=== PATIENT | female | born 1945 | race Caucasian/White ===

== ENCOUNTER 2016-06-18 19:20 | Emergency (ER) | payer BC, OTHER ==
[2016-06-18] MEDS ORDERED: MORPHINE 4 MG/ML 1ML SYRINGE As Ordered ONE (19:30)
[2016-06-18] MEDS ORDERED: ONDANSETRON 4MG/2ML VIAL (J2405) As Ordered ONE (19:35)
[2016-06-18] MEDS ORDERED: PROPOFOL 1,000 MG/100 ML VIAL As Ordered ONE (19:53)
--- NOTE | 2016-06-18 20:39 | REP ---
Right shoulder three views: There is anterior inferior dislocation of the humeral head. There is possibly a Hill-Sachs lesion of the humeral head. Signed by Neftaly Tee MD 06/18/2016 08:31 P
[2016-06-18] MEDS ORDERED: NORCO 5/325MG TABLET (BULK) As Ordered ONE (20:51)
--- NOTE | 2016-06-18 21:17 | EDDOCDS ---
Nurse's Notes [facility] Name: Zee Dudley Age: 71 yrs Sex: Female : 1945 Arrival Date: 06/18/2016 Time: 19:20 Bed TR1 Private MD: Diagnosis: Anterior dislocation of right humerus Presentation: 06/18 19:23 Presenting complaint: Patient states: tripped injury to right shoulder. didn't hit head srm no LOC. Adult Sepsis Screening: The patient does not have new or worsening altered mentation. Patient's respiratory rate is less than 22. Systolic blood pressure is greater than 100. Patient has a qSOFA score of 0- Negative Sepsis Screen. Suicide/Homicide risk assessment- the patient denies having any suicidal and/or homicidal ideations and does not present with any other emotional, behavioral or mental health complaints. 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 Transition of care: patient was not received from another setting of care. Care prior to arrival: Medications administered prior to arrival: morphine 5 mg IV IV initiated. Saline lock initiated. 20 LAC. 19:23 Acuity: AL Level 4 srm 19:23 Method Of Arrival: Ambulance srm Triage Assessment: 19:31 General: Appears in no apparent distress, Behavior is appropriate for age, cooperative. srm Pain: Pain currently is 10 out of 10 on a pain scale. Musculoskeletal: Circulation, motion, and sensation intact Capillary refill < 3 seconds in right fingers. Historical: - Allergies: no known allergies; - Home Meds: 1. vitamins - PMHx: none; - PSHx: ; eye surgery; - Social history: Smoking status: Patient states was never smoker of tobacco. No barriers to communication noted, The patient speaks fluent Azerbaijani, Speaks appropriately for age. - Family history: Not pertinent. - : The pt / caregiver states he / she is not on anticoagulants. Home medication list is obtained from the patient. - Exposure Risk Screening:: None identified. Screenin:08 Screening information is obtained from the patient. Fall risk: No risks identified. kas2 Assistance ADL's: requires no assistance with activities of daily living. Abuse/DV Screen: The patient / caregiver reports he/she is: not in a situation that causes fear, pain or injury. Nutritional screening: No deficits noted. Advance Directives: Currently, there is no health care proxy. There is no active DNR order. There is no living will. There is an active Power of Ampoule Examiner. home support is adequate. Assessment: 20:06 General: Appears in no apparent distress, uncomfortable, well nourished, well groomed, kas2 Behavior is appropriate for age, cooperative. Pain: Location: right shoulder and right arm Pain currently is 10 out of 10 on a pain scale. Neurological: Level of Consciousness is awake, alert, Oriented to person, place, time. Cardiovascular: Capillary refill < 3 seconds Heart tones S1 S2 present Rhythm is sinus tachycardia No ectopy. Respiratory: Airway is patent Respiratory effort is even, unlabored, Respiratory pattern is regular, symmetrical, Breath sounds are clear bilaterally. Derm: Skin is intact, is healthy with good turgor, Skin is dry, Skin is pink, warm & dry. Skin temperature is warm. Musculoskeletal: Circulation, motion, and sensation intact Capillary refill < 3 seconds Range of motion limited in right shoulder. Injury Description: pt fell. 20:45 General: PACKAGE LINE RELIEF OPERATOR up walking with patient at this time. Patients gait is stable. A+OX3. No kas2 apparent distress. Patient states pain in shoulder is much better 2/10. Good CMS in R hand and arm. Sling applied. . Vital Signs: 19:33 BP 193 / 106; Pulse 115; Resp 18; Temp 99.3(O); Pulse Ox 93% on R/A; Weight 76.2 kg mdr (R); Height 5 ft. 0 in. (152.40 cm) (R); Pain 10/10; 19:50 BP 196 / 100; Pulse 109; Resp 22; Pulse Ox 95% on Venturi mask; kas2 19:50 BP 157 / 72; Pulse 110; Resp 20; Pulse Ox 95% on Venturi mask; kas2 20:01 BP 154 / 81; Pulse 111; Resp 19; Pulse Ox 92% on 4 lpm NC; kas2 20:05 BP 172 / 74; Pulse 107; Resp 20; Pulse Ox 95% on 2 lpm NC; Pain 2/10; kas2 20:12 BP 182 / 89; Pulse 108; Resp 20; Pulse Ox 95% on 2 lpm NC; Pain 2/10; kas2 20:21 BP 182 / 99; Pulse 118; Resp 18; Pulse Ox 95% 2 lpm ; Pain 2/10; kas2 20:39 Temp 98.9(O); mdr 20:47 BP 175 / 85; Pulse 99; Resp 18; Pulse Ox 99% on R/A; Pain 2/10; kas2 19:33 Body Mass Index 32.81 (76.20 kg, 152.40 cm) mdr Vitals: 21:12 Log In Time N/A - ambulance arrival. kas2 ED Course: 19:21 Patient visited by Jesus Flores PCA. kb5 19:21 Nelsy Alatorre,RN is Primary Nurse. kb5 19:21 Harmony Flores RN is Primary Nurse. kb5 19:21 Patient moved to Waiting kb5 19:21 Patient moved to 3 kb5 19:25 Triage Initiated srm 19:28 [facility] ke 19:28 Patient visited by Kirt Palomo FNP. ke 19:28 Patient visited by Kirt Palomo FNP. ke 19:31 Patient visited by Yvonne Cordoba RN. srm 19:34 Patient visited by Jl Rosario PCA. mdr 20:09 Patient visited by Kirt Palomo FNP. ke 20:09 Maintain field IV. Dressing intact. Site clean & dry. Gauge & site: 20G right AC. IV is kas2 patent, is intact. 20:10 Patient visited by Harmony Flores RN. kas2 20:16 [facility] Payment Agreement was scanned into boomtrain and attached to record. zo 20:24 Patient visited by Harmony Flores RN. kas2 20:34 [facility] is Referral Physician. ke 20:40 Patient visited by Jl Rosario PCA. mdr 20:42 Shoulder, Complete Returned. EDMS 20:47 Patient visited by Harmony Flores RN. kas2 21:08 [facility] Discontinued IV bleeding controlled, pressure dressing applied, No redness/swelling at kas2 site. No procedures done that require assistance. 21:11 The patient / caregiver is instructed regarding the plan of care and ED course. kas2 21:12 Patient visited by Harmony Flores RN. kas2 M. Sedation: 19:50 Pre-procedure: Name of procedure: Relocation of right shoulder The provider performing kas2 the procedure is Kirt GATICA Monitoring RN: Harmony Flores RN Other Staff: Yvonne Campoverde RN Reviewed instructions and expectations with Has had drug/anesthesia reactions to none Reviewed patient's current meds list. transportation aide on. Cardiac rhythm sinus tachycardia Pulse ox on. Oxygen via face mask \T\ 40% 19:50 Q 5 minute assessment 19:50 Q 5 minute assessment Level of Consciousness: Drowsy Color: Ramer Skin: Warm / Dry Pain: Unable to quantify pain 19:50 Intra-procedure: Procedure began at 19:56 Patient response: skin warm/dry, resps even/unlabored, IV patent, Propofol 60mg IV at 1956. 19:50 Post-procedure: Procedure ended at 19:58 the total procedure time was less than 30 minutes. 20:01 Q 5 minute assessment Level of Consciousness: Drowsy Color: Ramer Skin: Warm / Dry kas2 Pain: Unable to quantify pain 20:01 Q 5 minute assessment Level of Consciousness: Responds Color: Ramer Skin: Warm / Dry Pain: 0 / 10 20:05 Q 5 minute assessment Level of Consciousness: Alert / Oriented Color: Ramer Skin: kas2 Warm / Dry Pain: 0 / 10 20:12 Q 5 minute assessment Level of Consciousness: Responds Color: Ramer Skin: Warm / Dry kas2 Pain: 2 / 10 20:12 Q 5 minute assessment Level of Consciousness: Responds Color: Ramer Skin: Warm / Dry kas2 Pain: 2 / 10 Administered Medications: 19:34 Drug: morphine 4 mg [morphine 4 mg/mL intravenous cartridge (1 mL)] Route: IVP; Site: kas2 left antecubital; 19:37 Drug: Ondansetron 4 mg [ondansetron HCl 2 mg/mL intravenous solution (2 mL)] Route: kas2 IVP; Site: left antecubital; 21:05 Drug: HYDROcodone-acetaminophen 4 pack- 1 packets [hydrocodone 5 mg-acetaminophen 325 kas2 mg tablet (1 tabs)] {Co-Signature: nn1 (Estrellita Arzate RN).} Route: PO; RT: 19:50 Sedation Time: 1955Minutes. O2 via Venturi mask \T\ 15L/min - 50%. jh6 Order Results: Radiology Order: Shoulder, Complete Test: Shoulder, Complete REASON FOR EXAMINATION: Trauma; Right shoulder three views:; ; There is anterior inferior dislocation of the humeral head. There is possibly a; Hill-Sachs lesion of the humeral head.; ; ; Signed by; Neftaly Tee MD 06/18/2016 08:31 P; Outcome: 20:34 Discharge ordered by Provider. olu 21:08 Discharge Assessment: patient administered narcotics - yes. Pt provided with safe kas discharge. The following High Risk Discharge criteria are identified: None. Discharged to home ambulatory, with family. Condition: good Condition: stable Condition: improved. No special radiology studies were completed. Property :Personal belongings accompany Pt. 21:[address] [facility] Signatures: Dispatcher MedHost EDMS Yvonne Cordoba, RN RN [facility] Kirt Palomo, SCREENER AND BLENDER OPERATOR SCREENER AND BLENDER OPERATOR Tika Scott Kristopher, PACKAGE LINE RELIEF OPERATOR PACKAGE LINE RELIEF OPERATOR kb5 Leonid Patle 6 Stephanie Ross, RN RN sls1 Jl Rosario, PACKAGE LINE RELIEF OPERATOR PACKAGE LINE RELIEF OPERATOR Harmony Ruth,JOSELINE RN kas2 Estrellita Arzate RN nn1 MTDKeyshawn
--- NOTE | 2016-06-18 21:18 | EDDOCDS ---
Physician Documentation [facility] Name: Zee Dudley Age: 71 yrs Sex: Female : 1945 Arrival Date: 06/18/2016 Time: 19:20 Bed TR1 Private MD: Disposition: 06/18/16 20:34 Discharged to Home/Self Care. Impression: Anterior dislocation of right humerus. - Condition is Stable. - Discharge Instructions: Elastic Bandage and RICE, Shoulder Dislocation, Arm Sling Use, [id number]. - Prescriptions for Evans 5- 325 mg Oral Tablet - take 1 tablet by ORAL route every 6 hours As needed MDD: 4 tabs; 20 tablet. - Medication Reconciliation, Local Pharmacy Hours form. - Follow up: [facility]; When: Call to arrange an appointment; Reason: Further diagnostic work-up, Continuance of care. Follow up: Private Physician; When: 4 - 5 days; Reason: Recheck today's complaints, Continuance of care. - Problem is new. - Symptoms have improved. Historical: - Allergies: no known allergies; - Home Meds: 1. vitamins - PMHx: none; - PSHx: ; eye surgery; - Social history: Smoking status: Patient states was never smoker of tobacco. No barriers to communication noted, The patient speaks fluent Burkinan, Speaks appropriately for age. - Family history: Not pertinent. - : The pt / caregiver states he / she is not on anticoagulants. Home medication list is obtained from the patient. - Exposure Risk Screening:: None identified. Vital Signs: 06/18 19:33 BP 193 / 106; Pulse 115; Resp 18; Temp 99.3(O); Pulse Ox 93% on R/A; Weight 76.2 kg / mdr 167.99 lbs (R); Height 5 ft. 0 in. (152.40 cm) (R); Pain 10/10; 19:50 BP 196 / 100; Pulse 109; Resp 22; Pulse Ox 95% on Venturi mask; kas2 19:50 BP 157 / 72; Pulse 110; Resp 20; Pulse Ox 95% on Venturi mask; kas2 20:01 BP 154 / 81; Pulse 111; Resp 19; Pulse Ox 92% on 4 lpm NC; kas2 20:05 BP 172 / 74; Pulse 107; Resp 20; Pulse Ox 95% on 2 lpm NC; Pain 2/10; kas2 20:12 BP 182 / 89; Pulse 108; Resp 20; Pulse Ox 95% on 2 lpm NC; Pain 2/10; kas2 20:21 BP 182 / 99; Pulse 118; Resp 18; Pulse Ox 95% 2 lpm ; Pain 2/10; kas2 20:39 Temp 98.9(O); mdr 20:47 BP 175 / 85; Pulse 99; Resp 18; Pulse Ox 99% on R/A; Pain 2/10; kas2 19:33 Body Mass Index 32.81 (76.20 kg, 152.40 cm) mdr MDM: 19:28 morphine 4 mg IVP every 30 minutes; Document pain score/vitals after each dose (Hold if ke SBP < 90mmHg) x2 ordered. 19:29 Ondansetron 4 mg IVP once ordered. ke 19:29 Shoulder, Complete Ordered. EDMS 20:01 Shoulder (1 View) Ordered. EDMS 20:15 Financial registration complete. zo 20:16 [facility] Payment Agreement was scanned into Cartagenia and attached to record. zo 20:33 HYDROcodone-acetaminophen 4 pack- 5 mg-325 mg 1 packets PO Per package directions; ke Dispense with patient. 1 po q4h prn for pain ordered. Administered Medications: 19:34 Drug: morphine 4 mg [morphine 4 mg/mL intravenous cartridge (1 mL)] Route: IVP; Site: [facility] left antecubital; 19:37 Drug: Ondansetron 4 mg [ondansetron HCl 2 mg/mL intravenous solution (2 mL)] Route: kas2 IVP; Site: left antecubital; 21:05 Drug: HYDROcodone-acetaminophen 4 pack- 1 packets [hydrocodone 5 mg-acetaminophen 325 kas2 mg tablet (1 tabs)] {Co-Signature: nn1 (Estrellita Arzate RN).} Route: PO; Signatures: Dispatcher MedHost EDMS Yvonne Cordoba RN Kirt Capone, EXTERMINATOR TERMITE EXTERMINATOR TERMITE Tika Scott Shannon, RN RN sls1 Harmony Flores RN RN kas2 Estrellita Arzate RN nn1 The chart was reviewed and I authenticate all verbal orders and agree with the evaluation and treatment provided.Attachments: 20:16 [place] Payment Agreement zo MTDD
--- NOTE | 2016-06-19 01:36 | REP ---
Clinical: Post reduction. Technique: Portable neutral view of the right shoulder. Findings: Satisfactory reduction appreciated. Age-related degenerative changes noted. No acute fracture identified. Impression: Satisfactory reduction. No obvious acute fracture. Signed by Rory Nichols MD 06/19/2016 01:27 A
--- NOTE | 2016-06-20 22:17 | EDDOCDS ---
Physician Documentation [facility] Name: Zee Dudley Age: 71 yrs Sex: Female : 1945 Arrival Date: 06/18/2016 Time: 19:20 Bed TR1 Private MD: Disposition: 06/18/16 20:34 Discharged to Home/Self Care. Impression: Anterior dislocation of right humerus. - Condition is Stable. - Discharge Instructions: Elastic Bandage and RICE, Shoulder Dislocation, Arm Sling Use, [id number]. - Prescriptions for [place] 5- 325 mg Oral Tablet - take 1 tablet by ORAL route every 6 hours As needed MDD: 4 tabs; 20 tablet. - Medication Reconciliation, Local Pharmacy Hours form. - Follow up: [facility]; When: Call to arrange an appointment; Reason: Further diagnostic work-up, Continuance of care. Follow up: Private Physician; When: 4 - 5 days; Reason: Recheck today's complaints, Continuance of care. - Problem is new. - Symptoms have improved. Historical: - Allergies: no known allergies; - Home Meds: 1. vitamins - PMHx: none; - PSHx: ; eye surgery; - Social history: Smoking status: Patient states was never smoker of tobacco. No barriers to communication noted, The patient speaks fluent Qatari, Speaks appropriately for age. - Family history: Not pertinent. - : The pt / caregiver states he / she is not on anticoagulants. Home medication list is obtained from the patient. - Exposure Risk Screening:: None identified. Vital Signs: 06/18 19:33 BP 193 / 106; Pulse 115; Resp 18; Temp 99.3(O); Pulse Ox 93% on R/A; Weight 76.2 kg / mdr 167.99 lbs (R); Height 5 ft. 0 in. (152.40 cm) (R); Pain 10/10; 19:50 BP 196 / 100; Pulse 109; Resp 22; Pulse Ox 95% on Venturi mask; kas2 19:50 BP 157 / 72; Pulse 110; Resp 20; Pulse Ox 95% on Venturi mask; kas2 20:01 BP 154 / 81; Pulse 111; Resp 19; Pulse Ox 92% on 4 lpm NC; kas2 20:05 BP 172 / 74; Pulse 107; Resp 20; Pulse Ox 95% on 2 lpm NC; Pain 2/10; kas2 20:12 BP 182 / 89; Pulse 108; Resp 20; Pulse Ox 95% on 2 lpm NC; Pain 2/10; kas2 20:21 BP 182 / 99; Pulse 118; Resp 18; Pulse Ox 95% 2 lpm ; Pain 2/10; kas2 20:39 Temp 98.9(O); mdr 20:47 BP 175 / 85; Pulse 99; Resp 18; Pulse Ox 99% on R/A; Pain 2/10; kas2 19:33 Body Mass Index 32.81 (76.20 kg, 152.40 cm) mdr MDM: 19:28 morphine 4 mg IVP every 30 minutes; Document pain score/vitals after each dose (Hold if ke SBP < 90mmHg) x2 ordered. 19:29 Ondansetron 4 mg IVP once ordered. ke 19:29 Shoulder, Complete Ordered. EDMS 20:01 Shoulder (1 View) Ordered. EDMS 20:15 Financial registration complete. zo 20:16 [facility] Payment Agreement was scanned into [employer] and attached to record. zo 20:33 HYDROcodone-acetaminophen 4 pack- 5 mg-325 mg 1 packets PO Per package directions; ke Dispense with patient. 1 po q4h prn for pain ordered. 06/19 11:18 T-Sheet-- Draft Copy was scanned into [employer] and attached to record. gb 11:18 Trend VS was scanned into [employer] and attached to record. gb 11:19 [place] Protocol was scanned into [employer] and attached to record. gb 11:19 Consents was scanned into [employer] and attached to record. gb Administered Medications: 06/18 19:34 Drug: morphine 4 mg [morphine 4 mg/mL intravenous cartridge (1 mL)] Route: IVP; Site: kas2 left antecubital; 19:37 Drug: Ondansetron 4 mg [ondansetron HCl 2 mg/mL intravenous solution (2 mL)] Route: kas2 IVP; Site: left antecubital; 21:05 Drug: HYDROcodone-acetaminophen 4 pack- 1 packets [hydrocodone 5 mg-acetaminophen 325 kas2 mg tablet (1 tabs)] {Co-Signature: nn1 (Estrellita Arzate RN).} Route: PO; Signatures: Dispatcher MedHost EDMS Beryl, Yvonne, RN RN srm Celia Higgins, Reg Reg gb Kirt Palomo, BLOCK TRADER BLOCK TRADER Tika Scott Shannon, RN RN sls1 Harmony Flores RN RN kas2 Estrellita Arzate RN nn1 The chart was reviewed and I authenticate all verbal orders and agree with the evaluation and treatment provided.Attachments: 20:16 [facility] Payment Agreement zo 06/19 11:18 T-Sheet-- Draft Copy gb Chart Complete MTDD
--- NOTE | 2016-06-20 22:17 | EDDOCDS ---
Physician Documentation [facility] Name: Zee Dudley Age: 71 yrs Sex: Female : 1945 Arrival Date: 06/18/2016 Time: 19:20 Bed TR1 Private MD: Disposition: 06/18/16 20:34 Discharged to Home/Self Care. Impression: Anterior dislocation of right humerus. - Condition is Stable. - Discharge Instructions: Elastic Bandage and RICE, Shoulder Dislocation, Arm Sling Use, [id number]. - Prescriptions for [place] 5- 325 mg Oral Tablet - take 1 tablet by ORAL route every 6 hours As needed MDD: 4 tabs; 20 tablet. - Medication Reconciliation, Local Pharmacy Hours form. - Follow up: [facility]; When: Call to arrange an appointment; Reason: Further diagnostic work-up, Continuance of care. Follow up: Private Physician; When: 4 - 5 days; Reason: Recheck today's complaints, Continuance of care. - Problem is new. - Symptoms have improved. Historical: - Allergies: no known allergies; - Home Meds: 1. vitamins - PMHx: none; - PSHx: ; eye surgery; - Social history: Smoking status: Patient states was never smoker of tobacco. No barriers to communication noted, The patient speaks fluent Djiboutian, Speaks appropriately for age. - Family history: Not pertinent. - : The pt / caregiver states he / she is not on anticoagulants. Home medication list is obtained from the patient. - Exposure Risk Screening:: None identified. Vital Signs: 06/18 19:33 BP 193 / 106; Pulse 115; Resp 18; Temp 99.3(O); Pulse Ox 93% on R/A; Weight 76.2 kg / mdr 167.99 lbs (R); Height 5 ft. 0 in. (152.40 cm) (R); Pain 10/10; 19:50 BP 196 / 100; Pulse 109; Resp 22; Pulse Ox 95% on Venturi mask; kas2 19:50 BP 157 / 72; Pulse 110; Resp 20; Pulse Ox 95% on Venturi mask; kas2 20:01 BP 154 / 81; Pulse 111; Resp 19; Pulse Ox 92% on 4 lpm NC; kas2 20:05 BP 172 / 74; Pulse 107; Resp 20; Pulse Ox 95% on 2 lpm NC; Pain 2/10; kas2 20:12 BP 182 / 89; Pulse 108; Resp 20; Pulse Ox 95% on 2 lpm NC; Pain 2/10; kas2 20:21 BP 182 / 99; Pulse 118; Resp 18; Pulse Ox 95% 2 lpm ; Pain 2/10; kas2 20:39 Temp 98.9(O); mdr 20:47 BP 175 / 85; Pulse 99; Resp 18; Pulse Ox 99% on R/A; Pain 2/10; kas2 19:33 Body Mass Index 32.81 (76.20 kg, 152.40 cm) mdr MDM: 19:28 morphine 4 mg IVP every 30 minutes; Document pain score/vitals after each dose (Hold if ke SBP < 90mmHg) x2 ordered. 19:29 Ondansetron 4 mg IVP once ordered. ke 19:29 Shoulder, Complete Ordered. EDMS 20:01 Shoulder (1 View) Ordered. EDMS 20:15 Financial registration complete. zo 20:16 [place] Payment Agreement was scanned into Mobile[employer] and attached to record. zo 20:33 HYDROcodone-acetaminophen 4 pack- 5 mg-325 mg 1 packets PO Per package directions; ke Dispense with patient. 1 po q4h prn for pain ordered. 06/19 11:18 T-Sheet-- Draft Copy was scanned into MobileTag and attached to record. gb 11:18 Trend VS was scanned into Mobile[employer] and attached to record. gb 11:19 [place] Protocol was scanned into Mobile[employer] and attached to record. gb 11:19 Consents was scanned into MobileTag and attached to record. gb Administered Medications: 06/18 19:34 Drug: morphine 4 mg [morphine 4 mg/mL intravenous cartridge (1 mL)] Route: IVP; Site: kas2 left antecubital; 19:37 Drug: Ondansetron 4 mg [ondansetron HCl 2 mg/mL intravenous solution (2 mL)] Route: kas2 IVP; Site: left antecubital; 21:05 Drug: HYDROcodone-acetaminophen 4 pack- 1 packets [hydrocodone 5 mg-acetaminophen 325 kas2 mg tablet (1 tabs)] {Co-Signature: nn1 (Estrellita Arzate RN).} Route: PO; Signatures: Dispatcher MedHost EDMS Beryl, Yvonne, RN RN srm Celia Higgins, Reg Reg gb Kirt Palomo, HAIR BLENDER HAIR BLENDER Tika Scott Shannon, RN RN sls1 Harmony Flores RN RN kas2 Estrellita Arzate RN nn1 The chart was reviewed and I authenticate all verbal orders and agree with the evaluation and treatment provided.Attachments: 20:16 [place] Payment Agreement zo 06/19 11:18 T-Sheet-- Draft Copy gb Chart Complete MTDD
--- NOTE | 2016-06-20 22:18 | EDDOCDS ---
Nurse's Notes [facility] Name: Zee Dudley Age: 71 yrs Sex: Female : 1945 Arrival Date: 06/18/2016 Time: 19:20 Bed TR1 Private MD: Diagnosis: Anterior dislocation of right humerus Presentation: 06/18 19:23 Presenting complaint: Patient states: tripped injury to right shoulder. didn't hit head srm no LOC. Adult Sepsis Screening: The patient does not have new or worsening altered mentation. Patient's respiratory rate is less than 22. Systolic blood pressure is greater than 100. Patient has a qSOFA score of 0- Negative Sepsis Screen. Suicide/Homicide risk assessment- the patient denies having any suicidal and/or homicidal ideations and does not present with any other emotional, behavioral or mental health complaints. Status: Patient is not a manager administrative services or dependent. Transition of care: patient was not received from another setting of care. Care prior to arrival: Medications administered prior to arrival: morphine 5 mg IV IV initiated. Saline lock initiated. 20 LAC. 19:23 Acuity: AL Level 4 srm 19:23 Method Of Arrival: Ambulance srm Triage Assessment: 19:31 General: Appears in no apparent distress, Behavior is appropriate for age, cooperative. srm Pain: Pain currently is 10 out of 10 on a pain scale. Musculoskeletal: Circulation, motion, and sensation intact Capillary refill < 3 seconds in right fingers. Historical: - Allergies: no known allergies; - Home Meds: 1. vitamins - PMHx: none; - PSHx: ; eye surgery; - Social history: Smoking status: Patient states was never smoker of tobacco. No barriers to communication noted, The patient speaks fluent [place], Speaks appropriately for age. - Family history: Not pertinent. - : The pt / caregiver states he / she is not on anticoagulants. Home medication list is obtained from the patient. - Exposure Risk Screening:: None identified. Screenin:08 Screening information is obtained from the patient. Fall risk: No risks identified. kas2 Assistance ADL's: requires no assistance with activities of daily living. Abuse/DV Screen: The patient / caregiver reports he/she is: not in a situation that causes fear, pain or injury. Nutritional screening: No deficits noted. Advance Directives: Currently, there is no health care proxy. There is no active DNR order. There is no living will. There is an active Power of Check Out Cashier. home support is adequate. Assessment: 20:06 General: Appears in no apparent distress, uncomfortable, well nourished, well groomed, kas2 Behavior is appropriate for age, cooperative. Pain: Location: right shoulder and right arm Pain currently is 10 out of 10 on a pain scale. Neurological: Level of Consciousness is awake, alert, Oriented to person, place, time. Cardiovascular: Capillary refill < 3 seconds Heart tones S1 S2 present Rhythm is sinus tachycardia No ectopy. Respiratory: Airway is patent Respiratory effort is even, unlabored, Respiratory pattern is regular, symmetrical, Breath sounds are clear bilaterally. Derm: Skin is intact, is healthy with good turgor, Skin is dry, Skin is pink, warm & dry. Skin temperature is warm. Musculoskeletal: Circulation, motion, and sensation intact Capillary refill < 3 seconds Range of motion limited in right shoulder. Injury Description: pt fell. 20:45 General: PRINCIPAL SECURITY ARCHITECT up walking with patient at this time. Patients gait is stable. A+OX3. No kas2 apparent distress. Patient states pain in shoulder is much better 2/10. Good CMS in R hand and arm. Sling applied. . Vital Signs: 19:33 BP 193 / 106; Pulse 115; Resp 18; Temp 99.3(O); Pulse Ox 93% on R/A; Weight 76.2 kg mdr (R); Height 5 ft. 0 in. (152.40 cm) (R); Pain 10/10; 19:50 BP 196 / 100; Pulse 109; Resp 22; Pulse Ox 95% on Venturi mask; kas2 19:50 BP 157 / 72; Pulse 110; Resp 20; Pulse Ox 95% on Venturi mask; kas2 20:01 BP 154 / 81; Pulse 111; Resp 19; Pulse Ox 92% on 4 lpm NC; kas2 20:05 BP 172 / 74; Pulse 107; Resp 20; Pulse Ox 95% on 2 lpm NC; Pain 2/10; kas2 20:12 BP 182 / 89; Pulse 108; Resp 20; Pulse Ox 95% on 2 lpm NC; Pain 2/10; kas2 20:21 BP 182 / 99; Pulse 118; Resp 18; Pulse Ox 95% 2 lpm ; Pain 2/10; kas2 20:39 Temp 98.9(O); mdr 20:47 BP 175 / 85; Pulse 99; Resp 18; Pulse Ox 99% on R/A; Pain 2/10; kas2 19:33 Body Mass Index 32.81 (76.20 kg, 152.40 cm) mdr Vitals: 21:12 Log In Time N/A - ambulance arrival. [facility] ED Course: 19:21 Patient visited by Jesus Flores PCA. kb5 19:21 Nelsy Alatorre,RN is Primary Nurse. kb5 19:21 Harmony Flores,RN is Primary Nurse. kb5 19:21 Patient moved to Waiting kb5 19:21 Patient moved to 3 kb5 19:25 Triage Initiated srm 19:28 [facility] ke 19:28 Patient visited by Kirt Palomo FNP. ke 19:28 Patient visited by Kirt Palomo FNP. ke 19:31 Patient visited by Yvonne Cordoba RN. srm 19:34 Patient visited by Jl Rosario PCA. mdr 20:09 Patient visited by Kirt Palomo FNP. ke 20:09 Maintain field IV. Dressing intact. Site clean & dry. Gauge & site: 20G right AC. IV is kas patent, is intact. 20:10 Patient visited by Harmony Flores RN. kas2 20:16 [facility] Payment Agreement was scanned into [employer] and attached to record. zo 20:24 Patient visited by Harmony Flores RN. kas2 20:34 [facility] is Referral Physician. ke 20:40 Patient visited by Jl Rosario PCA. mdr 20:42 Shoulder, Complete Returned. EDMS 20:47 Patient visited by Harmony Flores RN. kas2 21:08 Patient moved to [place] [id number] 21:08 Discontinued IV bleeding controlled, pressure dressing applied, No redness/swelling at [facility] site. No procedures done that require assistance. 21:11 The patient / caregiver is instructed regarding the plan of care and ED course. kas2 21:12 Patient visited by Harmony Flores RN. kas2 06/19 01:45 Shoulder (1 View) Returned. EDMS 11:18 T-Sheet-- Draft Copy was scanned into [employer] and attached to record. gb 11:18 Trend VS was scanned into [employer] and attached to record. gb 11:19 [employer] Protocol was scanned into [employer] and attached to record. gb 11:19 Consents was scanned into [employer] and attached to record. uri Castillo. Sedation: 06/18 19:50 Pre-procedure: Name of procedure: Relocation of right shoulder The provider performing kas2 the procedure is Kirt Palomo PERIANESTHESIA MANAGER Monitoring RN: Harmony Flores RN Other Staff: Yvonne Campoverde RN Reviewed instructions and expectations with Has had drug/anesthesia reactions to none Reviewed patient's current meds list. pizza baker on. Cardiac rhythm sinus tachycardia Pulse ox on. Oxygen via face mask \T\ 40% Q 5 minute assessment Q 5 minute assessment Level of Consciousness: Drowsy Color: [place] Skin: Warm / Dry Pain: Unable to quantify pain Intra-procedure: Procedure began at 19:56 Patient response: skin warm/dry, resps even/unlabored, IV patent, Propofol 60mg IV at 1957. Post-procedure: Procedure ended at 19:58 the total procedure time was less than 30 minutes. 20:01 Q 5 minute assessment Level of Consciousness: Drowsy Color: [place] Skin: Warm / Dry kas2 Pain: Unable to quantify pain 20:01 Q 5 minute assessment Level of Consciousness: Responds Color: [place] Skin: Warm / Dry Pain: 0 / 10 20:05 Q 5 minute assessment Level of Consciousness: Alert / Oriented Color: [place] Skin: kas2 Warm / Dry Pain: 0 / 10 20:12 Q 5 minute assessment Level of Consciousness: Responds Color: [place] Skin: Warm / Dry kas2 Pain: 2 / 10 20:12 Q 5 minute assessment Level of Consciousness: Responds Color: [place] Skin: Warm / Dry kas2 Pain: 2 / 10 Administered Medications: 19:34 Drug: morphine 4 mg [morphine 4 mg/mL intravenous cartridge (1 mL)] Route: IVP; Site: kas2 left antecubital; 19:37 Drug: Ondansetron 4 mg [ondansetron HCl 2 mg/mL intravenous solution (2 mL)] Route: kas2 IVP; Site: left antecubital; 21:05 Drug: HYDROcodone-acetaminophen 4 pack- 1 packets [hydrocodone 5 mg-acetaminophen 325 kas2 mg tablet (1 tabs)] {Co-Signature: nn1 (Estrellita Arzate RN).} Route: PO; Attachments: 11:18 Trend VS 11:19 [employer] Protocol 11:19 Consents RT: 06/18 19:50 Sedation Time: 1956Minutes. O2 via Venturi mask \T\ 15L/min - 50%. [email or web address] Order Results: Radiology Order: Shoulder, Complete Test: Shoulder, Complete REASON FOR EXAMINATION: Trauma; Right shoulder three views:; ; There is anterior inferior dislocation of the humeral head. There is possibly a; Hill-Sachs lesion of the humeral head.; ; ; Signed by; Neftaly Tee MD 06/18/2016 08:31 P; Radiology Order: Shoulder (1 View) Test: Shoulder (1 View) REASON FOR EXAMINATION: post reduction; Clinical: Post reduction.; ; Technique: Portable neutral view of the right shoulder.; ; Findings:; Satisfactory reduction appreciated. Age-related degenerative changes noted. No; acute fracture identified.; ; Impression:; Satisfactory reduction. No obvious acute fracture.; ; ; Signed by; Rory Nichols MD 06/19/2016 01:27 A; Outcome: 20:34 Discharge ordered by Provider. 21:08 Discharge Assessment: patient administered narcotics - yes. Pt provided with safe [facility] discharge. The following High Risk Discharge criteria are identified: None. Discharged to home ambulatory, with family. Condition: good Condition: stable Condition: improved. No special radiology studies were completed. Property :Personal belongings accompany Pt. 21:16 Patient left the ED. sls1 Signatures: Dispatcher [employer] EDMS Yvonne Cordoba, RN RN [facility] Celia Higgins, Reg Reg Kirt Palomo, PERIANESTHESIA MANAGER PERIANESTHESIA MANAGER Tika Scott Kristopher, PRINCIPAL SECURITY ARCHITECT PRINCIPAL SECURITY ARCHITECT kb5 Leonid Patel 6 Stephanie Ross RN RN sls1 Jl Rosario, PRINCIPAL SECURITY ARCHITECT PRINCIPAL SECURITY ARCHITECT Harmony Ruth RN RN kas2 Estrellita Arzate RN nn1 Chart Complete MTDD
== END 2016-06-18 21:16 | disposition home or self-care (01) ==
LOC: M ED 19:20
DX: S43.014A Anterior dislocation of right humerus, initial encounter (principal); W01.0XXA Fall on same level from slipping, tripping and stumbling without subsequent striking against object, initial encounter; Y92.89 Other specified places as the place of occurrence of the external cause; Y93.89 Activity, other specified; Y99.0 Civilian activity done for income or pay
CPT/HCPCS: 23650; 73020; 73030; 93041; 96374; 96375; 99285; J2405

== ENCOUNTER 2016-10-18 08:05 | Inpatient (IN) | payer MEDICARE ==
[~2016-10-18] VITALS: Ht 154.9 cm; Wt 76.2 kg
[2016-10-18] MEDS ORDERED: PRIL20CA9 PO (08:44)
[2016-10-18] MEDS: SENOKOT S TAB PO SCH ×2 (09:00→20:38)
[2016-10-18] MEDS ORDERED: MORPHINE 4 MG/ML 1ML SYRINGE IV ONE (09:15)
[2016-10-18 09:43] LABS: BASO % 0.2 % (0.0-1.0); EOS # 0.2 K/mm3 (0.0-0.50); EOS % 0.9 % (0.0-3.0); LARGE UNSTAINED CELL # 0.1 K/mm3 (0.0-0.4); LARGE UNSTAINED CELL % 0.7 % (0.0-4.0); LYMPH # 1.1 K/mm3 (1.5-4.5); LYMPH % 5.7 % (24.0-44.0); MEAN CORPUSCULAR HGB CONC 32.6 g/dl (32.0-36.5); MONO # 0.8 K/mm3 (0.0-0.8); MONO % 4.3 % (0.0-5.0); NEUTROPHILS # 15.9 K/mm3 (1.8-7.7); NEUTROPHILS % 88.3 % (36.0-66.0); PLATELET COUNT, AUTOMATED 284 k/mm3 (150-450); WHITE BLOOD COUNT 18.1 K/mm3 (4.0-10.0)
[2016-10-18 09:48] LABS: INR 0.93
[2016-10-18 09:58] LABS: ALBUMIN 3.4 GM/DL (3.2-5.2); ALBUMIN/GLOBULIN RATIO 0.76 (1.00-1.93); ALKALINE PHOSPHATASE 274 U/L (45-117); ALT/SGPT 47 U/L (12-78); ANION GAP 16 MEQ/L (8-16); AST/SGOT 23 U/L (15-37); BILIRUBIN,DIRECT 0.1 MG/DL (0.0-0.2); BILIRUBIN,TOTAL 0.5 MG/DL (0.2-1.0); BLOOD UREA NITROGEN 19 MG/DL (7-18); CALCIUM LEVEL 9.6 MG/DL (8.8-10.2); CARBON DIOXIDE LEVEL 23 MEQ/L (21-32); CHLORIDE LEVEL 92 MEQ/L (98-107); CREATININE FOR GFR 0.72 MG/DL (0.55-1.02); GLOMERULAR FILTRATION RATE > 60.0 (>39); POTASSIUM SERUM 4.6 MEQ/L (3.5-5.1); SODIUM LEVEL 131 MEQ/L (136-145); TOTAL PROTEIN 7.9 GM/DL (6.4-8.2)
[2016-10-18 10:08] LABS: GLUCOSE, FASTING 520 MG/DL (83-110)
[2016-10-18] MEDS ORDERED: HYDROmorphone HCL 1 MG/ML SYRINGE (J1170) IV ONE (10:15)
--- NOTE | 2016-10-18 10:22 | REP ---
Clinical: Pain on inspiration. Technique: PA and lateral. Comparison: None available. Findings: Bibasilar atelectasis/infiltrates are appreciated along with suspected small pleural effusion. Mediastinum and cardiac silhouette are normal. No pneumothorax. Skeletal structures normal for age. Impression: Bibasilar infiltrate/atelectasis with suspected small pleural effusion. Signed by Rory Nichols MD 10/18/2016 10:13 A
[2016-10-18] MEDS ORDERED: HumuLIN R (REGULAR) INSULIN (NovoLIN R) **100U/ML** PER UNIT IV ONE (11:00)
[2016-10-18] MEDS ORDERED: ISOVUE-370 76% 100ML VIAL (Q9967) As Ordered ONE (11:13)
[2016-10-18 11:27] LABS: VENOUS BASE EXCESS -3.3 (-2.0-2.0); VENOUS O2 SATURATION 69.2 % (60.0-80.0); VENOUS PARTIAL PRESSURE CO2 38.2 mmHg (38.0-50.0); VENOUS PARTIAL PRESSURE O2 37.1 mmHg (30.0-50.0); VENOUS TOTAL CO2 22.7 MEQ/L (24.0-28.0)
[2016-10-18] MEDS ORDERED: LevoFLOXacin IV 750 MG in APPROPRIATE DILUENT 1 EA IV ONE (11:45)
[2016-10-18] MEDS ORDERED: NS 1,000 ML IV ONE (11:45)
--- NOTE | 2016-10-18 11:48 | REP ---
Clinical: Acute chest pain. Technique: Axial contrast enhanced images from the thoracic inlet to the upper abdomen using 100 ml Isovue 370 intravenous contrast material with coronal and sagittal re-formations. Findings: Partially occlusive filling defects are identified with in the right main pulmonary artery extending into the proximal right middle lobe pulmonary artery as well as into few proximal right lower lobe branch pulmonary arteries. Partially occlusive filling defects are also identified in the first order left lower lobe pulmonary artery extending into multiple lower lobe pulmonary arterial branches and findings suggest combination of both acute and chronic pulmonary emboli. Associated scattered bibasilar ground-glass opacities suggest elements of atelectasis. Diffuse chronic interstitial changes with elements of predominant lower lobe fibrosis noted as well. No pleural effusion or pneumothorax. The heart is upper limits of normal. The thoracic aorta is unremarkable and without aneurysm or dissection. There is no pericardial effusion. No obvious adenopathy. Tracheobronchial tree is relatively patent although mild chronic bronchiectasis is noted. Impression: 1. Findings described above suggest a moderate acute and chronic pulmonary emboli with associated basilar atelectasis. 2. Chronic changes include elements of bronchiectasis, interstitial changes and scattered lower lobe fibrosis. Signed by Rory Nichols MD 10/18/2016 11:40 A
[2016-10-18] MEDS ORDERED: ACET50TAOT PO (11:50)
[2016-10-18] MEDS ORDERED: MOVE1TAB PO (11:50)
[2016-10-18] MEDS ORDERED: VITMTA PO (11:50)
[2016-10-18] MEDS ORDERED: ALEV220T26 PO (11:50)
[2016-10-18] MEDS ORDERED: CRAN425C2 PO (11:50)
[2016-10-18] MEDS ORDERED: GLUCOSE 4 GM CHEW TABLET PO PRN (13:45)
[2016-10-18] MEDS ORDERED: DEXTROSE 50% 50 ML SYRINGE IV PRN (13:45)
[2016-10-18] MEDS ORDERED: BISACODYL 10 MG SUPP PR PRN (13:45)
[2016-10-18] MEDS ORDERED: ONDANSETRON 4MG/2ML VIAL (J2405) IV PRN (13:45)
[2016-10-18] MEDS ORDERED: GLUCAGON FOR INJ 1 MG VIAL (J1610) SC PRN (13:45)
[2016-10-18] MEDS ORDERED: LEVEMIR (INSULIN DETEMIR) 1 UNITS/0.01ML SC ONE (14:00)
[2016-10-18 15:00] VITALS: BP 124/77
[2016-10-18] MEDS: PERCOCET 5MG/325MG TAB PO PRN ×2 (15:25→20:39)
[2016-10-18] MEDS: ENOXAPARIN 80 MG/0.8 ML SYRINGE (J1650) SC SCH (15:25)
[2016-10-18] MEDS: NS 1,000 ML IV SCH (15:26)
[2016-10-18] MEDS: HumaLOG INSULIN (NovoLOG) PER UNIT SC SCH ×2 (17:30→20:48)
[2016-10-18 20:00] VITALS: BP 140/84
[2016-10-18] MEDS: LEVEMIR (INSULIN DETEMIR) 1 UNITS/0.01ML SC SCH (20:38)
[2016-10-18 23:59] VITALS: BP 143/75
[2016-10-19] MEDS: ENOXAPARIN 80 MG/0.8 ML SYRINGE (J1650) SC SCH ×2 (02:36→14:05)
[2016-10-19] MEDS: NS 1,000 ML IV SCH ×3 (02:36→22:48)
[2016-10-19] MEDS: PERCOCET 5MG/325MG TAB PO PRN ×5 (02:37→21:39)
[2016-10-19 04:00] VITALS: BP 145/90
[2016-10-19 05:12] LABS: BASO % 0.1 % (0.0-1.0); EOS % 0.1 % (0.0-3.0); LARGE UNSTAINED CELL # 0.2 K/mm3 (0.0-0.4); LARGE UNSTAINED CELL % 0.8 % (0.0-4.0); LYMPH # 0.8 K/mm3 (1.5-4.5); LYMPH % 3.4 % (24.0-44.0); MEAN CORPUSCULAR HEMOGLOBIN 30.3 pg (27.0-33.0); MEAN CORPUSCULAR HGB CONC 31.9 g/dl (32.0-36.5); MEAN CORPUSCULAR VOLUME 95.1 fl (80.0-96.0); MONO # 1.2 K/mm3 (0.0-0.8); NEUTROPHILS # 21.3 K/mm3 (1.8-7.7); NEUTROPHILS % 90.6 % (36.0-66.0); PLATELET COUNT, AUTOMATED 294 k/mm3 (150-450); RED CELL DISTRIBUTION WIDTH 13.9 % (11.5-14.5); WHITE BLOOD COUNT 23.5 K/mm3 (4.0-10.0)
[2016-10-19 05:23] LABS: ANION GAP 13 MEQ/L (8-16); BLOOD UREA NITROGEN 9 MG/DL (7-18); CALCIUM LEVEL 8.8 MG/DL (8.8-10.2); CARBON DIOXIDE LEVEL 22 MEQ/L (21-32); CHLORIDE LEVEL 100 MEQ/L (98-107); CREATININE FOR GFR 0.54 MG/DL (0.55-1.02); GLOMERULAR FILTRATION RATE > 60.0 (>39); GLUCOSE, FASTING 292 MG/DL (83-110); POTASSIUM SERUM 3.8 MEQ/L (3.5-5.1); SODIUM LEVEL 135 MEQ/L (136-145)
--- NOTE | 2016-10-19 07:41 | IPNPDOC ---
Subjective Date Seen The patient was seen on 10/19/16. Subjective Chief Complaint/HPI The patient is a 71-year-old female admitted with a reason for visit of Hyperglycemia,Pulmonary Embolism. General: Denies: ROS Unobtainable, Chills, Night Sweats, Fatigue, Malaise, Normal Appetite, Other Symptoms Constitutional: Denies: Chills, Fever, Malaise, Night Sweats, Weakness, Fatigue , Weight Loss, Lethargy, Other Eyes: Denies: Pain, Vision change, Conjunctivae inflammation, Eyelid inflammation, Redness, Other ENT: Denies: Head Aches, Ear Pain, Dysphagia, Sinus Congestion, Post Nasal Drip , Sore Throat, Epistaxis, Other Symptoms Skin: Denies: Rash, Lesions, Jaundice, Bruising, Itching, Dry, Breakdown, Nail Changes, Other Pulmonary: Reports: Dyspnea, Cough, Pleuritic Chest Pain, Denies: Other Symptoms Cardiovascular: Denies: Chest Pain, Palpitations, Orthopnea, Paroxysmal Noc. Dyspnea, Edema, Lt Headedness, Other Symptoms Gastrointestinal: Denies: Nausea, Vomiting, Abdominal Pain, Diarrhea, Constipation, Melena, Hematochezia, Other Symptoms Genitourinary: Denies: Dysuria, Frequency, Incontinence, Hematuria, Retention, Other Symptoms Hematologic: Denies: Bruising, Bleeding Excessively, Petecchia, Purpura, Enlarged Lymph Nodes, Other Hematologic Objective Physical Examination General Exam: Positive: Alert, Cooperative, Mild Distress Eye Exam: Positive: Conjunctiva & lids normal ENT Exam: Positive: Atraumatic Neck Exam: Positive: Supple Chest Exam: Positive: Clear to auscultation, Normal air movement Heart Exam: Positive: Rate Normal, Tachycardic Telemetry: Positive: No significant arrhythmia Abdomen Exam: Positive: Normal bowel sounds, Soft, Negative: Tenderness Extremity Exam: Negative: Edema Psych Exam: Positive: Oriented x 3 Assessment /Plan Problems (1) Diabetes type 2, uncontrolled Status: Acute Response to Treatment: Progressing Discussed With: Patient Problem Specific Plan: Repeat Labs, Repeat Tests (2) Pulmonary embolism Status: Acute Response to Treatment: Progressing Discussed With: Patient Problem Specific Plan: Monitor Clinically, Repeat Labs (3) Hyperglycemia Status: Acute Response to Treatment: Improving Discussed With: Patient Problem Specific Plan: Monitor Clinically Plan/VTE VTE Prophylaxis Ordered?: Yes Plan Diet: Continue Current Activity: Continue Current Therapy: PT Respiratory: Wean Oxygen Diagnostics: Repeat Labs in AM, TTE Anticipated Discharge: Home, Home With Services VS, I&O, 24H, [place] Vital Signs/I&O Vital Signs Date Time Temp Pulse Resp B/P (MAP) Pulse Ox O2 Delivery O2 Flow Rate FiO2 10/19/16 04:00 99.5 129 18 145/90 (108) 91 Nasal Cannula 2.0 I&O- Last 24 Hours up to 6 AM 10/19/16 06:00 Intake Total 2400 ml Output Total 2150 ml Balance 250 ml Laboratory Data 24H LABS Laboratory Tests 2 10/18/16 09:27: White Blood Count 18.1H, Red Blood Count 5.02, Hemoglobin 15.0, Hematocrit 46.2 , Mean Corpuscular Volume 92.0, Mean Corpuscular Hemoglobin 30.0, Mean Corpuscular Hemoglobin Concent 32.6, Red Cell Distribution Width 14.0, Platelet Count 284, Neutrophils (%) (Auto) 88.3H, Lymphocytes (%) (Auto) 5.7L, Monocytes (%) (Auto) 4.3, Eosinophils (%) (Auto) 0.9, Basophils (%) (Auto) 0.2, Neutrophils # (Auto) 15.9H, Lymphocytes # (Auto) 1.1L, Monocytes # (Auto) 0.8, Eosinophils # (Auto) 0.2, Basophils # (Auto) 0.0, Large Unclassified Cells % 0.7 , Large Unclassified Cells # 0.1, Erythrocyte Sedimentation Rate 8, Prothrombin Time 12.6, Prothromb Time International Ratio 0.93, Activated Partial Thromboplast Time 24.2L, Anion Gap 16, Glomerular Filtration Rate > 60.0, Calcium Level 9.6, Aspartate Amino Transf (AST/SGOT) 23, Alanine Aminotransferase (ALT/SGPT) 47, Alkaline Phosphatase 274H, Total Bilirubin 0.5, Direct Bilirubin 0.1, Total Creatine Kinase 43, Creatine Kinase MB 1.0, Creatine Kinase MB Relative Index 2.32, Troponin I < 0.02, C-Reactive Protein, Quantitative 17.50H, Total Protein 7.9, Albumin 3.4, Albumin/Globulin Ratio 0.76L, Lipase 125 10/18/16 11:14: Blood Gas Bicarbonate Standard 21.0, Venous Blood pH 7.368, Venous Blood Partial Pressure CO2 38.2, Venous Blood Partial Pressure O2 37.1, Venous Blood Total Carbon Dioxide 22.7L, Venous Blood HCO3 21.5L, Venous Blood Oxygen Saturation 69.2, Venous Blood Base Excess -3.3L, Estimated Mean Plasma Glucose 361H, Hemoglobin A1c 14.2H, Lactic Acid Level 1.5 10/18/16 11:39: Bedside Glucose (Misc Panel) 499H 10/18/16 12:36: Bedside Glucose (Misc Panel) 414H 10/18/16 13:44: Bedside Glucose (Misc Panel) 406H 10/18/16 16:28: Bedside Glucose (Misc Panel) 381H 10/18/16 16:55: Bedside Glucose (Misc Panel) 375H 10/18/16 20:35: Bedside Glucose (Misc Panel) 346H 10/19/16 04:50: White Blood Count 23.5H, Red Blood Count 4.24, Hemoglobin 12.9#, Hematocrit 40.4 , Mean Corpuscular Volume 95.1, Mean Corpuscular Hemoglobin 30.3, Mean Corpuscular Hemoglobin Concent 31.9L, Red Cell Distribution Width 13.9, Platelet Count 294, Neutrophils (%) (Auto) 90.6H, Lymphocytes (%) (Auto) 3.4L, Monocytes (%) (Auto) 5.0, Eosinophils (%) (Auto) 0.1, Basophils (%) (Auto) 0.1, Neutrophils # (Auto) 21.3H, Lymphocytes # (Auto) 0.8L, Monocytes # (Auto) 1.2H, Eosinophils # (Auto) 0.0, Basophils # (Auto) 0.0, Large Unclassified Cells % 0.8 , Large Unclassified Cells # 0.2, Anion Gap 13, Glomerular Filtration Rate > 60.0, Blood Urea Nitrogen 9#, Creatinine 0.54L, Sodium Level 135L, Potassium Level 3.8, Chloride Level 100, Carbon Dioxide Level 22, Calcium Level 8.8, C- Reactive Protein, Quantitative 34.00H 10/19/16 04:51: CBC/BMP Laboratory Tests 10/18/16 09:27 Red Blood Count 5.02, Mean Corpuscular Volume 92.0, Mean Corpuscular Hemoglobin 30.0, Mean Corpuscular Hemoglobin Concent 32.6, Red Cell Distribution Width 14.0 , Neutrophils (%) (Auto) 88.3 H, Lymphocytes (%) (Auto) 5.7 L, Monocytes (%) ( Auto) 4.3, Eosinophils (%) (Auto) 0.9, Basophils (%) (Auto) 0.2, Neutrophils # ( Auto) 15.9 H, Lymphocytes # (Auto) 1.1 L, Monocytes # (Auto) 0.8, Eosinophils # (Auto) 0.2, Basophils # (Auto) 0.0 10/19/16 04:50 Red Blood Count 4.24, Mean Corpuscular Volume 95.1, Mean Corpuscular Hemoglobin 30.3, Mean Corpuscular Hemoglobin Concent 31.9 L, Red Cell Distribution Width 13.9, Neutrophils (%) (Auto) 90.6 H, Lymphocytes (%) (Auto) 3.4 L, Monocytes (% ) (Auto) 5.0, Eosinophils (%) (Auto) 0.1, Basophils (%) (Auto) 0.1, Neutrophils # (Auto) 21.3 H, Lymphocytes # (Auto) 0.8 L, Monocytes # (Auto) 1.2 H, Eosinophils # (Auto) 0.0, Basophils # (Auto) 0.0, Calcium Level 8.8 ILDA GILBERT MD October 19, 2016 07:41
[2016-10-19 08:00] VITALS: BP 186/112
[2016-10-19] MEDS: LEVEMIR (INSULIN DETEMIR) 1 UNITS/0.01ML SC SCH ×2 (08:34→20:17)
[2016-10-19] MEDS: SENOKOT S TAB PO SCH ×2 (08:35→20:17)
[2016-10-19] MEDS: HumaLOG INSULIN (NovoLOG) PER UNIT SC SCH ×4 (08:35→20:17)
--- NOTE | 2016-10-19 09:56 | HPE ---
DATE OF ADMISSION: 10/18/2016 PRIMARY CARE PROVIDER: Does not have any. CHIEF COMPLAINT: Left lateral chest wall and left upper quadrant abdominal wall pain from last night which she noticed while she was vacuuming. Difficult with breathing due to the pain. PAST MEDICAL HISTORY: Denies. HISTORY OF PRESENT ILLNESS: This is a 71-year-old healthy female who has not followed with a doctor ever. The last time she was seen by a physician was in June 2016 when she fell and had a shoulder dislocation, however, no blood work was done. She came to the emergency department with complaints of left lateral chest wall and left abdominal upper quadrant pain going on for about 12 to 16 hours. Coughing and deep breaths make the pain worse. She has been unable to sleep all night because of the severe pain. She had a chest x-ray done which was suggestive of some infiltrate versus atelectasis. Following this, she had a CT angiogram of the chest as she was noted to be persistently tachycardic, pulse of around [address] angio of the chest showed multiple pulmonary emboli involving both the left and the right pulmonary, lower and smaller pulmonary arteries. There was also atelectasis but no pneumonia. The patient's lab work was significant for a blood sugar of 520, A1c of 14.2, so the patient was admitted to the hospitalist service for acute pulmonary embolism and hyperglycemia. PAST SURGICAL HISTORY: . Eye surgery Reduction of anterior dislocation of humerus. SOCIAL HISTORY: The patient does not smoke. Does not abuse alcohol or recreational drugs. ALLERGIES: No known drug allergies. HOME MEDICATIONS: None. Uses some [id number] Prilosec, multivitamin and Aleve. FAMILY HISTORY: Nothing pertinent. REVIEW OF SYSTEMS: The patient denies any fever or chills. Denies any abdominal pain, diarrhea or vomiting. Denies any palpitations. Does complain of the left chest pain, pleuritic kind and some difficulty breathing. PHYSICAL EXAMINATION: VITAL SIGNS: Temperature 98.4, pulse 122, respiratory rate 18, blood pressure 153/71, pulse oximetry 94% in 2 liters nasal cannula. GENERAL: The patient is awake, alert, oriented times three lying down in bed in no acute distress. HEENT: Normocephalic, atraumatic. Moist mucous membranes. Anicteric eyes. CHEST: There is some bibasilar crackles, otherwise, clear to auscultation. CARDIOVASCULAR: S1, S2 regular. Tachycardic. No rub. No murmur or gallop. ABDOMEN: Soft, nontender. Bowel sounds present. EXTREMITIES: No edema. LABORATORY DATA: WBC 18.1, hemoglobin 15, platelets 284. Sodium 131, potassium 4.6, chloride 92, bicarbonate 23, BUN 19, creatinine 0.7, glucose 520, A1c 14.2, lactate 1.5. Liver function tests are normal. CRP 17.5. Lipase 125. CT angio of the chest shows acute on chronic pulmonary emboli associated with basilar atelectasis, chronic changes with elements of bronchiectasis, interstitial changes and scattered lower lobe fibrosis. ASSESSMENT/PLAN: This is a 71-year-old female admitted for pulmonary embolism and hyperglycemia. PLAN: For pulmonary embolism, will place patient on Lovenox twice a day. Will also give pain control with morphine and oxycodone as required. Will monitor the patient in progressive care unit (PCU). Hyperglycemia: The patient never followed before with a doctor. The patient has some trending diabetes mellitus, never diagnoses. At present, will start the patient on insulin Levemir and Lispro. Will also give the patient IV fluids as the patient appears to be mildly dehydrated. The patient has a very high A1c so will need to go home with insulin. Sinus tachycardia: Possibly related to her pulmonary embolism pain and mild dehydration. Will give IV fluids and continue to monitor. Deep venous thrombosis (DVT) prophylaxis: The patient is on therapeutic Lovenox. Gastrointestinal (GI) prophylaxis: Is not required.
[2016-10-19] MEDS: MORPHINE 2 MG/ML 1ML SYRINGE IV PRN ×4 (11:26→23:41)
[2016-10-19 12:00] VITALS: BP 129/69
[2016-10-19 16:00] VITALS: BP 171/94
--- NOTE | 2016-10-19 16:43 | ECGEPIP ---
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
--- NOTE | 2016-10-19 19:49 | ECGEPIP ---
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
[2016-10-19 20:00] VITALS: BP 138/78
[2016-10-19 23:59] VITALS: BP 139/86
[2016-10-20] MEDS: PERCOCET 5MG/325MG TAB PO PRN ×4 (01:32→21:13)
[2016-10-20] MEDS: ENOXAPARIN 80 MG/0.8 ML SYRINGE (J1650) SC SCH ×2 (01:33→13:30)
[2016-10-20] MEDS: MORPHINE 2 MG/ML 1ML SYRINGE IV PRN (03:47)
[2016-10-20 04:45] VITALS: BP 162/82
[2016-10-20 05:11] LABS: BASO % 0.1 % (0.0-1.0); EOS # 0.1 K/mm3 (0.0-0.50); EOS % 0.3 % (0.0-3.0); LARGE UNSTAINED CELL # 0.2 K/mm3 (0.0-0.4); LARGE UNSTAINED CELL % 0.8 % (0.0-4.0); LYMPH # 1.1 K/mm3 (1.5-4.5); MEAN CORPUSCULAR HEMOGLOBIN 30.2 pg (27.0-33.0); MEAN CORPUSCULAR HGB CONC 32.3 g/dl (32.0-36.5); MEAN CORPUSCULAR VOLUME 93.4 fl (80.0-96.0); MONO # 1.5 K/mm3 (0.0-0.8); MONO % 6.3 % (0.0-5.0); NEUTROPHILS # 21.6 K/mm3 (1.8-7.7); NEUTROPHILS % 88.6 % (36.0-66.0); PLATELET COUNT, AUTOMATED 341 k/mm3 (150-450); RED CELL DISTRIBUTION WIDTH 13.9 % (11.5-14.5); WHITE BLOOD COUNT 24.4 K/mm3 (4.0-10.0)
[2016-10-20 05:32] LABS: ANION GAP 13 MEQ/L (8-16); BLOOD UREA NITROGEN 7 MG/DL (7-18); CALCIUM LEVEL 9.2 MG/DL (8.8-10.2); CARBON DIOXIDE LEVEL 24 MEQ/L (21-32); CHLORIDE LEVEL 101 MEQ/L (98-107); CHOLESTEROL LEVEL 182 MG/DL (<200); GLOMERULAR FILTRATION RATE > 60.0 (>39); GLUCOSE, FASTING 236 MG/DL (83-110); POTASSIUM SERUM 3.5 MEQ/L (3.5-5.1); SODIUM LEVEL 138 MEQ/L (136-145); TRIGLYCERIDES LEVEL 202 MG/DL (<150)
[2016-10-20 08:00] VITALS: BP 141/52
[2016-10-20] MEDS: HumaLOG INSULIN (NovoLOG) PER UNIT SC SCH ×4 (08:00→20:47)
[2016-10-20] MEDS: LEVEMIR (INSULIN DETEMIR) 1 UNITS/0.01ML SC SCH ×2 (08:00→20:49)
[2016-10-20] MEDS: SENOKOT S TAB PO SCH ×2 (08:01→20:43)
[2016-10-20 12:00] VITALS: BP 140/56
--- NOTE | 2016-10-20 12:05 | IPNPDOC ---
Subjective Date Seen The patient was seen on 10/20/16. Subjective Chief Complaint/HPI The patient is a 71-year-old female admitted with a reason for visit of Hyperglycemia,Pulmonary Embolism. General: Denies: ROS Unobtainable, Chills, Night Sweats, Fatigue, Malaise, Normal Appetite, Other Symptoms Constitutional: Denies: Chills, Fever, Malaise, Night Sweats, Weakness, Fatigue , Weight Loss, Lethargy, Other Eyes: Denies: Pain, Vision change, Conjunctivae inflammation, Eyelid inflammation, Redness, Other ENT: Denies: Head Aches, Ear Pain, Dysphagia, Sinus Congestion, Post Nasal Drip , Sore Throat, Epistaxis, Other Symptoms Skin: Denies: Rash, Lesions, Jaundice, Bruising, Itching, Dry, Breakdown, Nail Changes, Other Pulmonary: Reports: Dyspnea, Denies: Cough, Pleuritic Chest Pain, Other Symptoms Cardiovascular: Denies: Chest Pain, Palpitations, Orthopnea, Paroxysmal Noc. Dyspnea, Edema, Lt Headedness, Other Symptoms Gastrointestinal: Denies: Nausea, Vomiting, Abdominal Pain, Diarrhea, Constipation, Melena, Hematochezia, Other Symptoms Genitourinary: Reports: Dysuria, Frequency, Denies: Incontinence, Hematuria, Retention, Other Symptoms Objective Physical Examination General Exam: Positive: Alert, Cooperative, Mild Distress Eye Exam: Positive: Conjunctiva & lids normal ENT Exam: Positive: Atraumatic Neck Exam: Positive: Supple Chest Exam: Positive: Clear to auscultation, Normal air movement Heart Exam: Positive: Rate Normal, Tachycardic Telemetry: Positive: No significant arrhythmia, Sinus Abdomen Exam: Positive: Normal bowel sounds, Soft, Negative: Tenderness Extremity Exam: Negative: Edema Psych Exam: Positive: Oriented x 3 Assessment /Plan Problems (1) Pulmonary embolism Status: Acute Response to Treatment: Progressing Discussed With: Patient Problem Specific Plan: Monitor Clinically, Repeat Labs Problem Text: Currently receiving Lovenox SC. (2) Diabetes type 2, uncontrolled Status: Chronic Response to Treatment: Progressing Discussed With: Patient Problem Specific Plan: Repeat Labs, Repeat Tests Problem Text: Continue with insulin therapy. Proteinuria noted on UA. Starting ACEI. (3) Hyperglycemia Status: Resolved Response to Treatment: Improving Discussed With: Patient Problem Specific Plan: Monitor Clinically Problem Text: Uncontrolled diabetes. (4) Leukocytosis Status: Acute Discussed With: Patient Problem Specific Plan: Monitor Clinically, Repeat Labs, Repeat Tests Problem Text: Unclear etiology. Patient did report polyuria and dysuria prior to presentation to ER. Starting Levaquin for now. (5) Hyperlipemia Status: Chronic Discussed With: Patient Problem Text: Starting Lipitor. (6) HTN (hypertension) Status: Acute Discussed With: Patient Problem Specific Plan: Monitor Clinically Problem Text: Possibly chronic untreated complicated with PE. Starting ACEI today. Plan/VTE VTE Prophylaxis Ordered?: Yes Plan Diet: Continue Current Activity: Continue Current Therapy: PT Respiratory: Wean Oxygen Diagnostics: Repeat Labs in AM, TTE Anticipated Discharge: Home, Home With Services VS, [facility]&O, [facility] Vital Signs/I&O Vital Signs Date Time Temp Pulse Resp B/P (MAP) Pulse Ox O2 Delivery O2 Flow Rate FiO2 10/20/16 10:24 98.8 133 18 162/82 91 Nasal Cannula 2.0 I&O- Last 24 Hours up to 6 AM 10/20/16 05:59 Intake Total 3460 ml Output Total 1000 ml Balance 2460 ml Laboratory Data 24H LABS Laboratory Tests 2 10/19/16 12:53: Total Creatine Kinase 34, Creatine Kinase MB 1.0, Creatine Kinase MB Relative Index 2.94, Troponin I < 0.02 10/19/16 16:41: Bedside Glucose (Misc Panel) 207H 10/19/16 20:11: Bedside Glucose (Misc Panel) 317H 10/20/16 04:31: White Blood Count 24.4H, Red Blood Count 4.36, Hemoglobin 13.1, Hematocrit 40.7 , Mean Corpuscular Volume 93.4, Mean Corpuscular Hemoglobin 30.2, Mean Corpuscular Hemoglobin Concent 32.3, Red Cell Distribution Width 13.9, Platelet Count 341, Neutrophils (%) (Auto) 88.6H, Lymphocytes (%) (Auto) 4.0L, Monocytes (%) (Auto) 6.3H, Eosinophils (%) (Auto) 0.3, Basophils (%) (Auto) 0.1, Neutrophils # (Auto) 21.6H, Lymphocytes # (Auto) 1.1L, Monocytes # (Auto) 1.5H, Eosinophils # (Auto) 0.1, Basophils # (Auto) 0.0, Large Unclassified Cells % 0.8 , Large Unclassified Cells # 0.2, Anion Gap 13, Glomerular Filtration Rate > 60.0, Calcium Level 9.2, Triglycerides Level 202H, LDL Cholesterol 103.6H, Total Cholesterol 182, Non-HDL Cholesterol (LDL + VLDL) 144, Total HDL Cholesterol 38L, Cholesterol/HDL Ratio 4.789 10/20/16 07:45: Urine Appearance HAZY, Urine Color YELLOW, Urine pH 5.0, Urine Specific [place] 1.029, Urine Protein 1+H, Urine Glucose (UA) 3+H, Urine Ketones 2+H, Urine Urobilinogen 0.2, Urine Bilirubin NEGATIVE, Urine Leukocyte Esterase TRACEH, Urine Blood NEGATIVE, Urine Nitrite NEGATIVE, Urine WBC (Auto) 22H, Urine RBC ( Auto) 4H, Urine Hyaline Casts (Auto) 0, Urine Bacteria (Auto) 1+H, Urine Squamous Epithelial Cells 1, Urine Sperm (Auto) 10/20/16 11:28: Bedside Glucose (Misc Panel) 249H CBC/BMP Laboratory Tests 10/20/16 04:31 Red Blood Count 4.36, Mean Corpuscular Volume 93.4, Mean Corpuscular Hemoglobin 30.2, Mean Corpuscular Hemoglobin Concent 32.3, Red Cell Distribution Width 13.9 , Neutrophils (%) (Auto) 88.6 H, Lymphocytes (%) (Auto) 4.0 L, Monocytes (%) ( Auto) 6.3 H, Eosinophils (%) (Auto) 0.3, Basophils (%) (Auto) 0.1, Neutrophils # (Auto) 21.6 H, Lymphocytes # (Auto) 1.1 L, Monocytes # (Auto) 1.5 H, Eosinophils # (Auto) 0.1, Basophils # (Auto) 0.0 Microbiology Microbiology 10/19/16 Blood Culture, Received Pending 10/19/16 Blood Culture, Received Pending 10/20/16 Urine Culture, Received Pending ILDA GILBERT MD October 20, 2016 12:05
[2016-10-20] MEDS: LevoFLOXacin IV 500 MG in APPROPRIATE DILUENT 1 EA IV SCH (12:10)
[2016-10-20] MEDS: NS 1,000 ML IV SCH (12:11)
[2016-10-20] MEDS: OMEPRAZOLE 20 MG CAP PO SCH (13:30)
[2016-10-20] MEDS: LISINOPRIL 20 MG TAB PO SCH (13:31)
[2016-10-20 15:50] VITALS: BP 134/52
[2016-10-20] MEDS ORDERED: ONDANSETRON 4 MG TAB (S0181) PO PRN (18:15)
[2016-10-20 20:00] VITALS: BP 164/76
[2016-10-20] MEDS: ATORVASTATIN 20 MG TAB PO SCH (20:43)
[2016-10-20 23:59] VITALS: BP 129/70
[2016-10-21] MEDS: PERCOCET 5MG/325MG TAB PO PRN ×6 (01:05→21:47)
[2016-10-21] MEDS: ENOXAPARIN 80 MG/0.8 ML SYRINGE (J1650) SC SCH ×2 (01:06→12:58)
[2016-10-21 06:05] LABS: BASO % 0.1 % (0.0-1.0); EOS # 0.2 K/mm3 (0.0-0.50); EOS % 1.1 % (0.0-3.0); LARGE UNSTAINED CELL # 0.2 K/mm3 (0.0-0.4); LYMPH # 1.3 K/mm3 (1.5-4.5); LYMPH % 6.5 % (24.0-44.0); MEAN CORPUSCULAR HEMOGLOBIN 29.8 pg (27.0-33.0); MEAN CORPUSCULAR HGB CONC 32.1 g/dl (32.0-36.5); MEAN CORPUSCULAR VOLUME 92.8 fl (80.0-96.0); MONO # 1.2 K/mm3 (0.0-0.8); NEUTROPHILS # 14.8 K/mm3 (1.8-7.7); NEUTROPHILS % 84.3 % (36.0-66.0); PLATELET COUNT, AUTOMATED 380 k/mm3 (150-450); WHITE BLOOD COUNT 17.6 K/mm3 (4.0-10.0)
[2016-10-21 06:17] LABS: ANION GAP 9 MEQ/L (8-16); BLOOD UREA NITROGEN 6 MG/DL (7-18); CALCIUM LEVEL 8.6 MG/DL (8.8-10.2); CARBON DIOXIDE LEVEL 27 MEQ/L (21-32); CHLORIDE LEVEL 103 MEQ/L (98-107); CREATININE FOR GFR 0.42 MG/DL (0.55-1.02); GLOMERULAR FILTRATION RATE > 60.0 (>39); GLUCOSE, FASTING 159 MG/DL (83-110); POTASSIUM SERUM 3.1 MEQ/L (3.5-5.1); SODIUM LEVEL 139 MEQ/L (136-145)
[2016-10-21] MEDS: NS 1,000 ML IV SCH (07:02)
[2016-10-21] MEDS: OMEPRAZOLE 20 MG CAP PO SCH (07:04)
[2016-10-21] MEDS: HumaLOG INSULIN (NovoLOG) PER UNIT SC SCH ×4 (07:30→21:00)
[2016-10-21 08:00] VITALS: BP 139/70
[2016-10-21] MEDS ORDERED: POTASSIUM CHLORIDE 10 MEQ SR TABLET PO ONE (09:00)
[2016-10-21] MEDS: LISINOPRIL 20 MG TAB PO SCH (09:05)
[2016-10-21] MEDS: LEVEMIR (INSULIN DETEMIR) 1 UNITS/0.01ML SC SCH ×2 (09:05→21:00)
[2016-10-21] MEDS: SENOKOT S TAB PO SCH ×2 (09:05→20:02)
[2016-10-21 12:00] VITALS: BP 124/74
[2016-10-21] MEDS: LevoFLOXacin IV 500 MG in APPROPRIATE DILUENT 1 EA IV SCH (12:17)
[2016-10-21] MEDS ORDERED: ELIQ5TAB PO (13:25)
[2016-10-21 13:27] VITALS: BP 145/70
[2016-10-21 16:00] VITALS: BP 121/64
--- NOTE | 2016-10-21 17:39 | IPNPDOC ---
Subjective Date Seen The patient was seen on 10/21/16. Subjective Chief Complaint/HPI The patient is a 71-year-old female admitted with a reason for visit of Hyperglycemia,Pulmonary Embolism. Events since last encounter Feeling ok, has cough, with thick sputum production, breathing ok overall though , no chest pain, tolerates diet Constitutional: Denies: Chills, Fever Pulmonary: Reports: Cough, Denies: Dyspnea Cardiovascular: Denies: Chest Pain, Palpitations Gastrointestinal: Denies: Nausea, Vomiting, Abdominal Pain Objective Physical Examination General Exam: Positive: Mild Distress Eye Exam: Positive: Conjunctiva & lids normal ENT Exam: Positive: Atraumatic Neck Exam: Positive: Supple Chest Exam: Positive: Clear to auscultation, Normal air movement, Negative: Rhonchi, Wheezing Heart Exam: Positive: Rate Normal, Tachycardic Telemetry: Positive: No significant arrhythmia, Sinus Abdomen Exam: Positive: Normal bowel sounds, Soft, Negative: Tenderness Extremity Exam: Negative: Edema Psych Exam: Positive: Oriented x 3 Assessment /Plan Problems (1) Pulmonary embolism Status: Acute Response to Treatment: Progressing Discussed With: Patient Problem Specific Plan: Monitor Clinically, Repeat Labs Problem Text: Currently receiving Lovenox SC. Eliquis sent to pharmacy for prior auth (2) Diabetes type 2, uncontrolled Status: Chronic Response to Treatment: Progressing Discussed With: Patient Problem Specific Plan: Repeat Labs, Repeat Tests Problem Text: Continue with insulin therapy. Proteinuria noted on UA. Starting ACEI. (3) Hyperglycemia Status: Resolved Response to Treatment: Improving Discussed With: Patient Problem Specific Plan: Monitor Clinically, Repeat Labs Problem Text: Uncontrolled diabetes. (4) Leukocytosis Status: Acute Discussed With: Patient Problem Specific Plan: Monitor Clinically, Repeat Labs, Repeat Tests Problem Text: Unclear etiology. Patient did report polyuria and dysuria prior to presentation to ER. Starting Levaquin for now. Has tachycardia and cough with sputum production- check cxr (5) Hyperlipemia Status: Chronic Discussed With: Patient Problem Text: Starting Lipitor. (6) HTN (hypertension) Status: Acute Discussed With: Patient Problem Specific Plan: Monitor Clinically Problem Text: Possibly chronic untreated complicated with PE. Starting ACEI today. Plan/VTE VTE Prophylaxis Ordered?: Yes Plan Diet: Continue Current Activity: Continue Current Therapy: PT Respiratory: Wean Oxygen Diagnostics: Repeat Labs in AM, TTE Anticipated Discharge: Home, Home With Services VS, I&O, 24H, [place] Vital Signs/I&O Vital Signs Date Time Temp Pulse Resp B/P (MAP) Pulse Ox O2 Delivery O2 Flow Rate FiO2 10/21/16 17:28 97.9 118 18 121/64 95 Nasal Cannula 2.0 I&O- Last 24 Hours up to 6 AM 10/21/16 06:00 Intake Total 1960 ml Output Total 1000 ml Balance 960 ml Laboratory Data 24H LABS Laboratory Tests 2 10/20/16 20:45: Bedside Glucose (Misc Panel) 220H 10/21/16 05:41: White Blood Count 17.6H, Red Blood Count 4.17, Hemoglobin 12.4, Hematocrit 38.7 , Mean Corpuscular Volume 92.8, Mean Corpuscular Hemoglobin 29.8, Mean Corpuscular Hemoglobin Concent 32.1, Red Cell Distribution Width 14.0, Platelet Count 380, Neutrophils (%) (Auto) 84.3H, Lymphocytes (%) (Auto) 6.5L, Monocytes (%) (Auto) 7.0H, Eosinophils (%) (Auto) 1.1, Basophils (%) (Auto) 0.1, Neutrophils # (Auto) 14.8H, Lymphocytes # (Auto) 1.3L, Monocytes # (Auto) 1.2H, Eosinophils # (Auto) 0.2, Basophils # (Auto) 0.0, Large Unclassified Cells % 1.0 , Large Unclassified Cells # 0.2, Anion Gap 9, Glomerular Filtration Rate > 60.0 , Blood Urea Nitrogen 6L, Creatinine 0.42L, Sodium Level 139, Potassium Level 3.1L, Chloride Level 103, Carbon Dioxide Level 27, Calcium Level 8.6L CBC/BMP Laboratory Tests 10/21/16 05:41 Red Blood Count 4.17, Mean Corpuscular Volume 92.8, Mean Corpuscular Hemoglobin 29.8, Mean Corpuscular Hemoglobin Concent 32.1, Red Cell Distribution Width 14.0 , Neutrophils (%) (Auto) 84.3 H, Lymphocytes (%) (Auto) 6.5 L, Monocytes (%) ( Auto) 7.0 H, Eosinophils (%) (Auto) 1.1, Basophils (%) (Auto) 0.1, Neutrophils # (Auto) 14.8 H, Lymphocytes # (Auto) 1.3 L, Monocytes # (Auto) 1.2 H, Eosinophils # (Auto) 0.2, Basophils # (Auto) 0.0, Calcium Level 8.6 L Microbiology Microbiology 10/19/16 Blood Culture - Preliminary, Resulted No Growth after 48 hours. All Specime... 10/19/16 Blood Culture - Preliminary, Resulted No Growth after 48 hours. All Specime... 10/21/16 Gram Stain - Final, Resulted 10/21/16 Sputum Culture, Resulted Pending 10/20/16 Urine Culture, Received Pending SUNG MAGALLON MD October 21, 2016 17:39
[2016-10-21] MEDS ORDERED: LEVE1INJ5 SC (17:42)
[2016-10-21] MEDS ORDERED: HUMA100I5 SC (17:42)
--- NOTE | 2016-10-21 18:33 | REP ---
Clinical: Tachycardia. Comparison: 10/18/2016. Findings: New left lower lobe consolidation/atelectasis and moderate partially loculated left pleural effusion represents a change from recent prior examination. Trace right basilar atelectasis cannot be excluded as well. Mediastinum and cardiac silhouette stable. Underlying chronic interstitial changes noted. No obvious pneumothorax. Skeletal structures intact. Impression: Moderate left lower lobe consolidation/atelectasis with new moderate and partially loculated left pleural effusion. Trace right basilar atelectasis cannot be excluded Signed by Rory Nichols MD 10/21/2016 06:25 P
[2016-10-21 19:40] VITALS: BP 130/68
[2016-10-21] MEDS: ATORVASTATIN 20 MG TAB PO SCH (20:02)
[2016-10-22] VITALS (7 sets, daily range): BP systolic 122–151; BP diastolic 70–84
[2016-10-22] MEDS: ENOXAPARIN 80 MG/0.8 ML SYRINGE (J1650) SC SCH ×2 (02:51→16:37)
[2016-10-22] MEDS: PERCOCET 5MG/325MG TAB PO PRN ×6 (02:52→22:02)
[2016-10-22 05:41] LABS: BASO % 0.2 % (0.0-1.0); EOS # 0.4 K/mm3 (0.0-0.50); EOS % 2.2 % (0.0-3.0); LARGE UNSTAINED CELL # 0.2 K/mm3 (0.0-0.4); LARGE UNSTAINED CELL % 1.1 % (0.0-4.0); LYMPH # 1.2 K/mm3 (1.5-4.5); LYMPH % 7.4 % (24.0-44.0); MEAN CORPUSCULAR HEMOGLOBIN 30.1 pg (27.0-33.0); MEAN CORPUSCULAR HGB CONC 32.2 g/dl (32.0-36.5); MEAN CORPUSCULAR VOLUME 93.4 fl (80.0-96.0); MONO % 6.1 % (0.0-5.0); NEUTROPHILS # 13.1 K/mm3 (1.8-7.7); NEUTROPHILS % 82.9 % (36.0-66.0); PLATELET COUNT, AUTOMATED 412 k/mm3 (150-450); RED CELL DISTRIBUTION WIDTH 13.9 % (11.5-14.5); WHITE BLOOD COUNT 15.8 K/mm3 (4.0-10.0)
[2016-10-22 05:43] LABS: ANION GAP 8 MEQ/L (8-16); BLOOD UREA NITROGEN 8 MG/DL (7-18); CALCIUM LEVEL 9.2 MG/DL (8.8-10.2); CARBON DIOXIDE LEVEL 27 MEQ/L (21-32); CHLORIDE LEVEL 102 MEQ/L (98-107); CREATININE FOR GFR 0.47 MG/DL (0.55-1.02); GLOMERULAR FILTRATION RATE > 60.0 (>39); GLUCOSE, FASTING 238 MG/DL (83-110); POTASSIUM SERUM 3.4 MEQ/L (3.5-5.1); SODIUM LEVEL 137 MEQ/L (136-145)
[2016-10-22] MEDS: SENOKOT S TAB PO SCH ×2 (08:18→20:43)
[2016-10-22] MEDS: OMEPRAZOLE 20 MG CAP PO SCH (08:18)
[2016-10-22] MEDS: LISINOPRIL 20 MG TAB PO SCH (08:20)
[2016-10-22] MEDS: LEVEMIR (INSULIN DETEMIR) 1 UNITS/0.01ML SC SCH ×2 (08:22→21:00)
[2016-10-22] MEDS: HumaLOG INSULIN (NovoLOG) PER UNIT SC SCH ×4 (08:22→20:51)
[2016-10-22] MEDS ORDERED: XARE1TAB PO (09:27)
[2016-10-22] MEDS ORDERED: PRAD150C PO (09:27)
[2016-10-22] MEDS ORDERED: POTASSIUM CHLORIDE 10 MEQ SR TABLET PO ONE (09:45)
--- NOTE | 2016-10-22 12:20 | REP ---
Clinical: Cough. Comparison: 10/18/2016. Findings: Current examination now demonstrates a moderate to significant multiloculated left pleural effusion with increased areas of atelectasis and consolidation involving the left lower lobe, lingula, and to a lesser extent the right base. Underlying chronic interstitial changes are appreciated. No pneumothorax. Previous examination demonstrated acute pulmonary emboli which are not visualized on current noncontrast CT. Reactive mediastinal lymph nodes measure up to 11 mm short axis diameter. Heart and pericardium appear normal. Surrounding musculoskeletal structures demonstrate age-related degenerative changes. Impression: New moderate to significant multiloculated left pleural effusion with increased areas of consolidation and atelectasis involving the left lower lobe and lingula and minimal right basilar atelectasis. Signed by Rory Nichols MD 10/22/2016 12:11 P
[2016-10-22] MEDS: LevoFLOXacin IV 500 MG in APPROPRIATE DILUENT 1 EA IV SCH (12:21)
--- NOTE | 2016-10-22 16:30 | IPNPDOC ---
Subjective Date Seen The patient was seen on 10/22/16. Subjective Chief Complaint/HPI The patient is a 71-year-old female admitted with a reason for visit of Hyperglycemia,Pulmonary Embolism. Events since last encounter Still has cough- produced sputum which is pending, feels better than yesterday- wants to go home, son at bedside who encourages her to stay and be treated Understands that insurance coverage may guide our choice of outpatient medications Constitutional: Denies: Chills, Fever Pulmonary: Reports: Cough, Denies: Dyspnea Cardiovascular: Denies: Chest Pain, Palpitations Gastrointestinal: Denies: Nausea, Vomiting, Abdominal Pain Objective Physical Examination General Exam: Positive: Alert, Cooperative, No Acute Distress Eye Exam: Positive: Conjunctiva & lids normal ENT Exam: Positive: Atraumatic Neck Exam: Positive: Supple Chest Exam: Positive: Clear to auscultation, Normal air movement, Diminished, Negative: Rhonchi, Wheezing Heart Exam: Positive: Rate Normal, Tachycardic Telemetry: Positive: No significant arrhythmia, Tachycardia, SV Tach, PVCs Abdomen Exam: Positive: Normal bowel sounds, Soft, Negative: Tenderness Extremity Exam: Negative: Edema Psych Exam: Positive: Oriented x 3 Assessment /Plan Problems (1) Pulmonary embolism Status: Acute Response to Treatment: Progressing Discussed With: Patient Problem Specific Plan: Monitor Clinically, Repeat Labs Problem Text: Currently receiving Lovenox SC. Eliquis/xarelto/pradaxa sent to pharmacy for prior auth- all incredibly expensive will likely dc on Coumadin (2) Pleural effusion Status: Acute Problem Text: has left sided developing, loculated pleural effusion empyema seems less likely than hemorrhagic effusion from pulmonary embolism I discussed in general with covering case loader operator recommedned IR procedure- will attempt 10/23/16 will change antibiotic to ceftriaxone and azithromax- patient has no clear memory of her penicillin allergy (3) Diabetes type 2, uncontrolled Status: Chronic Response to Treatment: Progressing Discussed With: Patient Problem Specific Plan: Repeat Labs, Repeat Tests Problem Text: Continue with insulin therapy. Proteinuria noted on UA. Starting ACEI. diabetic teaching (4) Hyperglycemia Status: Resolved Response to Treatment: Improving Discussed With: Patient Problem Specific Plan: Monitor Clinically, Repeat Labs Problem Text: Uncontrolled diabetes. (5) Leukocytosis Status: Acute Discussed With: Patient Problem Specific Plan: Monitor Clinically, Repeat Labs, Repeat Tests Problem Text: Unclear etiology- improving UTI vs. reactive vs pneumonia Patient did report polyuria and dysuria prior to presentation to ER. (6) Hyperlipemia Status: Chronic Discussed With: Patient Problem Text: Starting Lipitor. (7) HTN (hypertension) Status: Acute Discussed With: Patient Problem Specific Plan: Monitor Clinically Problem Text: Possibly chronic untreated complicated with PE. ACEI. Plan/VTE VTE Prophylaxis Ordered?: Yes Plan Diet: Continue Current Activity: Continue Current Therapy: PT Respiratory: Wean Oxygen Diagnostics: Repeat Labs in AM, TTE Anticipated Discharge: Home, Home With Services VS, I&O, 24H, [facility] Vital Signs/I&O Vital Signs Date Time Temp Pulse Resp B/P (MAP) Pulse Ox O2 Delivery O2 Flow Rate FiO2 10/22/16 12:28 20 Nasal Cannula 2.0 10/22/16 12:00 98.4 120 122/84 (97) 92 I&O- Last 24 Hours up to 6 AM 10/22/16 06:00 Intake Total 1526 ml Output Total 1725 ml Balance -199 ml Laboratory Data 24H LABS Laboratory Tests 2 10/21/16 16:50: Bedside Glucose (Misc Panel) 211H 10/21/16 21:48: Bedside Glucose (Misc Panel) 249H 10/22/16 05:19: White Blood Count 15.8H, Red Blood Count 3.96L, Hemoglobin 11.9L, Hematocrit 37.0, Mean Corpuscular Volume 93.4, Mean Corpuscular Hemoglobin 30.1, Mean Corpuscular Hemoglobin Concent 32.2, Red Cell Distribution Width 13.9, Platelet Count 412, Neutrophils (%) (Auto) 82.9H, Lymphocytes (%) (Auto) 7.4L, Monocytes (%) (Auto) 6.1H, Eosinophils (%) (Auto) 2.2, Basophils (%) (Auto) 0.2, Neutrophils # (Auto) 13.1H, Lymphocytes # (Auto) 1.2L, Monocytes # (Auto) 1.0H, Eosinophils # (Auto) 0.4, Basophils # (Auto) 0.0, Large Unclassified Cells % 1.1 , Large Unclassified Cells # 0.2, Anion Gap 8, Glomerular Filtration Rate > 60.0 , Blood Urea Nitrogen 8, Creatinine 0.47L, Sodium Level 137, Potassium Level 3.4L, Chloride Level 102, Carbon Dioxide Level 27, Calcium Level 9.2 10/22/16 11:32: Bedside Glucose (Misc Panel) 313H CBC/BMP Laboratory Tests 10/22/16 05:19 Red Blood Count 3.96 L, Mean Corpuscular Volume 93.4, Mean Corpuscular Hemoglobin 30.1, Mean Corpuscular Hemoglobin Concent 32.2, Red Cell Distribution Width 13.9, Neutrophils (%) (Auto) 82.9 H, Lymphocytes (%) (Auto) 7.4 L, Monocytes (%) (Auto) 6.1 H, Eosinophils (%) (Auto) 2.2, Basophils (%) ( Auto) 0.2, Neutrophils # (Auto) 13.1 H, Lymphocytes # (Auto) 1.2 L, Monocytes # (Auto) 1.0 H, Eosinophils # (Auto) 0.4, Basophils # (Auto) 0.0, Calcium Level 9.2 Microbiology Microbiology 10/19/16 Blood Culture - Preliminary, Resulted No Growth after 72 hours. All specime... 10/19/16 Blood Culture - Preliminary, Resulted No Growth after 72 hours. All specime... 10/21/16 Gram Stain - Final, Resulted 10/21/16 Sputum Culture, Resulted Pending 10/20/16 Urine Culture - Final, Complete Corynebacterium Species SUNG MAGALLON MD October 22, 2016 16:30
[2016-10-22] MEDS: cefTRIAXone SOD 2 GM in D5W MINI-BAG PLUS 50 ML IV SCH (16:37)
[2016-10-22] MEDS: AZITHROMYCIN 250 MG TAB PO SCH (16:37)
[2016-10-22] MEDS: ATORVASTATIN 20 MG TAB PO SCH (20:43)
[2016-10-23] VITALS (7 sets, daily range): BP systolic 98–174; BP diastolic 58–97
[2016-10-23] MEDS: PERCOCET 5MG/325MG TAB PO PRN ×5 (01:55→22:53)
[2016-10-23] MEDS: ENOXAPARIN 80 MG/0.8 ML SYRINGE (J1650) SC SCH ×2 (01:57→22:49)
[2016-10-23] MEDS ORDERED: METOPROLOL 5 MG/5 ML VIAL As Ordered ONE (04:46)
[2016-10-23] MEDS: METOPROLOL 5 MG/5 ML VIAL IV SCH ×7 (05:00→13:30)
[2016-10-23] MEDS ORDERED: DIGOXIN INJ 0.5 MG/2 ML AMP (J1160) IV STA (05:17)
[2016-10-23 05:29] LABS: ADD MANUAL DIFFER YES; MEAN CORPUSCULAR HEMOGLOBIN 29.4 pg (27.0-33.0); MEAN CORPUSCULAR HGB CONC 31.7 g/dl (32.0-36.5); MEAN CORPUSCULAR VOLUME 92.7 fl (80.0-96.0); PLATELET COUNT, AUTOMATED 475 k/mm3 (150-450); WHITE BLOOD COUNT 18.2 K/mm3 (4.0-10.0)
[2016-10-23 05:39] LABS: ANION GAP 10 MEQ/L (8-16); BLOOD UREA NITROGEN 6 MG/DL (7-18); CARBON DIOXIDE LEVEL 30 MEQ/L (21-32); CHLORIDE LEVEL 101 MEQ/L (98-107); CREATININE FOR GFR 0.49 MG/DL (0.55-1.02); GLOMERULAR FILTRATION RATE > 60.0 (>39); GLUCOSE, FASTING 189 MG/DL (83-110); POTASSIUM SERUM 3.6 MEQ/L (3.5-5.1); SODIUM LEVEL 141 MEQ/L (136-145)
--- NOTE | 2016-10-23 05:50 | REPUSA ---
COMMENTS: The cardiac silhouette is enlarged. There is evidence for pulmonary venous congestion compatible with CHF. Small left pleural effusion. Passive atelectatic airspace disease of the left lower lobe. Elevation of the left hemidiaphragm secondary to gaseous dilation of the splenic flexure of the colon . Bony structures appear normal. IMPRESSION: 1. Enlarged cardiac silhouette. 2. Pulmonary venous congestion compatible with CHF. 3. Elevation of the left hemidiaphragm with associated atelectatic airspace disease of the left lower lobe. Small left pleural effusion. Gaseous dilation of the splenic flexure of the colon. Thank you for your kind referral of this patient.
[2016-10-23 05:52] LABS: BANDS 1 % (< 11)
[2016-10-23] MEDS ORDERED: SODIUM CHLORIDE 0.9% 1000 ML IV ONE ×2 (06:00→07:15)
[2016-10-23] MEDS ORDERED: AMIODARONE HCL 150 MG in APPROPRIATE DILUENT 1 EA IV STA ×2 (06:06→17:36)
[2016-10-23] MEDS: HumaLOG INSULIN (NovoLOG) PER UNIT SC SCH ×4 (07:56→21:00)
[2016-10-23] MEDS: AZITHROMYCIN 250 MG TAB PO SCH (09:17)
[2016-10-23] MEDS: LISINOPRIL 20 MG TAB PO SCH (09:18)
[2016-10-23] MEDS: SENOKOT S TAB PO SCH ×2 (09:18→22:46)
[2016-10-23] MEDS: OMEPRAZOLE 20 MG CAP PO SCH (09:18)
[2016-10-23] MEDS: DIGOXIN INJ 0.5 MG/2 ML AMP (J1160) IV SCH ×3 (09:21→22:50)
[2016-10-23] MEDS: LEVEMIR (INSULIN DETEMIR) 1 UNITS/0.01ML SC SCH ×2 (09:21→22:48)
[2016-10-23] MEDS: METOPROLOL TART 25 MG TABLET PO SCH ×3 (09:30→17:23)
--- NOTE | 2016-10-23 11:55 | IPNPDOC ---
Subjective Date Seen The patient was seen on 10/23/16. Subjective Chief Complaint/HPI The patient is a 71-year-old female admitted with a reason for visit of Hyperglycemia,Pulmonary Embolism. Events since last encounter Was unaware of tachycardia as it developed over night, feels unchanged this morning (even when heart rate is 160 on monitor) cough is quite bothersome, not producing sputum tolerating diet Constitutional: Denies: Chills, Fever Pulmonary: Reports: Dyspnea, Cough Cardiovascular: Denies: Chest Pain, Palpitations, Orthopnea Gastrointestinal: Denies: Nausea, Vomiting, Abdominal Pain Genitourinary: Denies: Dysuria, Frequency Objective Physical Examination General Exam: Positive: Alert, Cooperative, Mild Distress (making jokes, though ) Eye Exam: Positive: Conjunctiva & lids normal ENT Exam: Positive: Atraumatic Neck Exam: Positive: Supple Chest Exam: Positive: Normal air movement, Diminished, Negative: Rales, Rhonchi, Wheezing Heart Exam: Positive: Rate Normal, Tachycardic Telemetry: Positive: No significant arrhythmia, Tachycardia, SV Tach Abdomen Exam: Positive: Normal bowel sounds, Soft, Negative: Tenderness Extremity Exam: Negative: Edema Psych Exam: Positive: Oriented x 3 Assessment /Plan Problems (1) Pulmonary embolism Status: Acute Response to Treatment: Progressing Discussed With: Patient Problem Specific Plan: Monitor Clinically, Repeat Labs Problem Text: Currently receiving Lovenox SC last dose at 0200- on hold until after IR procedure Eliquis/xarelto/pradaxa sent to pharmacy for prior auth- all incredibly expensive will likely dc on Coumadin (2) Pleural effusion Status: Acute Problem Text: has left sided developing, loculated pleural effusion empyema seems less likely than hemorrhagic effusion from pulmonary embolism- I discussed with daughter and son at bedside 10/23/16 Sputum culture did grow STREP AGALACTIAE GROUP B I discussed in general with covering supervisor steel division 10/22/16 recommedned IR procedure- will attempt 10/23/16- discussed with interventionalist 10/23/16 will change antibiotic to ceftriaxone and azithromax- patient has no clear memory of her penicillin allergy (3) Tachycardia Status: Acute Problem Text: Became tachycardic last night- possibly related to PE, possible pneumonia, possible developing sepsis with or without empyema I discussed with consulting green plumber in person- pursuing beta blockade, digoxin, amiodarone given once Gave IVF (4) Diabetes type 2, uncontrolled Status: Chronic Response to Treatment: Progressing Discussed With: Patient Problem Specific Plan: Repeat Labs, Repeat Tests Problem Text: Continue with insulin therapy. Proteinuria noted on UA. Started ACEI- d/c 10/23/16 due to tachycardia diabetic teaching (5) Hyperglycemia Status: Resolved Response to Treatment: Improving Discussed With: Patient Problem Specific Plan: Monitor Clinically, Repeat Labs Problem Text: Uncontrolled diabetes. (6) Leukocytosis Status: Acute Discussed With: Patient Problem Specific Plan: Monitor Clinically, Repeat Labs, Repeat Tests Problem Text: Unclear etiology- UTI vs. reactive vs pneumonia +/- empyema Patient did report polyuria and dysuria prior to presentation to ER (7) Hyperlipemia Status: Chronic Discussed With: Patient Problem Text: Starting Lipitor. (8) HTN (hypertension) Status: Acute Discussed With: Patient Problem Specific Plan: Monitor Clinically Problem Text: Possibly chronic untreated complicated with PE. ACEI held, B-vivien started Plan/VTE VTE Prophylaxis Ordered?: Yes Plan Diet: Continue Current Activity: Continue Current Therapy: PT Respiratory: Wean Oxygen Diagnostics: Repeat Labs in AM, TTE Anticipated Discharge: Home, Home With Services VS, I&O, 24H, [facility] Vital Signs/I&O Vital Signs Date Time Temp Pulse Resp B/P (MAP) Pulse Ox O2 Delivery O2 Flow Rate FiO2 10/23/16 10:07 17 Room Air 10/23/16 09:30 192 174/85 10/23/16 08:00 97.5 92 2.0 I&O- Last 24 Hours up to 6 AM 10/23/16 06:00 Intake Total 2060 ml Output Total 1550 ml Balance 510 ml Laboratory Data 24H LABS Laboratory Tests 2 10/22/16 16:24: Bedside Glucose (Misc Panel) 212H 10/22/16 20:50: Bedside Glucose (Misc Panel) 184H 10/23/16 05:05: Neutrophils 83H, Band Neutrophils 1, Lymphocytes (Manual) 9L, Monocytes (Manual ) 7, Platelet Estimate INCREASED, Red Blood Cell Morphology NORMAL, Anion Gap 10 , Glomerular Filtration Rate > 60.0, Blood Urea Nitrogen 6L, Creatinine 0.49L, Sodium Level 141, Potassium Level 3.6, Chloride Level 101, Carbon Dioxide Level 30, Calcium Level 9.0, Magnesium Level 2.0, Total Creatine Kinase 40, Creatine Kinase MB 1.0, Creatine Kinase MB Relative Index 2.50, Troponin I < 0.02, B- Type Natriuretic Peptide 138H, Thyroid Stimulating Hormone (TSH) 1.600 CBC/BMP Laboratory Tests 10/23/16 05:05 Red Blood Count 4.35, Mean Corpuscular Volume 92.7, Mean Corpuscular Hemoglobin 29.4, Mean Corpuscular Hemoglobin Concent 31.7 L, Red Cell Distribution Width 14.0, Calcium Level 9.0 Microbiology Microbiology 10/19/16 Blood Culture - Preliminary, Resulted No Growth after 72 hours. All specime... 10/19/16 Blood Culture - Preliminary, Resulted No Growth after 72 hours. All specime... 10/21/16 Gram Stain - Final, Resulted 10/21/16 Sputum Culture - Preliminary, Resulted Strep Agalactiae Group B 10/20/16 Urine Culture - Final, Complete Corynebacterium Species SUNG MAGALLON MD October 23, 2016 11:55
--- NOTE | 2016-10-23 14:35 | ECGEPIP ---
Stationary ECG Study 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
[2016-10-23] MEDS ORDERED: LIDOCAINE 1% MDV 20ML VIAL As Ordered ONE (15:11)
--- NOTE | 2016-10-23 16:16 | REP ---
Chest x-ray: Two views. History: Status post pigtail catheter placement left pleural space. Comparison chest x-ray is from 10/23/2016 at 05:06 a.m. chest x-ray is also reviewed along with recent chest CT. Findings: A pigtail catheter is place in the left posterior and inferior pleural space in good position. There is no evidence of pneumothorax. There is loculated pleural fluid or pleural thickening along the left lateral and left superior chest wall essentially unchanged. There is mild plate-like atelectasis at the right base. The left pleural effusion does not appear significantly different. Heart is not enlarged. Impression: No evidence of pneumothorax. Left pleural drainage pigtail catheter in good position. Signed by Max Aiken MD 10/23/2016 04:46 P
[2016-10-23 16:22] LABS: RBC PLEURAL FLUID < 10 (<10mm3 cells/uL); TNC PLEURAL FLUID 310 cells/uL (0-20)
[2016-10-23] MEDS: BENZONATATE 100 MG CAP PO PRN (16:22)
[2016-10-23] MEDS: cefTRIAXone SOD 2 GM in D5W MINI-BAG PLUS 50 ML IV SCH (16:22)
[2016-10-23 16:41] LABS: BF DIFF IF INDICATED? YES (NO)
[2016-10-23 16:42] LABS: LDH, BODY FLUID 2082 U/L (NOT ESTABLISHED); TOTAL PROTEIN, BODY FLUID 4.1 G/DL (NOT ESTABLISHED)
[2016-10-23 17:03] LABS: CC BF DIFF EXAM CYTOCENTRIFUGE
--- NOTE | 2016-10-23 19:20 | ECHO ---
DATE OF PROCEDURE: 10/23/2016 REFERRING PHYSICIAN: Dr. Tolbert and Dr. Radha Angel INDICATION: New onset atrial fibrillation. HEIGHT: 155 cm WEIGHT: 78 kg DIMENSIONS: IVS: 1.2 LV: 2.7 LVPW: 1.2 LA: 3.5 Aorta: 2.7 FINDINGS: The study is of difficult technical quality with limited visualization. Of note, the patient was in atrial fibrillation with rapid ventricular response during the study. Left ventricle is normal size and likely normal systolic function. I estimate ejection fraction (EF) around 60%. Mild left ventricular hypertrophy (LVH) is noted. Right ventricle was poorly seen but does not appear grossly enlarged. Both atria are at least mildly enlarged. Aortic valve is mildly sclerotic but has normal mobility. Mitral and tricuspid valves appear normal. Pulmonic valve was not well seen. Small pericardial effusion is noted. Inferior vena cava is dilated and there is no appreciable collapse with respiration indicative of high central venous pressure. Aortic root is normal. Aortic arch was not seen. Abdominal aorta appears normal. Doppler interrogation reveals no significant aortic stenosis or insufficiency. There is trace mitral insufficiency and mild tricuspid insufficiency. Calculated pulmonary artery pressure is at least in high 40s corresponding to moderate pulmonary hypertension. Evaluation of diastolic function is inconclusive due to underlying atrial fibrillation with rapid ventricular rate (RVR). CONCLUSIONS: 1. Study is of limited technical quality. 2. Normal left ventricle (LV) size with normal LV systolic function. Mild LVH. 3. No significant valvular disease. 4. High central venous pressure and at least moderate pulmonary hypertension. 5. Small pericardial effusion. COMMENT: Subacute bacterial endocarditis (SBE) prophylaxis is not recommended.
--- NOTE | 2016-10-23 19:32 | CR ---
DATE OF CONSULTATION: 10/23/2016 REFERRING PHYSICIAN: Dr. Segundo INDICATION: Atrial fibrillation pulmonary embolism. HISTORY OF PRESENT ILLNESS: Mrs. Dudley is previously unknown to me. She is a pleasant 69-year-old female who presented to [facility] ([facility] on 10/18/2016 with complaint of left posterior chest discomfort and shortness of breath. On evaluation she was tachycardiac and mildly hypoxic and consequently CT angiography of the chest was performed that revealed presence of left pleural effusion and multiple pulmonary emboli involving both left and right lungs. She was treated with anticoagulation and was slowly improving but then this morning she suddenly went into atrial fibrillation and rapid ventricular response with heart rate being as high as 190 beats per minute. So far she has received 150 mg of intravenous (IV) amiodarone, 0.125 mg of IV digoxin and 5 mg of IV metoprolol. At the time of my evaluation her heart rate is still between 160 and 170 beats per minute. She tells me that she feels fairly comfortable but does admit that the mild shortness of breath has been present. She denies any chest discomfort and she has no clear-cut awareness of palpitations. She was actually woken up by the nursing staff. PAST MEDICAL HISTORY: The patient has not had any consistent medical care for many years. She was diagnosed during this admission with type 2 diabetes. SURGICAL HISTORY: Positive for section, reduction of left shoulder dislocation and eye surgery. SOCIAL HISTORY: The patient lives alone. She does not smoke. She does not drink alcohol. ALLERGIES: No allergies. MEDICATIONS: Occasional [id number] use of Prilosec and Aleve. No prescription medications. FAMILY HISTORY: Denies first-degree relatives with pulmonary emboli but she is not a good historian and consequently I am not convinced that this is reliable. REVIEW OF SYSTEMS: She tells me that until she came to our hospital she was doing quite well and that the onset of symptoms was fairly rapid she goes as far as that she felt well the day before presentation. Denies any fever, chills, nausea, vomiting, diarrhea. Denies any bleeding problems. Denies any syncope, near syncope or palpitations. The rest of review of system is negative. PHYSICAL EXAMINATION: Mrs. Dudley is an elderly female who appears older than her calendar age. When I saw her in the morning she had a blood pressure of 174/85, heart rate was in 170s. She was afebrile and saturation was 92% on 2 liters of oxygen by nasal cannula. Her weight was documented 78.4 kg. Jugular venous pressure (JVP) was at least 506 cm elevated. LUNGS: Reveal clear lungs on the right side. On the left side there were diminished breath sounds at least one-third to one-half of left lung field. There was resonance to percussion. HEART: Exam reveals irregular tachycardia. I did not appreciate any gallop, rub or murmur but it would have been difficult due to her fast heart rate. ABDOMEN: Obese but soft and nontender. No organomegaly. Bowel sounds are present. EXTREMITIES: There is no peripheral edema and peripheral pulses are present and on fair quality. NEUROLOGICALLY: She is alert and oriented and I do not appreciate any focal deficits. No skin lesions. LABORATORY: Her CBC reveals hemoglobin 12.8, hematocrit 40.3, platelet count 475,000 and WBC count is 18.2 with differential 83% neutrophils, 9% lymphocytes and 1% bands. Basic metabolic panel potassium 3.6, BUN 6, creatinine 0.5, GFR more than 16, glucose 189. Troponin I and CK, CK-MB negative and BNP 138, TSH 1.6. Chest x-ray and CT of the chest were reviewed both revealing evidence for left pleural effusion and CTA is positive for bilateral pulmonary emboli. Echocardiogram is pending. ECG reveals presence of atrial fibrillation with rapid ventricular response at 176 beats per minute. No significant ST-T abnormalities compared to baseline. Compared to prior ECG that was performed on 10/19, the atrial fibrillation is new but the QRS morphology is unchanged. ASSESSMENT/PLAN: Mrs. Dudley an 71-year-old female who presents with chest pain and was found to have bilateral pulmonary emboli, left pleural effusion and newly diagnosed diabetes. At this point, she had developed new onset atrial fibrillation with rapid ventricular response that so far has been relatively well tolerated in spite of fast heart rate. I believe that it is appropriate to accomplish rate control with combination of beta-vivien and potentially digoxin. If this should not be successful, then we can introduce amiodarone. I wrote for 0.25 mg of digoxin to be given every 6 hours times three doses. I also wrote for 25 mg of metoprolol to be given every 6 hours with holding parameters for heart rate and blood pressure. If this is not sufficient the intermittent intravenous metoprolol can be given. She has been anticoagulated with Lovenox. There is a tentative plan to perform left sided thoracentesis by interventional radiology and Dr. Antunez. I am hoping that it can be done without discontinuation of Lovenox. It is somewhat unusual that the patient should have two separate diagnoses and consequently I want to believe that this could be potentially infected pleural infarct, but it is certainly conceivable that she has pulmonary emboli and either empyema or other cause of pleural effusion. It would be somewhat unusual though in absence of fever, but her WBC count is elevated. Finally, an echocardiogram should provide additional insight in her cardiac condition. Her ECG at baseline is relatively unremarkable and consequently I expect that she will have preserved left ventricular systolic function. It is further supported by a relatively normal BNP. I will continue following the patient with you. Thank you very much. The patient's condition and plan were discussed with Dr. Segundo.
[2016-10-23] MEDS: ATORVASTATIN 20 MG TAB PO SCH (21:00)
[2016-10-23] MEDS ORDERED: METOPROLOL 5 MG/5 ML VIAL IV STA (21:01)
[2016-10-23] MEDS: guaiFENesin ER 600 MG TAB PO SCH (22:46)
[2016-10-24] VITALS (9 sets, daily range): BP systolic 90–136; BP diastolic 50–72
[2016-10-24] MEDS: PERCOCET 5MG/325MG TAB PO PRN ×3 (00:41→18:06)
[2016-10-24] MEDS ORDERED: NS 250 ML IV ONE (00:45)
[2016-10-24] MEDS: BENZONATATE 100 MG CAP PO PRN ×2 (00:49→20:32)
[2016-10-24] MEDS ORDERED: ACETAMINOPHEN TAB 650MG DOSE (2X325MG) PO PRN (04:15)
[2016-10-24 05:51] LABS: ANION GAP 8 MEQ/L (8-16); BLOOD UREA NITROGEN 12 MG/DL (7-18); CALCIUM LEVEL 8.5 MG/DL (8.8-10.2); CARBON DIOXIDE LEVEL 29 MEQ/L (21-32); CHLORIDE LEVEL 102 MEQ/L (98-107); CREATININE FOR GFR 0.43 MG/DL (0.55-1.02); GLOMERULAR FILTRATION RATE > 60.0 (>39); GLUCOSE, FASTING 176 MG/DL (83-110); POTASSIUM SERUM 3.6 MEQ/L (3.5-5.1); SODIUM LEVEL 139 MEQ/L (136-145)
[2016-10-24 05:55] LABS: ADD MANUAL DIFFER YES; MEAN CORPUSCULAR HEMOGLOBIN 29.5 pg (27.0-33.0); MEAN CORPUSCULAR HGB CONC 31.6 g/dl (32.0-36.5); MEAN CORPUSCULAR VOLUME 93.4 fl (80.0-96.0); PLATELET COUNT, AUTOMATED 483 k/mm3 (150-450); RED CELL DISTRIBUTION WIDTH 14.1 % (11.5-14.5); WHITE BLOOD COUNT 17.8 K/mm3 (4.0-10.0)
[2016-10-24] MEDS: METOPROLOL TART 25 MG TABLET PO SCH ×5 (06:00→23:16)
[2016-10-24 06:25] LABS: BANDS 1 % (< 11)
[2016-10-24] MEDS ORDERED: DIGOXIN INJ 0.5 MG/2 ML AMP (J1160) IV ONE (08:00)
[2016-10-24] MEDS: HumaLOG INSULIN (NovoLOG) PER UNIT SC SCH ×4 (08:00→23:03)
[2016-10-24] MEDS: AZITHROMYCIN 250 MG TAB PO SCH (08:02)
[2016-10-24] MEDS: SENOKOT S TAB PO SCH ×2 (08:03→22:49)
[2016-10-24] MEDS: LEVEMIR (INSULIN DETEMIR) 1 UNITS/0.01ML SC SCH ×2 (08:03→22:49)
[2016-10-24] MEDS: ENOXAPARIN 80 MG/0.8 ML SYRINGE (J1650) SC SCH ×2 (08:03→22:50)
[2016-10-24] MEDS: OMEPRAZOLE 20 MG CAP PO SCH (08:03)
[2016-10-24] MEDS: guaiFENesin ER 600 MG TAB PO SCH ×2 (08:03→22:48)
[2016-10-24] MEDS ORDERED: METOPROLOL TART 25 MG TABLET PO ONE ×2 (08:30→13:30)
--- NOTE | 2016-10-24 08:43 | IPN ---
DATE: 10/24/2016 Mrs. Dudley continues to struggle. Yesterday, she had her thoracentesis and she has a drain in place. She complains bitterly about pain and feels that her breathing is not too bad. She appears very comfortable lying in bed, but sitting up she really starts getting visibly dyspneic. Her heart rate unfortunately is not well controlled. During the day, her heart rate was typically in 130s and 140s, but then at night two of the doses of metoprolol were held because of low blood pressure and she is very tachycardiac this morning. Vital signs: Blood pressure this morning was 132/68 at 0814 hours. Heart rate 180s. Afebrile. Saturation 94% on 2 liters. Her fluid balance yesterday was positive. Weight is documented 80 kg. She is alert and oriented and appropriate, appears to be in mild distress with minimal activity. Jugular venous pulse (JVP) is high. Lungs reveal fairly normal air movement on the right without any crackles or rhonchi or wheezing, but on the left there are still diminished sounds. There is an extensive dressing over the left side of her posterior chest. Heart exam reveals irregular tachycardia. Abdomen soft, nontender. There is no peripheral edema. Neurologically, she is intact. Laboratory ochoa, basic metabolic panel is normal. The CBC, hemoglobin is 12.7, hematocrit 40, platelet count 482,000, WBC count is 7.8. The analysis of the fluid is consistent with exudate. ASSESSMENT AND PLAN: Mrs. Dudley is a 71-year-old female who presented with pulmonary embolism and left-sided loculated pleural effusion that appears to be exudative. I still think it is probably loculated after pulmonary infarct, but there is certainly ID differential. She has been anticoagulated with Lovenox but unfortunately, yesterday went into atrial fibrillation with rapid ventricular response. She still is very difficult to slow down. Blood pressure is now better, so she will get her morning beta-vivien. I gave her another 0.25 mg of digoxin, which should complete her loading dose. She should not get any additional digoxin today, but if her heart rate does not improve, then it is going to be a difficult choice as to how to proceed from here provided blood pressure does not get better. She had preserved left ventricular systolic function on echocardiogram. So I am hoping that should not be an issue, especially because she will not get her morning dose of angiotensin-converting enzyme (CIARRA) inhibitor today. In the long run, I am hoping that there will be full recovery. She likely will require a prolonged hospital stay though. Dr. Newman covers this weekend. DAQUAN
--- NOTE | 2016-10-24 09:18 | REP ---
Clinical: Chest tube. Comparison: 10/23/2016. Findings: Examination is limited by portable technique along with poor inspiratory effort. Perihilar and left lower lobe infiltrates along with moderate and partially loculated left pleural effusion are again identified. Two right-sided chest tubes are suggested on current examination. No obvious pneumothorax. Skeletal structures are intact. Impression: Two left-sided chest tubes are suggested. Right perihilar as well as diffuse left lung infiltrate/atelectasis are suggested along with continued evidence for moderate partially loculated left pleural effusion. Signed by Rory Nichols MD 10/24/2016 09:09 A
[2016-10-24] MEDS: KETOROLAC 30 MG/ML VIAL (J1885) IV SCH ×3 (10:22→22:51)
--- NOTE | 2016-10-24 14:53 | IPNPDOC ---
Subjective Date Seen The patient was seen on 10/24/16. Subjective Chief Complaint/HPI The patient is a 71-year-old female admitted with a reason for visit of Hyperglycemia,Pulmonary Embolism. Events since last encounter No sensation of rapid heart beat, no presyncopal symptoms, tolerating diet, pain at chest tube major complaint, cough improved with tessalon Constitutional: Denies: Chills, Fever Pulmonary: Reports: Dyspnea, Cough Cardiovascular: Reports: Chest Pain, Denies: Palpitations Gastrointestinal: Denies: Nausea, Vomiting, Abdominal Pain Objective Physical Examination General Exam: Positive: Alert, Cooperative, Mild Distress Eye Exam: Positive: Conjunctiva & lids normal ENT Exam: Positive: Atraumatic Neck Exam: Positive: Supple Chest Exam: Positive: Diminished, Negative: Rales, Rhonchi, Wheezing Heart Exam: Positive: Rate Normal, Tachycardic Telemetry: Positive: No significant arrhythmia, Tachycardia, SV Tach Abdomen Exam: Positive: Normal bowel sounds, Soft, Negative: Tenderness Extremity Exam: Negative: Edema Psych Exam: Positive: Oriented x 3 Assessment /Plan Problems (1) Pulmonary embolism Status: Acute Response to Treatment: Progressing Discussed With: Patient Problem Specific Plan: Monitor Clinically, Repeat Labs Problem Text: Currently receiving Lovenox SC full dose Eliquis/xarelto/pradaxa sent to pharmacy for prior auth- all incredibly expensive will likely dc on Coumadin (2) Pleural effusion Status: Acute Problem Text: has left sided developing, loculated pleural effusion empyema seems less likely than hemorrhagic effusion from pulmonary embolism- I discussed with son at bedside 10/24/16 Sputum culture did grow STREP AGALACTIAE GROUP B I discussed in general with covering wire fence builder 10/24/16 Has chest tube with insignificant drainage- will re-evaluate tomorrow for possible tpa Await thoracentesis culture results (3) Tachycardia Status: Acute Problem Text: still tachycardic last night- possibly related to PE, possible pneumonia, possible developing sepsis with or without empyema- complicated with pain I discussed with consulting maintenance mechanic technician in person 10/24/16- pursuing beta blockade, digoxin, amiodarone Has evidence of increased right sided pressures on ECHO (4) Diabetes type 2, uncontrolled Status: Chronic Response to Treatment: Progressing Discussed With: Patient Problem Specific Plan: Repeat Labs, Repeat Tests Problem Text: Continue with insulin therapy- reasonably well controlled for current setting. Proteinuria noted on UA. Started ACEI- d/c 10/23/16 due to tachycardia diabetic teaching (5) Hyperglycemia Status: Resolved Response to Treatment: Improving Discussed With: Patient Problem Specific Plan: Monitor Clinically, Repeat Labs Problem Text: Uncontrolled diabetes. (6) Leukocytosis Status: Acute Discussed With: Patient Problem Specific Plan: Monitor Clinically, Repeat Labs, Repeat Tests Problem Text: Unclear etiology- UTI vs. reactive vs pneumonia +/- empyema Patient did report polyuria and dysuria prior to presentation to ER (7) Hyperlipemia Status: Chronic Discussed With: Patient Problem Text: Starting Lipitor. (8) HTN (hypertension) Status: Acute Discussed With: Patient Problem Specific Plan: Monitor Clinically Problem Text: Possibly chronic untreated complicated with PE. ACEI held, B-vivien started Plan/VTE VTE Prophylaxis Ordered?: Yes Plan Diet: Continue Current Activity: Continue Current Therapy: PT Respiratory: Wean Oxygen Diagnostics: Repeat Labs in AM, TTE Anticipated Discharge: Home, Home With Services VS, I&O, 24H, [facility] Vital Signs/I&O Vital Signs Date Time Temp Pulse Resp B/P (MAP) Pulse Ox O2 Delivery O2 Flow Rate FiO2 10/24/16 13:14 140 106/56 10/24/16 12:00 96.0 20 96 Nasal Cannula 2.0 I&O- Last 24 Hours up to 6 AM 10/24/16 06:00 Intake Total 730 ml Output Total 20 ml Balance 710 ml Laboratory Data 24H LABS Laboratory Tests 2 10/23/16 15:30: Body Fluid Source 2 PLEURAL, Body Fluid pH 7.741, Body Fluid Neutrophils 71, Body Fluid Lymphocytes 14, Body Fluid Monocytes/Macrophages 15, Body Fluid Glucose Source PLEURAL, Body Fluid Glucose 105, Body Fluid Protein Source PLEURAL, Body Fluid Total Protein 4.1, Body Fluid Albumin Source PLEURAL, Body Fluid Albumin 1.3, Body Fluid LDH Source PLEURAL, Body Fluid Lactate Dehydrogenase 2082, Body Fluid Amylase Source PLEURAL, Body Fluid Amylase 17, Body Fluid Cholesterol 90, Pleural Fluid Source PLEURAL, Pleural Fluid Color PALE YELLOW, Pleural Fluid Appearance HAZY, Pleural Fluid RBC (Auto) < 10, Pleural Fluid Total Nucleated Cells 310H, Body Source PLEURAL 10/23/16 16:30: Bedside Glucose (Misc Panel) 117H 10/23/16 20:24: Bedside Glucose (Misc Panel) 144H 10/24/16 05:16: Neutrophils 80H, Band Neutrophils 1, Lymphocytes (Manual) 11L, Monocytes (Manual ) 5, Metamyelocytes 2H, Atypical Lymphocytes 1, Platelet Estimate INCREASED, Red Blood Cell Morphology NORMAL, Anion Gap 8, Glomerular Filtration Rate > 60.0 , Blood Urea Nitrogen 12#, Creatinine 0.43L, Sodium Level 139, Potassium Level 3.6, Chloride Level 102, Carbon Dioxide Level 29, Calcium Level 8.5L 10/24/16 12:27: Bedside Glucose (Misc Panel) 161H CBC/BMP Laboratory Tests 10/24/16 05:16 Red Blood Count 4.30, Mean Corpuscular Volume 93.4, Mean Corpuscular Hemoglobin 29.5, Mean Corpuscular Hemoglobin Concent 31.6 L, Red Cell Distribution Width 14.1, Calcium Level 8.5 L Microbiology Microbiology 10/23/16 Blood Culture - Preliminary, Resulted No growth after 24 hours . All specim... 10/23/16 Blood Culture - Preliminary, Resulted No growth after 24 hours . All specim... 10/19/16 Blood Culture - Final, Complete NO GROWTH AFTER 5 DAYS 10/19/16 Blood Culture - Final, Complete NO GROWTH AFTER 5 DAYS 10/23/16 Acid Fast Stain, Received Pending 10/23/16 Mycobacterial Culture, Received Pending 10/23/16 Gram Stain - Final, Complete 10/23/16 Body Fluid Culture, Received Pending 10/21/16 Gram Stain - Final, Complete 10/21/16 Sputum Culture - Final, Complete Strep Agalactiae Group B 10/20/16 Urine Culture - Final, Complete Corynebacterium Species SUNG MAGALLON MD October 24, 2016 14:53
[2016-10-24] MEDS: cefTRIAXone SOD 2 GM in D5W MINI-BAG PLUS 50 ML IV SCH (15:28)
--- NOTE | 2016-10-24 15:58 | REP ---
ULTRASOUND GUIDED LEFT THORACENTESIS WITH CATHETER PLACEMENT: The procedure was performed under the direct supervision of Dr. Aiken. The risks and benefits of the procedure were explained to the patient and informed consent was obtained. The right pleural effusion was localized using ultrasound guidance. The skin was prepped and draped in a sterile fashion. 1% lidocaine was used as a local anesthetic. Using ultrasound guidance, an #10-[place] skater APDL catheter was inserted using trocar technique. 20 mL of pink colored fluid was withdrawn and sent to the lab. The catheter was affixed to the skin and a sterile dressing was applied. The catheter was connected to a Pleur-evac. The patient tolerated the procedure well and there were no immediate complications. Reviewed by HAKAN Watkins 10/24/2016 04:07 PEdited and Signed by Max Aiken MD 10/24/2016 04:41 P
--- NOTE | 2016-10-24 19:49 | ECGEPIP ---
Stationary ECG Study [facility] Test Date: 2016-10-24 Pat Name: DERREK OLIVO Department: Room: [place] [address] Gender: F Client Experience Consultant: SUMANTH : 1945 Requested By: Mandeep Pollock Order Number: [id number] Reading MD: Brain Hilario Measurements Intervals [place] Rate: 150 P: SD: 0 QRS: 20 QRSD: 83 T: 0 QT: 277 QTc: 437 Interpretive Statements ATRIAL FIBRILLATION WITH RAPID VENTRICULAR RESPONSE NONSPECIFIC T-WAVE ABNORMALITY ABNORMAL RHYTHM ECG Electronically Signed On 10-24-2016 19:49:25 EDT by Brain Hilario
[2016-10-24] MEDS: ATORVASTATIN 20 MG TAB PO SCH (22:48)
[2016-10-25] MEDS: BENZONATATE 100 MG CAP PO PRN ×2 (02:49→21:25)
[2016-10-25] MEDS: KETOROLAC 30 MG/ML VIAL (J1885) IV SCH ×4 (02:51→21:00)
[2016-10-25] MEDS: MORPHINE 2 MG/ML 1ML SYRINGE IV PRN ×2 (03:08→13:00)
[2016-10-25 03:38] VITALS: BP 106/57
[2016-10-25 05:24] LABS: ADD MANUAL DIFFER YES; MEAN CORPUSCULAR HEMOGLOBIN 29.4 pg (27.0-33.0); MEAN CORPUSCULAR HGB CONC 31.5 g/dl (32.0-36.5); MEAN CORPUSCULAR VOLUME 93.3 fl (80.0-96.0); PLATELET COUNT, AUTOMATED 540 k/mm3 (150-450); RED CELL DISTRIBUTION WIDTH 13.9 % (11.5-14.5); WHITE BLOOD COUNT 15.2 K/mm3 (4.0-10.0)
[2016-10-25] MEDS: METOPROLOL TART 25 MG TABLET PO SCH (05:26)
[2016-10-25 05:49] LABS: ANION GAP 6 MEQ/L (8-16); BLOOD UREA NITROGEN 12 MG/DL (7-18); CALCIUM LEVEL 8.4 MG/DL (8.8-10.2); CARBON DIOXIDE LEVEL 33 MEQ/L (21-32); CHLORIDE LEVEL 103 MEQ/L (98-107); CREATININE FOR GFR 0.44 MG/DL (0.55-1.02); DIGOXIN LEVEL 0.8 NG/ML (0.5-2.0); GLOMERULAR FILTRATION RATE > 60.0 (>39); GLUCOSE, FASTING 115 MG/DL (83-110); POTASSIUM SERUM 3.5 MEQ/L (3.5-5.1); SODIUM LEVEL 142 MEQ/L (136-145)
[2016-10-25 06:25] LABS: EOSINOPHILS 2 % (0-5)
[2016-10-25 06:26] LABS: ANISOCYTOSIS 1+
[2016-10-25 08:00] VITALS: BP 125/76
[2016-10-25] MEDS ORDERED: KETOROLAC 30 MG/ML VIAL (J1885) IV STA (08:01)
[2016-10-25] MEDS: LEVEMIR (INSULIN DETEMIR) 1 UNITS/0.01ML SC SCH ×2 (08:08→21:27)
[2016-10-25] MEDS: HumaLOG INSULIN (NovoLOG) PER UNIT SC SCH ×4 (08:08→21:27)
[2016-10-25] MEDS: guaiFENesin ER 600 MG TAB PO SCH ×2 (08:09→21:25)
[2016-10-25] MEDS: SENOKOT S TAB PO SCH ×2 (08:09→21:25)
[2016-10-25] MEDS: OMEPRAZOLE 20 MG CAP PO SCH (08:09)
[2016-10-25] MEDS: AZITHROMYCIN 250 MG TAB PO SCH (08:09)
[2016-10-25] MEDS: ENOXAPARIN 80 MG/0.8 ML SYRINGE (J1650) SC SCH ×2 (08:11→21:26)
--- NOTE | 2016-10-25 09:11 | REP ---
Clinical: Status post chest tube. Follow up pleural effusion. Comparison: 10/22/2016. Findings: A pigtail catheter is identified in the left lung base and while the pleural effusion may be slightly decreased, there still remains a moderate and partially loculated pleural fluid along the posterolateral left hemithorax extending to the apex including insinuating into the major fissure. Underlying areas of consolidation primarily involving the lingula and left lower lobe remain relatively stable. Right hemithorax demonstrates chronic stable changes without effusion or significant consolidation/atelectasis. Mediastinum suggests scattered reactive lymph nodes and demonstrates relatively normal / stable thoracic aorta and heart/pericardium. No pericardial effusion is identified. Musculoskeletal structures are intact. Upper abdomen suggests cholelithiasis, 1.5 cm right adrenal adenoma, and the possibility for left renal hydronephrosis. Impression: 1. Minimally decreased left pleural fluid at the lung base in the region of the pigtail catheter. Continued evidence for moderate likely partially loculated pleural fluid with stable areas of consolidation and atelectasis involving the left lower lobe and lingula. 2. Findings within the upper abdomen as described above including right adrenal adenoma, cholelithiasis, and possible left renal hydronephrosis. Signed by Rory Nichols MD 10/25/2016 09:03 A
[2016-10-25] MEDS ORDERED: ALTEPLASE 2 MG/2 ML VIAL (J2997 PER 1MG) XX ONE (10:00)
--- NOTE | 2016-10-25 11:20 | IPNPDOC ---
Subjective Date Seen The patient was seen on 10/25/16. Subjective Chief Complaint/HPI The patient is a 71-year-old female admitted with a reason for visit of Hyperglycemia,Pulmonary Embolism. Events since last encounter Has left sided chest pain, especially with movement, toradol somewhat helpful, cough improved from two days ago, tolerating diet Constitutional: Denies: Chills, Fever Pulmonary: Denies: Dyspnea, Cough Cardiovascular: Denies: Chest Pain, Palpitations Gastrointestinal: Denies: Nausea, Vomiting Objective Physical Examination General Exam: Positive: Alert, Cooperative, Mild Distress Eye Exam: Negative: Sclera icteric ENT Exam: Positive: Mucous membr. moist/pink Neck Exam: Positive: Supple Chest Exam: Positive: Diminished, Negative: Rales, Rhonchi, Wheezing Heart Exam: Positive: Rate Normal, Tachycardic Telemetry: Positive: Tachycardia, SV Tach Abdomen Exam: Positive: Normal bowel sounds, Soft, Negative: Tenderness Extremity Exam: Negative: Edema Psych Exam: Positive: Oriented x 3 Assessment /Plan Problems (1) Pulmonary embolism Status: Acute Response to Treatment: Progressing Discussed With: Patient Problem Specific Plan: Monitor Clinically, Repeat Labs Problem Text: Currently receiving Lovenox SC full dose Eliquis/xarelto/pradaxa sent to pharmacy for prior auth- all incredibly expensive will likely dc on Coumadin- will start after complicated effusion managed (2) Pleural effusion Status: Acute Problem Text: has left sided developing, loculated pleural effusion empyema seems less likely than hemorrhagic effusion from pulmonary embolism- I discussed with son at bedside 10/24/16 Sputum culture did grow STREP AGALACTIAE [employer] B I discussed in general with covering telegraph service rater 10/24/16 Has chest tube with insignificant drainage- I consulted Dr. Bueno- who ordered repeat CT scan and TPA via chest tube thoracentesis culture results show no grow aerobically (3) Tachycardia Status: Acute Problem Text: still tachycardic last night- possibly related to PE, possible pneumonia, complicated with pain Increased beta blockade Has evidence of increased right sided pressures on ECHO (4) Diabetes type 2, uncontrolled Status: Chronic Response to Treatment: Progressing Discussed With: Patient Problem Specific Plan: Repeat Labs, Repeat Tests Problem Text: Continue with insulin therapy- reasonably well controlled for current setting. Proteinuria noted on UA. Started ACEI- d/c 10/23/16 due to tachycardia diabetic teaching (5) Hyperglycemia Status: Resolved Response to Treatment: Improving Discussed With: Patient Problem Specific Plan: Monitor Clinically, Repeat Labs Problem Text: Uncontrolled diabetes. (6) Leukocytosis Status: Acute Discussed With: Patient Problem Specific Plan: Monitor Clinically, Repeat Labs, Repeat Tests Problem Text: Unclear etiology- UTI vs. reactive vs pneumonia Patient did report polyuria and dysuria prior to presentation to ER (7) Hyperlipemia Status: Chronic Discussed With: Patient Problem Text: Starting Lipitor. (8) HTN (hypertension) Status: Acute Discussed With: Patient Problem Specific Plan: Monitor Clinically Problem Text: Possibly chronic untreated complicated with PE. ACEI held, B-vivien started Plan/VTE VTE Prophylaxis Ordered?: Yes Plan Diet: Continue Current Activity: Continue Current Therapy: PT Respiratory: Wean Oxygen Diagnostics: Repeat Labs in AM, TTE Anticipated Discharge: Home, Home With Services VS, I&O, 24H, [facility] Vital Signs/I&O Vital Signs Date Time Temp Pulse Resp B/P (MAP) Pulse Ox O2 Delivery O2 Flow Rate FiO2 10/25/16 08:00 97.4 127 20 125/76 (92) 96 Nasal Cannula 2.0 I&O- Last 24 Hours up to 6 AM 10/25/16 06:00 Intake Total 1730 ml Output Total 935 ml Balance 795 ml Laboratory Data 24H LABS Laboratory Tests 2 10/24/16 12:27: Bedside Glucose (Misc Panel) 161H 10/24/16 16:45: Bedside Glucose (Misc Panel) 204H 10/24/16 23:00: Bedside Glucose (Misc Panel) 214H 10/25/16 04:34: Neutrophils 76H, Lymphocytes (Manual) 9L, Monocytes (Manual) 13H, Eosinophils ( Manual) 2, Platelet Estimate INCREASED, Anisocytosis 1+, Anion Gap 6L, Glomerular Filtration Rate > 60.0, Blood Urea Nitrogen 12, Creatinine 0.44L, Sodium Level 142, Potassium Level 3.5, Chloride Level 103, Carbon Dioxide Level 33H, Calcium Level 8.4L, Digoxin Level 0.8 CBC/BMP Laboratory Tests 10/25/16 04:34 Red Blood Count 4.15, Mean Corpuscular Volume 93.3, Mean Corpuscular Hemoglobin 29.4, Mean Corpuscular Hemoglobin Concent 31.5 L, Red Cell Distribution Width 13.9, Calcium Level 8.4 L Microbiology Microbiology 10/23/16 Blood Culture - Preliminary, Resulted No growth after 24 hours . All specim... 10/23/16 Blood Culture - Preliminary, Resulted No growth after 24 hours . All specim... 10/19/16 Blood Culture - Final, Complete NO GROWTH AFTER 5 DAYS 10/19/16 Blood Culture - Final, Complete NO GROWTH AFTER 5 DAYS 10/23/16 Acid Fast Stain, Received Pending 10/23/16 Mycobacterial Culture, Received Pending 10/23/16 Gram Stain - Final, Complete 10/23/16 Body Fluid Culture - Final, Complete 10/21/16 Gram Stain - Final, Complete 10/21/16 Sputum Culture - Final, Complete Strep Agalactiae Group B 10/20/16 Urine Culture - Final, Complete Corynebacterium Species SUNG MAGALLON MD October 25, 2016 11:20
[2016-10-25] MEDS: METOPROLOL TART 50 MG TAB PO SCH ×3 (11:42→22:11)
[2016-10-25 12:00] VITALS: BP 146/79
--- NOTE | 2016-10-25 12:18 | CR ---
DATE OF CONSULTATION: 10/25/2016 Patient is seen at the request of Dr. Segundo for a loculated pleural effusion. HISTORY OF PRESENT ILLNESS: Patient is a 71-year-old white female who on 10/19/2016 was in her bathtub and could not get out of the bathtub secondary to extreme weakness. In fact she states that she was so weak that took her an hour to get out of the bathtub. At that time she also became very short of breath. She then sought medical treatment at the emergency room. Antecedent to this episode she had fallen at [employer] injuring her right shoulder. [place]. She then came back from [place] on a train. She has not noted swelling of her legs. Before the episode of shortness of breath she had no difficulty. Furthermore, she states that she did not have a cough or sputum production or fever, chills, or sweats. She has had a 30 pound weight loss since her injury in June. She states she has no dysphagia and is eating well. While she tells me she did not have cough or sputum production Dr. Segundo informs me that his history within the hospital showed that she did have a sputum production which was brown with increasing coughing. She does not complain of chest discomfort or chest pain. When she was admitted to the emergency room a CT angiogram showed her to have multiple pulmonary emboli. To my reading of the chest CT she had pulmonary emboli on both the right and left sides. She did develop a pleural effusion which was drained with a pigtail catheter of only 10-20 mL. The CAT scan looks as though there is a least 200-300 in there. PAST MEDICAL ILLNESSES: The patient has never seen a physician. She has been diagnosed while in the hospital with diabetes. She also complains of heartburn for which she takes [id number]-glm-[id number] Prilosec. PAST SURGERIES: She has had two sections. ALLERGIES: None known. MEDICATIONS AT HOME: Other than the Prilosec, none. TRAVEL HISTORY: To the [facility], but not to the [facility] and no foreign travel. EXPOSURES: Has two cats. There has been no tuberculosis exposure. OCCUPATIONAL HISTORY: She works at [employer] for the last 15 years, but has also worked at various other jobs, but no asbestos exposure. HABITS: Does not smoke. Does not drink. No illicit drugs. FAMILY HISTORY: To be obtained at a later day, not relevant to the present problem at hand. REVIEW OF SYSTEMS: CONSTITUTIONAL: See HPI. A 30 pound weight loss over the past 4 months, unintended. She states she used to weight 200 pounds, but now weighs 170. Eyes without diplopia. Does wear glasses. Without amaurosis fugax or prior jaundice. Nose without epistaxis. Mouth, has her own teeth. RESPIRATORY: See HPI. CARDIAC: See HPI. No prior history of myocardial infarctions. Has not noted any peripheral edema or intermittent claudication. Has developed atrial fibrillation with tachycardia. GI: Without nausea or vomiting, diarrhea, or constipation. No hematochezia. Without abdominal pain. : Without dysuria, hematuria, or prior renal stones. ENDOCRINE: With thyroid disease and without priorly known diabetes, but diagnosed on this admission. NEUROLOGIC: Without paralysis, paraesthesias, or seizures. PSYCHIATRIC: Without pathological anxieties, depressions, or psychoses. PHYSICAL EXAMINATION: A well developed, well nourished, white female in no acute distress. VITAL SIGNS: Temperature 97.4, heart rate is 127 in atrial fibrillation, respiratory rate is 20 without use of accessory muscles. She is 96% saturated on 2 liters nasal cannula. Blood pressure is 125/76. EYES: Pupils equal, round and reactive to light. Extraocular muscles intact. Sclera nonicteric. NOSE: Without deformity. MOUTH: Shows mucous membranes to be pink and moist. Lips and commissures without lesions. Her teeth are in need of repair. There is no thrush. HEAD: Normocephalic. NECK: Supple. There is no jugular venous distention. No subcutaneous emphysema. Trachea is midline. There are no carotid bruits. She has 2+ carotid upstrokes. No thyromegaly. No lymphadenopathy. PULMONARY: Show decreased breath sounds in the left hemithorax. Percussion was dull in the left base. Expiratory wheezing and inspiratory rales and rhonchi on the left side. CARDIAC: Is without murmurs, clicks, gallops or rubs. I cannot feel her point of maximal impulse (PMI). S1, S2 are normal. ABDOMEN: Soft, nontender. Bowel sounds are positive. There is no hepatomegaly. No costovertebral angle (CVA) tenderness. EXTREMITIES: Show 1-2+ pretibial edema on the left side. None of the right side. There is no calf tenderness. Pulses - she has 2+ dorsal pedis and posterior tibial pulses. SKIN: Skin is warm, dry, and perfuse without cyanosis or mottling including that of all nail beds and knees. NEUROLOGICAL: Shows II through XIII intact and gross motor and sensation intact. Gait is not tested. PSYCHIATRIC: Shows her to be awake and alert. Oriented times three with appropriate mood and affect. LYMPHATICS: Show no axillary or cervical lymphadenopathy. INVESTIGATIONS: She is presently on Lovenox at an anticoagulant level. Her white count is 15.2 with hemoglobin and hematocrit of 12.2 and 38.7 with a platelet count of 540. Differential shows 76% neutrophils, 9% lymphocysts, 13% monocytes. There is no immature forms and no toxic granulations. Blood gas on admission showed her venous pH to be 7.3 with a venous PO2 of 38 and CO2 of 37 and a base excess of -3.3. Her electrolytes today are essentially normal with a marginally high total CO2 of 33. BUN and creatinine are 12 and 0.44 with a glucose of 115 and a calcium of 8.5. On 10/23/2016 her brain natriuretic peptide is 138. Her digoxin level is 0.8. Her CT of her chest today shows a loculated pleural effusion with pigtail catheter in its inferior portion. There is a lung that either looks infiltrated or infarcted in the probable left lower lobe. It is a reticular segmental pattern with compression around it. There is some paratracheal lymphadenopathy. I do not see a lung mass per se. The chest CT is markedly changed from the CT angio done on 10/18/2016. While the pulmonary emboli can be seen in both peripheral lung araujo there is no pleural effusion. Furthermore, there is no infiltrative process although there looks to be some scarring and atelectasis in the left base. There is no mass seen on the CT angio. Left adrenal looks intact and I do not see the right adrenal. EKG shows atrial fibrillation with rapid ventricular response with the rate of about 150. I do not see any acute changes. IMPRESSION: 1. Bilateral pleural emboli. 2. Possible lung infarction. 3. Possible lower lobe pneumonia on the left. 4. Atrial fibrillation. 5. Diabetes. 6. Loculated pleural effusion. 7. Atrial fibrillation with rapid ventricular response. 8. Hypertension. PLAN AND DISCUSSION: I am going to conjecture that the pleural effusion is really a hemothorax secondary to a probable lung infarction. She does not have much pain and I would be surprised if its an empyema. This could be an infective pneumonic process, but I suspect it is going to be a lung infarction. We need to evacuate the chest and I will therefore do a tPA pyrolysis through the already placed pigtail catheter. We do need to get her atrial fibrillation under control. I suspect the atrial fibrillation is probably secondary to increased pulmonary artery pressures from her pulmonary embolisms (PEs). I will also ask for an echocardiogram.
--- NOTE | 2016-10-25 13:35 | IPN ---
DATE OF SERVICE: 10/25/2016 Mrs. Zee Dudley was seen earlier today. She was in supine in bed, in no acute distress. She denies any chest pain, shortness of breath, palpitations. There was no orthopnea. She did not have any pedal edema. There is no report of bleeding. Her only concern is discomfort at the site of the chest tube drainage , and she would like it to be removed. She has no focal manifestation. She initially came on 10/18/2016 with chest pain, abdominal pain, shortness of breath, and she was diagnosed with pulmonary embolism bilateral, diabetes mellitus, and pleural effusion. While in the hospital, she developed atrial fibrillation with a rapid ventricular rate, and cardiology consult was called. She was seen by Dr. Pollock a couple days ago. She had an ultrasound-guided left thoracentesis with catheter placement on 10/23/2016 for loculated left pleural effusion. She has been on AV blocking agents and also had received intravenous (IV) amiodarone, and her atrial fibrillation continued to be uncontrolled. On physical examination, the patient is alert and oriented, in no acute distress at rest, and very pleasant. Her vital signs when I saw her earlier today revealed a blood pressure of 146/79 with a pulse of 156, respiration 18-20, and her temperature was 97. Her maximum temperature for today is 98.3 degrees Fahrenheit with an oxygen saturation of 96 % on 2 liter nasal cannula. EXAMINATION OF THE HEAD, EARS, EYES, NOSE, AND THROAT: Atraumatic. NECK: Is supple. No jugular venous distention (JVD). The lungs did not reveal any wheezing. Upper respiratory rhonchi heard. The heart examination revealed irregularly irregular heart sounds without gallops, tachycardic. The point of maximal impulse (PMI) is not displaced. There is no rub. ABDOMEN: Is unremarkable. EXTREMITIES: With no pedal edema. NEUROLOGIC EXAMINATION: Is negative for focal deficit. LABORATORIES: BMP done today reveal a sodium of 142, potassium 3.5, chloride 103, CO2 33, BUN 12, creatinine 0.44, GFR more than 60, fasting glucose 115, calcium 8.4. CBC revealed a WBC of 15.2, hemoglobin 12.2, hematocrit 38.7, and platelets 540,000. Serum digoxin is 0.8. IMPRESSION: 1. Atrial fibrillation with uncontrolled ventricular rate. Recently diagnosed while in the hospital. 2. Left-sided loculated pleural effusion, being drained. 3. Diabetes mellitus, newly diagnosed this hospitalization. 4. History of hypertension. 5. History of hyperlipidemia. 6. Bilateral pleural effusion by CT angiogram of the chest on 10/18/2016. Mrs. Zee Dudley seems to be stable, and she denies any cardiac complaints, but her atrial fibrillation is still not under control. I will continue with the beta vivien/metoprolol tartrate, and I will initiate a small dose of Cardizem. She will need to be monitored for underlying sick sinus syndrome because it seems that, according to the telemetry and the nursing staff , her pulse/ventricular rate can bounce from low 100s up to 160-150 beats per minute, but no significant pulse has been noted yet since on telemetry. She is on anticoagulation therapy for her pulmonary embolism (PE), Lovenox. We will see how she responds to the dual AV-blocking agents. 7. Pulmonary embolism (PE), bilateral, probably was initially severe. Currently, on Lovenox. 8. Left-sided loculated pleural effusion, being addressed. 9. Diabetes mellitus, also being addressed. 10. Hypertension, on treatment, and we will see how she responds after being on the calcium-channel vivien. Her angiotensin-converting enzyme (CIARRA) inhibitor was discontinued. This can wait and be addressed as outpatient once her ventricular rate is under control. 11. History of hyperlipidemia. It was a pleasure to assist in the care of Mrs. Zee Dudley for her underlying cardiac condition. I will monitor along with you while in the hospital. The case was discussed earlier today with her hospitalist. DAQUAN
[2016-10-25] MEDS: PERCOCET 5MG/325MG TAB PO PRN ×3 (13:48→21:40)
[2016-10-25] MEDS: cefTRIAXone SOD 2 GM in D5W MINI-BAG PLUS 50 ML IV SCH (15:09)
[2016-10-25 16:00] VITALS: BP 113/69
[2016-10-25 20:07] VITALS: BP 92/60
[2016-10-25] MEDS: ATORVASTATIN 20 MG TAB PO SCH (21:25)
[2016-10-25 23:43] VITALS: BP 108/62
[2016-10-26] VITALS (14 sets, daily range): BP systolic 78–127; BP diastolic 46–84
[2016-10-26] MEDS ORDERED: NS 500 ML IV ONE
[2016-10-26] MEDS ORDERED: SODIUM CHLORIDE 0.9% 1000 ML IV ONE ×3 (00:15→04:30)
[2016-10-26] MEDS: KETOROLAC 30 MG/ML VIAL (J1885) IV SCH ×2 (02:38→08:34)
[2016-10-26] MEDS: METOPROLOL TART 50 MG TAB PO SCH ×3 (05:15→23:42)
[2016-10-26 05:16] LABS: ANION GAP 6 MEQ/L (8-16); BLOOD UREA NITROGEN 14 MG/DL (7-18); CALCIUM LEVEL 7.8 MG/DL (8.8-10.2); CARBON DIOXIDE LEVEL 29 MEQ/L (21-32); CHLORIDE LEVEL 104 MEQ/L (98-107); CREATININE FOR GFR 0.48 MG/DL (0.55-1.02); GLOMERULAR FILTRATION RATE > 60.0 (>39); GLUCOSE, FASTING 149 MG/DL (83-110); POTASSIUM SERUM 3.5 MEQ/L (3.5-5.1); SODIUM LEVEL 139 MEQ/L (136-145)
[2016-10-26 05:44] LABS: ADD MANUAL DIFFER YES; DIFF SLIDE NUMBER 75; MEAN CORPUSCULAR HEMOGLOBIN 27.8 pg (27.0-33.0); MEAN CORPUSCULAR HGB CONC 29.9 g/dl (32.0-36.5); MEAN CORPUSCULAR VOLUME 93.1 fl (80.0-96.0); PLATELET COUNT, AUTOMATED 571 k/mm3 (150-450)
[2016-10-26 06:17] LABS: BANDS 4 % (< 11)
[2016-10-26 06:19] LABS: ANISOCYTOSIS 1+
[2016-10-26] MEDS: HumaLOG INSULIN (NovoLOG) PER UNIT SC SCH ×4 (08:32→21:00)
[2016-10-26] MEDS: SENOKOT S TAB PO SCH ×2 (08:33→21:00)
[2016-10-26] MEDS: guaiFENesin ER 600 MG TAB PO SCH ×2 (08:33→21:00)
[2016-10-26] MEDS: LEVEMIR (INSULIN DETEMIR) 1 UNITS/0.01ML SC SCH ×2 (08:33→21:01)
[2016-10-26] MEDS: PERCOCET 5MG/325MG TAB PO PRN ×2 (08:34→14:05)
[2016-10-26] MEDS: AZITHROMYCIN 250 MG TAB PO SCH (08:34)
[2016-10-26] MEDS: ENOXAPARIN 80 MG/0.8 ML SYRINGE (J1650) SC SCH ×2 (08:34→21:01)
[2016-10-26] MEDS: OMEPRAZOLE 20 MG CAP PO SCH (08:43)
--- NOTE | 2016-10-26 09:45 | REP ---
Clinical: Status post TPA therapy. Follow up pleural effusion. Comparison: 10/25/2016. Findings: A pigtail catheter is again identified in the left lung base and there still remains a moderate and partially loculated pleural fluid along the posterolateral left hemithorax extending to the apex including insinuating into the major fissure. Underlying areas of consolidation primarily involving the lingula and left lower lobe remain relatively stable. Right hemithorax demonstrates minimal basilar atelectasis similar to prior examination. Mediastinum suggests scattered reactive lymph nodes and demonstrates relatively normal / stable thoracic aorta and heart/pericardium. No pericardial effusion is identified. Musculoskeletal structures are intact. Upper abdomen demonstrates cholelithiasis, 1.5 cm right adrenal adenoma, and the possibility for left renal hydronephrosis. Impression: 1. Continued evidence for moderate likely partially loculated pleural fluid as described above and essentially unchanged. Associated stable areas of consolidation and atelectasis involving the left lower lobe and lingula. Signed by Rory Nichols MD 10/26/2016 09:36 A
--- NOTE | 2016-10-26 09:46 | IPNPDOC ---
Subjective Date Seen The patient was seen on 10/26/16. Subjective Chief Complaint/HPI The patient is a 71-year-old female admitted with a reason for visit of Hyperglycemia,Pulmonary Embolism. Events since last encounter Feeling ok- chest pain controlled with medications, worse with cough, not producing sputum, tolerating a diet Constitutional: Denies: Chills, Fever Pulmonary: Reports: Cough, Denies: Dyspnea Cardiovascular: Reports: Chest Pain, Denies: Palpitations Gastrointestinal: Denies: Nausea, Vomiting, Abdominal Pain Objective Physical Examination General Exam: Positive: Alert, Cooperative, No Acute Distress Eye Exam: Negative: Sclera icteric ENT Exam: Positive: Mucous membr. moist/pink Neck Exam: Positive: Supple Chest Exam: Positive: Diminished, Negative: Rales, Rhonchi, Wheezing Heart Exam: Positive: Rate Normal, Normal S1, Normal S2 Telemetry: Positive: Tachycardia, SV Tach Abdomen Exam: Positive: Normal bowel sounds, Soft, Negative: Tenderness Extremity Exam: Negative: Edema Psych Exam: Positive: Oriented x 3 Assessment /Plan Problems (1) Pulmonary embolism Status: Acute Response to Treatment: Progressing Discussed With: Patient Problem Specific Plan: Monitor Clinically, Repeat Labs Problem Text: Currently receiving Lovenox SC full dose Eliquis/xarelto/pradaxa sent to pharmacy for prior auth- all incredibly expensive will likely dc on Coumadin- will start after complicated effusion managed (2) Pleural effusion Status: Acute Problem Text: has left sided developing, loculated pleural effusion empyema seems less likely than hemorrhagic effusion from pulmonary embolism- I discussed with son at bedside 10/24/16 Sputum culture did grow STREP [employer]AL[employer] B I discussed in general with covering network solutions architect 10/24/16 Has chest tube with insignificant drainage- I consulted Dr. Bueno- who ordered repeat CT scan and TPA via chest tube thoracentesis culture results show no grow aerobically Now have sanginous drainage from chest tube and developing anemia with hypotension- will benefit from transfusion (3) Tachycardia Status: Acute Problem Text: still tachycardic last night- possibly related to PE, possible pneumonia, complicated with pain Increased beta blockade Has evidence of increased right sided pressures on ECHO Converted to sinus over the course of the night of 10/25/16 (4) Diabetes type 2, uncontrolled Status: Chronic Response to Treatment: Progressing Discussed With: Patient Problem Specific Plan: Repeat Labs, Repeat Tests Problem Text: Continue with insulin therapy- reasonably well controlled for current setting. Proteinuria noted on UA. Started ACEI- d/c 10/23/16 due to tachycardia and need for other meds diabetic teaching (5) Hyperglycemia Status: Resolved Response to Treatment: Improving Discussed With: Patient Problem Specific Plan: Monitor Clinically, Repeat Labs Problem Text: Uncontrolled diabetes. (6) Leukocytosis Status: Acute Discussed With: Patient Problem Specific Plan: Monitor Clinically, Repeat Labs, Repeat Tests Problem Text: Unclear etiology- UTI vs. reactive vs pneumonia Patient did report polyuria and dysuria prior to presentation to ER (7) Hyperlipemia Status: Chronic Discussed With: Patient Problem Text: Starting Lipitor. (8) HTN (hypertension) Status: Acute Discussed With: Patient Problem Specific Plan: Monitor Clinically Problem Text: Possibly chronic untreated complicated with PE. ACEI held, B-vivien started (9) Acute blood loss anemia Status: Acute Problem Text: s/p TPA in chest tube, now with blood loss on lovenox full dose for pulm embolism, toradol for pain Will need to obtain informed consent Plan/VTE VTE Prophylaxis Ordered?: Yes Plan Diet: Continue Current Activity: Continue Current Therapy: PT Respiratory: Wean Oxygen Diagnostics: Repeat Labs in AM, TTE Anticipated Discharge: Home, Home With Services VS, I&O, 24H, [facility] Vital Signs/I&O Vital Signs Date Time Temp Pulse Resp B/P (MAP) Pulse Ox O2 Delivery O2 Flow Rate FiO2 10/26/16 08:34 18 10/26/16 08:00 97.8 116 100/53 (69) 94 Nasal Cannula 2.0 I&O- Last 24 Hours up to 6 AM 10/26/16 05:59 Intake Total 1610 ml Output Total 2163 ml Balance -553 ml Laboratory Data 24H LABS Laboratory Tests 2 10/25/16 11:30: Bedside Glucose (Misc Panel) 217H 10/25/16 16:45: Bedside Glucose (Misc Panel) 179H 10/25/16 21:06: Bedside Glucose (Misc Panel) 182H 10/26/16 00:25: Lactic Acid Level 3.3*H 10/26/16 04:43: Neutrophils 74, Band Neutrophils 4, Lymphocytes (Manual) 12L, Monocytes (Manual ) 7, Metamyelocytes 2H, Myelocytes 1H, Platelet Estimate INCREASED, Anisocytosis 1+, Anion Gap 6L, Glomerular Filtration Rate > 60.0, Lactic Acid Followup at 4 Hours 1.4, Blood Urea Nitrogen 14, Creatinine 0.48L, Sodium Level 139, Potassium Level 3.5, Chloride Level 104, Carbon Dioxide Level 29, Calcium Level 7.8L CBC/BMP Laboratory Tests 10/26/16 04:43 Red Blood Count 3.00 L, Mean Corpuscular Volume 93.1, Mean Corpuscular Hemoglobin 27.8, Mean Corpuscular Hemoglobin Concent 29.9 L, Red Cell Distribution Width 14.0, Calcium Level 7.8 L Microbiology Microbiology 10/23/16 Blood Culture - Preliminary, Resulted No Growth after 48 hours. All Specime... 10/23/16 Blood Culture - Preliminary, Resulted No Growth after 48 hours. All Specime... 10/19/16 Blood Culture - Final, Complete NO GROWTH AFTER 5 DAYS 10/19/16 Blood Culture - Final, Complete NO GROWTH AFTER 5 DAYS 10/23/16 Acid Fast Stain, Received Pending 10/23/16 Mycobacterial Culture, Received Pending 10/23/16 Gram Stain - Final, Complete 10/23/16 Body Fluid Culture - Final, Complete 10/21/16 Gram Stain - Final, Complete 10/21/16 Sputum Culture - Final, Complete Strep Agalactiae Group B 10/20/16 Urine Culture - Final, Complete Corynebacterium Species SUNG MAGALLON MD October 26, 2016 09:46
--- NOTE | 2016-10-26 09:50 | REP ---
Clinical: Effusion followup. Comparison: 10/24/2016. Findings: Partially loculated pleural effusion along the apical and lateral left hemithorax remains essentially unchanged. Underlying areas of infiltrate and atelectasis noted. Right hemithorax is relatively clear although trace right basilar atelectasis cannot be excluded. Mediastinum and cardiac silhouette stable. Skeletal structures intact. Impression: No change in the loculated pleural fluid and associated infiltrates. Signed by Rory Nichols MD 10/26/2016 09:42 A
--- NOTE | 2016-10-26 10:28 | IPN ---
DATE: 10/26/2016 Ms. Dudley underwent a tPA pleurolysis yesterday. She has had a total of 1600 mL out since the pleurolysis. Nonetheless, she still has a considerable volume left in the upper extents of the chest with a continued loculation. I am therefore going to undertake another CT today to evaluate the distribution of the effusion. She is feeling well today and she says she can breath better today. Her vital signs show a T-max of 97.8 with a heart rate that is still in atrial fibrillation ranging now between 170 and 116. Respiratory rate is constant at 18 and she is 93-94% saturated on 2 liters nasal cannula. Her blood pressure is ranging between 102/68 to 78/46. Her intake and output the past 24 hours has been recorded as 1730 in and 1813 out for a negativity of 83 mL. She put out 1313 mL from the chest tube yesterday, had 500 in the last 9 hours, for a total of 1800 mL. On physical examination, her lungs still show decreased breath sounds in the left upper hemithorax. I don't hear wheezes, rhonchi or rales, but her breath sounds are very distant. Right side shows normal vesicular sounds without wheezes, rhonchi or rales. Percussion note is full to the diaphragm on the right and along the entire extent of the hemithorax on the left. Cardiac exam shows an irregular rate and rhythm without murmurs, clicks, gallops or rubs. I cannot feel her PMI. S1 and S2 are normal. Abdomen is soft, nontender. Bowel sounds are positive. There is no hepatomegaly. No CVA tenderness. Extremities still show 2-3+ pretibial edema on the left extremity and none on the right extremity. There is no calf tenderness. Skin is warm, dry and perfused without cyanosis or mottling, including that of the nail beds and the knees. Neck is supple. There is no jugular venous distention (JVD). No subcutaneous emphysema. Trachea is midline. Mouth shows her mucous membranes to be pink and moist. Lips and commissures without lesions. There is no thrush. Eyes show her pupils to be equal and reactive. Extraocular motions intact. Sclera nonicteric. Neuro shows II through XII intact along with gross motor and gross sensation intact. Gait is not tested. Psychiatric shows her awake and alert, oriented times three with appropriate mood and affect and conversational. White count today is up to 21,000 from 15,000 yesterday. Hemoglobin and hematocrit are 8.3 and 27.9. Platelet count is 571. I certainly cannot assign the drop in hemoglobin and hematocrit to hemodilution. Her differential shows 74% neutrophils, 4% bands, 12% lymphocytes, 7% monocytes. She has 2 metamyelocytes, 1 myelocyte. There are no toxic granulations reports. Her electrolytes are essentially normal with a marginally low potassium of 3.5. BUN and creatinine are 14 and 0.48 respectively with a glucose of 149 and a calcium of 7.8. As noted in the introduction, her chest x-ray still shows the continued loculations in the upper extents of the hemithorax. The CAT scan is pending. The loculation can also be seen on the lateral film. The lower extent of the hemithorax looks to be much clearer. She has what is probably atelectasis on the left lower lobe obscuring the diaphragm. It could be a pneumonic process or the infarct process. IMPRESSION: 1. Loculated pleural effusion. 2. Possible lung infarction. 3. Possible lower lobe pneumonia on the left. 4. Atrial fibrillation. Rate better controlled. 5. Diabetes. 6. Loculated pleural effusion. 7. Hypertension. PLAN AND DISCUSSION: As noted above, I am going to obtain another CT of her chest to look for the distribution of the pleural effusion. I suspect she has bled some more from what I think is an infarct. I am going to assign the white count to demargination at this point in time, although she does have a considerable left shift, which may point in he direction of a pneumonia. She is continuing on ceftriaxone and azithromycin. Sputum has grown strep agalactiae sensitive to the ceftriaxone. It is a heavy growth. I will allow her to drain over the next 24 hours and if the loculation avelar snot improve, will have to place another pigtail catheter.
[2016-10-26] MEDS ORDERED: FUROSEMIDE 20 MG/2 ML VIAL (J1940) IV ONE (14:00)
--- NOTE | 2016-10-26 14:08 | IPN ---
DATE: 10/26/2016 Mrs. Zee Dudley was seen earlier today, she was sitting in a chair in her room in no acute distress at rest. She says that she feels better. Yesterday, she was started on a small dose of short acting calcium channel with Cardizem and she spontaneously cardioverted to a normal sinus rhythm. However, both AV blocking agents have been on hold because of low blood pressure. She denies any chest pain, palpitations. There is no report of nausea or vomiting. It seems that she had a drop in her hemoglobin and hematocrit and the plan today is to transfuse her 2 units of packed red blood cells. On physical examination, patient is alert and oriented, in no acute distress at rest. Last vital signs revealed a blood pressure of 93/47 with a pulse of 104, respiration 20-22, and her maximum temperature is 97.8 degrees Fahrenheit with an oxygen saturation of 92-94% on 2 liters nasal cannula. The lowest blood pressure recorded earlier in the morning was 78/46 at about 4:00 o'clock in the morning. Her fluid balance for 10/25/2016 is much. Examination of the head, ears, eyes, nose, and throat: Atraumatic. Neck is supple, no jugular venous distention (JVD). The lungs reveal minimal crackles heard, but no wheezing. The heart examination revealed normal S1 and S2 without gallops. The PMI is not displaced. There is no rub. Abdomen is soft and nontender. The extremities reveal trace bilateral lower leg edema. Neurologic examination grossly is negative for focal deficit. LABORATORIES: CBC done earlier today revealed a WBC of 21,000, hemoglobin 8.3, hematocrit 27.9 and platelets 571,000. BMP revealed a sodium of 139, potassium 3.5, chloride 104, CO2 29, BUN 14, creatinine 0.4, GFR more than 60, and fasting glucose 149 with a calcium of 7.8. Telemetry this morning revealed normal sinus rhythm with mild sinus tachycardia. IMPRESSION: 1. Atrial fibrillation. Now in normal sinus rhythm, spontaneously cardioverted after adding the Cardizem to the beta-vivien. She is currently in mild sinus tachycardia. Both AV blocking agents were held this morning because of hypotension. Her blood pressure seems to have improved slightly and I will restart the calcium channel/Cardizem at a lower dose with holding parameters and she will be monitoring. Will continue with telemetry. She is on anticoagulation therapy with Lovenox. 2. Pulmonary embolism, bilateral. On Lovenox. 3. Loculated left pleural effusion with chest tube drainage. The patient had tPA pleurolysis yesterday and bled and dropped her hemoglobin and hematocrit. The immediate plan is to proceed with transfusion of 2 units of packed red blood cells. 4. Diabetes mellitus, newly diagnosed and this is being addressed. 5. History of hypertension. 6. History of hyperlipidemia. MTDD
[2016-10-26] MEDS: cefTRIAXone SOD 2 GM in D5W MINI-BAG PLUS 50 ML IV SCH (17:24)
[2016-10-26] MEDS: ATORVASTATIN 20 MG TAB PO SCH (20:59)
[2016-10-27] MEDS: BENZONATATE 100 MG CAP PO PRN ×2 (03:40→16:14)
[2016-10-27 03:46] VITALS: BP 106/59
[2016-10-27 05:22] LABS: ADD MANUAL DIFFER YES; MEAN CORPUSCULAR HEMOGLOBIN 29.8 pg (27.0-33.0); MEAN CORPUSCULAR HGB CONC 32.4 g/dl (32.0-36.5); MEAN CORPUSCULAR VOLUME 91.9 fl (80.0-96.0); PLATELET COUNT, AUTOMATED 571 k/mm3 (150-450); RED CELL DISTRIBUTION WIDTH 14.1 % (11.5-14.5); WHITE BLOOD COUNT 20.4 K/mm3 (4.0-10.0)
[2016-10-27 05:27] LABS: ANION GAP 5 MEQ/L (8-16); BLOOD UREA NITROGEN 16 MG/DL (7-18); CALCIUM LEVEL 7.6 MG/DL (8.8-10.2); CARBON DIOXIDE LEVEL 31 MEQ/L (21-32); CHLORIDE LEVEL 102 MEQ/L (98-107); CREATININE FOR GFR 0.53 MG/DL (0.55-1.02); GLOMERULAR FILTRATION RATE > 60.0 (>39); GLUCOSE, FASTING 144 MG/DL (83-110); POTASSIUM SERUM 3.4 MEQ/L (3.5-5.1); SODIUM LEVEL 138 MEQ/L (136-145)
[2016-10-27] MEDS: METOPROLOL TART 50 MG TAB PO SCH ×3 (06:09→21:30)
[2016-10-27] MEDS ORDERED: POTASSIUM CHLORIDE 10 MEQ SR TABLET PO ONE (06:45)
[2016-10-27] MEDS: HumaLOG INSULIN (NovoLOG) PER UNIT SC SCH ×4 (07:36→21:00)
[2016-10-27] MEDS: PERCOCET 5MG/325MG TAB PO PRN ×2 (07:37→11:56)
[2016-10-27 08:00] VITALS: BP 120/60
[2016-10-27] MEDS: LEVEMIR (INSULIN DETEMIR) 1 UNITS/0.01ML SC SCH ×2 (08:31→21:30)
[2016-10-27] MEDS: SENOKOT S TAB PO SCH ×2 (08:31→21:30)
[2016-10-27] MEDS: AZITHROMYCIN 250 MG TAB PO SCH (08:31)
[2016-10-27] MEDS: OMEPRAZOLE 20 MG CAP PO SCH (08:31)
[2016-10-27] MEDS: guaiFENesin ER 600 MG TAB PO SCH ×2 (08:31→21:30)
[2016-10-27] MEDS: CARBAMIDE PEROXIDE 6.5% OTIC SOLN 15ML AU SCH ×2 (08:32→21:30)
[2016-10-27] MEDS: ENOXAPARIN 80 MG/0.8 ML SYRINGE (J1650) SC SCH ×2 (08:32→21:30)
[2016-10-27] MEDS ORDERED: FUROSEMIDE 20 MG TAB PO SCH (09:00)
[2016-10-27] MEDS ORDERED: ALTEPLASE 2 MG/2 ML VIAL (J2997 PER 1MG) XX ONE (09:30)
[2016-10-27] MEDS ORDERED: SLF 3 ML SYR IV PRN (09:30)
--- NOTE | 2016-10-27 10:13 | REP ---
Clinical: Follow up pleural effusion. Technique: PA and lateral. Comparison: 10/26/2016. Findings: Large partially loculated left pleural effusion is unchanged along with mid to lower lobe consolidations. Right hemithorax is stable and normal. No new acute process. Impression: No change from prior exam. Signed by Rory Nichols MD 10/27/2016 10:04 A
--- NOTE | 2016-10-27 10:30 | RO ---
DATE OF PROCEDURE: 10/25/2016 PREPROCEDURE DIAGNOSIS: Loculated pleural effusion, probably hemothorax. POSTPROCEDURE DIAGNOSIS: Loculated pleural effusion, probably hemothorax. PROCEDURE: tPA pleurolysis through the already placed pigtail catheter. SURGEON: Dr. Naseem Bueno MACHINE EDGE BANDER: ANESTHESIA: 6 mg of tPA and 50 mL of normal saline was infused. The patient was turned from side to side and the chest tube was clamped. It will remain clamped for 4 hours, at which time, we will reopen it. The patient tolerated the procedure well.
--- NOTE | 2016-10-27 10:35 | IPN ---
DATE: 10/27/2016 Ms. Dudley's anemia has been partially corrected. She still has a lot of blood in the tube but it is slowing down. I do suspect her anemia was secondary to hemorrhage both from the pulmonary embolism therapeutic Lovenox and the TPA. She is not complaining of any pain and she is able to take deep breaths. Her chest x-ray today, however, still shows a loculated pleural effusion which was also demonstrated yesterday on the CT scan. It is superiorly located on the left side. Her vital signs show a T-max of 99.4 with a heart rate that ranges between 91 and 100 in sinus rhythm, respiratory rate 18 to 20 without the use of accessory muscles who is 97% to 94% saturated on 2 liters nasal cannula. Blood pressure is ranging between 106/59 to 120/60. Her intake and output over the past 24 hours has been recorded as 1620 in and 935 out for a positivity of 685 mL. She put out 635 mL out of the chest tube yesterday and only 20 mL in the last 10 hours. On physical examination, her lungs still show decreased breath sounds on the left side. Her right shows inspiratory rales. Most of these clear with coughing. Percussion notes are full to the diaphragm on the right. I really cannot tell much from the left as it is considerably taped around the chest tube catheter. Cardiac exam is without murmurs, clicks, gallops or rubs. I cannot feel her PMI. S1 and S2 are normal. Abdomen is soft, nontender, bowel sounds are positive. There is no hepatomegaly. No CVA tenderness. Extremities show 3+ pretibial edema on the left and maybe trace on the right. There is no calf tenderness. No differential swelling of the upper extremities. Skin is warm, dry and perfused without cyanosis or mottling including that of the nail beds and knees. Neck is supple. There is no jugular venous distention. No subcutaneous emphysema. Trachea is midline. Mouth shows her mucous membranes to be pink and moist. Lips and commissures are without lesions. No thrush. Eyes show her pupils to be equal and reactive. Extraocular motor intact. Sclera anicteric. Neuro shows II through XII intact with gross motor and gross sensation intact. Gait is not intact. Psychiatric shows her to be awake and alert, oriented times three with appropriate mood and affect and conversational. Her white count today is 20.4 with hemoglobin and hematocrit of 9.5 and 29.3 improved from 8.3 and 27.9. Yesterday's hemoglobin and hematocrit after 2 units transfusion was 10.0 and has only dropped to 9.5 today which can be explained by hemodilution. Platelet count is 571 and differential shows 83% neutrophils, 18% lymphocytes, 6% monocytes. She has 3 myocytes. There are no toxic granulations. Her electrolytes are essentially normal today except for a marginally low potassium 3.4. BUN and creatinine are 16 and 0.53 with a glucose of 144 and a calcium of 7.6. Her chest x-ray today shows loculated pleural effusion and atelectasis and/or consolidation in the left lower hemithorax obscuring the diaphragm. There is no midline shift. IMPRESSION: 1. Loculated pleural effusion, blood. 2. Possible lung infarction. 3. Possible lower lobe pneumonia on the left. 4. Atrial fibrillation now controlled. 5. Diabetes. 6. Loculated pleural effusion. 7. Hypertension. 8. Anemia secondary to hemorrhage. PLAN AND DISCUSSION: In order to avoid putting another chest catheter in her superiorly, I am going to try another round of TPA. This time, we will place her in deep Trendelenburg for 15-20 minutes to distribute the TPA superiorly. This certainly risks more hemorrhage and the patient understands that but would like to avoid another catheter placement which is not at all unreasonable. Ultrasound of her legs.
--- NOTE | 2016-10-27 11:54 | REP ---
Clinical: Left lower extremity pain and swelling. Technique: Real time swift scale and color Doppler evaluation using linear high frequency transducer. Findings: Moderate amount of nonocclusive acute thrombus is identified in the common femoral vein extending into the mid superficial femoral vein along with complete occlusive thrombus in the profunda femoris vein and popliteal vein. Impression: Acute occlusive and nonocclusive thrombus as described above. Signed by Rory Nichols MD 10/27/2016 11:47 A
[2016-10-27 12:00] VITALS: BP 127/66
[2016-10-27] MEDS: MORPHINE 2 MG/ML 1ML SYRINGE IV PRN (13:05)
[2016-10-27] MEDS: SLF 3 ML SYR IV SCH ×2 (13:06→21:30)
--- NOTE | 2016-10-27 13:50 | IPN ---
DATE: 10/27/2016 Mrs. Zee Dudley was seen early today. She was lying supine in bed in no acute distress at rest. She denies any palpitations. She has no dizziness. She only has chest pain when she coughs. There is no report of nausea or vomiting. After her first pleurolysis with TPA a couple of days ago she developed bleeding and she became anemic. She was transfused 2 units of packed red blood cells yesterday. Her hemoglobin and hematocrit have improved. Today, she has another treatment of TPA pleurolysis. PHYSICAL EXAMINATION: The patient is alert and awake and in no acute distress at distress. Her vital signs this morning reveal a blood pressure of 120/60 with a pulse of 100, respirations 18 to 20 and her temperature is 98.8 degrees Fahrenheit with an oxygen saturation of 97% on 2 liters nasal cannula. She had a positive fluid balance of 685 mL on 10/26/2016. HEENT: Examination of the head is normocephalic, atraumatic. NECK: Supple. No carotid bruits. I could not appreciate any jugular venous distention (JVD). LUNGS: Do not reveal any wheezing. HEART: Examination reveals normal S1, S2, without gallops. Point of maximum impulse (PMI) is not displaced. There is no rub. EXTREMITIES: Revealed trace to +1 bilateral lower leg edema. NEUROLOGIC: Examination grossly is negative for focal deficits. LABORATORY DATA. CBC done today revealed a WBC of 20.4, hemoglobin 9.5, hematocrit 29.3, platelet count 71,000. BMP revealed a sodium of 138, potassium 3.4, chloride 102, CO2 31, BUN 16, creatinine 0.53, GFR 160, fasting glucose 144, calcium 7.6. Doppler of the left lower extremity done on 10/27/2016 was positive for deep vein thrombosis (DVT) involving the common femoral vein, as well as the mid superficial femoral vein in the profunda femoris and the popliteal vein. Chest x-ray was done today and was reviewed and revealed no cardiomegaly and a loculated left pleural effusion. IMPRESSION: 1. Atrial fibrillation, paroxysmal in nature and spontaneously cardioverted with a combination of the beta vivien and the calcium channel vivien. Now on calcium channel vivien with Cardizem and I will continue the same. She is on anticoagulation therapy with Lovenox. She does have underlying deep vein thrombosis (DVT) and pulmonary embolism. 2. Bilateral pulmonary embolism and left lower leg deep vein thrombosis (DVT). On Lovenox. 3. Left loculated pleural effusion. This is being addressed. 4. History of diabetes mellitus, hypertension and hyperlipidemia. Also being addressed. 5. Anemia secondary to acute blood loss while on Lovenox and receiving TPA and pleurolysis. She is being monitored. 6. Electrolyte abnormalities with mild hypokalemia. On supplement. It was a pleasure to participate in the care of Mrs. Zee Dudley for her underlying cardiac condition. She appears to be stable and she continues to be in normal sinus rhythm. Contrary to what is mentioned above that she was not on a beta vivien, she has been back on it, but it would be reduced. I will continue to monitor along with you while in the hospital. We will continue with a small dose of the diuretics. MTDD
[2016-10-27] MEDS: cefTRIAXone SOD 2 GM in D5W MINI-BAG PLUS 50 ML IV SCH (14:25)
[2016-10-27] MEDS: KETOROLAC 30 MG/ML VIAL (J1885) IV SCH ×2 (14:25→19:44)
[2016-10-27 15:05] LABS: MEAN CORPUSCULAR HEMOGLOBIN 30.4 pg (27.0-33.0); MEAN CORPUSCULAR HGB CONC 33.2 g/dl (32.0-36.5); MEAN CORPUSCULAR VOLUME 91.5 fl (80.0-96.0); RED CELL DISTRIBUTION WIDTH 14.3 % (11.5-14.5); WHITE BLOOD COUNT 24.3 K/mm3 (4.0-10.0)
--- NOTE | 2016-10-27 15:06 | IPNPDOC ---
Subjective Date Seen The patient was seen on 10/27/16. Subjective Chief Complaint/HPI The patient is a 71-year-old female admitted with a reason for visit of Hyperglycemia,Pulmonary Embolism. Events since last encounter Frustrated at hospital stay, not cough up sputum, has chest pain with cough, wants chest tube out, tolerating diet, did not sleep well last night Constitutional: Denies: Chills, Fever Pulmonary: Reports: Cough, Denies: Dyspnea Cardiovascular: Reports: Chest Pain, Denies: Palpitations Gastrointestinal: Denies: Nausea, Vomiting, Abdominal Pain Genitourinary: Denies: Dysuria, Frequency Objective Physical Examination General Exam: Positive: Alert, Cooperative, No Acute Distress Eye Exam: Negative: Sclera icteric ENT Exam: Positive: Mucous membr. moist/pink Neck Exam: Positive: Supple Chest Exam: Positive: Diminished, Negative: Rales, Rhonchi, Wheezing Heart Exam: Positive: Rate Normal, Normal S1, Normal S2 Telemetry: Positive: Sinus Abdomen Exam: Positive: Normal bowel sounds, Soft, Negative: Tenderness Extremity Exam: Negative: Edema Psych Exam: Positive: Oriented x 3 Assessment /Plan Problems (1) Pulmonary embolism Status: Acute Response to Treatment: Progressing Discussed With: Patient Problem Specific Plan: Monitor Clinically, Repeat Labs Problem Text: Currently receiving Lovenox SC full dose Eliquis/xarelto/pradaxa sent to pharmacy for prior auth- all incredibly expensive will likely dc on Coumadin- will start after complicated effusion managed Thought to be realted to long car trip, possibly confounded by dehydration related to untreated diabetes Needs mammogram, probably ct abd and pelvis while in hospital- have been delaying due to condition and pain- possibility of underlying malignancy needs to be considered (2) Pleural effusion Status: Acute Problem Text: has left sided developing, loculated pleural effusion empyema seems less likely than hemorrhagic effusion from pulmonary embolism- I discussed with son at bedside 10/24/16 Sputum culture did grow STREP AGALACTIAE [employer] B I discussed in general with covering tile decorator 10/24/16 Has chest tube with insignificant drainage- I consulted Dr. Bueno- who ordered repeat CT scan and TPA via chest tube thoracentesis culture results show no grow aerobically Now have sanginous drainage from chest tube and developing anemia with hypotension- benefited from transfusion Dr. Bueno is pursuing more tpa 10/27/16- will follow h&h as last tpa resulted in acute blood loss anemia (3) Tachycardia Status: Acute Problem Text: possibly related to PE, possible pneumonia, complicated with pain has evidence of increased right sided pressures on ECHO Converted to sinus over the course of the night of 10/25/16 Had afib with rvr, Dr. Newman following- very appreciative of his attention and management (4) Diabetes type 2, uncontrolled Status: Chronic Response to Treatment: Progressing Discussed With: Patient Problem Specific Plan: Repeat Labs, Repeat Tests Problem Text: Continue with insulin therapy- reasonably well controlled for current setting. Proteinuria noted on UA. Started ACEI- d/c 10/23/16 due to tachycardia and need for other meds diabetic teaching HgbA1c 14.2 (5) Hyperglycemia Status: Resolved Response to Treatment: Improving Discussed With: Patient Problem Specific Plan: Monitor Clinically, Repeat Labs Problem Text: Uncontrolled diabetes. (6) Leukocytosis Status: Acute Discussed With: Patient Problem Specific Plan: Monitor Clinically, Repeat Labs, Repeat Tests Problem Text: Unclear etiology- UTI vs. reactive vs pneumonia Patient did report polyuria and dysuria prior to presentation to ER (7) Hyperlipemia Status: Chronic Discussed With: Patient Problem Text: Starting Lipitor. (8) HTN (hypertension) Status: Acute Discussed With: Patient Problem Specific Plan: Monitor Clinically Problem Text: Possibly chronic untreated complicated with PE. ACEI held, B-vivien started (9) Acute blood loss anemia Status: Acute Problem Text: s/p TPA in chest tube, now with blood loss on lovenox full dose for pulm embolism, toradol for pain s/p transfusion 2 units prbc Plan/VTE VTE Prophylaxis Ordered?: Yes Plan Diet: Continue Current Activity: Continue Current Therapy: PT Respiratory: Wean Oxygen Diagnostics: Repeat Labs in AM, TTE Anticipated Discharge: Home, Home With Services VS, I&O, 24H, [facility] Vital Signs/I&O Vital Signs Date Time Temp Pulse Resp B/P (MAP) Pulse Ox O2 Delivery O2 Flow Rate FiO2 10/27/16 13:15 20 10/27/16 13:05 81 127/66 10/27/16 12:00 97.0 98 Nasal Cannula 2.0 I&O- Last 24 Hours up to 6 AM 10/27/16 06:00 Intake Total 2180 ml Output Total 805 ml Balance 1375 ml Laboratory Data 24H LABS Laboratory Tests 2 10/26/16 16:49: Bedside Glucose (Misc Panel) 234H 10/26/16 20:56: Bedside Glucose (Misc Panel) 246H 10/27/16 04:40: Neutrophils 73, Lymphocytes (Manual) 18, Monocytes (Manual) 6, Myelocytes 3H, Platelet Estimate INCREASED, Anion Gap 5L, Glomerular Filtration Rate > 60.0, Blood Urea Nitrogen 16, Creatinine 0.53L, Sodium Level 138, Potassium Level 3.4L , Chloride Level 102, Carbon Dioxide Level 31, Calcium Level 7.6L 10/27/16 12:11: Bedside Glucose (Misc Panel) 137H CBC/BMP Laboratory Tests 10/26/16 17:55 10/27/16 04:40 Red Blood Count 3.18 L, Mean Corpuscular Volume 91.9, Mean Corpuscular Hemoglobin 29.8, Mean Corpuscular Hemoglobin Concent 32.4, Red Cell Distribution Width 14.1, Calcium Level 7.6 L Microbiology Microbiology 10/23/16 Blood Culture - Preliminary, Resulted No Growth after 72 hours. All specime... 10/23/16 Blood Culture - Preliminary, Resulted No Growth after 72 hours. All specime... 10/19/16 Blood Culture - Final, Complete NO GROWTH AFTER 5 DAYS 10/19/16 Blood Culture - Final, Complete NO GROWTH AFTER 5 DAYS 10/23/16 Acid Fast Stain, Received Pending 10/23/16 Mycobacterial Culture, Received Pending 10/23/16 Gram Stain - Final, Complete 10/23/16 Body Fluid Culture - Final, Complete 10/21/16 Gram Stain - Final, Complete 10/21/16 Sputum Culture - Final, Complete Strep Agalactiae Group B 10/20/16 Urine Culture - Final, Complete Corynebacterium Species SUNG MAGALLON MD October 27, 2016 15:06
[2016-10-27 16:00] VITALS: BP 140/62
[2016-10-27] MEDS: NORCO, ANEXSIA 5/325MG TABLET (HYDROcodone/ACETAMINOPHEN) PO PRN ×2 (16:13→19:44)
[2016-10-27 20:00] VITALS: BP 100/58
[2016-10-27 21:02] LABS: MEAN CORPUSCULAR HEMOGLOBIN 29.7 pg (27.0-33.0); MEAN CORPUSCULAR HGB CONC 32.2 g/dl (32.0-36.5); MEAN CORPUSCULAR VOLUME 92.3 fl (80.0-96.0); RED CELL DISTRIBUTION WIDTH 14.3 % (11.5-14.5); WHITE BLOOD COUNT 26.1 K/mm3 (4.0-10.0)
[2016-10-27] MEDS: ATORVASTATIN 20 MG TAB PO SCH (21:30)
[2016-10-27 22:30] VITALS: BP 93/58
[2016-10-28] VITALS (9 sets, daily range): BP systolic 106–119; BP diastolic 52–70
--- NOTE | 2016-10-28 01:13 | REP ---
Clinical: Hemothorax. Follow-up. Comparison: 10/27/2016 at 09:39 a.m. Findings: Left sided pigtail catheter in stable position. Moderate to large partially loculated left pleural effusion and associated areas of consolidation and atelectasis are essentially unchanged. The right hemithorax appears relatively well aerated. Underlying chronic changes are appreciated. Visualized portions of the mediastinum and cardiac silhouette are stable. Impression: No significant change from prior examination. Continued evidence for moderate to large partially loculated left pleural effusion and diffuse left-sided opacities. Signed by Rory Nichols MD 10/28/2016 01:04 A
[2016-10-28] MEDS ORDERED: LIDOCAINE 1% MDV 20ML VIAL As Ordered ONE (02:07)
[2016-10-28] MEDS ORDERED: LIDOCAINE 1% MDV 20ML VIAL SC ONE (03:00)
[2016-10-28 03:11] LABS: HCT SOURCE PLEURAL
[2016-10-28] MEDS: SLF 3 ML SYR IV SCH ×3 (05:21→21:18)
[2016-10-28] MEDS ORDERED: SODIUM CHLORIDE 0.9% INJ 10 ML SYR IV PRN (05:45)
[2016-10-28] MEDS: METOPROLOL TART 50 MG TAB PO SCH ×3 (06:00→21:17)
[2016-10-28] MEDS: SODIUM CHLORIDE 0.9% INJ 10 ML SYR IV SCH ×3 (06:57→21:19)
--- NOTE | 2016-10-28 07:19 | REP ---
Clinical: Pleural effusion/hemothorax. Comparison: 10/27/2016. Findings: [id number] partially loculated left pleural collections along with left sided opacities are essentially unchanged. Pigtail catheter in the left lower lung zone stable position. Right subclavian catheter with tip in the right atrium. Right perihilar and upper lobe atelectasis cannot be excluded. No pneumothorax. Skeletal structures stable. Impression: Right subclavian catheter with tip in the right atrium. No pneumothorax. No significant change in left sided pleuroparenchymal findings. Subtle increased right perihilar and upper lobe atelectasis cannot be excluded. Signed by Rory Nichols MD 10/28/2016 07:11 A
[2016-10-28 07:23] LABS: ADD MANUAL DIFFER YES; MEAN CORPUSCULAR HEMOGLOBIN 29.3 pg (27.0-33.0); MEAN CORPUSCULAR HGB CONC 32.5 g/dl (32.0-36.5); MEAN CORPUSCULAR VOLUME 90.1 fl (80.0-96.0); PLATELET COUNT, AUTOMATED 541 k/mm3 (150-450); WHITE BLOOD COUNT 27.4 K/mm3 (4.0-10.0)
--- NOTE | 2016-10-28 07:27 | IPN ---
DATE: 10/28/2016 Mrs Dudley looks much better today than she did on Thursday. She appears to be much less short of breath and she tells me she feels better as well. Last night she lost IV access and Dr. Bueno came to the hospital in the middle of the night to put a central line. It should reduce the number of the blood draws through the IV, which I think will bring a better comfort to the patient. The patient, herself denies any sensation of palpitations or chest pain, at least at rest. Review of telemetry monitoring reveals that she continues to have bouts of atrial fibrillation alternating with sinus rhythm. She had a fairly long run on nonsustained ventricular tachycardia last night. It was around the time when the central line was put in and consequently could have been irritation through the guiding wire. Vital signs: Blood pressure 119/61, heart rate has been from the 70s and 80s up to 150. She is afebrile. Saturation 91% in room air. Her fluid balance yesterday was about 1716 negative as documented. There is no weight documented this morning. She is certainly alert and oriented and appropriate. Jugular venous pulse is not up. There is a catheter in her left posterior thorax that is draining bloody fluid. There is a new right subclavian line. Heart exam, though is revealing a regular rhythm without gallop, rub, or murmur. Abdomen is obese but soft and nontender. There is slight peripheral edema. Neurologically, she seems intact. No basic metabolic panel or CBC available today as yet. Chest x-ray does reveal no pneumothorax on the right. There is still some fluid on the left compared to yesterday. I do not appreciated any significant difference other than the presence of the central line. ASSESSMENT/PLAN: Mrs. Dudley is a 71-year-old, rather complicated patient. She presented with bilateral pulmonary emboli, left-sided loculated pleural effusions. At this point, the working diagnosis is that of likely pulmonary infarct that got secondarily complicated by hemorrhagic effusion and so far we do not have any concrete evidence to suggest the effusion is malignant and there is not much to support infectious diagnosis other than elevated WBC count. My role has been in the management of atrial fibrillation. She has been anticoagulated with Lovenox principally for pulmonary emboli. The rate control has been a struggle. She initially was on a combination of beta blockers and digoxin, which were not overly successful, but then her condition improved and she is currently on metoprolol and Cardizem. Unfortunately, the medications are frequently being held because of low blood pressure. Consequently, I am going to discontinue Cardizem and start giving her amiodarone. She has been in and out of atrial fibrillation and I think that it would be beneficial if we use some medicine to stabilize her rhythm. Her condition remains serious but I do appreciate some improvement and hopefully we will see improving trend from now on.
[2016-10-28 07:32] LABS: ANION GAP 7 MEQ/L (8-16); BLOOD UREA NITROGEN 14 MG/DL (7-18); CALCIUM LEVEL 7.3 MG/DL (8.8-10.2); CARBON DIOXIDE LEVEL 28 MEQ/L (21-32); CHLORIDE LEVEL 103 MEQ/L (98-107); CREATININE FOR GFR 0.41 MG/DL (0.55-1.02); GLOMERULAR FILTRATION RATE > 60.0 (>39); GLUCOSE, FASTING 185 MG/DL (83-110); POTASSIUM SERUM 4.3 MEQ/L (3.5-5.1); SODIUM LEVEL 138 MEQ/L (136-145)
[2016-10-28 07:33] LABS: ANISOCYTOSIS 1+; BANDS 1 % (< 11); EOSINOPHILS 1 % (0-5)
[2016-10-28] MEDS ORDERED: HEPARIN DRIP 25,000 UNITS in APPROPRIATE DILUENT 1 EA IV SCH (08:09)
[2016-10-28] MEDS ORDERED: HEPARIN SOD (PORCINE) 5000 UNITS/ML VIAL IV PRN (08:15)
[2016-10-28] MEDS: LEVEMIR (INSULIN DETEMIR) 1 UNITS/0.01ML SC SCH ×2 (08:34→20:36)
[2016-10-28] MEDS: guaiFENesin ER 600 MG TAB PO SCH ×2 (08:35→20:36)
[2016-10-28] MEDS: SENOKOT S TAB PO SCH ×2 (08:35→20:36)
[2016-10-28] MEDS: AZITHROMYCIN 250 MG TAB PO SCH (08:35)
[2016-10-28] MEDS: AMIODARONE 200 MG TAB (PACERONE) PO SCH ×2 (08:35→20:36)
[2016-10-28] MEDS: HumaLOG INSULIN (NovoLOG) PER UNIT SC SCH ×4 (08:35→20:37)
[2016-10-28] MEDS: CARBAMIDE PEROXIDE 6.5% OTIC SOLN 15ML AU SCH ×2 (08:36→20:37)
[2016-10-28] MEDS: OMEPRAZOLE 20 MG CAP PO SCH (08:36)
--- NOTE | 2016-10-28 08:47 | RO ---
DATE OF PROCEDURE: 10/28/2016 PREPROCEDURE DIAGNOSES: Need for vascular access, continued hemorrhage, need for transfusion. POSTPROCEDURE DIAGNOSES: Need for vascular access, continued hemorrhage, need for transfusion. PROCEDURE: Insertion of a right subclavian central line. SURGEON: Naseem Bueno MD [employer] TECHNICIAN: ANESTHESIA: INDICATIONS: The patient has continued to bleed from the chest catheter. She is fully anticoagulated. IV access was lost early this morning and could not be restarted. Attempt was made to do a left subclavian central line along with internal jugular central line but none were successful. She is hemorrhaging and is intravascularly very dry. A right subclavian line was finally placed. DESCRIPTION OF PROCEDURE: The patient was prepped and draped in usual sterile fashion in the left infraclavicular fossa. The vein was found; however, the patient moved and coughed and the access was lost. Multiple attempts could not refind the vein. Attention was then turned to the left internal jugular location, between the sternocleidomastoid. This vein here could be found but I could not find it with a large needle as it was collapsing. Finally, the right infraclavicular fossa was prepped and draped in the usual fashion and the vein was found on the first pass. This threaded well with production of PVCs and ventricular tachycardia. Tract was dilated and a triple lumen catheter was placed by Seldinger technique. The ports were aspirated and flushed and the catheter was secured to the chest wall with two #3-0 silk sutures. The patient tolerated the procedure well. Chest x-ray is pending.
--- NOTE | 2016-10-28 10:03 | IPNPDOC ---
Subjective Date Seen The patient was seen on 10/28/16. Subjective Chief Complaint/HPI The patient is a 71-year-old female admitted with a reason for visit of Hyperglycemia,Pulmonary Embolism. Events since last encounter Patient reports that chest pain is being properly manage with pain medication. Was not able to get a good night's sleep last night. Is tolerating her diet and ate most of breakfast this morning. Tolerated the central line placement. Tired and fatigued on exam this morning. Constitutional: Reports: Weakness, Fatigue Pulmonary: Reports: Cough (nonproductive), Pleuritic Chest Pain Cardiovascular: Denies: Chest Pain, Palpitations Gastrointestinal: Denies: Nausea, Vomiting, Abdominal Pain Genitourinary: Denies: Dysuria Objective Physical Examination General Exam: Positive: Alert, Cooperative, No Acute Distress Eye Exam: Negative: Sclera icteric ENT Exam: Positive: Mucous membr. moist/pink Neck Exam: Positive: Supple Chest Exam: Positive: Diminished, Negative: Rales, Rhonchi, Wheezing Heart Exam: Positive: Irregular Rhythm, Normal S1, Normal S2, Negative: Gallops, Murmurs, Rubs Telemetry: Positive: Sinus Abdomen Exam: Positive: Normal bowel sounds, Soft, Negative: Tenderness Extremity Exam: Negative: Edema Skin Exam: Positive: Other skin issue (bruising bilateral upper extremities.) Psych Exam: Positive: Oriented x 3 Assessment /Plan Problems (1) Pulmonary embolism Status: Acute Response to Treatment: Progressing Discussed With: Patient Problem Specific Plan: Monitor Clinically, Repeat Labs Problem Text: CTA Chest notable for acute and chronic pulmonary embolic with partially occlusive filling defects in the right main pulmonary artery extending into the proximal right middle lobe pulmonary artery Duplex ultrasound revealed clots in left lower leg on 10/27/2016. The patient has had a IVC filter placed today 2/2 bloody output from Chest Tube equaling close to 4L of bloody drainage from underlying possible pulmonary infarctions with hemorrhagic conversion s/p 6 Units of PRBC transfusion over the last 48 hrs Anticoagulation has been held--risks and benefits discussed with the patient, son Rory Dealing at the bedside We will continue to monitor the patient's H&H (2) Pleural effusion Status: Acute Problem Text: Possible complication of Pulmonary Infarct with Hemorrhagic conversion/effusion s/p Chest Catheter placement on 10/24 by IR s/p tPA pleurolysis through pigtail catheter on 10/25 and 10/[address] Bueno of Thoracic Surgery Patient has put out about 4L of bloody drainage since placement of catheter, and has required 6 Units of PRBC transfusion over the last 48 hrs Her blood pressure is stable at this time, and we have placed an IVC Filter with the help of IR today--Anticoagulation for underlying PE, A-Fib has been discontinued at this time given the aforementioned active bleeding Appreciate Dr. Bueno's continued assistance in managing of this patient. (3) Tachycardia Status: Acute Problem Text: Patient continuing to have bouts of atrial fibrillation. Per Dr. Lowe changed medication. Holding Cardizem and metoprolol and starting amiodarone 400 mg to stabilize her rhythm. Continue patient on telemetry. Appreciate Dr. Lowe assistance in management of this patient. (4) Diabetes type 2, uncontrolled Status: Chronic Response to Treatment: Progressing Discussed With: Patient Problem Specific Plan: Repeat Labs, Repeat Tests Problem Text: Continue with insulin therapy- reasonably well controlled for current setting. AEC inhibitor was discontinued due to tachycardia and need for other meds Ordered teaching for insulin therapy due to new onset diabetes. HgbA1c 14.2 (5) Hyperglycemia Status: Resolved Response to Treatment: Improving Discussed With: Patient Problem Specific Plan: Monitor Clinically, Repeat Labs Problem Text: Uncontrolled diabetes. (6) Leukocytosis Status: Acute Discussed With: Patient Problem Specific Plan: Monitor Clinically, Repeat Labs, Repeat Tests Problem Text: Unclear etiology- UTI vs. reactive vs pneumonia Patient did report polyuria and dysuria prior to presentation to ER White Blood cell count is up to 27.4 on 10/28/2016. Peripheral Smear ordered Continue IV Antibiotic therapy Will consider broadening coverage if the WBC remains elevated, or becomes febrile (7) Hyperlipemia Status: Chronic Discussed With: Patient Problem Text: Starting Lipitor. (8) HTN (hypertension) Status: Acute Discussed With: Patient Problem Specific Plan: Monitor Clinically Problem Text: Possibly chronic untreated complicated with PE. Beta vivien and CIARRA inhibitor held at this time. (9) Acute blood loss anemia Status: Acute Problem Text: s/p TPA in chest tube, now with blood loss s/p IVC Filter, Lovenox and Heparin dc'd Patient has received transfusion of 6 units of packed red blood cells over the last 48 hrs. Blood pressure has remained stable Continue to monitor H&H and transfuse as needed Plan/VTE VTE Prophylaxis Ordered?: Yes Disposition PROGNOSIS: Dr. Walker did discuss the patient's extremely guarded prognosis at this time given her presentation of Extensive PE, LLE DVT complicated by a Loculated pleural effusion, Hemothorax from possible underlying lung infarction with the patient and her son Rory Prieto who was at the bedside. At this time the patient continues to have active bleeding from the Chest Tube site, requiring 6L of PRBC transfusion over the last 48 hrs. An IVC Filter was placed today and the anticoagulation has been held 2/2 bleeding. The risks associated with stopping AC were discussed with the family (Stroke from underlying A-Fib, from underlying PE). However, the patient and family agree and verbalized understanding at this time that the risks outweigh the benefits here as we try to achieve hemodynamic stability. The patient and the family have not decided on Code Status at this time yet, and would like to remain Full Code until they further discuss the matter in the AM. VS, I&O, 24H, Fishbone Vital Signs/I&O Vital Signs Date Time Temp Pulse Resp B/P (MAP) Pulse Ox O2 Delivery O2 Flow Rate FiO2 10/28/16 08:30 Room Air 10/28/16 08:00 99.1 119 18 106/52 (70) 92 10/27/16 12:00 2.0 I&O- Last 24 Hours up to 6 AM 10/28/16 06:00 Intake Total 370 ml Output Total 2620 ml Balance -2250 ml Laboratory Data 24H LABS Laboratory Tests 2 10/27/16 12:11: Bedside Glucose (Misc Panel) 137H 10/27/16 17:01: Bedside Glucose (Misc Panel) 186H 10/27/16 21:06: Bedside Glucose (Misc Panel) 209H 10/28/16 01:55: Body Fluid Source PLEURAL, Body Fluid Hematocrit 9.3 10/28/16 06:58: Neutrophils 81H, Band Neutrophils 1, Lymphocytes (Manual) 9L, Monocytes (Manual ) 5, Eosinophils (Manual) 1, Metamyelocytes 1H, Myelocytes 2H, Platelet Estimate INCREASED, Anisocytosis 1+, Anion Gap 7L, Glomerular Filtration Rate > 60.0, Blood Urea Nitrogen 14, Creatinine 0.41L, Sodium Level 138, Potassium Level 4.3#, Chloride Level 103, Carbon Dioxide Level 28, Calcium Level 7.3L 10/28/16 09:06: CBC/BMP Laboratory Tests 10/27/16 14:57 Red Blood Count 3.10 L, Mean Corpuscular Volume 91.5, Mean Corpuscular Hemoglobin 30.4, Mean Corpuscular Hemoglobin Concent 33.2, Red Cell Distribution Width 14.3 10/27/16 20:52 Red Blood Count 2.84 L, Mean Corpuscular Volume 92.3, Mean Corpuscular Hemoglobin 29.7, Mean Corpuscular Hemoglobin Concent 32.2, Red Cell Distribution Width 14.3 10/28/16 06:58 Red Blood Count 2.75 L, Mean Corpuscular Volume 90.1, Mean Corpuscular Hemoglobin 29.3, Mean Corpuscular Hemoglobin Concent 32.5, Red Cell Distribution Width 15.0 H, Calcium Level 7.3 L Microbiology Microbiology 10/23/16 Blood Culture - Preliminary, Resulted No Growth after 72 hours. All specime... 10/23/16 Blood Culture - Preliminary, Resulted No Growth after 72 hours. All specime... 10/19/16 Blood Culture - Final, Complete NO GROWTH AFTER 5 DAYS 10/19/16 Blood Culture - Final, Complete NO GROWTH AFTER 5 DAYS 10/23/16 Acid Fast Stain, Received Pending 10/23/16 Mycobacterial Culture, Received Pending 10/23/16 Gram Stain - Final, Complete 10/23/16 Body Fluid Culture - Final, Complete 10/21/16 Gram Stain - Final, Complete 10/21/16 Sputum Culture - Final, Complete Strep Agalactiae Group B 10/20/16 Urine Culture - Final, Complete Corynebacterium Species GME ATTESTATION GME ATTESTATION My preceptor for this patient encounter was Dr. Walker and he was physically present in the building during the encounter and was fully available. As needed , all aspects of the patient interview, examination, medical decision making process, and medical care plan development were reviewed and approved by the preceptor. Preceptor is aware and concurs with the plan as stated in the body of this note and will attest to such by his/her cosignature. ILDA ANDREW DO October 28, 2016 09:51 ALBERTO WALKER MD October 28, 2016 17:05
[2016-10-28] MEDS ORDERED: SODIUM BICARBONATE 4 % INJ 2.4MEQ 5 ML VIAL (THIS HAS A PRESERVATIVE) As Ordered ONE (11:09)
[2016-10-28] MEDS ORDERED: ISOVUE-300 61% 50ML VIAL (Q9967) As Ordered ONE (11:09)
[2016-10-28] MEDS ORDERED: NORCO, ANEXSIA 5/325MG TABLET (HYDROcodone/ACETAMINOPHEN) As Ordered ONE (11:21)
[2016-10-28] MEDS ORDERED: NORCO, ANEXSIA 5/325MG TABLET (HYDROcodone/ACETAMINOPHEN) PO ONE (12:45)
[2016-10-28 14:13] LABS: PROTEIN C ANTIGEN 100 % (60-150); PROTEIN S ANTIGEN FREE 189 % (57-157); PROTEIN S ANTIGEN TOTAL > 229 % (60-150)
[2016-10-28] MEDS: NORCO, ANEXSIA 5/325MG TABLET (HYDROcodone/ACETAMINOPHEN) PO PRN ×2 (14:39→19:44)
[2016-10-28] MEDS: cefTRIAXone SOD 2 GM in D5W MINI-BAG PLUS 50 ML IV SCH (16:33)
[2016-10-28 16:51] LABS: MEAN CORPUSCULAR HEMOGLOBIN 29.7 pg (27.0-33.0); MEAN CORPUSCULAR HGB CONC 33.2 g/dl (32.0-36.5); MEAN CORPUSCULAR VOLUME 89.7 fl (80.0-96.0); WHITE BLOOD COUNT 23.6 K/mm3 (4.0-10.0)
--- NOTE | 2016-10-28 17:11 | REP ---
PA and lateral chest, 01/1951, 06:00 a.m., 10/28/2016: Comparison studies are the portable chest from an 02:30 a.m. earlier today and chest CT of 10/26/2016. There are lobulated pleural-based densities superolaterally in the left hemithorax compatible with loculated pleural effusions. Pigtail drainage catheter is seen posteriorly inferiorly in the left hemithorax as previously. No pleural effusion is identified adjacent to the pigtail catheter on the lateral view. There is a left lower lobe infiltrate within the lung parenchyma anterior to the pigtail catheter. There is a left subclavian central venous catheter with tip in right atrium in satisfactory location, unchanged. Right lung is clear. Cardiac size appears normal. Sign taking Signed by Neftaly Tee MD 10/28/2016 05:03 P
--- NOTE | 2016-10-28 17:11 | REPKIM ---
PROCEDURE: Inferior venacavagram and placement of an IVC filter MEDICAL DIAGNOSIS/CLINICAL HISTORY: Pulmonary embolism, left lower extremity DVT and bleeding. Patient is at high risk for subsequent pulmonary embolism and cannot be reliably anticoagulated at this time. INTERVENTIONALIST: Joe Antunez MD MEDICATIONS: Local Lidocaine 2% CONTRAST: 14 mL, Isovue 300 EBL: less than 5 mL FLUORO TIME: 2.1 minutes DEVICE USED: Cook Celect IVC filter Lot# [id number] Procedure: The risks, benefits, and alternatives of the use of a vena cava filter were discussed with the patient and her family and informed written consent was obtained from the patients son. The patient was brought to the interventional radiology suite where a timeout procedure was performed. The right neck was prepped and draped in a sterile fashion. After local anesthetic was established, the right internal jugular vein was punctured using a micropuncture needle under ultrasound guidance. A 7-Maltese catheter was inserted into the lower IVC vein. Dilute contrast was injected, serial DSA images of the abdomen were obtained and the transverse diameter of the IVC was calculated. The distance from the lowest renal vein to the common iliac vein confluence was ascertained. The filter introducer system was then positioned in the infrarenal IVC over the guidewire. Under fluoroscopic guidance, the filter was inserted into the introducer, carefully positioned and successfully deployed. The introducer was removed and complete hemostasis was achieved with manual pressure. The patient tolerated the procedure well without immediate complication. This procedure was performed using ultrasound and fluoroscopy. FINDINGS: 1) The right IJ vein is patent and compressible. 2) The IVC is normal in course and caliber. 3) Successful placement of IVC filter in a satisfactory position. IMPRESSION: Successful IVC filter placement as discussed above. The Celect IVC filter can stay permanently or can be retrievable. Once the need for caval filter ration has passed, please contact interventional radiology, for filter retrieval if clinically desired. Dr. Antunez was present for this procedure as documented in the progress notes. cc: MD Grabiel Richards MD [facility]AM HOSPITALKeyshawn
[2016-10-28 18:59] LABS: REASON FOR REVIEW COMPREHENSIVE REVIEW
[2016-10-28] MEDS: ATORVASTATIN 20 MG TAB PO SCH (20:36)
[2016-10-28] MEDS: HEPARIN SOD (PORCINE) 5000 UNITS/ML VIAL SQ SCH (21:17)
[2016-10-29] MEDS: NORCO, ANEXSIA 5/325MG TABLET (HYDROcodone/ACETAMINOPHEN) PO PRN ×4 (03:04→17:09)
[2016-10-29 04:00] VITALS: BP 125/59
[2016-10-29] MEDS: SODIUM CHLORIDE 0.9% INJ 10 ML SYR IV SCH ×2 (05:35→11:25)
[2016-10-29] MEDS: HEPARIN SOD (PORCINE) 5000 UNITS/ML VIAL SQ SCH ×3 (05:35→21:40)
[2016-10-29] MEDS: SLF 3 ML SYR IV SCH ×2 (05:35→13:58)
[2016-10-29] MEDS: METOPROLOL TART 50 MG TAB PO SCH ×3 (05:36→21:41)
[2016-10-29 06:04] LABS: BASO # 0.1 K/mm3 (0.0-0.2); BASO % 0.6 % (0.0-1.0); EOS # 0.4 K/mm3 (0.0-0.50); EOS % 1.8 % (0.0-3.0); LARGE UNSTAINED CELL # 0.2 K/mm3 (0.0-0.4); LARGE UNSTAINED CELL % 0.9 % (0.0-4.0); LYMPH # 1.7 K/mm3 (1.5-4.5); LYMPH % 7.1 % (24.0-44.0); MEAN CORPUSCULAR HEMOGLOBIN 29.6 pg (27.0-33.0); MEAN CORPUSCULAR HGB CONC 33.2 g/dl (32.0-36.5); MEAN CORPUSCULAR VOLUME 89.1 fl (80.0-96.0); MONO # 0.9 K/mm3 (0.0-0.8); NEUTROPHILS # 18.1 K/mm3 (1.8-7.7); NEUTROPHILS % 85.6 % (36.0-66.0); PLATELET COUNT, AUTOMATED 510 k/mm3 (150-450); RED CELL DISTRIBUTION WIDTH 15.2 % (11.5-14.5); WHITE BLOOD COUNT 21.1 K/mm3 (4.0-10.0)
[2016-10-29 06:15] LABS: ANION GAP 7 MEQ/L (8-16); BLOOD UREA NITROGEN 11 MG/DL (7-18); CALCIUM LEVEL 7.2 MG/DL (8.8-10.2); CARBON DIOXIDE LEVEL 29 MEQ/L (21-32); CHLORIDE LEVEL 103 MEQ/L (98-107); CREATININE FOR GFR 0.39 MG/DL (0.55-1.02); GLOMERULAR FILTRATION RATE > 60.0 (>39); GLUCOSE, FASTING 99 MG/DL (83-110); POTASSIUM SERUM 3.9 MEQ/L (3.5-5.1); SODIUM LEVEL 139 MEQ/L (136-145)
[2016-10-29] MEDS: HumaLOG INSULIN (NovoLOG) PER UNIT SC SCH ×4 (07:25→20:23)
[2016-10-29] MEDS ORDERED: CALCIUM GLUCONATE 1,000 MG in D5W MINI-BAG PLUS 100 ML IV ONE (07:45)
[2016-10-29 08:00] VITALS: BP 125/63
[2016-10-29 08:06] LABS: MAGNESIUM LEVEL 1.7 MG/DL (1.8-2.4)
--- NOTE | 2016-10-29 08:24 | IPN ---
DATE OF SERVICE: 10/29/2016 Mrs. Dudley again reports improvement since yesterday. She has much less shortness of breath, and the chest pain is present only when she is coughing. She had an inferior vena cava (IVC) filter placed yesterday without issues. She has no specific complaints today. Vital signs: Blood pressure 125/59, heart rate is mostly 90s sinus rhythm with occasional runs of atrial fibrillation (AFib). Afebrile. Saturation 93% on room air. Fluid balance yesterday was approximately equal. She put out about 740 mL out of her chest tube, which is less than half what she did yesterday. Documented weight is 79.8 kg. She is alert and oriented and appropriate. Her jugular venous pressure (JVP) is not up. Lungs are essentially clear to auscultation. Heart examination: Regular rhythm without gallop or rub. Abdomen: Soft, nontender. Trace peripheral edema. Neurologically, she is intact. LABORATORY-[facility]: Hemoglobin 8.7, hematocrit 26, platelet count 510,000. Basic metabolic panel is normal. PTT yesterday was 74. The chest x-ray performed yesterday did not show significant changes. There is appropriate position of subclavian venous catheter, and there is a catheter in the left hemithorax. Right lung is clear. The left lung still indicates some effusion. ASSESSMENT AND PLAN: Mrs. Dudley is a 71-year-old female who came in with shortness of breath and chest pain and was found to have bilateral pulmonary emboli and left-sided pleural effusion that eventually we agreed is probably hemorrhagic as a consequence of injury combined with pulmonary infarct possibly. She had a chest tube placed by Dr. Bueno and eventually had an IVC filter placed yesterday because she also has ongoing bilateral deep venous thrombosis (DVT) in spite of use of anticoagulation. Her respiratory status continues to improve. She also had episodes of atrial fibrillation, which seems to be abating. I started her on amiodarone yesterday because she was going in and out of AFib constantly. She was anticoagulated with Lovenox, but yesterday was given only intravenous (IV) heparin. My recommendation would be to restart anticoagulation as soon as possible. It was a concern because she had a lot of hemorrhagic output from her chest; but once the bleeding ceases, she should be fully anticoagulated. Otherwise, I will continue amiodarone. I hope that the Zithromax will be discontinued as soon as possible. She already completed more than 5 days, and it should not be necessary, especially because we do not have any obvious pathogen. I will continue following the patient with you.
[2016-10-29] MEDS: AMIODARONE 200 MG TAB (PACERONE) PO SCH ×2 (09:04→20:25)
[2016-10-29] MEDS: SENOKOT S TAB PO SCH ×2 (09:04→20:25)
[2016-10-29] MEDS: OMEPRAZOLE 20 MG CAP PO SCH (09:04)
[2016-10-29] MEDS: AZITHROMYCIN 250 MG TAB PO SCH (09:04)
[2016-10-29] MEDS: guaiFENesin ER 600 MG TAB PO SCH ×2 (09:04→20:25)
[2016-10-29] MEDS: LEVEMIR (INSULIN DETEMIR) 1 UNITS/0.01ML SC SCH ×2 (09:05→20:22)
[2016-10-29] MEDS: CARBAMIDE PEROXIDE 6.5% OTIC SOLN 15ML AU SCH ×2 (09:05→20:25)
[2016-10-29] MEDS: BENZONATATE 100 MG CAP PO PRN (10:21)
--- NOTE | 2016-10-29 11:56 | IPNPDOC ---
Subjective Date Seen The patient was seen on 10/29/16. Subjective Chief Complaint/HPI The patient is a 71-year-old female admitted with a reason for visit of Hyperglycemia,Pulmonary Embolism. Events since last encounter Patient reports chest pain only occurs with coughing. Patient is still coughing continually and is nonproductive. Admits to being able to sleep better last night and got some sleep. Is feeling better today. Some mild swelling and lower extremities. Was able to eat breakfast with no nausea or vomiting. General: Denies: Chills, Night Sweats Constitutional: Denies: Chills, Fever Eyes: Denies: Vision change ENT: Denies: Head Aches Pulmonary: Reports: Cough Cardiovascular: Reports: Chest Pain (with coughing), Denies: Palpitations Gastrointestinal: Reports: Constipation (no BM for the past 3 days.), Denies: Nausea, Vomiting Genitourinary: Denies: Dysuria, Frequency, Incontinence Hematologic: Denies: Bruising, Purpura Psych: Reports: Mood Normal Objective Physical Examination General Exam: Positive: Alert, Cooperative, No Acute Distress Eye Exam: Negative: Sclera icteric ENT Exam: Positive: Mucous membr. moist/pink Neck Exam: Positive: Supple Chest Exam: Positive: Diminished, Negative: Rales, Rhonchi, Wheezing Heart Exam: Positive: Rate Normal, Normal S1, Normal S2, Negative: Gallops, Murmurs, Rubs Telemetry: Positive: Sinus Abdomen Exam: Positive: Normal bowel sounds, Soft, Negative: Tenderness Extremity Exam: Negative: Edema Skin Exam: Positive: Other skin issue (bruising bilateral upper extremities.) Psych Exam: Positive: Oriented x 3 Assessment /Plan Problems (1) Pulmonary embolism Status: Acute Response to Treatment: Progressing Discussed With: Patient Problem Specific Plan: Monitor Clinically, Repeat Labs Problem Text: CTA Chest notable for acute and chronic pulmonary embolic with partially occlusive filling defects in the right main pulmonary artery extending into the proximal right middle lobe pulmonary artery Duplex ultrasound revealed clots in left lower leg on 10/27/2016. The patient has had a IVC filter placed on 10/28/2016 2/2 bloody output from Chest Tube equaling close to 4L of bloody drainage from underlying possible pulmonary infarctions with hemorrhagic conversion s/p 6 Units of PRBC transfusion over the previous 48 hrs. no transfusions today. Anticoagulation has been held--risks and benefits were discussed with the patient, son Rory Dealing at the bedside Discuss MOLST form with patient and family at bedside. Patient agreed to sign for DNR and DNI. We will continue to monitor the patient's H&H Heparin drip was discontinued yesterday. (2) Pleural effusion Status: Acute Problem Text: Possible complication of Pulmonary Infarct with Hemorrhagic conversion/effusion s/p Chest Catheter placement on 10/24 by IR s/p tPA pleurolysis through pigtail catheter on 10/25 and 10/[address] Bueno of Thoracic Surgery Patient has put out about 4L of bloody drainage since placement of catheter, and has required 6 Units of PRBC transfusion over the last 48 hrs Her blood pressure is stable at this time, and we have placed an IVC Filter with the help of IR today--Anticoagulation for underlying PE, A-Fib has been discontinued at this time given the aforementioned active bleeding Appreciate Dr. Bueno's continued assistance in managing of this patient. (3) Tachycardia Status: Acute Problem Text: Patient continuing to have bouts of atrial fibrillation. Per Dr. Lowe changed medication. Holding Cardizem and metoprolol and starting amiodarone 400 mg to stabilize her rhythm. Continue patient on telemetry. Appreciate Dr. Lowe assistance in management of this patient. (4) Diabetes type 2, uncontrolled Status: Chronic Response to Treatment: Progressing Discussed With: Patient Problem Specific Plan: Repeat Labs, Repeat Tests Problem Text: Continue with insulin therapy- reasonably well controlled for current setting. AEC inhibitor was discontinued due to tachycardia and need for other meds Ordered teaching for insulin therapy due to new onset diabetes. HgbA1c 14.2 (5) Hyperglycemia Status: Resolved Response to Treatment: Improving Discussed With: Patient Problem Specific Plan: Monitor Clinically, Repeat Labs Problem Text: Uncontrolled diabetes. (6) Leukocytosis Status: Acute Discussed With: Patient Problem Specific Plan: Monitor Clinically, Repeat Labs, Repeat Tests Problem Text: Unclear etiology- UTI vs. reactive vs pneumonia Patient did report polyuria and dysuria prior to presentation to ER White Blood cell count is up to 27.4 on 10/28/2016. Peripheral Smear ordered Continue IV Antibiotic therapy Will consider broadening coverage if the WBC remains elevated, or becomes febrile (7) Hyperlipemia Status: Chronic Discussed With: Patient Problem Text: Starting Lipitor. (8) HTN (hypertension) Status: Acute Discussed With: Patient Problem Specific Plan: Monitor Clinically Problem Text: Possibly chronic untreated complicated with PE. Beta vivien and CIARRA inhibitor held at this time. (9) Acute blood loss anemia Status: Acute Problem Text: s/p TPA in chest tube, now with blood loss s/p IVC Filter, Lovenox and Heparin dc'd Patient has received transfusion of 6 units of packed red blood cells over the last 48 hrs. Blood pressure has remained stable Continue to monitor H&H and transfuse as needed Plan/VTE VTE Prophylaxis Ordered?: Yes VS, I&O, 24H, Fishbone Vital Signs/I&O Vital Signs Date Time Temp Pulse Resp B/P (MAP) Pulse Ox O2 Delivery O2 Flow Rate FiO2 10/29/16 10:21 97.4 84 18 125/63 96 Room Air 2.0 I&O- Last 24 Hours up to 6 AM 10/29/16 05:59 Intake Total 1323 ml Output Total 1240 ml Balance 83 ml Laboratory Data 24H LABS Laboratory Tests 2 10/28/16 12:53: Bedside Glucose (Misc Panel) 160H 10/28/16 16:40: Differential Slide Review Report, Differential Pathologist's Review COMPREHENSIVE REVIEW, Peripheral Blood Smear Path Consult PERIPHERAL SMEAR, Activated Partial Thromboplast Time 74.4H 10/28/16 17:08: Bedside Glucose (Misc Panel) 186H 10/29/16 05:38: White Blood Count 21.1H, Red Blood Count 2.93L, Hemoglobin 8.7L, Hematocrit 26.1L, Mean Corpuscular Volume 89.1, Mean Corpuscular Hemoglobin 29.6, Mean Corpuscular Hemoglobin Concent 33.2, Red Cell Distribution Width 15.2H, Platelet Count 510H, Neutrophils (%) (Auto) 85.6H, Lymphocytes (%) (Auto) 7.1L, Monocytes (%) (Auto) 4.0, Eosinophils (%) (Auto) 1.8, Basophils (%) (Auto) 0.6, Neutrophils # (Auto) 18.1H, Lymphocytes # (Auto) 1.7, Monocytes # (Auto) 0.9H, Eosinophils # (Auto) 0.4, Basophils # (Auto) 0.1, Large Unclassified Cells % 0.9 , Large Unclassified Cells # 0.2, Anion Gap 7L, Glomerular Filtration Rate > 60.0, Blood Urea Nitrogen 11, Creatinine 0.39L, Sodium Level 139, Potassium Level 3.9, Chloride Level 103, Carbon Dioxide Level 29, Calcium Level 7.2L, Magnesium Level 1.7L CBC/BMP Laboratory Tests 10/28/16 16:40 Red Blood Count 2.99 L, Mean Corpuscular Volume 89.7, Mean Corpuscular Hemoglobin 29.7, Mean Corpuscular Hemoglobin Concent 33.2, Red Cell Distribution Width 15.0 H 10/28/16 23:28 10/29/16 05:38 Red Blood Count 2.93 L, Mean Corpuscular Volume 89.1, Mean Corpuscular Hemoglobin 29.6, Mean Corpuscular Hemoglobin Concent 33.2, Red Cell Distribution Width 15.2 H, Neutrophils (%) (Auto) 85.6 H, Lymphocytes (%) (Auto ) 7.1 L, Monocytes (%) (Auto) 4.0, Eosinophils (%) (Auto) 1.8, Basophils (%) ( Auto) 0.6, Neutrophils # (Auto) 18.1 H, Lymphocytes # (Auto) 1.7, Monocytes # ( Auto) 0.9 H, Eosinophils # (Auto) 0.4, Basophils # (Auto) 0.1, Calcium Level 7.2 L Microbiology Microbiology 10/23/16 Blood Culture - Final, Complete NO GROWTH AFTER 5 DAYS 10/23/16 Blood Culture - Final, Complete NO GROWTH AFTER 5 DAYS 10/19/16 Blood Culture - Final, Complete NO GROWTH AFTER 5 DAYS 10/19/16 Blood Culture - Final, Complete NO GROWTH AFTER 5 DAYS 10/23/16 Acid Fast Stain, Received Pending 10/23/16 Mycobacterial Culture, Received Pending 10/23/16 Gram Stain - Final, Complete 10/23/16 Body Fluid Culture - Final, Complete 10/21/16 Gram Stain - Final, Complete 10/21/16 Sputum Culture - Final, Complete Strep Agalactiae Group B 10/20/16 Urine Culture - Final, Complete Corynebacterium Species GME ATTESTATION GME ATTESTATION My preceptor for this patient encounter was Dr. Perez and he was physically present in the building during the encounter and was fully available. As needed , all aspects of the patient interview, examination, medical decision making process, and medical care plan development were reviewed and approved by the preceptor. Preceptor is aware and concurs with the plan as stated in the body of this note and will attest to such by his/her cosignature. ILDA ANDREW DO October 29, 2016 11:29
[2016-10-29 12:00] VITALS: BP 125/75
--- NOTE | 2016-10-29 15:00 | IPN ---
DATE: 10/28/2016 Ms. Dudley had a difficult night last night. She lost her IV access and she continued to bleed from the chest tube and therefore I had to come in the interior design teacher hours and place a central line. Today she still is putting out considerable from the chest tube. She is not yet hypotensive and not all that bradycardic, most likely secondary to her medical therapy for her underlying atrial fibrillation. Her vital signs show a maximum temperature (t-max) of 99.6 with a heart rate that ranges between 85 and 119 in a sinus rhythm, respiratory rate of 16 to 20 without the use of accessory muscles, who is 91 to 95% saturated on 2 liters nasal cannula, and whose blood pressure is ranging between 106/52 to 119/61. Her intake and output over the past 24 hours has been recorded as 930 in and 2690 out for a negativity of 1760 mL. Most of the output has been from the chest tube of 1640 mL, which is very bloody. Hematocrit of the chest tube output that I sampled earlier this morning was 9, however. I did note that the tube had a clot in it and that the hematocrit may be artifactually low. PHYSICAL EXAMINATION: LUNGS: Her lungs show decreased breath sounds on the left side with a percussion note that it is dull on the left side in the upper extensive hemithorax. Left lung shows inspiratory rales and rhonchi, most which clear with coughing. Percussion note is full to the diaphragm on the right. CARDIAC EXAM: Without murmurs, clicks, gallops or rubs. I cannot feel her point of maximum impulse (PMI). S1, S2 are normal. ABDOMEN: Soft, nontender. Bowel sounds positive. There is no hepatomegaly. No costovertebral angle tenderness. EXTREMITIES: Show 2 to 3+ pretibial edema on the left and trace on the right. SKIN: Warm, dry and perfused without cyanosis or mottling, including that of the nail beds and knees. NECK: Supple. There is no jugular venous distention. No subcutaneous emphysema. Trachea is midline. MOUTH: Shows her mucous membranes to be pink and moist. Lips and commissures without lesions. There is no thrush. EYES: Show her pupils to be equal and reactive. Extraocular motion intact. Sclerae anicteric. NEUROLOGIC: Shows II through XII intact with gross motor and gross sensation intact. Gait is not tested. PSYCHIATRIC: Shows her to be awake and alert, oriented times three with appropriate mood and affect and conversational. Her hemoglobin and hematocrit this morning are 8.0 and 24.8. White count is 27.4 with a platelet count of 541. Differential shows 81% neutrophils, 1% bands, 9% lymphocytes, 5% monocytes with 3 myelocytes and 1 metamyelocyte. Her chemistries today show normal electrolytes with a BUN and creatinine of 14 and 0.51 and a glucose of 185 and a calcium of 7.3. Her chest x-ray today is unchanged with the same loculation in the upper left hemithorax. The left lower hemithorax is somewhat opacified and I cannot make out the diaphragm clearly; however, that does not look to be a pleural effusion. It looks more like consolidation and/or atelectasis or compression. IMPRESSION: 1. Loculated hemothorax. 2. Continue pulmonary hemorrhage from probably lung infarction. 3. Atrial fibrillation now controlled and in sinus. 4. Diabetes. 5. Hypertension. 6. Anemia secondary to hemorrhage. 7. Pulmonary embolism giving rise to the pulmonary infarction. PLAN AND DISCUSSION: Mrs. Dudley is continuing to bleed. It is no doubt secondary to the anticoagulation. I am going to stop the Lovenox and put her on heparin drip at 1000 units an hour until we can get a [place] filter in her. I have already talked to the hospitalist service and they are going to contact interventional radiology and arrange for that to happen today. Mrs. Dudley is rather reluctant and reticent to undergo the procedure, but I told her that her only other viable choice would be to remove the portion of the lung, which would require a thoracotomy. She understands that we will indeed undertake a [place] filter. Hopefully once the anticoagulation stops she will stop bleeding. The anticoagulation should be restarted when the contraindication to anticoagulation, i.e. the lung infarction and hemorrhage ceases. That will probably be in about 6 weeks. In the meantime, the [place] filter should fairly well adequately protect her from throwing more clots. It should be noted that the Doppler venous study showed clots throughout the entire deep venous system on the left. Once the anticoagulation is stopped, I would also suggest a hypercoagulability workup, including the more common causes of factor V Leiden and [id number] protein, along with AT3, protein C, protein S, and homocysteine. Those latter are more rare causes.
[2016-10-29] MEDS ORDERED: LIDOCAINE 1% MDV 20ML VIAL As Ordered ONE (15:36)
[2016-10-29 17:04] VITALS: BP 128/65
--- NOTE | 2016-10-29 17:23 | REP ---
ULTRASOUND GUIDED LEFT THORACENTESIS WITH CATHETER PLACEMENT: The procedure was performed under the direct supervision of Dr. Cantu. The risks and benefits of the procedure were explained to the patient and informed consent was obtained. The left pleural effusion was localized using ultrasound guidance. The skin was prepped and draped in a sterile fashion. 1% Xylocaine was used as a local anesthetic. Using ultrasound guidance a 10-Faro[place] Skater APDL catheter was inserted using trocar technique. 5 mL of reddish colored fluid was withdrawn. The catheter was affixed to the skin and a sterile dressing was applied. The catheter was connected to a Pleur-evac. The patient tolerated the procedure well and there were no immediate complications. Reviewed by HAKAN Watkins 10/30/2016 08:21 AEdited and Signed by Neftaly Cantu MD 10/30/2016 07:20 P
--- NOTE | 2016-10-29 17:26 | REP ---
TWO VIEW CHEST: Two views of the chest are performed following placement of a pigtail drainage catheter into the left hemithorax, superior to the previously placed pigtail drainage catheter. Pigtail drainage catheter is seen posteriorly and superiorly about the level of the hilum. Lobulated pleural densities are again seen in the left hemithorax. Right subclavian catheter is seen with the tip in the right atrium. I do not see a pneumothorax. IMPRESSION: Placement of left posterior mid thorax pigtail drainage catheter posteriorly. No pneumothorax. Pleural and parenchymal opacities on the left have not significantly changed. Signed by Neftaly Cantu MD 10/30/2016 07:08 P
[2016-10-29 19:57] VITALS: BP 141/66
--- NOTE | 2016-10-29 19:57 | IPN ---
DATE: 10/29/2016 Mrs. Brooks feels better today. She is now approximately 18 hours status post her Sheyla filter placement. She has been off anticoagulation and her chest tube has put out minimally over the last 9 hours. Her vital signs show a T-max of 98.4 with a heart rate that ranges between 98 and 80 in a sinus rhythm, respiratory rate of 18 to 20, without the use of accessory muscles and she is 95 to 96% saturated on room air. Blood pressure is ranging between 128/65 to 125/35. Her intake and output over the past 24 hours has been recorded as 1323 and in and 1240 out for near equality. She put out 740 mL yesterday from the chest tube and none today. On physical examination her lungs still show decreased breath sounds on the left side. Percussion note is full inferiorly. I perceive that it is dull in the upper hemithorax. The breath sounds show occasional rales and rhonchi on the right side which clear with coughing. Percussion note is full to the diaphragm on the right. Cardiac exam is without murmurs, clicks, gallops or rubs. I cannot feel her point of maximal impulse (PMI). S1 and S2 are normal. Abdomen is soft and nontender. Bowel sounds are positive. There is no hepatomegaly. No costovertebral angle (CVA) tenderness. Extremities today show only 2+ pretibial edema on the left and trace on the right. There is no calf tenderness. No differential swelling of the upper extremities. Skin is warm, dry and perfused without cyanosis or mottling including that of the nail beds and the knees. Neck is supple. There is no jugular venous distention. No subcutaneous emphysema. Trachea is midline. Mouth shows her mucous membranes to be pink and moist. Lips and commissures without lesions. No thrush. Eyes show her pupils to be equal, reactive. Extraocular muscles intact. Sclera anicteric. Neuro shows II through XII intact. Gross motor and gross sensation intact. Gait is not tested. Psychiatric shows her to be awake, alert and oriented times three with appropriate mood, affect and conversational. Her white count today is 21.1 with a hemoglobin and hematocrit of 8.7 and 26.1. At 2:00 the hemoglobin and hematocrit was 9.1 and 28.0. She has received 6 units of blood over her hospital course with the last one having been given at 3:30 yesterday afternoon. Her electrolytes are normal with a BUN and creatinine of 11 and 0.39, a glucose of 99 and a calcium of 7.2 with a magnesium of 1.7. Her chest x-ray today still shows the loculated superior effusion. The diaphragm is still obscured but I do not perceive a pleural effusion inferiorly. IMPRESSION: 1. Loculated hemothorax. 2. Continued pulmonary hemorrhage from probable lung infarction. Hopefully resolved. 3. Atrial fibrillation. Now controlled in a sinus rhythm. 4. Pulmonary embolism giving rise to the above infarction. 5. Diabetes. 6. Hypertension. 7. Anemia secondary to hemorrhage, stable. PLAN AND DISCUSSION: She still has a loculation superiorly. If we do not get rid of that she will no doubt entrap her lung. It looks to be a loculated hemothorax no doubt. I therefore, asked x-ray to place another pigtail catheter. The patient is reluctant but will consent to it. As noted, yesterday when the contraindication to anticoagulation is gone, i.e. the lung infarction continued bleeding, then anticoagulation should be restarted regardless of her having a [place] filter. I suspect that will be a time period of about 6 weeks. Yesterday I suggested that an anticoagulation workup be taken. I was unaware, but it was undertaken on 10/19/2016, and she is factor V Leiden positive with a heterozygous state. This certainly increases her risk of developing deep venous thrombosis (DVT) and therefore, as noted above, she should be anticoagulated when the contraindications of anticoagulation is gone.
[2016-10-29] MEDS: ATORVASTATIN 20 MG TAB PO SCH (20:24)
[2016-10-29] MEDS: PERCOCET 5MG/325MG TAB PO PRN (20:24)
--- NOTE | 2016-10-29 22:51 | REP ---
Clinical: Pleural effusion. Follow-up. Technique: PA and lateral. Comparison: 10/28/2016. Findings: Left sided pleuroparenchymal changes including partially loculated effusion remains essentially unchanged. Pigtail catheter overlying the left lower lung zone stable. Right hemithorax is relatively clear. Impression: No significant change from prior examination. Signed by Rory Nichols MD 10/29/2016 10:43 P
[2016-10-30] VITALS (8 sets, daily range): BP systolic 126–144; BP diastolic 60–70
[2016-10-30] MEDS: SODIUM CHLORIDE 0.9% INJ 10 ML SYR IV SCH ×4 (00:13→21:19)
[2016-10-30] MEDS: BENZONATATE 100 MG CAP PO PRN ×3 (00:42→21:02)
[2016-10-30] MEDS: PERCOCET 5MG/325MG TAB PO PRN ×4 (00:42→14:57)
[2016-10-30] MEDS: METOPROLOL TART 50 MG TAB PO SCH ×3 (05:02→21:04)
[2016-10-30] MEDS: HEPARIN SOD (PORCINE) 5000 UNITS/ML VIAL SQ SCH ×3 (05:04→21:02)
[2016-10-30 05:38] LABS: ANION GAP 7 MEQ/L (8-16); BLOOD UREA NITROGEN 5 MG/DL (7-18); CALCIUM LEVEL 7.9 MG/DL (8.8-10.2); CARBON DIOXIDE LEVEL 31 MEQ/L (21-32); CHLORIDE LEVEL 103 MEQ/L (98-107); CREATININE FOR GFR 0.34 MG/DL (0.55-1.02); GLOMERULAR FILTRATION RATE > 60.0 (>39); GLUCOSE, FASTING 75 MG/DL (83-110); POTASSIUM SERUM 3.4 MEQ/L (3.5-5.1); SODIUM LEVEL 141 MEQ/L (136-145)
[2016-10-30 05:40] LABS: BASO # 0.2 K/mm3 (0.0-0.2); BASO % 0.8 % (0.0-1.0); EOS # 0.2 K/mm3 (0.0-0.50); EOS % 0.8 % (0.0-3.0); LARGE UNSTAINED CELL # 0.3 K/mm3 (0.0-0.4); LARGE UNSTAINED CELL % 1.2 % (0.0-4.0); LYMPH # 1.9 K/mm3 (1.5-4.5); LYMPH % 8.7 % (24.0-44.0); MEAN CORPUSCULAR HEMOGLOBIN 29.8 pg (27.0-33.0); MEAN CORPUSCULAR VOLUME 90.2 fl (80.0-96.0); MONO # 1.3 K/mm3 (0.0-0.8); MONO % 5.7 % (0.0-5.0); NEUTROPHILS # 18.2 K/mm3 (1.8-7.7); NEUTROPHILS % 82.8 % (36.0-66.0); RED CELL DISTRIBUTION WIDTH 15.2 % (11.5-14.5)
[2016-10-30 05:41] LABS: PLATELET COUNT, AUTOMATED 623 k/mm3 (150-450)
[2016-10-30] MEDS: HumaLOG INSULIN (NovoLOG) PER UNIT SC SCH ×4 (07:30→21:00)
--- NOTE | 2016-10-30 08:26 | RO ---
DATE OF PROCEDURE: 10/28/2016 PREPROCEDURE DIAGNOSIS: Loculated superior pleural effusion and hemothorax left side. POSTPROCEDURE DIAGNOSIS: Loculated superior pleural effusion and hemothorax left side. PROCEDURE: tPA pleurolysis. SURGEON: Dr. Naseem Bueno MEDICAL ASSEMBLER: ANESTHESIA: The patient's chest pigtail catheter was prepped and draped in the usual sterile fashion and 6 mg of tPA in 100 mL of normal saline was infused into the chest. The catheter was clamped and the patient was then turned from side to side and then placed in Trendelenburg position for 20 minutes. The rationale for Trendelenburg was that the catheter has been placed inferiorly and she has a superior loculation with hopefully the tPA diffusing by gravity to the superior aspect of her hemithorax. The patient tolerated the procedure well and the chest tube will be unclamped in 4 hours.
[2016-10-30] MEDS ORDERED: POTASSIUM CHLORIDE 10 MEQ SR TABLET PO ONE (09:00)
--- NOTE | 2016-10-30 09:20 | REP ---
Chest PA and lateral views: Comparison 10/29/2016. There are two pigtail drainage catheters posteriorly in the left hemithorax, one above the other. Loculated pleural effusions present as large lobulated pleural-based densities superolaterally in the left hemithorax, unchanged. I suspect there is a left lower lobe infiltrate, unchanged. Right lung is clear. Right subclavian central venous catheter remains in satisfactory position with the tip in the right atrium, unchanged. Cardiac size is unchanged. Signed by Neftaly Tee MD 10/30/2016 09:12 A
[2016-10-30] MEDS: LEVEMIR (INSULIN DETEMIR) 1 UNITS/0.01ML SC SCH ×2 (09:46→21:14)
[2016-10-30] MEDS: SENOKOT S TAB PO SCH ×2 (09:50→21:03)
[2016-10-30] MEDS: guaiFENesin ER 600 MG TAB PO SCH ×2 (09:50→21:02)
[2016-10-30] MEDS: OMEPRAZOLE 20 MG CAP PO SCH (09:50)
[2016-10-30] MEDS: AMIODARONE 200 MG TAB (PACERONE) PO SCH ×2 (09:50→21:02)
[2016-10-30] MEDS: CARBAMIDE PEROXIDE 6.5% OTIC SOLN 15ML AU SCH ×2 (09:51→21:18)
--- NOTE | 2016-10-30 14:17 | IPNPDOC ---
Subjective Date Seen The patient was seen on 10/30/16. Subjective Chief Complaint/HPI The patient is a 71-year-old female admitted with a reason for visit of Hyperglycemia,Pulmonary Embolism. Events since last encounter Patient reports having increased chest pain since second chest tube placement last night. Patient again had a difficult time sleeping. Was able to tolerate breakfast this morning. Is having some more increased chest pain due to the second chest tube. Is having pain with coughing and coughing is continuing. Continue to be nonproductive cough. Does have some swelling in her legs but this is unchanged from before. No pain anywhere else. States that she feels about the same as yesterday. Constitutional: Denies: Chills, Fever Eyes: Denies: Vision change ENT: Denies: Head Aches Skin: Reports: Bruising (upper shoulders bilaterally.) Pulmonary: Reports: Cough, Pleuritic Chest Pain (chest pain with breathing and coughing.) Cardiovascular: Reports: Chest Pain (left chest pain since new chest tube was placed.) Gastrointestinal: Denies: Nausea, Vomiting Genitourinary: Denies: Dysuria, Frequency Neurological: Denies: Numbness, Change in speech Psych: Reports: Mood Normal Objective Physical Examination General Exam: Positive: Alert, Cooperative, No Acute Distress Eye Exam: Negative: Sclera icteric ENT Exam: Positive: Mucous membr. moist/pink Neck Exam: Positive: Supple Chest Exam: Positive: Diminished, Negative: Rales, Rhonchi, Wheezing Heart Exam: Positive: Rate Normal, Normal S1, Normal S2, Negative: Gallops, Murmurs, Rubs Telemetry: Positive: Sinus Abdomen Exam: Positive: Normal bowel sounds, Soft, Negative: Tenderness Extremity Exam: Positive: Edema (some mild +1 pitting edema lower extremities bilaterally. Patient is wearing compression stockings.), Normal pulses, Negative: Tenderness Skin Exam: Positive: Other skin issue (bruising bilateral upper extremities.) Neuro Exam: Positive: Normal Speech Psych Exam: Positive: Mental status NL, Oriented x 3 Assessment /Plan Problems (1) Pulmonary embolism Status: Acute Response to Treatment: Progressing Discussed With: Patient Problem Specific Plan: Monitor Clinically, Repeat Labs Problem Text: CTA Chest notable for acute and chronic pulmonary embolic with partially occlusive filling defects in the right main pulmonary artery extending into the proximal right middle lobe pulmonary artery Duplex ultrasound revealed clots in left lower leg on 10/27/2016. The patient has had a IVC filter placed on 10/28/2016 2/2 bloody output from Chest Tube equaling close to 4L of bloody drainage from underlying possible pulmonary infarctions with hemorrhagic conversion s/p 6 Units of PRBC transfusion over a 48 hrs. time period. No transfusions in last 24 hours. Anticoagulation has been held--risks and benefits were discussed with the patient, carola Prieto at the bedside Discuss MOLST form with patient and family at bedside. Patient agreed to sign for DNR and DNI. We will continue to monitor the patient's H&H. Patient's hemoglobin this morning was 9.1. Heparin drip was discontinued yesterday. Patient had second chest tube placed yesterday 10/29/2016. Overnight patient has had a milliliters from chest tube 1 and 16 mL from chest tube 2. Discussed with Dr. Pollock today regarding restarting patient's anticoagulation. Dr. Pollock recommend starting it prior to leaving. We'll discuss with thoracic surgeon, Dr. Bueno as well. Chest CT was ordered to be performed today and is currently pending. (2) Pleural effusion Status: Acute Problem Text: Possible complication of Pulmonary Infarct with Hemorrhagic conversion/effusion. Hemothorax. s/p Chest Catheter placement on 10/24 by IR s/p tPA pleurolysis through pigtail catheter on 10/25 and 10/[address] Bueno of Thoracic Surgery Patient has put out about 4L of bloody drainage since placement of catheter, and has required 6 Units of PRBC transfusion over the last 48 hrs Her blood pressure is stable at this time, and we have placed an IVC Filter with the help of IR today--Anticoagulation for underlying PE, A-Fib has been discontinued at this time given the aforementioned active bleeding A second chest tube was placed yesterday 10/29/[address] Bueno of thoracic surgery. Appreciate Dr. Bueno's continued assistance in managing of this patient. (3) DVT (deep venous thrombosis) Problem Text: Patient had DVTs on duplex ultrasound of left lower extremity on 10/27/16. Patient's anticoagulation was stopped due to bloody output from Chest Tube equaling close to 4L of bloody drainage from underlying possible pulmonary infarctions with hemorrhagic conversion. IVC filter was placed. May start patient's anticoagulation prior to discharge. Will need further discussion with Dr. Pollock and Dr. Bueno prior to this. (4) Tachycardia Status: Acute Problem Text: Patient continuing to have bouts of atrial fibrillation. Per Dr. Lowe changed medication. Holding Cardizem and metoprolol and starting amiodarone 400 mg to stabilize her rhythm. Continue patient on telemetry. Appreciate Dr. Lowe assistance in management of this patient. (5) Diabetes type 2, uncontrolled Status: Chronic Response to Treatment: Progressing Discussed With: Patient Problem Specific Plan: Repeat Labs, Repeat Tests Problem Text: Continue with insulin therapy- reasonably well controlled for current setting. AEC inhibitor was discontinued due to tachycardia and need for other meds Ordered teaching for insulin therapy due to new onset diabetes. HgbA1c 14.2 (6) Hyperglycemia Status: Resolved Response to Treatment: Improving Discussed With: Patient Problem Specific Plan: Monitor Clinically, Repeat Labs Problem Text: Uncontrolled diabetes. (7) Leukocytosis Status: Acute Discussed With: Patient Problem Specific Plan: Monitor Clinically, Repeat Labs, Repeat Tests Problem Text: Unclear etiology- UTI vs. reactive vs pneumonia Patient did report polyuria and dysuria prior to presentation to ER White Blood cell count was up to 27.4 on 10/28/2016. The WBC is down to 22 today. Peripheral Smear pending. Continue to monitor patient's temperature and monitor clinically. (8) Hyperlipemia Status: Chronic Discussed With: Patient Problem Text: Continue Lipitor. (9) HTN (hypertension) Status: Acute Discussed With: Patient Problem Specific Plan: Monitor Clinically Problem Text: Possibly chronic untreated complicated with PE. Continue to hold Beta vivien and CIARRA inhibitor. (10) Acute blood loss anemia Status: Acute Problem Text: s/p TPA in chest tube, now with blood loss s/p IVC Filter, Lovenox and Heparin dc'd Patient had received transfusion of 6 units of packed red blood cells over a 48 hrs time period. Blood pressure has remained stable Continue to monitor H&H and transfuse as needed Patient did have some clots in her urine this morning. Renal ultrasound and a bladder ultrasound of both ordered. This is to rule out any bladder mass there may be. Plan/VTE VTE Prophylaxis Ordered?: Yes (heparin subcutaneous, compression stockings. ) VS, I&O, 24H, Fishbone Vital Signs/I&O Vital Signs Date Time Temp Pulse Resp B/P (MAP) Pulse Ox O2 Delivery O2 Flow Rate FiO2 10/30/16 12:05 98.3 98 18 126/63 (84) 96 Room Air 10/29/16 17:40 2.0 I&O- Last 24 Hours up to 6 AM 10/30/16 05:59 Intake Total 1800 ml Output Total 1588 ml Balance 212 ml Laboratory Data 24H LABS Laboratory Tests 2 10/29/16 17:11: Bedside Glucose (Misc Panel) 122H 10/29/16 20:14: Bedside Glucose (Misc Panel) 178H 10/30/16 05:02: White Blood Count 22.0H, Red Blood Count 3.06L, Hemoglobin 9.1L, Hematocrit 27.6L, Mean Corpuscular Volume 90.2, Mean Corpuscular Hemoglobin 29.8, Mean Corpuscular Hemoglobin Concent 33.0, Red Cell Distribution Width 15.2H, Platelet Count 623#H, Neutrophils (%) (Auto) 82.8H, Lymphocytes (%) (Auto) 8.7L , Monocytes (%) (Auto) 5.7H, Eosinophils (%) (Auto) 0.8, Basophils (%) (Auto) 0.8, Neutrophils # (Auto) 18.2H, Lymphocytes # (Auto) 1.9, Monocytes # (Auto) 1.3H, Eosinophils # (Auto) 0.2, Basophils # (Auto) 0.2, Large Unclassified Cells % 1.2, Large Unclassified Cells # 0.3, Anion Gap 7L, Glomerular Filtration Rate > 60.0, Blood Urea Nitrogen 5#L, Creatinine 0.34L, Sodium Level 141, Potassium Level 3.4L, Chloride Level 103, Carbon Dioxide Level 31, Calcium Level 7.9L CBC/BMP Laboratory Tests 10/29/16 14:09 10/29/16 17:53 10/30/16 00:22 10/30/16 05:02 Red Blood Count 3.06 L, Mean Corpuscular Volume 90.2, Mean Corpuscular Hemoglobin 29.8, Mean Corpuscular Hemoglobin Concent 33.0, Red Cell Distribution Width 15.2 H, Neutrophils (%) (Auto) 82.8 H, Lymphocytes (%) (Auto ) 8.7 L, Monocytes (%) (Auto) 5.7 H, Eosinophils (%) (Auto) 0.8, Basophils (%) ( Auto) 0.8, Neutrophils # (Auto) 18.2 H, Lymphocytes # (Auto) 1.9, Monocytes # ( Auto) 1.3 H, Eosinophils # (Auto) 0.2, Basophils # (Auto) 0.2, Calcium Level 7.9 L 10/30/16 12:52 Microbiology Microbiology 10/23/16 Blood Culture - Final, Complete NO GROWTH AFTER 5 DAYS 10/23/16 Blood Culture - Final, Complete NO GROWTH AFTER 5 DAYS 10/23/16 Acid Fast Stain, Received Pending 10/23/16 Mycobacterial Culture, Received Pending 10/23/16 Gram Stain - Final, Complete 10/23/16 Body Fluid Culture - Final, Complete 10/21/16 Gram Stain - Final, Complete 10/21/16 Sputum Culture - Final, Complete Strep Agalactiae Group B 10/20/16 Urine Culture - Final, Complete Corynebacterium Species GME ATTESTATION GME ATTESTATION My preceptor for this patient encounter was Dr. Perez and he was physically present in the building during the encounter and was fully available. As needed , all aspects of the patient interview, examination, medical decision making process, and medical care plan development were reviewed and approved by the preceptor. Preceptor is aware and concurs with the plan as stated in the body of this note and will attest to such by his/her cosignature. ILDA ANDREW DO Oct 30, 2016 14:15
[2016-10-30] MEDS ORDERED: ALTEPLASE 2 MG/2 ML VIAL (J2997 PER 1MG) XX ONE (14:30)
--- NOTE | 2016-10-30 15:41 | IPN ---
DATE: 10/30/2016 Mrs. Dudley is feeling fairly good today. She is not complaining of shortness of breath. The pain is being fairly well controlled with chest catheter insertion sites. She went to x-ray yesterday where another pigtail catheter was placed. With 5 mL of fluid withdrawn. She has had a total of 26 mL since she returned from x-ray yesterday. Her vital signs show a T-max of 98.3 with a heart rate that ranges between 79and 107 in a sinus rhythm. Respiratory rate of 18 to 16 without the use of accessory muscles who is 96% saturated on room air and whose blood pressure is ranging between 127/67 and 140/66. Her intake and output over the past 24 hours has been recorded as 1550 in and 1325 out for a positivity of 225 mL. She has put out 80 mL from the chest tubes. Her weight today is 80.8 kg compared to 79.8 kg yesterday. There is no air leak. On physical examination her lungs still show decreased breath sounds on the left side. It is hard to percuss her left side secondary to the large amount of tape covering the pigtail catheters. Her right side shows nearly normal vesicular sounds with occasional rhonchi and rales which clear with coughing. Percussion note is full to the diaphragm on the left. Cardiac exam is without murmurs, clicks, gallops or rubs. I cannot feel her point of maximal impulse (PMI). S1 and S2 are normal. Abdomen is soft and nontender. Bowel sounds are positive. There is no hepatomegaly. No costovertebral angle (CVA) tenderness. Extremities show much less pretibial edema. Maybe trace today on the left side and none on the right side. There is no calf tenderness. No differential swelling of the upper extremities. Skin is warm, dry and perfused without cyanosis or mottling including that of the nail beds and the knees. Neck is supple. There is no jugular venous distention. No subcutaneous emphysema. Trachea is midline. Mouth shows her mucous membranes to be pink and moist. Lips and commissures without lesions. No thrush. Eyes show her pupils to be equal, reactive. Extraocular muscles intact. Sclera anicteric. Neuro shows II through XII intact. Gross motor and gross sensation intact. Gait is not tested. Psychiatric shows her to be awake, alert and oriented times three with appropriate mood, affect and conversational. Her CBC today still shows continued leukocytosis of 22.0. Hemoglobin and hematocrit are 9.1 and 27.6, unchanged from yesterday with platelet count of 623. Differential shows 82% neutrophils, 8% lymphocytes, 5% monocytes. There are no immature forms. No toxic granulations today. Her chemistry show marginally low potassium 3.4 with a BUN and creatinine of 5 and 0.34. Calcium is 7.9. Her chest x-ray today still shows the loculated pleural effusion. I therefore repeated the chest CT and they are still present and the pigtail catheter is within the lower extent of the loculation. It is in a much more superior position than the lower catheter. IMPRESSION: 1. Pulmonary embolism, bilateral. 2. Pulmonary infarction. 3. Loculated hemothorax. 4. Pulmonary hemorrhage, resolved. 5. Atrial fibrillation, now in sinus rhythm. 6. Diabetes. 7. Hypertension. 8. Anemia secondary to hemorrhage, stable. 9. Hypercoagulable state, Factor V Leiden positive for heterogeneity. PLAN AND DISCUSSION: I will do a tissue plasminogen activator (tPA) pleurolysis via the more superior pigtail. I will again place her in Trendelenburg position in order to distribute the tPA superiorly. It would still be in her best interest to get rid of this loculation.
--- NOTE | 2016-10-30 17:44 | REP ---
RENAL AND BLADDER ULTRASOUND: Real-time sonographic evaluation of kidneys performed. Kidneys are normal in size and echotexture. Right kidney measuring 11.9 x 6.4 x 7.3 cm and left kidney 4.4 x 7.5 x 6.2 cm. There is mild bilateral hydronephrosis. We can not exclude small peripelvic cysts in the left kidney. Duplex Doppler evaluation of the intrarenal vasculature demonstrates a resistive index right kidney 0.78 and left kidney 0.79. Hyperechoic nodular area along the medial left kidney may represent a small angiomyolipoma measuring 1 cm in diameter. Urinary bladder demonstrates no gross mass or calculus. Ureteral jets are seen with Doppler color evaluation bilaterally. IMPRESSION: Mild hydronephrosis, bilaterally. Signed by Neftaly Cantu MD 10/30/2016 07:16 P
[2016-10-30] MEDS: MORPHINE 2 MG/ML 1ML SYRINGE IV PRN ×3 (18:05→23:33)
--- NOTE | 2016-10-30 19:34 | RO ---
DATE OF PROCEDURE: 10/30/2016 PREPROCEDURE DIAGNOSIS: Loculated hemothorax. POSTPROCEDURE DIAGNOSIS: Loculated hemothorax. OPERATIVE PROCEDURE: Tissue plasminogen activator (tPA) pleurolysis. SURGEON: Naseem Bueno MD GAS TESTER: ANESTHESIA: DESCRIPTION OF PROCEDURE: The patient's catheter was prepped and draped in the usual sterile fashion and 50 mL containing 6 mg of tPA were infused into the chest. The patient was rolled from side to side and then placed in Trendelenburg for 15 minutes. The patient tolerated the procedure well and the chest tubes will be unclamped in 4 hours and placed back to suction.
[2016-10-30] MEDS: ATORVASTATIN 20 MG TAB PO SCH (21:02)
--- NOTE | 2016-10-31 01:20 | REP ---
Clinical: Chest pain. Comparison: 10/30/2016. Findings: Two left-sided chest tubes are stable in position. Right subclavian catheter with tip in the right atrium. Cardiac silhouette is incompletely evaluated due to positioning and overlying opacities. Multiloculated left pleural effusion and left-sided opacities are relatively similar to prior examination. Trace right basilar atelectasis cannot be excluded. No pneumothorax. Impression: No significant change from prior examination. Signed by Rory Nichols MD 10/31/2016 01:11 A
[2016-10-31] MEDS: MORPHINE 2 MG/ML 1ML SYRINGE IV PRN (05:26)
[2016-10-31] MEDS: HEPARIN SOD (PORCINE) 5000 UNITS/ML VIAL SQ SCH ×3 (05:26→21:17)
[2016-10-31] MEDS: METOPROLOL TART 50 MG TAB PO SCH ×3 (05:31→21:17)
[2016-10-31 05:40] VITALS: BP 143/75
[2016-10-31] MEDS: SODIUM CHLORIDE 0.9% INJ 10 ML SYR IV SCH ×3 (05:47→21:18)
[2016-10-31 05:56] LABS: ANION GAP 7 MEQ/L (8-16); BLOOD UREA NITROGEN 5 MG/DL (7-18); CARBON DIOXIDE LEVEL 32 MEQ/L (21-32); CHLORIDE LEVEL 102 MEQ/L (98-107); CREATININE FOR GFR 0.25 MG/DL (0.55-1.02); GLOMERULAR FILTRATION RATE > 60.0 (>39); GLUCOSE, FASTING 56 MG/DL (83-110); POTASSIUM SERUM 3.1 MEQ/L (3.5-5.1); SODIUM LEVEL 141 MEQ/L (136-145)
[2016-10-31 05:57] LABS: ADD MANUAL DIFFER YES; MEAN CORPUSCULAR HEMOGLOBIN 29.5 pg (27.0-33.0); MEAN CORPUSCULAR HGB CONC 32.3 g/dl (32.0-36.5); MEAN CORPUSCULAR VOLUME 91.3 fl (80.0-96.0); PLATELET COUNT, AUTOMATED 538 k/mm3 (150-450); RED CELL DISTRIBUTION WIDTH 15.3 % (11.5-14.5); WHITE BLOOD COUNT 22.8 K/mm3 (4.0-10.0)
[2016-10-31 06:28] LABS: BANDS 2 % (< 11)
[2016-10-31 06:29] LABS: ANISOCYTOSIS 1+; HYPOCHROMASIA 1+; POLYCHROMASIA 1+
--- NOTE | 2016-10-31 07:21 | IPN ---
DATE: 10/30/2016 Mrs. Dudley feels much better. Dyspnea is essentially gone and she denies any chest discomfort unless she coughs. Also she has been maintaining sinus rhythm for several days now. Blood pressure 144/67, heart rate in the 90s. She is afebrile. Saturation is 92% on room air. Fluid balance yesterday approximately equal. Weight was documented at 81 kg. She drained approximately 1800 mL from both chest tubes. JVP is not up. Lungs are clear to auscultation on the right. There are occasional crackles of left. Heart exam regular rhythm. No gallop or rub. Abdomen soft, nontender. No peripheral edema. Neurologically she is intact. LABORATORY: Basic metabolic panel is normal but for a slow potassium at 3.4. CBC reveals stable hemoglobin 9.1 and then hematocrit 27.6. ASSESSMENT/PLAN: Mrs. Dudley is a 71-year-old female who did not have medical care for many years and presented with chest pain and dyspnea. She was found to have bilateral pulmonary emboli with infarcts and pleural effusion on the left side, it is probably loculated hemorrhagic effusion, possibly related to trauma and superimposed pulmonary infarcts. She underwent drainage of both loculated areas and still drains fair amount but I am hoping that within a day or two the drains will be removed. She was anticoagulated for with Lovenox but because the output from chest tubes was resembling sharri bleeding the anticoagulation was discontinued and she got IVC filter I would advocate that the anticoagulation is restarted as soon as possible, I am hoping that today or tomorrow, I will leave the decision to thoracic surgery at which point they feel safe to do so. As far as the atrial fibrillation is concerned, she has been maintaining sinus rhythm on amiodarone and metoprolol and I am hoping that this is only a temporary arrangement and as she recovers from her pulmonary emboli the risk of recurrent atrial fibrillation will be very low at which point the amiodarone can be discontinued. I foresee only brief use probably around one month.
[2016-10-31] MEDS: HumaLOG INSULIN (NovoLOG) PER UNIT SC SCH ×4 (07:30→21:30)
[2016-10-31 08:00] VITALS: BP 109/74
[2016-10-31] MEDS ORDERED: POTASSIUM CHLORIDE 10 MEQ SR TABLET PO ONE (08:00)
[2016-10-31 08:34] LABS: MAGNESIUM LEVEL 1.8 MG/DL (1.8-2.4)
--- NOTE | 2016-10-31 08:56 | REP ---
Clinical: Follow up pleural effusion. Comparison: 10/26/2016. Findings: Multiloculated pleural fluid collections surrounding the left hemithorax are similar to prior examination. The pigtail catheter in the right base is now predominately surrounded by irregular areas of atelectasis and a small irregular pleural collection. The more recently placed pigtail catheter in the posterior mid pleural space appears to reside within a moderate collection along the posterolateral hemithorax. Underlying areas of ill-defined consolidation and atelectasis are similar to prior examination. Right hemithorax demonstrates basilar atelectasis and small right pleural effusion minimally increased from prior examination. The tracheobronchial tree is patent. The mediastinum and cardiac silhouette are stable. Surrounding musculoskeletal structures demonstrate stable degenerative changes.. Impression: Continued evidence for multiloculated pleural collections surrounding the left hemithorax. The more recently placed pigtail catheter in the mid pleural space is within a moderate collection while the more inferior pigtail catheter is now only surrounded by irregular fluid collection and atelectasis. New small right pleural effusion and right basilar atelectasis. Signed by Rory Nichols MD 10/31/2016 08:49 A
--- NOTE | 2016-10-31 09:42 | REP ---
REASON: Followup pleural effusion. COMPARISON: Multiple, latest yesterday at 8:00 pm. Cardiomediastinal silhouette is unchanged. The lung araujo are unchanged. Right-sided central venous catheter tip remains in the superior vena cava. Large left thoracic opacities along the chest wall laterally noted status quo. Cardiomegaly status quo. No new abnormalities have developed. Two drainage catheters seen on the left posteriorly unchanged. IMPRESSION: No change. Signed by Moises Dudley DO 10/31/2016 11:55 A
[2016-10-31] MEDS: AMIODARONE 200 MG TAB (PACERONE) PO SCH ×2 (09:46→21:15)
[2016-10-31] MEDS: LEVEMIR (INSULIN DETEMIR) 1 UNITS/0.01ML SC SCH ×2 (09:46→21:18)
[2016-10-31] MEDS: SENOKOT S TAB PO SCH ×2 (09:46→21:17)
[2016-10-31] MEDS: guaiFENesin ER 600 MG TAB PO SCH ×2 (09:46→21:17)
[2016-10-31] MEDS: OMEPRAZOLE 20 MG CAP PO SCH (09:47)
[2016-10-31] MEDS: PERCOCET 5MG/325MG TAB PO PRN ×2 (11:56→21:16)
[2016-10-31 12:00] VITALS: BP 135/66
[2016-10-31] MEDS: BENZONATATE 100 MG CAP PO PRN ×2 (13:11→21:15)
--- NOTE | 2016-10-31 13:37 | IPNPDOC ---
Subjective Date Seen The patient was seen on 10/31/16. Subjective Chief Complaint/HPI The patient is a 71-year-old female admitted with a reason for visit of Hyperglycemia,Pulmonary Embolism. Events since last encounter Patient reports having chest pain only with cough. Denies chest pain at rest. She feels similar to the day before. Was able to get some sleep. Was sitting up in her chair today. Denies any leg swelling. Denies abdominal pain, calf pain. General: Denies: Chills Constitutional: Denies: Chills, Fever Eyes: Denies: Vision change ENT: Denies: Head Aches Pulmonary: Reports: Cough (nonproductive), Denies: Dyspnea Cardiovascular: Reports: Chest Pain (with cough), Denies: Palpitations Gastrointestinal: Denies: Nausea, Vomiting, Abdominal Pain Genitourinary: Denies: Dysuria, Frequency Neurological: Denies: Weakness, Change in speech, Confusion Psych: Reports: Mood Normal Objective Physical Examination General Exam: Positive: Alert, Cooperative, No Acute Distress Eye Exam: Negative: Sclera icteric ENT Exam: Positive: Mucous membr. moist/pink Neck Exam: Positive: Supple Chest Exam: Positive: Diminished, Negative: Rales, Rhonchi, Wheezing Heart Exam: Positive: Rate Normal, Normal S1, Normal S2, Negative: Gallops, Murmurs, Rubs Telemetry: Positive: Sinus Abdomen Exam: Positive: Normal bowel sounds, Soft, Negative: Tenderness Extremity Exam: Positive: Normal pulses, Negative: Edema, Tenderness Neuro Exam: Positive: Normal Speech Psych Exam: Positive: Mental status NL, Oriented x 3 Assessment /Plan Plan/VTE VTE Prophylaxis Ordered?: Yes (heparin subcutaneous, compression stockings. ) Plan (1) Pulmonary embolism Status: Acute Response to Treatment: Progressing Discussed With: Patient Problem Specific Plan: Monitor Clinically, Repeat Labs Problem Text: CTA Chest notable for acute and chronic pulmonary embolic with partially occlusive filling defects in the right main pulmonary artery extending into the proximal right middle lobe pulmonary artery Duplex ultrasound revealed clots in left lower leg on 10/27/2016. The patient has had a IVC filter placed on 10/28/2016 2/2 bloody output from Chest Tube equaling close to 4L of bloody drainage from underlying possible pulmonary infarctions with hemorrhagic conversion s/p 6 Units of PRBC transfusion over a 48 hrs. time period. No transfusions in last 48 hours. Anticoagulation has been held--risks and benefits were discussed with the patient, carola Prieto at the bedside Discuss MOLST form with patient and family at bedside. Patient agreed to sign for DNR and DNI. We will continue to monitor the patient's H&H. Patient's hemoglobin this morning was 9.1. Heparin drip was discontinued yesterday. Patient had second chest tube placed yesterday 10/29/2016. Overnight patient has had a milliliters from chest tube 1 and 16 mL from chest tube 2. Discussed with Dr. Pollock today regarding restarting patient's anticoagulation. Dr. Pollock recommend starting it prior to leaving. We'll discuss with thoracic surgeon, Dr. Bueno as well. Chest radiograph 10/31/16 shows no change from 10/30/16. (2) Pleural effusion Status: Acute Problem Text: Possible complication of Pulmonary Infarct with Hemorrhagic conversion/effusion. Hemothorax. s/p Chest Catheter placement on 10/24 by IR s/p tPA pleurolysis through pigtail catheter on 10/25 and 10/[address] Bueno of Thoracic Surgery Patient had put out bloody drainage since placement of catheter, and has required 6 Units of PRBC transfusion over the last 48 hrs In last 24 hours, the left posterior tube put out 46 mL and the left upper posterior tube put out 12 mL. Will continue to monitor drainage. Her blood pressure is stable at this time, an IVC Filter was placed with the help of IR om 10/29/16 --Anticoagulation for underlying PE, A-Fib has been discontinued at this time given the aforementioned active bleeding. A second chest tube was placed 10/29/[address] Bueno of thoracic surgery. Patient received further tPA treatment yesterday. Patient tolerated treatment and hemoglobin has been between 8.6 and 9.2 over the last [address] chest 10/30/16 showed Continued evidence for multiloculated pleural collections surrounding the left hemithorax. The more recently placed pigtail catheter in the mid pleural space is within a moderate collection while the more inferior pigtail catheter is now only surrounded by irregular fluid collection and atelectasis. New small right pleural effusion and right basilar atelectasis. Appreciate Dr. Bueno's continued assistance in managing of this patient. (3) DVT (deep venous thrombosis) Problem Text: Patient had DVTs on duplex ultrasound of left lower extremity on 10/27/16. Patient's anticoagulation was stopped due to bloody output from Chest Tube equaling close to 4L of bloody drainage from underlying possible pulmonary infarctions with hemorrhagic conversion. IVC filter was placed. May start patient's anticoagulation prior to discharge. Will need further discussion with Dr. Pollock and Dr. Bueno prior to this. (4) Tachycardia Status: Resolved Problem Text: Patient continuing to have bouts of atrial fibrillation. Per Dr. Lowe changed medication. Holding Cardizem and starting amiodarone 400 mg to stabilize her rhythm. Patient was restarted on metorpolol. Patient has been normal sinus for a couple days. Continue patient on telemetry. Appreciate Dr. Lowe assistance in management of this patient. (5) Diabetes type 2, uncontrolled Status: Chronic Response to Treatment: Progressing Discussed With: Patient Problem Specific Plan: Repeat Labs, Repeat Tests Problem Text: Continue with insulin therapy- reasonably well controlled for current setting. AEC inhibitor was discontinued due to tachycardia and need for other meds Ordered teaching for insulin therapy due to new onset diabetes. Decreased insulin 10/31/16 due to patient having low glucose for second morning in a row. Patient may not be eating as well as she had perviously. Decreased from 15 units BID to 5 units BID. Continue to monitor as needed. HgbA1c 14.2 (6) Hyperglycemia Status: Resolved Response to Treatment: Improving Discussed With: Patient Problem Specific Plan: Monitor Clinically, Repeat Labs Problem Text: Uncontrolled diabetes. (7) Leukocytosis Status: Acute Discussed With: Patient Problem Specific Plan: Monitor Clinically, Repeat Labs, Repeat Tests Problem Text: Unclear etiology- UTI vs. reactive vs pneumonia Patient did report polyuria and dysuria prior to presentation to ER White Blood cell count was up to 27.4 on 10/28/2016. The WBC is down to 22 today. Peripheral smear showed Leukocytosis, anemia and thrombocytosis. A few immature myeloid cells/myelocytes are noted. No previous studies at [facility] before this admission. Continue to monitor patient's temperature and monitor clinically. (8) Hyperlipemia Status: Chronic Discussed With: Patient Problem Text: Continue Lipitor. (9) HTN (hypertension) Status: Acute Discussed With: Patient Problem Specific Plan: Monitor Clinically Problem Text: Possibly chronic untreated complicated with PE. Continue to hold CIARRA inhibitor. Beta vivien was restarted. (10) Acute blood loss anemia Status: Acute Problem Text: s/p TPA in chest tube, now with blood loss s/p IVC Filter, Lovenox and Heparin dc'd Patient had received transfusion of 6 units of packed red blood cells over a 48 hrs time period. Blood pressure has remained stable Continue to monitor H&H and transfuse as needed Patient did have some clots in her urine on morning of 10/30/16. None since that time. No blood in urine today. Bladder and renal US both showed Urinary bladder demonstrates no gross mass or calculus. Ureteral jets are seen with Doppler color evaluation bilaterally. Mild hydronephrosis, bilaterally. VS, I&O, 24H, [facility] Vital Signs/I&O Vital Signs Date Time Temp Pulse Resp B/P (MAP) Pulse Ox O2 Delivery O2 Flow Rate FiO2 10/31/16 13:11 79 135/66 10/31/16 12:26 20 Room Air 10/31/16 12:00 98.3 95 10/29/16 17:40 2.0 I&O- Last 24 Hours up to 6 AM 10/31/16 06:00 Intake Total 1600 ml Output Total 1731 ml Balance -131 ml Laboratory Data 24H LABS Laboratory Tests 2 10/30/16 13:38: Bedside Glucose (Misc Panel) 85 10/30/16 16:26: Bedside Glucose (Misc Panel) 65L 10/30/16 16:50: Bedside Glucose (Misc Panel) 92 10/30/16 21:12: Bedside Glucose (Misc Panel) 123H 10/30/16 21:30: Activated Partial Thromboplast Time 40.0H 10/31/16 05:18: Neutrophils 86H, Band Neutrophils 2, Lymphocytes (Manual) 5L, Monocytes (Manual ) 3, Metamyelocytes 3H, Myelocytes 1H, Platelet Estimate INCREASED, Polychromasia 1+, Hypochromasia 1+, Anisocytosis 1+, Anion Gap 7L, Glomerular Filtration Rate > 60.0, Blood Urea Nitrogen 5L, Creatinine 0.25L, Sodium Level 141, Potassium Level 3.1L, Chloride Level 102, Carbon Dioxide Level 32, Calcium Level 8.0L, Magnesium Level 1.8 10/31/16 05:28: Bedside Glucose (Misc Panel) 58L 10/31/16 06:21: Bedside Glucose (Misc Panel) 75L 10/31/16 08:45: Activated Partial Thromboplast Time 30.9 10/31/16 09:51: Bedside Glucose (Misc Panel) 244H 10/31/16 11:44: Bedside Glucose (Misc Panel) 226H CBC/BMP Laboratory Tests 10/30/16 17:32 10/31/16 01:00 10/31/16 05:18 Red Blood Count 3.11 L, Mean Corpuscular Volume 91.3, Mean Corpuscular Hemoglobin 29.5, Mean Corpuscular Hemoglobin Concent 32.3, Red Cell Distribution Width 15.3 H, Calcium Level 8.0 L Microbiology Microbiology 10/31/16 Blood Culture, Received Pending 10/23/16 Blood Culture - Final, Complete NO GROWTH AFTER 5 DAYS 10/23/16 Blood Culture - Final, Complete NO GROWTH AFTER 5 DAYS 10/23/16 Acid Fast Stain - Final, Resulted 10/23/16 Mycobacterial Culture, Resulted Pending 10/23/16 Gram Stain - Final, Complete 10/23/16 Body Fluid Culture - Final, Complete 10/21/16 Gram Stain - Final, Complete 10/21/16 Sputum Culture - Final, Complete Strep Agalactiae Group B GME ATTESTATION GME ATTESTATION My preceptor for this patient encounter was Dr. Perez and he was physically present in the building during the encounter and was fully available. As needed , all aspects of the patient interview, examination, medical decision making process, and medical care plan development were reviewed and approved by the preceptor. Preceptor is aware and concurs with the plan as stated in the body of this note and will attest to such by his/her cosignature. ILDA ANDREW DO Oct 31, 2016 13:36
[2016-10-31 16:00] VITALS: BP 138/76
--- NOTE | 2016-10-31 17:21 | IPN ---
DATE: 10/31/2016 Ms. Dudley underwent a TPA pleurolysis yesterday. Last night, I was called with increased pain at the chest catheter insertion site, and she was noted to have an air leak and was tidaling from the superior chest catheter. Today, there is no longer an air leak, and there is no longer any tidaling. Her pain is being fairly well controlled with oral analgesia, but she still is in some amount of pain. Her vital signs show a maximum temperature (T max) of 100.5. This is the first time she has gone above 99. It should be noted that she does feel chilled today. Her heart rate ranges between 58 and 67 and is sinus rhythm with a respiratory rate that is constant at 18, and she is 91% saturated on room air and her blood pressure is ranging between 143/75 to 109/74. Her intake and output for the past 24 hours has been recorded as 1730 in and 1833 out for a negativity of 100 mL. She has put out 5 mL from the inferior chest tube and 160 mL from the superior chest catheter. On physical examination, she has scattered rhonchi and rales which clear with coughing on the right side. Her left side shows decreased breath sounds. It is difficult to auscultate her because of all the tape holding the two catheters in. Percussion note is full to the diaphragm on the right. I cannot tell on the left. Cardiac exam is without murmurs, clicks, gallops or rubs. I cannot feel her point of maximum impulse (PMI). S1, S2 are normal. Abdomen is soft and nontender. Bowel sounds are positive. There is no hepatomegaly. No costovertebral angle tenderness. Extremities show now 3+ again pretibial edema on the left side and 1+ on the right side. This is a marked change from yesterday when she was vastly improving. There is no calf tenderness. No differential swelling of the upper extremities. Her skin is warm, dry and perfused without cyanosis or mottling, including that of the nail beds and the knees. Neck is supple. There is no jugular venous distention, no subcutaneous emphysema. Trachea is midline. Mouth shows her mucous membranes to be pink and moist. Lips and commissures without lesions. There is no thrush. Eyes show her pupils to be equal and reactive. Extraocular motions intact. Sclerae anicteric. Neurologic shows II-XII intact along with gross motor and gross sensation intact. Gait is not tested. Psychiatric shows her to be awake and alert, oriented times three with appropriate mood and affect and conversational. Her white count today is still 22.8 with a hemoglobin and hematocrit of 9.2 and 28.4, which is unchanged. Platelet count is 538. Differential shows 86% neutrophils, 2% bands, 5% lymphocytes, 3% monocytes. She has 3 metamyelocytes, 1 myelocyte. There are no toxic granulations reported. Her chemistries today show a potassium of 3.1 with a BUN and creatinine of 5 and 0.25 respectively. Calcium is 8.0 and magnesium is 1.8. Her PTT is 30.9 seconds. She is not on any systemic anticoagulation. Her chest x-ray still shows the superior pleural effusion, but it does look a bit better today than it did yesterday. I do not see it well demonstrated on the lateral film. She still has atelectasis and/or consolidation in the lower hemithorax, obscuring the diaphragm. IMPRESSION: 1. Pulmonary embolism, bilateral. 2. Pulmonary infarction left side. 3. Loculated hemothorax, continuing. 4. Pulmonary hemorrhage, resolved. 5. Atrial fibrillation, now in sinus rhythm. 6. Diabetes. 7. Hypertension. 8. Anemia secondary to hemorrhage, stable. 9. Hypercoagulable state, factor V Leiden positive for heterogeneity. 10. Hypokalemia. PLAN AND DISCUSSION: I am going to stop chasing the chest x-rays. It is a bit better today. I will discontinue her inferior catheter today. She did drain a fair amount overnight, and I will keep the superior catheter in. The superior catheter is draining serous fluid rather than bloody fluid. I am bit concerned about her leg edema gain. I do not see where she is being diuresed. She will need potassium replacement. I see that she was given one 40 mg dose of potassium today, which has now since been discontinued. I am also a bit worried that she is chilled and now she has a fever of 100.5. Her white count still remains elevated. She is not on any antibiotics at this point in time. If blood cultures are not ordered, I will order them. There is always the specter of endocarditis. The white count, however, can still be explained by her pulmonary infarction, which could, indeed, become super infected. MTDD
[2016-10-31 19:59] VITALS: BP 116/56
[2016-10-31] MEDS: ATORVASTATIN 20 MG TAB PO SCH (21:17)
[2016-10-31 23:37] VITALS: BP 117/57
[2016-11-01 03:28] VITALS: BP 138/74
[2016-11-01] MEDS: PERCOCET 5MG/325MG TAB PO PRN ×3 (03:51→17:49)
[2016-11-01] MEDS: METOPROLOL TART 50 MG TAB PO SCH ×2 (05:41→21:36)
[2016-11-01] MEDS: HEPARIN SOD (PORCINE) 5000 UNITS/ML VIAL SQ SCH ×3 (05:41→21:37)
[2016-11-01] MEDS: SODIUM CHLORIDE 0.9% INJ 10 ML SYR IV SCH ×3 (05:41→21:37)
[2016-11-01] MEDS: BENZONATATE 100 MG CAP PO PRN ×3 (05:41→21:35)
[2016-11-01 06:09] LABS: ADD MANUAL DIFFER YES; MEAN CORPUSCULAR HEMOGLOBIN 29.8 pg (27.0-33.0); MEAN CORPUSCULAR HGB CONC 31.6 g/dl (32.0-36.5); MEAN CORPUSCULAR VOLUME 94.1 fl (80.0-96.0); PLATELET COUNT, AUTOMATED 500 k/mm3 (150-450); RED CELL DISTRIBUTION WIDTH 15.5 % (11.5-14.5); WHITE BLOOD COUNT 19.4 K/mm3 (4.0-10.0)
[2016-11-01 06:41] LABS: ANION GAP 7 MEQ/L (8-16); BLOOD UREA NITROGEN 9 MG/DL (7-18); CALCIUM LEVEL 7.7 MG/DL (8.8-10.2); CARBON DIOXIDE LEVEL 30 MEQ/L (21-32); CHLORIDE LEVEL 104 MEQ/L (98-107); CREATININE FOR GFR 0.46 MG/DL (0.55-1.02); GLUCOSE, FASTING 194 MG/DL (83-110); POTASSIUM SERUM 4.5 MEQ/L (3.5-5.1); SODIUM LEVEL 141 MEQ/L (136-145)
[2016-11-01 06:45] LABS: GLOMERULAR FILTRATION RATE > 60.0 (>39)
[2016-11-01 07:00] VITALS: BP 121/73
[2016-11-01 07:20] LABS: BANDS 2 % (< 11)
[2016-11-01 07:21] LABS: ANISOCYTOSIS 2+; HYPOCHROMASIA 1+; MICROCYTOSIS 1+; POLYCHROMASIA 1+
[2016-11-01] MEDS: HumaLOG INSULIN (NovoLOG) PER UNIT SC SCH ×4 (07:29→21:00)
[2016-11-01 08:00] VITALS: BP 121/76
[2016-11-01] MEDS: SENOKOT S TAB PO SCH ×2 (08:15→21:35)
[2016-11-01] MEDS: AMIODARONE 200 MG TAB (PACERONE) PO SCH ×2 (08:15→21:36)
[2016-11-01] MEDS: guaiFENesin ER 600 MG TAB PO SCH ×2 (08:15→21:36)
[2016-11-01] MEDS: OMEPRAZOLE 20 MG CAP PO SCH (08:15)
[2016-11-01] MEDS: LEVEMIR (INSULIN DETEMIR) 1 UNITS/0.01ML SC SCH ×2 (08:16→21:37)
--- NOTE | 2016-11-01 09:39 | REP ---
CHEST, TWO VIEWS: HISTORY: Pleural effusion. COMPARISON: 10/31/2016 Increased density is present in the left lower lobe consistent with atelectasis or infiltrate, unchanged compared to the previous study. A loculated left pleural effusion is present. A catheter is present in the left hemithorax. A small right pleural effusion is present. The heart is normal in size. The pulmonary vasculature is normal in appearance. A catheter is present in the superior vena cava. IMPRESSION: 1. Left lower lobe atelectasis or infiltrate, unchanged compared to the previous study. 2. Loculated left pleural effusion, unchanged compared to the previous study. 3. New small right pleural effusion. Signed by Grabiel Nichols MD 11/01/2016 09:46 A
--- NOTE | 2016-11-01 11:21 | IPN ---
DATE: 11/01/2016 Dr. Bueno has removed chest tubes earlier today. Patient immediately feels better. She does complain about some cough but dyspnea is minimal. Also denies chest pain. Has no specific complaints today and would like to go home. Vital signs: Blood pressure 121/76, heart rate from 60s to 80s. She is afebrile. Saturation 94% on room air. She maintained sinus rhythm and there were no significant arrhythmias on telemetry. Weight is 79.5 kg. Jugular venous pulse (JVP) is not up. Lungs are clear on the right, on the left side though, there are rather diminished breath sounds especially over lower third. I do not appreciate any wheezing. Heart exam reveals regular rhythm without gallop. Abdomen is soft, nontender. There is no peripheral edema. Laboratory ochoa: Her CBC reveals hemoglobin 8.4, hematocrit 26, platelet count 500,000, WBC count 19.4. Differential there is 79% neutrophils and 2 bands and 13 lymphocyte. Basic metabolic panel is normal but for glucose 194, calcium is 7.7 and the immunology profile negative for MICHEL , negative for ANCA, negative for cardiolipin antibody. ASSESSMENT AND PLAN: Mrs. Dudley is a 71-year-old female who had no consistent medical care for decades. She presented with worsening dyspnea and was found to have bilateral pulmonary emboli together with probably hemorrhagic effusion that was loculated on the left side most likely related to pulmonary infarcts with possible component of trauma. Fluid was drained. She was initially on anticoagulation but then it was temporarily stopped because of need to perform the procedures and she also was receiving tPA in pleural space and was bleeding considerably. So inferior vena cava (IVC) filter was placed. At this point, she is not anticoagulated other than deep venous thrombosis (DVT) prophylactic dose of heparin. She is clinically much better. I still am concerned about the lack of anticoagulation and my recommendation would be not to wait more than a few days before we restart full anticoagulation. As far as atrial fibrillation is concerned, which was the reason I was initially involved, eventually we decided to start on amiodarone because she had frequent relapses. She is currently using 400 mg twice a day and has been in sinus rhythm for over a week. I would finish the course of amiodarone for approximately 1 month, then I believe that the risk of relapse would be very low because it was almost certainly precipitated by the embolic events. I intend to see patient on outpatient basis. From my perspective, she can move to a nonmonitored bed. I am going to sign off her care but if my assistance is desired, please do not hesitate to contact me.
--- NOTE | 2016-11-01 12:54 | IPN ---
DATE: 11/01/2016 Ms. Dudley is feeling much better today. Yesterday, she was cold and chilly, today that has resolved. Yesterday, I saw her walking around the halls even with her remaining chest catheter. She has drained very little. She is still having some amount of pain at the chest tube insertion site, which is being handled with oral analgesics. Her vital signs today show a maximum temperature (Tmax) of 99.4 with a heart rate that ranges between 70 and 89 and is sinus rhythm, respiratory rate that is constant at 18, who is 91% saturated on room air and her blood pressure is ranging between 138/74 to 121/73. Her intake and output for the past 24 hours is recorded as 1320 in and 1306 out for near equality. She has put out 5 mL from the chest tube. Her weight today is 79.5 kg compared to 78.3 kg. On physical examination, she has equal breath sounds on either side. I hear some scattered rhonchi most of which clear with coughing. Percussion note is full to the diaphragm. Cardiac exam is without murmurs, clicks, gallops or rubs. I cannot feel her point of maximum impulse (PMI). S1, S2 are normal. Abdomen is soft and nontender. Bowel sounds are positive. There is no hepatomegaly. No costovertebral angle tenderness. Extremities show 2+ pretibial edema on the left, which has decreased from yesterday, and trace to 1+ on the right. There is no calf tenderness. No differential swelling of the upper extremities. Her skin is warm, dry and perfused without cyanosis or mottling, including that of the nail beds and the knees. Neck is supple. There is no jugular venous distention, no subcutaneous emphysema. Trachea is midline. Mouth shows her mucous membranes to be pink and moist. Lips and commissures without lesions. There is no thrush. Eyes show her pupils to be equal and reactive. Extraocular motions intact. Sclerae anicteric. Neuro shows II-XII intact along with gross motor and gross sensation intact. Gait is not tested. Psychiatric shows her to be awake and alert, oriented times three with appropriate mood and affect and conversational. Her white count today is down to 19.4 from 22.8 yesterday. Hemoglobin and hematocrit are stable at 8.4 and 26.5. Differential shows 79% neutrophils, 2% bands, 13% lymphocytes and 2% monocytes. She still has 2 metamyelocytes and 2 myelocytes. There is no toxic granulations reported. Platelet count is 500. Her electrolytes are normal with a potassium now of 4.5. BUN and creatinine are 9 and 0.46. Glucose is 194 and calcium is 7.7. IMPRESSION: 1. Pulmonary embolism, bilateral. 2. Pulmonary infarction left side. 3. Loculated hemothorax, continuing but improving. 4. Pulmonary hemorrhage, resolved. 5. Atrial fibrillation, now in sinus rhythm. 6. Diabetes. 7. Hypertension. 8. Anemia secondary to hemorrhage, stable. 9. Hypercoagulable state, factor V Leiden positive for heterogeneity. 10. Hypokalemia, resolved. PLAN AND DISCUSSION: I will discontinue her chest catheter today. I am going to accept that she still has a loculation, although I do not see it on lateral and it vastly improved. In order to drain this particular loculation, we put yet another chest catheter in her. I think it is not unreasonable to see if she will reabsorb this herself. The superior catheter is just putting out serous fluid rather than blood. Apropos to the above, from my perspective, I have no objection to her being discharged tomorrow. I will leave that up to the medical service. I will of course follow her as an outpatient after discharge.
[2016-11-01 14:50] VITALS: BP_SYST 130; BP_SYST 138; BP_DIAS 107; BP_DIAS 70
--- NOTE | 2016-11-01 20:30 | IPNPDOC ---
Subjective Date Seen The patient was seen on 11/01/16. Subjective Chief Complaint/HPI The patient is a 71-year-old female admitted with a reason for visit of Hyperglycemia,Pulmonary Embolism. Events since last encounter Patient reports feeling even better today. Patient had one chest tube removed. Patient reports only having chest pain with occasional cough. Coughing less than before. Cough is nonproductive. Patient was sitting in her chair. Constitutional: Denies: Chills, Fever Eyes: Denies: Vision change ENT: Denies: Head Aches Pulmonary: Reports: Dyspnea, Cough, Pleuritic Chest Pain Cardiovascular: Denies: Chest Pain, Palpitations Gastrointestinal: Denies: Nausea, Vomiting Genitourinary: Denies: Dysuria, Frequency Neurological: Denies: Weakness, Numbness Psych: Reports: Mood Normal Objective Physical Examination General Exam: Positive: Alert, Cooperative, No Acute Distress ENT Exam: Positive: Mucous membr. moist/pink Neck Exam: Positive: Supple Chest Exam: Positive: Clear to auscultation, Negative: Rales, Rhonchi, Wheezing Heart Exam: Positive: Rate Normal, Normal S1, Normal S2, Negative: Gallops, Murmurs, Rubs Telemetry: Positive: Sinus Abdomen Exam: Positive: Normal bowel sounds, Soft, Negative: Tenderness Extremity Exam: Positive: Normal pulses, Negative: Edema, Tenderness Neuro Exam: Positive: Normal Speech Psych Exam: Positive: Mental status NL, Oriented x 3 Assessment /Plan Plan/VTE VTE Prophylaxis Ordered?: Yes (heparin subcutaneous, compression stockings. ) Plan (1) Pulmonary embolism Status: Acute Response to Treatment: Progressing Discussed With: Patient Problem Specific Plan: Monitor Clinically, Repeat Labs Problem Text: CTA Chest notable for acute and chronic pulmonary embolic with partially occlusive filling defects in the right main pulmonary artery extending into the proximal right middle lobe pulmonary artery Duplex ultrasound revealed clots in left lower leg on 10/27/2016. The patient has had a IVC filter placed on 10/28/2016 2/2 bloody output from Chest Tube equaling close to 4L of bloody drainage from underlying possible pulmonary infarctions with hemorrhagic conversion s/p 6 Units of PRBC transfusion over a 48 hrs. time period. No transfusions in last 48 hours. Anticoagulation has been held--risks and benefits were discussed with the patient, son Rory Conner at the bedside Discuss MOLST form with patient and family at bedside. Patient agreed to sign for DNR and DNI. We will continue to monitor the patient's H&H. Patient's hemoglobin this morning was 9.1. Heparin drip was discontinued. Patient had second chest tube placed on 10/29/2016. Patient had one chest tube removed today. Discuss anticoagulation with Dr. Bueno. He recommends restarting patient's anticoagulation after approximately 6 weeks. We will need to discuss also with Dr. Pollock and Dr. Bueno prior to discharge. Discussed with Dr. Bueno on discharging the patient. From his standpoint patient is cleared for discharge tomorrow. Also discussed moving patient to non- telemetry floor. She agreed. Also discussed wound patient to non-telemetry floor with Dr. Pollock. Dr. Pollock fill those appropriate at this time. Putting in transfer order for patient to move to [facility]. Chest radiograph 11/01/16 shows a Left lower lobe atelectasis or infiltrate, unchanged compared to the previous study and Loculated left pleural effusion, unchanged compared to the previous study. It also showed a new small right pleural effusion. (2) Pleural effusion Status: Acute Problem Text: Possible complication of Pulmonary Infarct with Hemorrhagic conversion/effusion. Hemothorax. s/p Chest Catheter placement on 10/24 by IR s/p tPA pleurolysis through pigtail catheter on 10/25 and 10/[address] Bueno of Thoracic Surgery Patient had put out bloody drainage since placement of catheter, and has required 6 Units of PRBC transfusion over the last 48 hrs In last 24 hours, the left posterior tube put out 46 mL and the left upper posterior tube put out 12 mL. Will continue to monitor drainage. Her blood pressure is stable at this time, an IVC Filter was placed with the help of IR om 10/29/16 --Anticoagulation for underlying PE, A-Fib has been discontinued at this time given the aforementioned active bleeding. A second chest tube was placed 10/29/[address] Bueno of thoracic surgery. One chest tube was removed today. Patient received further tPA treatment 10/30/2016. Patient tolerated hemoglobin today was 8.4. CT chest 10/30/16 showed Continued evidence for multiloculated pleural collections surrounding the left hemithorax. The more recently placed pigtail catheter in the mid pleural space is within a moderate collection while the more inferior pigtail catheter is now only surrounded by irregular fluid collection and atelectasis. New small right pleural effusion and right basilar atelectasis. Appreciate Dr. Bueno's continued assistance in managing of this patient. (3) DVT (deep venous thrombosis) Problem Text: Patient had DVTs on duplex ultrasound of left lower extremity on 10/27/16. Patient's anticoagulation was stopped due to bloody output from Chest Tube equaling close to 4L of bloody drainage from underlying possible pulmonary infarctions with hemorrhagic conversion. IVC filter was placed. May start patient's anticoagulation prior to discharge. Will need further discussion with Dr. Pollock and Dr. Beuno prior to this. (4) Tachycardia Status: Resolved Problem Text: Patient continuing to have bouts of atrial fibrillation. Per Dr. Lowe changed medication. Holding Cardizem and starting amiodarone 400 mg to stabilize her rhythm. Patient was restarted on metorpolol. Patient has been normal sinus for a couple days. Discussed with Dr. Daniels of the potential of moving patient to a non- telemetry floor. He was okay with this plan at that time. Per Dr. Pollock's patient will follow-up with him in the outpatient setting. Plan continue amiodarone for roughly a month. Appreciate Dr. Lowe assistance in management of this patient. (5) Diabetes type 2, uncontrolled Status: Chronic Response to Treatment: Progressing Discussed With: Patient Problem Specific Plan: Repeat Labs, Repeat Tests Problem Text: Continue with insulin therapy- reasonably well controlled for current setting. AEC inhibitor was discontinued due to tachycardia and need for other meds Ordered teaching for insulin therapy due to new onset diabetes. Decreased insulin 10/31/16 due to patient having low glucose for second morning in a row. Patient may not be eating as well as she had perviously. Patient on 5 units twice a day. Continue to monitor as needed. HgbA1c 14.2 (6) Hyperglycemia Status: Resolved Response to Treatment: Improving Discussed With: Patient Problem Specific Plan: Monitor Clinically, Repeat Labs Problem Text: Uncontrolled diabetes. (7) Leukocytosis Status: Acute Discussed With: Patient Problem Specific Plan: Monitor Clinically, Repeat Labs, Repeat Tests Problem Text: Unclear etiology- UTI vs. reactive vs pneumonia Patient did report polyuria and dysuria prior to presentation to ER White Blood cell count was up to 27.4 on 10/28/2016. The WBC is down to 19 today. Peripheral smear showed Leukocytosis, anemia and thrombocytosis. A few immature myeloid cells/myelocytes are noted. No previous studies at [facility] before this admission. Continue to monitor patient's temperature and monitor clinically. Repeat blood culture was repeated today. Results pending. (8) Hyperlipemia Status: Chronic Discussed With: Patient Problem Text: Continue Lipitor. (9) HTN (hypertension) Status: Acute Discussed With: Patient Problem Specific Plan: Monitor Clinically Problem Text: Possibly chronic untreated complicated with PE. Continue to hold CIARRA inhibitor. Beta vivien was restarted. (10) Acute blood loss anemia Status: Acute Problem Text: s/p TPA in chest tube, now with blood loss s/p IVC Filter, Lovenox and Heparin dc'd Patient had received transfusion of 6 units of packed red blood cells over a 48 hrs time period. Blood pressure has remained stable Continue to monitor H&H and transfuse as needed Patient did have some clots in her urine on morning of 10/30/16. None since that time. No blood in urine today. Bladder and renal US both showed Urinary bladder demonstrates no gross mass or calculus. Ureteral jets are seen with Doppler color evaluation bilaterally. Mild hydronephrosis, bilaterally. No more drainage from chest tubes, as chest tube 1 was removed today. Will repeat patient's hemoglobin and hematocrit later today. VS, I&O, 24H, Fishbone Vital Signs/I&O Vital Signs Date Time Temp Pulse Resp B/P (MAP) Pulse Ox O2 Delivery O2 Flow Rate FiO2 11/01/16 12:00 Room Air 11/01/16 11:49 18 11/01/16 08:00 97.8 74 121/76 (91) 94 10/29/16 17:40 2.0 I&O- Last 24 Hours up to 6 AM 11/01/16 06:00 Intake Total 1500 ml Output Total 1517 ml Balance -17 ml Laboratory Data 24H LABS Laboratory Tests 2 10/31/16 17:19: Bedside Glucose (Misc Panel) 72L 10/31/16 21:13: Bedside Glucose (Misc Panel) 264H 11/01/16 05:35: Neutrophils 79H, Band Neutrophils 2, Lymphocytes (Manual) 13L, Monocytes (Manual ) 2, Metamyelocytes 2H, Myelocytes 2H, Platelet Estimate INCREASED, Polychromasia 1+, Hypochromasia 1+, Anisocytosis 2+, Microcytosis 1+, Anion Gap 7L, Glomerular Filtration Rate > 60.0, Blood Urea Nitrogen 9#, Creatinine 0.46#L , Sodium Level 141, Potassium Level 4.5#, Chloride Level 104, Carbon Dioxide Level 30, Calcium Level 7.7L CBC/BMP Laboratory Tests 11/01/16 05:35 Red Blood Count 2.82 L, Mean Corpuscular Volume 94.1, Mean Corpuscular Hemoglobin 29.8, Mean Corpuscular Hemoglobin Concent 31.6 L, Red Cell Distribution Width 15.5 H, Calcium Level 7.7 L Microbiology Microbiology 10/31/16 Blood Culture - Preliminary, Resulted No growth after 24 hours . All specim... 10/23/16 Blood Culture - Final, Complete NO GROWTH AFTER 5 DAYS 10/23/16 Blood Culture - Final, Complete NO GROWTH AFTER 5 DAYS 10/23/16 Acid Fast Stain - Final, Resulted 10/23/16 Mycobacterial Culture, Resulted Pending 10/23/16 Gram Stain - Final, Complete 10/23/16 Body Fluid Culture - Final, Complete GME ATTESTATION GME ATTESTATION My preceptor for this patient encounter was Dr. Perez and he was physically present in the building during the encounter and was fully available. As needed , all aspects of the patient interview, examination, medical decision making process, and medical care plan development were reviewed and approved by the preceptor. Preceptor is aware and concurs with the plan as stated in the body of this note and will attest to such by his/her cosignature. ILDA ANDREW DO Nov 01, 2016 13:28
[2016-11-01] MEDS: ATORVASTATIN 20 MG TAB PO SCH (21:35)
[2016-11-01 22:00] VITALS: BP 138/63
[2016-11-02] MEDS: HEPARIN SOD (PORCINE) 5000 UNITS/ML VIAL SQ SCH ×3 (05:43→21:28)
[2016-11-02] MEDS: BENZONATATE 100 MG CAP PO PRN (05:43)
[2016-11-02] MEDS: SODIUM CHLORIDE 0.9% INJ 10 ML SYR IV SCH ×3 (05:43→21:29)
[2016-11-02] MEDS: PERCOCET 5MG/325MG TAB PO PRN ×2 (05:44→11:30)
[2016-11-02 06:00] VITALS: BP 165/75
[2016-11-02] MEDS: HumaLOG INSULIN (NovoLOG) PER UNIT SC SCH ×4 (07:30→21:00)
[2016-11-02] MEDS: OMEPRAZOLE 20 MG CAP PO SCH (08:30)
[2016-11-02] MEDS: AMIODARONE 200 MG TAB (PACERONE) PO SCH ×2 (08:30→21:29)
[2016-11-02] MEDS: SENOKOT S TAB PO SCH ×2 (08:30→21:29)
[2016-11-02] MEDS: guaiFENesin ER 600 MG TAB PO SCH ×2 (08:31→21:29)
[2016-11-02] MEDS: METOPROLOL TART 50 MG TAB PO SCH ×2 (08:31→21:30)
[2016-11-02] MEDS: LEVEMIR (INSULIN DETEMIR) 1 UNITS/0.01ML SC SCH ×2 (08:32→21:28)
[2016-11-02 08:50] LABS: MEAN CORPUSCULAR HEMOGLOBIN 29.5 pg (27.0-33.0); MEAN CORPUSCULAR HGB CONC 31.7 g/dl (32.0-36.5); MEAN CORPUSCULAR VOLUME 93.1 fl (80.0-96.0); RED CELL DISTRIBUTION WIDTH 15.3 % (11.5-14.5); WHITE BLOOD COUNT 17.7 K/mm3 (4.0-10.0)
[2016-11-02 09:11] LABS: ANION GAP 5 MEQ/L (8-16); BLOOD UREA NITROGEN 7 MG/DL (7-18); CARBON DIOXIDE LEVEL 33 MEQ/L (21-32); CHLORIDE LEVEL 102 MEQ/L (98-107); CREATININE FOR GFR 0.41 MG/DL (0.55-1.02); GLOMERULAR FILTRATION RATE > 60.0 (>39); GLUCOSE, FASTING 94 MG/DL (83-110); POTASSIUM SERUM 3.6 MEQ/L (3.5-5.1); SODIUM LEVEL 140 MEQ/L (136-145)
--- NOTE | 2016-11-02 10:40 | REP ---
CHEST, TWO VIEWS: HISTORY: Pleural effusion. COMPARISON: 11/01/2016 Increased density is present in the left lower lobe, consistent with atelectasis or infiltrate, unchanged compared to the previous study. A loculated left pleural effusion is present. The patient is status post left lung catheter removal. There is no pneumothorax. A small right pleural effusion is present, decreased compared to the previous study. The heart is normal in size. The pulmonary vasculature is normal in appearance. A catheter is present in the superior vena cava. IMPRESSION: 1. Left lower lobe atelectasis or infiltrate, unchanged compared to the previous study. The patient is status post left lung catheter removal. 2. Loculated left pleural effusion, unchanged compared to the previous study. 3. Small right pleural effusion, decreased compared to the previous study. Signed by Grabiel Nichols MD 11/02/2016 10:42 A
--- NOTE | 2016-11-02 11:28 | IPNPDOC ---
Subjective Date Seen The patient was seen on 11/02/16. Subjective Chief Complaint/HPI The patient is a 71-year-old female admitted with a reason for visit of Hyperglycemia,Pulmonary Embolism. General: Denies: Chills, Night Sweats Constitutional: Denies: Chills, Fever Eyes: Denies: Pain, Vision change ENT: Denies: Head Aches, Ear Pain Skin: Denies: Rash, Lesions Pulmonary: Reports: Cough, Denies: Dyspnea Cardiovascular: Denies: Chest Pain, Palpitations Gastrointestinal: Denies: Nausea, Vomiting Genitourinary: Denies: Dysuria, Frequency, Incontinence Hematologic: Denies: Bruising, Bleeding Excessively Objective Physical Examination General Exam: Positive: Alert, Cooperative, No Acute Distress ENT Exam: Positive: Mucous membr. moist/pink Chest Exam: Positive: Clear to auscultation, Diminished (Left side), Negative: Rales, Rhonchi, Wheezing Heart Exam: Positive: Rate Normal, Normal S1, Normal S2, Negative: Gallops, Murmurs, Rubs Abdomen Exam: Positive: Normal bowel sounds, Soft, Negative: Tenderness Extremity Exam: Positive: Normal pulses, Negative: Edema, Tenderness Neuro Exam: Positive: Normal Speech Psych Exam: Positive: Mental status NL, Oriented x 3 Assessment /Plan Plan/VTE VTE Prophylaxis Ordered?: Yes (heparin subcutaneous, compression stockings. ) Plan Pulmonary embolism, DVT (deep venous thrombosis) Hypercoagulable workup positive for Factor V Leiden specific mutation ([id number]) in the factor V gene that is associated with an increased risk of venous thrombosis CTA Chest notable for acute and chronic pulmonary embolic with partially occlusive filling defects in the right main pulmonary artery extending into the proximal right middle lobe pulmonary artery Duplex ultrasound revealed clots in left lower leg on 10/27/2016. The patient has had a IVC filter placed on 10/28/2016 2/2 bloody output from Chest Tube equaling close to 4L of bloody drainage from underlying possible pulmonary infarctions with hemorrhagic conversion s/p 6 Units of PRBC transfusion over a 48 hr time period during 10/26-10/28 At this time the patient's hemodynamic status has improved since then and her hgb has remained stable --I did discuss the option of starting anticoagulation prior to discharge vs in 6 weeks with the patient and her son who is at the bedside. Unfortunately, this is a tough decision to make given the patient's history of hemorrhagic left- sided pleural effusion presumably from pulmonary infarcts and the patient's need to be anticoagulated given her hypercoagulable susceptibility. At this time , after discussing the risks (including ) and benefits associated with anticoagulation extensively with the patient and her son Rory Prieto at the bedside, they have decided to withhold starting anticoagulation until 6 weeks later when the patient is sufficiently healed from her underlying pulmonary infarcts. I have advised patient to follow-up with her primary care physician for further implementation of the aforementioned anticoagulation therapy, which she will need to be on for the rest of her life. --I also discussed the issue of Anticoagulation with thoracic surgeon, Dr. Bueno, and Nurse Reviewer, Dr. Pollock--at this time we have agreed that the patient would be best off anticoagulation for the time being given the aforementioned circumstances. Dr. Bueno will closely follow up with the patient in 1 week for further evaluation and management. Pleural effusion Likely a complication of Pulmonary Infarct with Hemorrhagic conversion/ effusion. Hemothorax. s/p Chest Catheter placement on 10/24 by IR, and placement of 2nd chest tube on by Thoracic Sx s/p tPA pleurolysis through pigtail catheter on 10/25, 10/27, 10/[address] Bueno of Thoracic Surgery At this time the patient's chest tubes have been removed and the pleural effusions have improved and she has remained stable from a respiratory standpoint Thoracic Surgery assistance has been appreciated Patient to follow up with Dr. Bueno as an outpatient Leukocytosis likely 2/2 Above (Pulmonary Infarcts, physical Stress/inflammation reaction from placement of Chest Tubes) WBC trending downward 27K-->17K Blood Cultures have been negative here The patient has remained largely afebrile (except for 2 readings on the event of 10/30--T. Max 100.5) She has completed 7 day Abx course of Rocephin and Azithromycin for possible CAP Peripheral smear showed Leukocytosis, anemia and thrombocytosis, and a few immature myeloid cells/myelocytes are noted. We will continue monitor her WBC Episode of Atrial Fibrillation, Now in NSR Likely 2/2 underlying PE We will continue amiodarone for 1 month Cont Metoprolol Appreciate Dr. Lowe assistance in management of this patient--We will advise her to follow up with him as an outpatient Diabetes type 2, Newly Diagnosed HgbA1c noted to be 14.2% Patient comfortable with administering Insulin Continue Insulin therapy and ISS for coverage Hyperlipemia Continue Lipitor. HTN (hypertension), stable Cont Beta vivien Acute blood loss anemia, stable Patient had received transfusion of 6 units of packed red blood cells over a 48 hrs time period (10/26-10/28) Blood pressure has remained stable Continue to monitor H&H and transfuse as needed DVT Prophylaxis Heparin SC Dispo-Anticipate D/C in 24 hrs VS, I&O, 24H, Fishbone Vital Signs/I&O Vital Signs Date Time Temp Pulse Resp B/P (MAP) Pulse Ox O2 Delivery O2 Flow Rate FiO2 11/02/16 08:31 84 130/68 11/02/16 06:14 20 Room Air 11/02/16 06:00 97.5 91 10/29/16 17:40 2.0 I&O- Last 24 Hours up to 6 AM 11/02/16 06:00 Intake Total 440 ml Output Total 350 ml Balance 90 ml Laboratory Data 24H LABS Laboratory Tests 2 11/01/16 11:42: Bedside Glucose (Misc Panel) 147H 11/01/16 16:43: Bedside Glucose (Misc Panel) 170H 11/01/16 20:33: Bedside Glucose (Misc Panel) 207H 11/02/16 05:42: Bedside Glucose (Misc Panel) 100 11/02/16 08:21: Anion Gap 5L, Glomerular Filtration Rate > 60.0, Blood Urea Nitrogen 7, Creatinine 0.41L, Sodium Level 140, Potassium Level 3.6, Chloride Level 102, Carbon Dioxide Level 33H, Calcium Level 8.0L CBC/BMP Laboratory Tests 11/01/16 13:31 11/02/16 08:21 Red Blood Count 3.17 L, Mean Corpuscular Volume 93.1, Mean Corpuscular Hemoglobin 29.5, Mean Corpuscular Hemoglobin Concent 31.7 L, Red Cell Distribution Width 15.3 H, Calcium Level 8.0 L Microbiology Microbiology 10/31/16 Blood Culture - Preliminary, Resulted No growth after 24 hours . All specim... 10/23/16 Blood Culture - Final, Complete NO GROWTH AFTER 5 DAYS 10/23/16 Blood Culture - Final, Complete NO GROWTH AFTER 5 DAYS 10/23/16 Acid Fast Stain - Final, Resulted 5/25/17 Mycobacterial Culture, Resulted Pending 10/23/16 Gram Stain - Final, Complete 10/23/16 Body Fluid Culture - Final, Complete ALBERTO WALKER MD Nov 02, 2016 11:28
--- NOTE | 2016-11-02 13:32 | IPN ---
DATE: 11/02/2016 Ms. Dudley is now up on the 4th floor pavilion. She is walking around and doing well. She is not complaining of shortness of breath. She is also not complaining of any pain. Her vital signs today show a maximum temperature (Tmax) of 98.9 with a respiratory rate that ranges between 22-17 without the use of accessory muscles. Heart rate ranges between 84-104 with a regular rate and rhythm. She is 91-96% saturated on room air and her blood pressure is 130/68 to 165/75. Her intake and output for the past 24 hours is recorded as 540 in and 725 out for negative of 185 mL. I have my doubts that, that is accurate as she has been taking in a lot more than that over the past few days, between 2401-8991 mL. There is no weight on her today. On physical examination, her lungs show equal breath sounds on either side. There is some decreased breath sounds anteriorly and superiorly. Percussion note however is full to the diaphragm. I hear no wheezes, rhonchi or rales. Cardiac exam is without murmurs, clicks, gallops or rubs. I cannot feel her point of maximum impulse (PMI). S1, S2 are normal. Abdomen is soft and nontender. Bowel sounds are positive. There is no hepatomegaly, no costovertebral angle tenderness. Extremities show much less pretibial edema, approximately 2+ on the left and trace on the right. There is no calf tenderness, no differential swelling of the upper extremities. Her skin is warm, dry and perfused without cyanosis or mottling, including that of the nail beds and the knees. Neck is supple. There is no jugular venous distention, no subcutaneous emphysema. Trachea is midline. Mouth shows her mucous membranes to be pink and moist. Lips and commissures without lesions. There is no thrush. Eyes show her pupils to be equal and reactive. Extraocular motions intact. Sclerae anicteric. Neuro shows II-XII intact, along with gross motor and gross sensation intact. Gait is not tested. Psychiatric shows her to be awake and alert, oriented times three with appropriate mood and affect and conversational. Her white count today is 17.7, which continues to now decrease. Hemoglobin and hematocrit are 9.3 and 29.5, which are improving. Platelet count is 663. As the intake and output are not accurate and the weight is not recorded, I have no idea whether I can assign this to hemoconcentration. Her electrolytes are normal with a BUN and creatinine of 7 and 0.41, a glucose of 94 and a calcium of 8.0. IMPRESSION: 1. Pulmonary embolism, bilateral. 2. Pulmonary infarction left side. 3. Loculated hemothorax, improved but with still one loculation. 4. Pulmonary hemorrhage, resolved. 5. Atrial fibrillation, now with an irregular rate and rhythm. 6. Diabetes. 7. Hypertension. 8. Anemia secondary to hemorrhage, improving. 9. Hypercoagulable state, factor V Leiden positive for heterogeneity. 10. Hypokalemia, resolved. PLAN AND DISCUSSION: I have had an extensive discussion with Dr. Pollock and Dr. Perez regarding her anticoagulation status. She has a pulmonary infarction and with the result in hemothorax, and that is not going to heal for at least 4-6 weeks. While they are very concerned and rightfully so about subsequent pulmonary emboli, she does have a [place] filter, which will by and large protect her, although not 100% so. The balancing contraindication of pulmonary hemorrhage is still present. I therefore have no problems with her going home today or tomorrow. I will see her in the office in 1 week. We will continue to monitor her status throughout the period of non-anticoagulation.
[2016-11-02 14:00] VITALS: BP 144/76
[2016-11-02] MEDS: NORCO, ANEXSIA 5/325MG TABLET (HYDROcodone/ACETAMINOPHEN) PO PRN (21:28)
[2016-11-02] MEDS: ATORVASTATIN 20 MG TAB PO SCH (21:29)
[2016-11-02 21:30] VITALS: BP 146/73
[2016-11-02 22:00] VITALS: BP 146/73
[2016-11-03] MEDS: BENZONATATE 100 MG CAP PO PRN ×2 (00:22→08:30)
[2016-11-03] MEDS: PERCOCET 5MG/325MG TAB PO PRN (05:11)
[2016-11-03] MEDS: SODIUM CHLORIDE 0.9% INJ 10 ML SYR IV SCH ×2 (05:11→14:00)
[2016-11-03] MEDS: HEPARIN SOD (PORCINE) 5000 UNITS/ML VIAL SQ SCH ×2 (05:11→14:00)
[2016-11-03 05:25] LABS: MEAN CORPUSCULAR HEMOGLOBIN 29.3 pg (27.0-33.0); MEAN CORPUSCULAR HGB CONC 31.8 g/dl (32.0-36.5); MEAN CORPUSCULAR VOLUME 92.2 fl (80.0-96.0); RED CELL DISTRIBUTION WIDTH 15.4 % (11.5-14.5); WHITE BLOOD COUNT 13.7 K/mm3 (4.0-10.0)
[2016-11-03 05:41] LABS: ANION GAP 8 MEQ/L (8-16); BLOOD UREA NITROGEN 5 MG/DL (7-18); CALCIUM LEVEL 7.9 MG/DL (8.8-10.2); CARBON DIOXIDE LEVEL 32 MEQ/L (21-32); CHLORIDE LEVEL 104 MEQ/L (98-107); CREATININE FOR GFR 0.38 MG/DL (0.55-1.02); GLOMERULAR FILTRATION RATE > 60.0 (>39); GLUCOSE, FASTING 112 MG/DL (83-110); POTASSIUM SERUM 3.3 MEQ/L (3.5-5.1); SODIUM LEVEL 144 MEQ/L (136-145)
[2016-11-03 06:00] VITALS: BP 148/77
[2016-11-03] MEDS ORDERED: POTASSIUM CHLORIDE 10 MEQ SR TABLET PO ONE (07:30)
[2016-11-03] MEDS: guaiFENesin ER 600 MG TAB PO SCH (08:30)
[2016-11-03] MEDS: SENOKOT S TAB PO SCH (08:30)
[2016-11-03] MEDS: AMIODARONE 200 MG TAB (PACERONE) PO SCH (08:30)
[2016-11-03] MEDS: METOPROLOL TART 50 MG TAB PO SCH (08:30)
[2016-11-03] MEDS: OMEPRAZOLE 20 MG CAP PO SCH (08:30)
[2016-11-03] MEDS: HumaLOG INSULIN (NovoLOG) PER UNIT SC SCH ×2 (08:32→12:31)
[2016-11-03] MEDS: LEVEMIR (INSULIN DETEMIR) 1 UNITS/0.01ML SC SCH (08:32)
[2016-11-03] MEDS ORDERED: AMIO200T PO (10:09)
[2016-11-03] MEDS ORDERED: BENZ100C5 PO (10:09)
[2016-11-03] MEDS ORDERED: SENN1TAB2 PO (10:09)
[2016-11-03] MEDS ORDERED: ATOR1TAB21 PO (10:09)
[2016-11-03] MEDS ORDERED: LEVE1INJ5 SC (10:09)
[2016-11-03] MEDS ORDERED: MUCI600T31 PO (10:09)
[2016-11-03] MEDS ORDERED: PERCOCET PO (10:09)
[2016-11-03] MEDS ORDERED: LOPR1TAB6 PO (10:09)
--- NOTE | 2016-11-03 11:01 | REP ---
CHEST, TWO VIEWS: HISTORY: Pleural effusion. COMPARISON: 11/02/2016. Increased density is present in the left lower lobe consistent with atelectasis or infiltrate unchanged compared to the previous study. A loculated left pleural effusion is present. A small right pleural effusion is present. The heart is normal in size. The pulmonary vasculature is normal in appearance. A catheter is present in the superior vena cava. IMPRESSION: 1. Left lower lobe atelectasis or infiltrate unchanged compared to the previous study. 2. Bilateral pleural effusions unchanged compared to the previous study. Signed by Grabiel Nichols MD 11/03/2016 11:03 A
[2016-11-03] MEDS ORDERED: ADVOMIS XX (11:13)
[2016-11-03] MEDS ORDERED: [UNRECOGNIZED DRUG - CODE] XX (11:13)
[2016-11-03] MEDS ORDERED: [UNRECOGNIZED DRUG - CODE] XX (11:13)
[2016-11-03] MEDS ORDERED: TOUJ1.2I SC (12:00)
[2016-11-03 14:00] VITALS: BP 147/79
--- NOTE | 2016-11-03 18:27 | DS.PDOC ---
Discharge Summary General Date of Admission October 18, 2016 at 13:39 Date of Discharge 11/03/16 Attending Physician: ALBERTO WALKER MD Specialist/Consultants Involve: RODOLFO HANKS MD Specialist/Consultants Involve Dr. Pollock Discharge Summary PROCEDURES PERFORMED DURING STAY: [None]. ADMITTING DIAGNOSES: 1. Pulmonary embolism. 2. Hyperglycemia. 3. Sinus tachycardia. DISCHARGE DIAGNOSES: 1. Pulmonary embolism. 2. Hemmorhagic Pleural Effusion 2/2 Underlying Pulmonary Infarct 3. Factor V Leiden Mutation 2. Diabetes. 3. Atrial fibrillation. 4. Deep vein thrombosis. COMPLICATIONS/CHIEF COMPLAINT: Hyperglycemia,Pulmonary Embolism. HISTORY OF PRESENT ILLNESS: Patient is a 71-year-old female who presented to the ER with complaints of left lateral chest wall and abdominal pain. This had been going on for 12-16 hours. Patient complained of pleuritic pain, it hurt worse with coughing and deep breaths. The pain had prevented her from sleeping. Of note, the patient states that she had not seen a physician in decades. She reports that her symptoms of SOB, Chest pain, weakness, and malaise had been ongoing for a few months prior to her presentation. While in the ER chest x-ray showed infiltrate versus atelectasis. In the ER, the patient persisted to have tachycardia with a pulse around 120. Patient was mildly hypoxic. CTA of the chest was shown to have multiple pulmonary emboli involving left and right pulmonary lower and smaller pulmonary arteries. Patient 's lab work in the ER showed a blood sugar 520 and an A1c of 14.2. She was then admitted to hospital service. HOSPITAL COURSE: For pulmonary embolism, the patient initially received Lovenox. This was then switched over to a heparin drip after she had a drop in her hgb levels. A CT of the chest was performed on 10/22 and revealed a pleural effusion. This was deemed likely a hemorrhagic effusion from possible underlying pulmonary infarcts. On 10/23 Interventional Radiology placed a pigtail catheter. This started draining the pleural effusion, and the effusion was noted to be bloody. Dr. Bueno thoracic surgery was consulted. TPA was given. Hemoglobin and hematocrit was monitored. During this time the patient did put out a total of almost 4L of total bloody fluid from the chest tube. She required 6 Units of PRBC's for transfusion during 10/26-10/28. The patient had an IVC [place] filter placed, and anticoagulation was held to achieve hemodynamic stability. Repeat CTs of the Chest revealed further loculated pleural effusions. Another pigtail catheter was placed by Dr. Bueno on 2016. The patient was monitored and the chest tubes were removed once they stopped during fluid. In addition to the aforementioned PE, a duplex ultrasound of the left lower extremity did reveal presence of deep vein thrombosis. A hypercoagulable work up, which was pursued on admission revealed the patient to be positive for a Factor V Leiden Mutation. Conversation was had about restarting anticoagulation given the patient's extensive B/L PE, LLE DVT, and hypercoagulability susceptibility after genetic testing was done. However, given the increased risk of bleeding from the pulmonary infarct, and after extensive discussion with Dr. Bueno of Thoracic Surgery and Dr. Pollock of Cardiology, it was decided that we would hold off on AC for 4-6 weeks in an effort to achieve stabilization of the lung tissues where the patient had hemorrhagic effusion from underlying pulmonary infarcts. I did extensively discuss the risk associated with stopping AC (Stroke, Further Emboli, and possible ), and the patient and her son (Rory Prieto) verbalized understanding of this and agreed to withholding AC for now. The patient was advised to follow up closely with Dr. Bueno of Thoracic Surgery within 1 week for delineation of when to resume AC therapy. Patient was diagnosed with diabetes upon admission. Patient was started on insulin with sliding scale. Patient was on a consistent carbohydrate diet while in the hospital. Patient received diabetic education while in the hospital and will be sent home on insulin. Patient was also followed by Dr. Pollock for her tachycardia that was diagnosed as new-onset atrial fibrillation. Patient was started on a beta vivien and digoxin initially. An echocardiogram showed that she had preserved ejection function. Patient was later changed to amiodarone. Patient converted to sinus rhythm. Patient continued on the beta vivien. Anticoagulation was stopped due to patient's hemorrhagic pleural effusion. The patient's A-Fib was likely 2/2 underlying PE. The plan is to continue the patient on Amiodarone for a total of 1 month. The patient is to follow up with Dr. Pollock of Cardiology as an outpatient for further evaluation and management. DISCHARGE MEDICATIONS: Please see below. ALLERGIES: Please see below. PHYSICAL EXAMINATION ON DISCHARGE: VITAL SIGNS: Please see below. GENERAL: Alert and orientated. Comfortable and cooperative. No acute distress. Sitting up in bed. HEENT: No signs of injury. NECK: No thyroid enlargement. CARDIOVASCULAR EXAMINATION: Normal S1 and S2. No clicks rubs gallops or murmurs. RESPIRATORY EXAMINATION: Decreased respiratory sounds bilaterally. No wheezing or rales. ABDOMINAL EXAMINATION: Nondistended. Bowel sounds on auscultation. No tenderness palpation. EXTREMITIES: No lower extremity edema. Radial pulses 2 out of 4 bilaterally. SKIN: No new skin bruising. NEUROLOGICAL EXAMINATION: Gait normal. No sensory deficits. PSYCHIATRIC EXAMINATION: Affect normal. No depression or anxiety. LABORATORY DATA: Please see below. IMAGING: CT angiogram on showed Findings described above suggest a moderate acute and chronic pulmonary emboli with associated basilar atelectasis and chronic changes include elements of bronchiectasis, interstitial changes andscattered lower lobe fibrosis Ct of chest on 10/22 showed New moderate to significant multiloculated left pleural effusion with increased areas of consolidation and atelectasis involving the left lower lobe and lingula and minimal right basilar atelectasis. CT of chest on 10/25Minimally decreased left pleural fluid at the lung base in the region of the pigtail catheter. Continued evidence for moderate likely partially loculated pleural fluid with stable areas of consolidation and atelectasis involving the left lower lobe and lingula. Duplex ultrasound left lower extremity revealed Moderate amount of nonocclusive acute thrombus is identified in the common femoral vein extending into the mid superficial femoral vein along with complete occlusive thrombus in the profunda femoris vein and popliteal vein. PROGNOSIS: Stable ACTIVITY: As tolerated. DIET: As Tolerated. DISCHARGE PLAN: Patient will need to be restart anticoagulation once lung has healed an outpatient setting. Patient will need to follow-up with this. Patient will establish care and follow-up with diabetes care with a primary care physician. DISPOSITION: 01 Home, Self-Care. DISCHARGE INSTRUCTIONS: 1. Patient will establish care and follow-up with primary care physician on November 12. 2. Patient will follow-up with Dr. Bueno, thoracic surgeon within the next week.. 3. Patient will follow-up with Dr. Pollock, cardiology in the next 2-3 weeks. 4. Patient will need to follow-up with anticoagulation within the next 4-6 weeks. DISCHARGE CONDITION: Stable. TIME SPENT ON DISCHARGE: Greater than 30 minutes. Vital Signs/I&Os Vital Signs Date Time Temp Pulse Resp B/P (MAP) Pulse Ox O2 Delivery O2 Flow Rate FiO2 11/03/16 14:00 98.6 84 17 147/79 (101) 94 Room Air 10/29/16 17:40 2.0 I&O- Last 24 Hours up to 6 AM 11/03/16 06:00 Intake Total 1260 ml Output Total 0 ml Balance 1260 ml Laboratory Data Labs 24H Laboratory Tests 2 11/02/16 20:55: Bedside Glucose (Misc Panel) 248H 11/03/16 05:10: Anion Gap 8, Glomerular Filtration Rate > 60.0, Blood Urea Nitrogen 5L, Creatinine 0.38L, Sodium Level 144, Potassium Level 3.3L, Chloride Level 104, Carbon Dioxide Level 32, Calcium Level 7.9L CBC/BMP Laboratory Tests 11/03/16 05:10 Red Blood Count 2.91 L, Mean Corpuscular Volume 92.2, Mean Corpuscular Hemoglobin 29.3, Mean Corpuscular Hemoglobin Concent 31.8 L, Red Cell Distribution Width 15.4 H, Calcium Level 7.9 L FSBS Laboratory Tests Test 11/02/16 20:55 Range/Units Bedside Glucose (Misc Panel) 248 83-110 MG/DL Microbiology Microbiology 10/31/16 Blood Culture - Preliminary, Resulted No Growth after 72 hours. All specime... Discharge Medications Scheduled (Cranberry) 425 Mg Cap, 425 MG PO DAILY, (Reported) (Move Free Joint Health Ad) 1 Tab Tab, 1 TAB PO DAILY, (Reported) (Senna Plus 8.6-50 mg) 1 Tab Tab, 1 TAB PO BID (Toujeo Solostar) 300 Unit/Ml Inj, 7 UNIT SC BID Amiodarone HCl (Amiodarone HCl) 200 Mg Tab, 400 MG PO BID Atorvastatin Calcium (Atorvastatin Calcium) 20 Mg Tab, 20 MG PO QHS Guaifenesin (Mucinex) 600 Mg Tab, 600 MG PO BID Insulin Human Lispro (Humalog Kwikpen) 100 Unit/Ml Inj, 100 UNITS SC ASDIRECTED AC as directed Metoprolol Tartrate (Lopressor) 50 Mg Tab, 50 MG PO BID Multivitamins *SMC STOCKED* (Thera M Plus *SMC STOCKED*) 1 Tab Tab, 1 TAB PO DAILY, (Reported) Omeprazole (Prilosec) 20 Mg Cap, 20 MG PO DAILY, (Reported) Scheduled PRN Acetaminophen (Acetaminophen) 500 Mg Tab, 500 MG PO for PAIN, (Reported) Benzonatate (Benzonatate) 100 Mg Cap, 200 MG PO Q8HP PRN for cough Oxycodone/Acetaminophen (Percocet 5MG/325MG Tablet) 1 Tab Tab, 2 TAB PO Q4HP PRN for SEVERE PAIN (PS 8-10) Allergies Coded Allergies: Penicillins (Verified Allergy, Unknown, 10/18/16) GME ATTESTATION GME ATTESTATION My preceptor for this patient encounter was Dr. Walker and he was physically present in the building during the encounter and was fully available. As needed , all aspects of the patient interview, examination, medical decision making process, and medical care plan development were reviewed and approved by the preceptor. Preceptor is aware and concurs with the plan as stated in the body of this note and will attest to such by his/her cosignature. ILDA ANDREW DO Nov 03, 2016 18:27 ALBERTO WALKER MD Nov 06, 2016 12:27
== END 2016-11-03 16:40 | disposition home health service (06) | DRG 167 ==
LOC: M ED 09:53 → M ED INP 13:39 → M PCU 14:58 → M MSPAV 11-01 14:45
PROVIDERS: ADMIT Internal Medicine Nephrology; ATTEND Internal Medicine
PROC: 0W993ZZ Drainage of Right Pleural Cavity, Percutaneous Approach (ICD-10-PCS; 2016-10-23)
PROC: 3E0L3GC Introduction of Other Therapeutic Substance into Pleural Cavity, Percutaneous Approach (ICD-10-PCS; 2016-10-25)
PROC: 06H03DZ Insertion of Intraluminal Device into Inferior Vena Cava, Percutaneous Approach (ICD-10-PCS; principal; 2016-10-28)
PROC: 0W9B3ZZ Drainage of Left Pleural Cavity, Percutaneous Approach (ICD-10-PCS; 2016-10-29)
DX: I26.99 Other pulmonary embolism without acute cor pulmonale (principal); J94.2 Hemothorax; J90 Pleural effusion, not elsewhere classified; D62 Acute posthemorrhagic anemia; D68.51 Activated protein C resistance; I82.412 Acute embolism and thrombosis of left femoral vein; I82.432 Acute embolism and thrombosis of left popliteal vein; D68.2 Hereditary deficiency of other clotting factors; D72.829 Elevated white blood cell count, unspecified; E11.65 Type 2 diabetes mellitus with hyperglycemia; I48.91 Unspecified atrial fibrillation; Z79.4 Long term (current) use of insulin; Z79.899 Other long term (current) drug therapy; Z88.0 Allergy status to penicillin; E78.5 Hyperlipidemia, unspecified; I10 Essential (primary) hypertension; E87.6 Hypokalemia; R00.0 Tachycardia, unspecified

== ENCOUNTER → 2016-11-10 | Outpatient (CLI) | payer MEDICARE ==
[~2016-11-10] MED LIST: ACET50TAOT PO; ADVOMIS XX; ALEV220T26 PO; AMIO20TA PO; ATOR1TAB21 PO; BENZ100C5 PO; CRAN425C2 PO; ELIQ5TAB PO; GUAI60TA PO; HUMA100I5 SC; LEVE1INJ5 SC; LOPR1TAB6 PO; MOVE1TAB PO; PERCOCET PO; PRAD150C PO; PRIL20CA9 PO; SENN1TAB2 PO; TOUJ1.2I SC; VITMTA PO; XARE1TAB PO; [UNRECOGNIZED DRUG - CODE] XX; [UNRECOGNIZED DRUG - CODE] XX
--- NOTE | 2016-11-10 09:07 | REP ---
CHEST, TWO VIEWS: Two views of the chest are performed and compared to prior study of 11/03/2016. Lobulated pleural based opacities on the left have mildly improved. Heterogeneous infiltrate in the left lung base is unchanged. Right lung remains clear. There is elevation of the left hemidiaphragm. Right central venous catheter has been removed. There are mild degenerative changes of the spine. IMPRESSION: Left pleural based opacities have improved. No change in left basilar infiltrate. Signed by Neftaly Cantu MD 11/10/2016 05:10 P
== END ==
LOC: M SMT 08:21
PROVIDERS: ATTEND Thoracic Surgery (Cardiothoracic Vascular Surgery)
DX: Z86.711 Personal history of pulmonary embolism (principal)

== ENCOUNTER → 2016-11-27 | Outpatient (CLI) | payer MEDICARE ==
[~2016-11-27] MED LIST changes: +ACET1TAB17 PO; +AMIO200T PO; -AMIO20TA PO; +DITR5TAB PO; -GUAI60TA PO; +IBUP1TAB6 PO; +LEVA750T7 PO; +LISI-542 PO; +MUCI600T31 PO; +PANT40TA2 PO; +POTA10CA PO
--- NOTE | 2016-11-27 09:36 | REP ---
Clinical: Chest pain. Pulmonary embolism. Technique: PA and lateral. Comparison: Multiple examinations dating to 10/28/2016. Findings: Residual pleuroparenchymal changes involving the left lower lung zone are appreciated and improved along with diffuse chronic interstitial changes. No obvious, new consolidation, effusion, or pneumothorax. Visualized mediastinum and cardiac silhouette are within normal limits. Skeletal structures are stable. IVC filter noted. Impression: Diffuse chronic interstitial changes and decreased left lower lobe pleuroparenchymal changes again appreciated. No obvious, new acute findings. Effect images from the day that Signed by Rory Nichols MD 11/27/2016 09:27 A
== END ==
LOC: M SMT 09:13
PROVIDERS: ATTEND Thoracic Surgery (Cardiothoracic Vascular Surgery)
DX: I26.99 Other pulmonary embolism without acute cor pulmonale (principal)

== ENCOUNTER → 2017-01-14 | Outpatient (REF) | payer MEDICARE | LOC: M SFHCPLAZ 08:48 | PROVIDERS: ATTEND Family Medicine | DX: E11.8 Type 2 diabetes mellitus with unspecified complications (principal) ==

== ENCOUNTER → 2017-03-03 | Outpatient (REF) | payer MEDICARE | LOC: M SFHCPLAZ 16:51 | PROVIDERS: ATTEND Family Medicine | DX: R53.83 Other fatigue (principal); E11.8 Type 2 diabetes mellitus with unspecified complications; Z53.8 Procedure and treatment not carried out for other reasons ==

== ENCOUNTER → 2017-03-04 | Outpatient (REF) | payer MEDICARE ==
[2017-03-04 13:18] LABS: YEAST LIKE CELL URINE AUTO SMALL
[2017-03-04 13:27] LABS: FREE T4 1.22 NG/DL (0.76-1.46)
== END ==
LOC: M SFHCPLAZ 10:33
PROVIDERS: ATTEND Family Medicine
DX: R53.83 Other fatigue (principal); E11.8 Type 2 diabetes mellitus with unspecified complications

== ENCOUNTER 2017-03-11 07:15 | Inpatient (IN) | payer MEDICARE ==
[~2017-03-11] VITALS: Ht 160 cm; Wt 77.1 kg
[~2017-03-11 07:15] MED LIST changes: -ACET1TAB17 PO; -DITR5TAB PO; -IBUP1TAB6 PO; -LEVA750T7 PO; -LISI-542 PO; -PANT40TA2 PO; -POTA10CA PO
[2017-03-11] MEDS ORDERED: NS 1,000 ML IV ONE (07:45)
[2017-03-11] MEDS ORDERED: ACETAMINOPHEN 325 MG TAB PO ONE (07:45)
[2017-03-11] MEDS ORDERED: ELIQ5TAB PO (08:15)
[2017-03-11 08:38] LABS: MEAN CORPUSCULAR HEMOGLOBIN 27.5 pg (27.0-33.0); MEAN CORPUSCULAR HGB CONC 32.9 g/dl (32.0-36.5); MEAN CORPUSCULAR VOLUME 83.6 fl (80.0-96.0); PLATELET COUNT, AUTOMATED 271 10^3/uL (150-450); WHITE BLOOD COUNT 14.9 10^3/uL (4.0-10.0)
[2017-03-11 08:40] LABS: ADD MANUAL DIFFER YES; DIFF SLIDE NUMBER 118
--- NOTE | 2017-03-11 08:57 | ECGEPIP ---
Stationary ECG Study [facility] - ED Test Date: 2017-03-11 Pat Name: DERREK OLIVO Department: Room: - Gender: F Last Greaser: deedee : 1945 Requested By: Pily Evans Order Number: [id number] Reading MD: Jourdan Winn Measurements Intervals [place] Rate: 116 P: 54 MT: 159 QRS: 7 QRSD: 80 T: 17 QT: 332 QTc: 461 Interpretive Statements SINUS TACHYCARDIA POOR R WAVE PROGRESSION Electronically Signed On 03-11-2017 8:57:32 EDT by Jourdan Winn
[2017-03-11 09:05] LABS: ALBUMIN 3.1 GM/DL (3.2-5.2); ALBUMIN/GLOBULIN RATIO 0.62 (1.00-1.93); ALKALINE PHOSPHATASE 201 U/L (45-117); ALT/SGPT 83 U/L (12-78); ANION GAP 9 MEQ/L (8-16); AST/SGOT 45 U/L (15-37); BILIRUBIN,DIRECT 0.3 MG/DL (0.0-0.2); BILIRUBIN,TOTAL 0.6 MG/DL (0.2-1.0); BLOOD UREA NITROGEN 14 MG/DL (7-18); CARBON DIOXIDE LEVEL 25 MEQ/L (21-32); CHLORIDE LEVEL 101 MEQ/L (98-107); CREATININE FOR GFR 0.64 MG/DL (0.55-1.02); GLOMERULAR FILTRATION RATE > 60.0 (>39); GLUCOSE, FASTING 234 MG/DL (83-110); POTASSIUM SERUM 3.3 MEQ/L (3.5-5.1); SODIUM LEVEL 135 MEQ/L (136-145); TOTAL PROTEIN 8.1 GM/DL (6.4-8.2)
--- NOTE | 2017-03-11 09:06 | REP ---
CT Head without contrast HISTORY: Headache COMPARISON: None Areas of decreased attenuation are present in the periventricular and subcortical white matter. This represents small-vessel ischemic disease. There is no intraparenchymal hemorrhage, acute infarct, mass or midline shift. The ventricular system and cortical sulci are dilated consistent with minimal volume loss. There is no extra cerebral collection. There is no fracture. The visualized sinuses are clear. IMPRESSION: 1. Small vessel ischemic disease. 2. Minimal volume loss. Signed by Grabiel Nichols MD 03/11/2017 08:58 A
--- NOTE | 2017-03-11 09:19 | REP ---
CHEST X-RAY: Two views. HISTORY: Abdominal pain. COMPARISON CHEST X-RAY: November 27 2016. FINDINGS: There is some linear opacity in the left base consistent with chronic atelectasis and/or scarring. This is improved but not new when compared to the November 27, 2016 prior radiographs. The lung araujo are otherwise clear. The pleural angles are sharp. Left hemidiaphragm is slightly elevated. This is unchanged. The heart is not enlarged. Pulmonary vasculature is not increased. No significant bony abnormality is seen. IMPRESSION: Fibroatelectatic changes left base improved from the last chest x-ray November 27, 2016. Otherwise no acute disease. Signed by Max Aiken MD 03/11/2017 02:10 P
[2017-03-11 09:30] LABS: BANDS 4 % (< 11)
[2017-03-11 09:31] LABS: ANISOCYTOSIS 1+; MICROCYTOSIS 1+
[2017-03-11] MEDS ORDERED: CIPROFLOXACIN 400 MG in APPROPRIATE DILUENT 1 EA IV ONE (10:00)
--- NOTE | 2017-03-11 10:51 | REP ---
Abdominal right upper quadrant ultrasound: There is a negative Camp's sign to transducer pressure. The gallbladder is contracted. There are multiple gallbladder calculi with within the lumen of the contracted gallbladder. The gallbladder wall is obscured because of the calculi and gallbladder contraction and cannot be accurately measured. There is no pericholecystic fluid. There is no intrahepatic or extrahepatic biliary duct dilatation. The common duct measures 4.4 mm transverse diameter per The hepatic parenchyma is homogeneous. There are no hepatic masses. The visualized portion of the pancreatic head is unremarkable. The pancreatic body and tail are obscured by bowel gas. The right renal calyces appear mildly dilated, however, the renal pelvis does not appear distended. This may represent mild hydronephrosis. There is a parapelvic mass like structure at the lower pole measuring 2.7 x 2.1 x 2.1 cm. I am unable to differentiate mass from cyst on the basis of the ultrasound as there are multiple internal echoes within this structure. However, with color Doppler assessment there is no vascular flow. Impression: Contracted gallbladder. Multiple calculi within the contracted gallbladder. There is a negative Camp's sign to transducer pressure. There is no biliary duct dilatation. No pericholecystic fluid. The gallbladder wall cannot be accurately assessed. Mild right hydronephrosis. Parapelvic lower pole renal mass versus cyst. This cannot be differentiated by ultrasound at this time. Consider CT. There is no free fluid in the abdominal right upper quadrant. Signed by Neftaly Tee MD 03/11/2017 10:43 A
--- NOTE | 2017-03-11 11:16 | REP ---
CT abdomen and pelvis without IV or oral contrast: Renal stone protocol. History: Hematuria. Pyelo. Flank pain. Question stone. Comparison study: Sonography right upper quadrant from today. CT findings: Preliminary digital unit trust manager radiograph demonstrates an unremarkable bowel gas pattern. A vena cava filter is noted in place in the right mid abdomen. Axial images demonstrate coarse discoid atelectasis in the left lower lobe and lingular segment of the left upper lobe at the left lung base. Minimal linear fibrosis is noted on the right. No pleural effusion is seen. A very small sliding-type hiatal hernia is seen. There is a mottled pattern of increased density within the gallbladder lumen consistent with cholelithiasis. No focal hepatic or splenic lesion is seen. There is some capsular calcification along the posterior surface of the spleen. This is unchanged from October 30, [address] No pancreatic abnormality is observed. Vena cava filter is noted in place in good position. There is low density in the central renal sinuses bilaterally consistent with hydronephrosis and/or peripelvic cyst formation. There are also bilateral intrarenal calculi in the lower pole of each kidney. No ureteral dilation or ureteral calculus is seen on either side. Urinary bladder is intact. No uterine or ovarian abnormality is appreciated. There is extensive left colonic diverticulosis without CT evidence of diverticulitis. No abdominal wall defect is seen. Impression: Bilateral intrarenal nephrolithiasis. Mild bilateral hydronephrosis versus peripelvic cyst formation. No ureteral calculus seen on either side. There is a 4 mm calculus in the intrarenal collecting system lower pole right kidney and two 3 mm calculi are seen in the lower pole of the left kidney. Cholelithiasis is also noted. Left colonic diverticulosis. Signed by Max Aiken MD 03/11/2017 02:12 P
[2017-03-11] MEDS: HumaLOG INSULIN (NovoLOG) PER UNIT SC SCH ×3 (12:00→21:07)
[2017-03-11] MEDS ORDERED: GLUCOSE 4 GM CHEW TABLET PO PRN (12:30)
[2017-03-11] MEDS ORDERED: PERCOCET 5MG/325MG TAB PO PRN (12:30)
[2017-03-11] MEDS ORDERED: DEXTROSE 50% 50 ML SYRINGE IV PRN (12:30)
[2017-03-11] MEDS ORDERED: GLUCAGON FOR INJ 1 MG VIAL (J1610) SC PRN (12:30)
[2017-03-11] MEDS ORDERED: ONDANSETRON 4MG/2ML VIAL (J2405) IV PRN (12:30)
[2017-03-11] MEDS ORDERED: TOUJ1.2I SC (12:38)
[2017-03-11] MEDS ORDERED: ACET1TAB17 PO (12:41)
[2017-03-11] MEDS ORDERED: POTASSIUM CHLORIDE 10 MEQ SR TABLET PO ONE (12:45)
[2017-03-11] MEDS: ACETAMINOPHEN TAB 650MG DOSE (2X325MG) PO PRN ×2 (12:59→17:01)
[2017-03-11] MEDS ORDERED: HUMA100I5 SC (13:01)
[2017-03-11] MEDS: NS 1,000 ML IV SCH (13:01)
[2017-03-11] MEDS ORDERED: LISI-542 PO (13:05)
--- NOTE | 2017-03-11 13:41 | HPE ---
DATE OF ADMISSION: 03/11/2017 PRIMARY CARE PROVIDER: [facility] HISTORY OF PRESENT ILLNESS: This is a patient who is a 71-year-old female with a past medical history significant for bilateral pulmonary embolus (PE), deep vein thrombosis (DVT), hemorrhagic pleural effusion, type 2 diabetes, factor V Leiden mutation, history of atrial fibrillation and left lower extremity DVT, who presented to [facility] on 03/11/2017 for persistent fever, chills and fatigue. The patient stated since a week ago, the patient started complaining about dysuria, frequency and urgency and then since three days ago the patient had uncontrolled fever and shivering chills. The patient also started and noted to have a significant decrease of energy level. The patient also complained about intermittent migraine headache. The pain is dull throbbing in the frontal areas, better with Tylenol. The patient also noted to have increased nausea for the past three days. Often times, she had to force herself to eat. Denies any flank pain. Denies any cough or sputum production. Denies any loss of consciousness. Denies neck pain. PAST MEDICAL HISTORY: 1. Bilateral PE. 2. Left lower extremity DVT. 3. Type 2 diabetes. 4. Factor V Leiden mutation. 5. History of atrial fibrillation. 6. Hemorrhagic pleural effusion. 7. Pulmonary infract of the left side. 8. History of loculated hemothorax. 9. Hypertension. PAST SURGICAL HISTORY: 1. . 2. Left eye surgery. 3. [place] filter placement. SOCIAL HISTORY: Denies smoking. Denies alcohol use. No history of recreational drug use. ALLERGIES: PENICILLIN. REVIEW OF SYSTEMS: GENERAL: Positive fever and chills. Decreased energy level. HEENT: Complains about migraine headache intermittently in the frontal skull area, throbbing sensation. CARDIOVASCULAR: Denied any chest pain, palpitations. Does have history of atrial fibrillation during her last hospitalization. PULMONARY: The patent has history of bilateral PE and pulmonary infarction. GI: Positive nausea. No vomiting. No abdominal pain. No diarrhea. : Positive for dysuria, frequency, urgency. Denies any flank pain. ENDOCRINE: Patient has history of diabetes. Required insulin treatment. MUSCULOSKELETAL: Denied any muscle pain or joint pain. OBJECTIVE: VITAL SIGNS: Temperature 100.1. Pulse 122. Respirations 18. Blood pressure 142/70. Pulse oximetry 96% in room air. GENERAL: Fatigued. Persistent shivering chills during examination. Alert and oriented times three. 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 Otherwise normocephalic, atraumatic. CARDIOVASCULAR: Tachycardic. Positive S1, S2. LUNGS: Clear to auscultation bilaterally. No wheezes or rhonchi. ABDOMEN: Soft. Nontender. Nondistended. Bowel sounds present. No Camp's sign. MUSCULOSKELETAL: No costovertebral angle (CVA) tenderness bilaterally. EXTREMITIES: Purple skin color changes of the left lower extremity. No lower extremity edema. NEUROLOGIC: Sensation to fine touch grossly. Muscle strength 5/5. LABORATORY DATA: WBC 14.9, hemoglobin 13.4, hematocrit 40.7 and platelet count 271. Sodium 135, potassium 3.3, chloride 101, carbon dioxide 25, BUN 14, creatinine 0.64, GFR greater than 60, fasting glucose 234, lactic acid 1.1, calcium 9, total bilirubin 0.6, direct bilirubin 0.3, AST 45, ALT 83, alkaline phosphatase 201, total CK 54, troponin I less than 0.02, total protein 8.1, albumin 3.1, lipase 6.9. UA is positive. MICROBIOLOGY: Blood culture is pending times two sets. Urine culture is pending. IMAGING STUDIES: Chest x-ray showed fibroatelectatic changes of left base, otherwise no acute disease. CT of the head without contrast shows small vessel ischemic disease, minimal volume loss. Gallbladder ultrasound showed contracted gallbladder. Multiple calculi within the contracted gallbladder. Negative Camp's sign. No biliary duct dilatations. No pericholecystic fluid. The gallbladder wall cannot be accurately assessed. CT of the abdomen and pelvis with contrast showed bilateral intrarenal nephrolithiasis, mild bilateral hydronephrosis versus peripelvic cyst formation. No ureteral calculus seen on either side. There is a 4 mm calculus in the intrarenal collecting system lower pole right kidney and two 3 mm calculi seen in the lower lobe of the left kidney. ASSESSMENT AND PLAN: 1. Sepsis from Urinary tract infection. The patient will be admitted to the medical-surgical floor on inpatient status. UA is positive. We are awaiting for the urine culture. Empirically the patient will be treated with ciprofloxacin. The patient also has poor oral intake. Supplement with IV fluid resuscitation at this moment. 2. Abnormal finding on CT of abdomen and pelvis. There is findings suggestive of mild bilateral hydronephrosis versus peripelvic cyst formation. The patient has been evaluated by urology, Dr. Hernandez. At the moment, recommends stabilize the patient for acute infections. Once patient is more stabilized, we may pursue CT of the ureterogram to differentiate the hydronephrosis verus the cyst formation. 3. History of pulmonary embolus and deep vein thrombosis. The patient has factor V Leiden mutation resulting in hypercoagulable state. The patient will continue on Eliquis. 4. History of pulmonary infarction and pulmonary hemorrhages. Chest x-ray showed no acute disease. There is only fibroatelectatic changes at the left base improved from the last chest x-ray on 11/27/2016. Continue to follow. 5. History of atrial fibrillation. The patient continues on beta vivien. At this moment, the patient has sinus tachycardia. The patient will be on the medical-surgical floor with telemetry. 6. Diabetes. The patient will be on Levemir, covering with sliding scale. Patient will be on consistent carbohydrate diet. Will follow with A1c. 7. History of hypertension. At this moment, the patient does not have a mild elevation of the blood pressure. Will continue to monitor. The patient is not hypotensive. 8. Hypokalemia. Will supplement with potassium. 9. Elevated liver functions. CT of abdomen and pelvis was performed and gallbladder ultrasound was also performed. The patient does not have any Camp's sign and there is no biliary dilatation. Will review all patient's medications and will also check with hepatitis panel. The patient does take Lipitor. 10. Deep vein thrombosis prophylaxis. The patient is on Eliquis. MTDD
[2017-03-11] MEDS ORDERED: HEPARIN SOD (PORCINE) 5000 UNITS/ML VIAL SC SCH (14:00)
--- NOTE | 2017-03-11 14:18 | SMCUROLCON ---
Urology Consultation General Date of Consultation 03/11/17 Reason For Consultation This patient is seen for UTI. History of Present Illness This is a 71 y/o F w/ a PMH significant for HTN, factor V Leiden mutation, and atrial fibrillation, who presented to the hospital w/ migraines, malaise, and fevers. A urinalysis was obtained and notable for multiple RBCs and WBCs. A CT A/P was therefore done and notable for bilateral small nonobstructing left kidney stones as well as b/l hydronephrosis versus parapelvic cysts. Urology was consulted because of these findings. The patient denies abdominal or flank pain. She denies dysuria. She denies gross hematuria. She has been having fever and malaise for the past 2 days. Past Medical History Medical History see HPI Surgical Hstory 2 C-sections Medications Current Medications Current Medications Acetaminophen (Tylenol Tab) 650 mg Q4HP PRN PO MILD PAIN OR FEVER Last administered on 03/11/17t 12:59; Start 03/11/17 at 12:30; Stop 04/10/17 at 12 :29 Ciprofloxacin 400 mg/IV Miscellaneous Supplies 200 ml @ 200 mls/hr Q12H IV ; Start 03/11/17 at 23:00; Stop 03/18/17 at 22:59 Dextrose (Dextrose 50%) 25 ml ASDIRECTED PRN IV SEE LABEL COMMENTS; Start 04/17 at 12:30; Stop 04/10/17 at 12:29 Glucagon (Glucagon) 1 mg ASDIRECTED PRN SC SEE LABEL COMMENTS; Start 03/11/17 at 12:30; Stop 04/10/17 at 12:29 Glucose (Glucose) 16 GM ASDIRECTED PRN PO SEE LABEL COMMENTS; Start 03/11/17 at 12:30; Stop 04/10/17 at 12:29 Heparin Sodium (Porcine) (Heparin) 5,000 units Q8H SC ; Start 03/11/17 at 14:00 ; Stop 03/16/17 at 13:59 Home Med (Med Rec Complete!) ASDIRECTED XX ; Start 03/11/17 at 13:30; Stop at 13:30; Status DC Insulin Detemir (Levemir Insulin) 14 units QHS SC ; Start 03/11/17 at 21:00; Stop 04/10/17 at 20:59 Insulin Human Lispro (HumaLOG INSULIN) SEE PROTOCOL TABLE AC SC Last administered on 03/11/17t 12:00; Start 03/11/17 at 12:00; Stop 04/10/17 at 11 :59 Insulin Human Lispro (HumaLOG INSULIN) SEE PROTOCOL TABLE QHS SC ; Start at 21:00; Stop 04/10/17 at 20:59 Ondansetron HCl (ZOFRAN INJection) 4 mg Q6HP PRN IV NAUSEA OR VOMITING; Start 03/11/17 at 12:30; Stop 04/10/17 at 12:29 Oxycodone/ Acetaminophen (Percocet 5mg/ 325mg Tablet) 1 tab Q4HP PRN PO MODERATE PAIN (PS 5-7); Start 03/11/17 at 12:30; Stop 03/18/17 at 12:29 Pantoprazole Sodium (Protonix) 40 mg DAILY PO ; Start 03/11/17 at 09:00; Stop 04/10/17 at 08:59 Sodium Chloride 1,000 ml @ 80 mls/hr [id number] IV Last administered on t 13:01; Start 03/11/17 at 12:18; Stop 04/10/17 at 12:17 Allergies Allergies: Coded Allergies: Penicillins (Verified Allergy, Unknown, 10/18/16) Review of Systems General: Reports: Malaise Constitutional: Reports: Fever ENT: Reports: Head Aches Pulmonary: Denies: Dyspnea Cardiovascular: Denies Chest Pain, Denies Palpitations Gastrointestinal: Denies: Abdominal Pain Genitourinary: Denies: Dysuria, Hematuria Musculoskeletal: Denies: Back Pain Psych: Reports: Mood Normal Physical Examination General Exam: Alert, Cooperative ENT EXAM: Atraumatic Chest Exam: Clear to auscultation Heart Exam: Regular Rhythm Abdomen Exam: Soft, No: Tenderness Skin Exam: Nl turgor and temperature Neuro Exam: Normal Speech Psych Exam: Mental status NL, Mood NL Vital Signs/I&O Vital Signs Date Time Temp Pulse Resp B/P (MAP) Pulse Ox O2 Delivery O2 Flow Rate FiO2 03/11/17 13:55 102.0 03/11/17 13:49 124 93 03/11/17 12:48 20 Room Air Laboratory Data 24H Labs Laboratory Tests 2 03/11/17 08:08: White Blood Count 14.9H, Red Blood Count 4.87, Hemoglobin 13.4, Hematocrit 40.7 , Mean Corpuscular Volume 83.6, Mean Corpuscular Hemoglobin 27.5, Mean Corpuscular Hemoglobin Concent 32.9, Red Cell Distribution Width 17.0H, Platelet Count 271, Monocytes # (Auto) , Nucleated Red Blood Cells % (auto) 0.0 , Neutrophils 75, Band Neutrophils 4, Lymphocytes (Manual) 13L, Monocytes ( Manual) 6, Myelocytes 1H, Atypical Lymphocytes 1, Platelet Estimate NORMAL, Anisocytosis 1+, Microcytosis 1+, Urine Appearance CLOUDYH, Urine Color YELLOW, Urine pH 5.0, Urine Specific [place] 1.013, Urine Protein 1+H, Urine Glucose (UA ) 1+H, Urine Ketones TRACEH, Urine Urobilinogen 0.2, Urine Bilirubin NEGATIVE, Urine Leukocyte Esterase 3+H, Urine Blood 2+H, Urine Nitrite NEGATIVE, Urine WBC (Auto) TNTCH, Urine RBC (Auto) 14H, Urine Hyaline Casts (Auto) 0, Urine Bacteria (Auto) 1+H, Urine Squamous Epithelial Cells 1, Urine Mucus (Auto) SMALL , Urine Sperm (Auto) , Anion Gap 9, Glomerular Filtration Rate > 60.0, Lactic Acid Level 1.1, Calcium Level 9.0, Aspartate Amino Transf (AST/SGOT) 45H, Alanine Aminotransferase (ALT/SGPT) 83H, Alkaline Phosphatase 201H, Total Bilirubin 0.6, Direct Bilirubin 0.3H, Total Creatine Kinase 54, Creatine Kinase MB 1.0, Creatine Kinase MB Relative Index 1.85, Troponin I < 0.02, Total Protein 8.1, Albumin 3.1L, Albumin/Globulin Ratio 0.62L, Lipase 69L, Hepatitis A IgM Antibody NEGATIVE, Hepatitis B Surface Antigen NEGATIVE, Hepatitis B Core IgM Antibody NEGATIVE, Hepatitis C Antibody Index 0.1 03/11/17 13:10: Bedside Glucose (Misc Panel) 190H CBC/BMP Laboratory Tests 03/11/17 08:08 Red Blood Count 4.87, Mean Corpuscular Volume 83.6, Mean Corpuscular Hemoglobin 27.5, Mean Corpuscular Hemoglobin Concent 32.9, Red Cell Distribution Width 17.0 H, Monocytes # (Auto) Microbiology Microbiology 03/11/17 Blood Culture, Received Pending 03/11/17 Blood Culture, Received Pending 03/11/17 Influenza Virus Type A Antigen - Final, Complete 03/11/17 Influenza Virus Type B Antigen - Final, Complete 03/11/17 Urine Culture, Received Pending Assessment This is a 71 y/o F being admitted for malaise and fevers, now w/ finding of b/l nonobstructing renal stones and b/l hydronephrosis versus parapelvic cysts. All of her renal stones are small and I therefore do not recommend any treatment for them at this time. Regarding the presence of b/l hydronephrosis versus parapelvic cysts, I suspect they are parapelvic cysts since she has no flank or abdominal pain and there is no obvious cause of obstruction to cause hydronephrosis. Plan - no treatment needed for the nonobstructing kidney stones - in order to differentiate hydronephrosis from parapelvic cysts, a CT urogram would need to be obtained - recommend obtaining CT urogram - I will follow up on the result - if they are parapelvic cysts as suspected, no treatment is needed EUNICE WAGNER MD Mar 11, 2017 14:18
[2017-03-11 16:35] VITALS: BP 169/97
[2017-03-11] MEDS ORDERED: METOPROLOL TART 25 MG TABLET PO ONE (16:45)
[2017-03-11] MEDS: PANTOPRAZOLE 40MG TAB (PROTONIX) PO SCH (17:01)
[2017-03-11] MEDS: LISINOPRIL 5 MG TAB PO SCH (17:01)
[2017-03-11 18:03] VITALS: BP 148/71
[2017-03-11] MEDS: IBUPROFEN 600 MG TAB PO PRN (18:03)
[2017-03-11] MEDS ORDERED: METOPROLOL TART 50 MG TAB PO SCH (21:00)
[2017-03-11] MEDS: ATORVASTATIN 20 MG TAB PO SCH (21:06)
[2017-03-11] MEDS: APIXABAN 5 MG TAB (ELIQUIS) PO SCH (21:06)
[2017-03-11] MEDS: LEVEMIR (INSULIN DETEMIR) 1 UNITS/0.01ML SC SCH (21:09)
[2017-03-11] MEDS: METOPROLOL TART 50 MG TAB PO SCH (21:09)
[2017-03-11 22:00] VITALS: BP 119/66
[2017-03-11] MEDS: CIPROFLOXACIN 400 MG in APPROPRIATE DILUENT 1 EA IV SCH (22:49)
[2017-03-11 23:00] VITALS: BP 105/70
[2017-03-12] MEDS: NS 1,000 ML IV SCH ×2 (01:54→17:36)
[2017-03-12] MEDS: ACETAMINOPHEN TAB 650MG DOSE (2X325MG) PO PRN ×3 (04:33→20:15)
[2017-03-12 06:00] VITALS: BP 137/70
[2017-03-12 06:30] LABS: MEAN CORPUSCULAR HEMOGLOBIN 27.7 pg (27.0-33.0); MEAN CORPUSCULAR HGB CONC 32.9 g/dl (32.0-36.5); MEAN CORPUSCULAR VOLUME 84.3 fl (80.0-96.0); WHITE BLOOD COUNT 10.7 10^3/uL (4.0-10.0)
[2017-03-12 06:48] LABS: ALBUMIN 2.6 GM/DL (3.2-5.2); ALBUMIN/GLOBULIN RATIO 0.57 (1.00-1.93); ALKALINE PHOSPHATASE 186 U/L (45-117); ALT/SGPT 116 U/L (12-78); ANION GAP 8 MEQ/L (8-16); AST/SGOT 60 U/L (15-37); BILIRUBIN,DIRECT 0.2 MG/DL (0.0-0.2); BILIRUBIN,TOTAL 0.4 MG/DL (0.2-1.0); BLOOD UREA NITROGEN 9 MG/DL (7-18); CALCIUM LEVEL 9.2 MG/DL (8.8-10.2); CARBON DIOXIDE LEVEL 24 MEQ/L (21-32); CHLORIDE LEVEL 106 MEQ/L (98-107); GLOMERULAR FILTRATION RATE > 60.0 (>39); GLUCOSE, FASTING 154 MG/DL (83-110); POTASSIUM SERUM 3.1 MEQ/L (3.5-5.1); SODIUM LEVEL 138 MEQ/L (136-145); TOTAL PROTEIN 7.2 GM/DL (6.4-8.2)
[2017-03-12] MEDS ORDERED: POTASSIUM CHLORIDE 10 MEQ SR TABLET PO ONE (07:30)
[2017-03-12] MEDS: MULTIVITAMINS/MINERALS THERAP 1 TAB PO SCH (08:28)
[2017-03-12] MEDS: PANTOPRAZOLE 40MG TAB (PROTONIX) PO SCH (08:28)
[2017-03-12] MEDS: HumaLOG INSULIN (NovoLOG) PER UNIT SC SCH ×4 (08:28→20:16)
[2017-03-12] MEDS: LISINOPRIL 5 MG TAB PO SCH (08:29)
[2017-03-12] MEDS: APIXABAN 5 MG TAB (ELIQUIS) PO SCH ×2 (08:29→20:15)
[2017-03-12] MEDS: METOPROLOL TART 50 MG TAB PO SCH ×2 (08:30→20:15)
[2017-03-12] MEDS: KCL 10MEQ IN 100ML SWI (KRUN) 10 MEQ in APPROPRIATE DILUENT 1 EA IV SCH ×4 (08:37→09:53)
[2017-03-12] MEDS ORDERED: LISINOPRIL 5 MG TAB PO SCH (09:00)
[2017-03-12 10:00] VITALS: BP 153/79
[2017-03-12] MEDS: CIPROFLOXACIN 400 MG in APPROPRIATE DILUENT 1 EA IV SCH ×2 (11:40→23:23)
[2017-03-12 14:00] VITALS: BP 126/73
[2017-03-12] MEDS ORDERED: ISOVUE-370 76% 100ML VIAL (Q9967) As Ordered ONE (14:27)
--- NOTE | 2017-03-12 14:32 | IPN ---
DATE: 03/12/2017 SUBJECTIVE: The patient is seen and examined in the room today. The patient stated that she is feeling better. This morning her temperature improved. Still having intermittent palpitations. Her sensation of palpitations also improved compared to yesterday. OBJECTIVE: VITAL SIGNS: Temperature 99.7, pulse 102, respiration 20, blood pressure 137/70 , pulse ox 99% in room air. GENERAL: No sign of acute distress sitting comfortably in the chair, alert and oriented times three. HEENT: There is a left eye lateral deviation from her chronic lazy eye. CARDIOVASCULAR: Positive S1, S2, regular rate at the time of encounter. LUNGS: Clear to auscultation bilaterally. No wheezes or rhonchi. ABDOMEN: Soft, nontender. No distended. Bowel sounds present. EXTREMITIES: No edema. No sign of cyanosis. LABORATORY DATA: WBC is 10.7, hemoglobin 12, hematocrit 36.5, platelet count is 220. Sodium 138, potassium 3.1, chloride 106, carbon dioxide 74, BUN 9, creatinine 0.5, GFR greater than 60, fasting glucose 154. Alc 8.1, calcium 9.2, magnesium 2 , total bilirubin 0.4, direct bilirubin 0.2, AST 60, ALT 160, alkaline phosphatase 186, total protein 7.2, albumin 2.6. Hepatitis panel is negative. ASSESSMENT: 1. Sepsis from Urinary tract infection: We are still waiting for the final urine culture results. Currently, the patient is on ciprofloxacin, IV hydration. The patient shows improvement of her fever. Vitals are within normal limits at this moment. Continue to monitor. 2. Bacteremia: Two sets of blood cultures obtained on admission both show Gram negative rods. Currently, the patient is on ciprofloxacin. Clinically, the patient is improving. White count is improving. Will follow with the results in the sensitivities. 3. History of bilateral pulmonary embolus (PE) and left lower extremity deep venous thrombosis (DVT): The patient is on Eliquis. 4. History of factor V Leiden mutation: The patient is in hypercoagulative state. History of multiple clot formation, on Eliquis. 5. Abnormal finding on CT abdomen and pelvis: The previous CT abdomen and pelvis was performed without contrast. The findings suggest mild bilateral hydronephrosis versus peripelvic cyst formation. Urology was consulted and recommend CT urogram. Currently, the patient has renal functions in normal range. Will order CT urogram today. 6. History of pulmonary infarction and pulmonary hemorrhages: Chest x-ray was performed on admission and showed no active disease. Only fibroatelectatic changes of the left base improved on the last chest x-ray of 11/27/2016. Continue monitor. 7. History of atrial fibrillation: The patient will continue on the metoprolol. I have contacted the patient's prior authorization nurse, Dr. Pollock. Previously, the patient was on amiodarone but the patient converted back from atrial fibrillation to sinus rhythm and amiodarone was discontinued. At this time, the patient does not require amiodarone. 8. Diabetes: A1c is 8.1. The patient is currently Levemir covered with sliding scale. Continue consistent carbohydrate diet. 9. History of hypertension: Currently, the patient is on lisinopril 5 mg by mouth daily and Lopressor 50 mg by mouth twice a day. I will continue to monitor. 10. Elevated liver function: CT abdomen and pelvis was performed and gallbladder ultrasound was performed. No Camp's sign. No biliary ductal dilatation. Patient does take Lipitor. Hepatitis panel is negative. 11. Deep venous thrombosis prophylaxis. Tan. GIRMAD
--- NOTE | 2017-03-12 16:40 | REP ---
CT abdomen and pelvis with IV but without oral contrast: CT urogram. History: Hydronephrosis, possibly in conjunction with parapelvic cysts. Comparison CT without contrast study is from March 11, 2017. CT contrast dose: 100 ml of intravenous Isovue 370. 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 The lung bases show moderate discoid atelectasis in the left lower lobe. There is a small quantity of left pleural fluid. This is essentially unchanged from yesterday's CT study. A small sliding-type hiatal hernia is seen. There is a mottled density pattern in the gallbladder lumen consistent with gallstones. There are parapelvic cysts noted bilaterally. There is no significant hydronephrosis on either side. No filling defect is seen in the collecting system or ureters on renal delay phase imaging. There is a cortical cyst in the right mid kidney measuring 1.7 cm. Intrarenal calculi are seen in the lower pole collecting system of each kidney as seen on yesterday's study. In addition, however, there is segmentally poor contrast enhancement/renal function in the anterior cortex of the lower pole of the right kidney. There is some adjacent perinephric fat edema and this finding is felt to reflect pyelonephritis. There is a second focal area of diminished function in the upper pole anterolaterally in the right kidney again suggestive of pyelonephritis. There is some diffuse perinephric fat thickening. No abscess is seen. Left colonic diverticulosis is seen. Impression: 1. Bilateral peripelvic cysts are seen. No significant hydronephrosis seen. 2. Bilateral intrarenal nonobstructive calculi. 3. Multiple foci of decreased renal function in the parenchyma of the right kidney, lower pole and upper pole consistent with pyelonephritis. No abscess seen. Signed by Max Aiken MD 03/12/2017 05:13 P
[2017-03-12 20:00] VITALS: BP 162/76
[2017-03-12] MEDS: ATORVASTATIN 20 MG TAB PO SCH (20:15)
[2017-03-12] MEDS: LEVEMIR (INSULIN DETEMIR) 1 UNITS/0.01ML SC SCH (20:17)
[2017-03-12] MEDS ORDERED: BENZONATATE 100 MG CAP PO ONE (21:15)
[2017-03-12 22:00] VITALS: BP 162/76
[2017-03-13] MEDS: ACETAMINOPHEN TAB 650MG DOSE (2X325MG) PO PRN ×3 (04:17→21:39)
[2017-03-13] MEDS: NS 1,000 ML IV SCH (04:18)
[2017-03-13 06:00] VITALS: BP 156/77
[2017-03-13 06:09] LABS: MEAN CORPUSCULAR HEMOGLOBIN 27.1 pg (27.0-33.0); MEAN CORPUSCULAR HGB CONC 32.1 g/dl (32.0-36.5); MEAN CORPUSCULAR VOLUME 84.6 fl (80.0-96.0); RED CELL DISTRIBUTION WIDTH 16.8 % (11.5-14.5); WHITE BLOOD COUNT 8.3 10^3/uL (4.0-10.0)
[2017-03-13 06:31] LABS: ALBUMIN 2.4 GM/DL (3.2-5.2); ALBUMIN/GLOBULIN RATIO 0.51 (1.00-1.93); ALKALINE PHOSPHATASE 209 U/L (45-117); ALT/SGPT 137 U/L (12-78); ANION GAP 6 MEQ/L (8-16); AST/SGOT 68 U/L (15-37); BILIRUBIN,DIRECT 0.1 MG/DL (0.0-0.2); BILIRUBIN,TOTAL 0.3 MG/DL (0.2-1.0); BLOOD UREA NITROGEN 8 MG/DL (7-18); CALCIUM LEVEL 8.6 MG/DL (8.8-10.2); CARBON DIOXIDE LEVEL 26 MEQ/L (21-32); CHLORIDE LEVEL 108 MEQ/L (98-107); CREATININE FOR GFR 0.45 MG/DL (0.55-1.02); GLOMERULAR FILTRATION RATE > 60.0 (>39); GLUCOSE, FASTING 150 MG/DL (83-110); MAGNESIUM LEVEL 1.8 MG/DL (1.8-2.4); POTASSIUM SERUM 3.1 MEQ/L (3.5-5.1); SODIUM LEVEL 140 MEQ/L (136-145); TOTAL PROTEIN 7.1 GM/DL (6.4-8.2)
[2017-03-13] MEDS: HumaLOG INSULIN (NovoLOG) PER UNIT SC SCH ×4 (08:28→21:00)
[2017-03-13] MEDS: LISINOPRIL 5 MG TAB PO SCH (08:33)
[2017-03-13] MEDS: METOPROLOL TART 50 MG TAB PO SCH ×2 (08:34→21:20)
[2017-03-13] MEDS: MULTIVITAMINS/MINERALS THERAP 1 TAB PO SCH (08:35)
[2017-03-13] MEDS: APIXABAN 5 MG TAB (ELIQUIS) PO SCH ×2 (08:35→21:20)
[2017-03-13] MEDS: PANTOPRAZOLE 40MG TAB (PROTONIX) PO SCH (08:35)
[2017-03-13] MEDS ORDERED: KCL 10MEQ IN 100ML SWI (KRUN) 10 MEQ in APPROPRIATE DILUENT 1 EA IV SCH ×2 (09:00)
[2017-03-13] MEDS ORDERED: POTASSIUM CHLORIDE 10 MEQ SR TABLET PO ONE ×2 (09:00→09:15)
[2017-03-13] MEDS: KCL 40MEQ in NS 1000ML 1,000 ML IV SCH ×2 (10:49→21:30)
[2017-03-13] MEDS: LevoFLOXacin 750 MG TABLET PO SCH (11:47)
[2017-03-13 14:00] VITALS: BP 144/68
--- NOTE | 2017-03-13 15:00 | IPN ---
DATE: 03/13/2017 SUBJECTIVE: The patient is seen and examined in the room today. The patient had a temperature of 101 yesterday evening and since then there is no recurrence of fever. The patient stated that she is feeling better. Yesterday we tried to give the patient a potassium supplement but she stated that she cannot tolerate it intravenously due to severe burning sensation. OBJECTIVE: VITAL SIGNS: Temperature 97, pulse 91, respirations 20, blood pressure 156/77, pulse oximetry is 95% on room air. GENERAL: No sign of acute distress. Alert and oriented times three. HEENT: Normocephalic, atraumatic. Extraocular muscles intact. CARDIOVASCULAR: Positive S1, S2, regular rate. LUNGS: Clear to auscultation bilaterally. ABDOMEN: Soft, nontender. No distended. Bowel sounds present. EXTREMITIES: No edema. No sign of cyanosis. LABORATORY DATA: WBC is 8.3, hemoglobin 10.9, hematocrit is 34, platelet count is 240. Sodium 140, potassium 3.1, chloride 108, carbon dioxide 26, BUN 8, creatinine 0.45, GFR greater than 60, fasting glucose 150, calcium is 8.6, magnesium 1.8, total bilirubin 0.3, direct bilirubin 0.1, AST is 60, ALT 137, alkaline phosphatase 209, total protein 7.1, albumin 2.4. ASSESSMENT: 1. Sepsis from Pyelonephritis. The patient's urine culture came back positive for E coli, sensitivity reviewed. The patient is improving. The patient's case was discussed with infectious disease specialist and the patient's antibiotic was switched to oral Levaquin. 2. Bacteremia: Two sets of blood cultures came back for Escherichia (E) coli . The patient will be on Levaquin. The patient has an improving white count. Clinically, the patient also shows improvement. 3. History of bilateral pulmonary embolus (PE) and left lower extremity deep venous thrombosis (DVT): The patient is on Eliquis. 4. Elevated liver enzymes. The patient denied alcohol history. The patient stated that she was started on a new medication given by the primary care provider, but she does not remember the name of the medication. She started taking the medication a few days prior to admission. The patient also started taking supplement on the same day. We will request the record to determine the identity of the medication that the patient was started on. Hepatitis panel is negative. 5. history of factor V Leiden mutation: The patient is in hypercoagulative state. History of multiple clot formation, on Eliquis. 6. Abnormal finding on CT abdomen and pelvis. CT urogram was performed and there is no hydronephrosis. CT urogram showed bilateral pelvic cysts and bilateral intrarenal nonobstructive calculi. 7. History of pulmonary infarction and pulmonary hemorrhages. Chest x-ray on admission was performed and showed no active disease. Only fibroatelectatic changes of the left base, improved from the last chest x-ray on 11/27/2016. 8. History of atrial fibrillation. Continue on metoprolol. 9. Diabetes. A1c is 8.1. The patient is on Levemir. On sliding scale. Continue consistent carbohydrate diet. 10. History of hypertension. Currently, the patient is on lisinopril 5 mg by mouth daily and metoprolol tartrate 50 mg by mouth twice a day. We will continue to monitor blood pressure. 11. Deep venous thrombosis prophylaxis. Eliquis. MTDD
[2017-03-13] MEDS: LEVEMIR (INSULIN DETEMIR) 1 UNITS/0.01ML SC SCH (21:00)
[2017-03-13] MEDS: DEXTROMETHORPHAN 60MG/10ML SUSP 90ML BTL(DELSYM) PO PRN (21:20)
[2017-03-13] MEDS: ATORVASTATIN 20 MG TAB PO SCH (21:20)
[2017-03-13 22:00] VITALS: BP 162/80
[2017-03-14] MEDS: ACETAMINOPHEN TAB 650MG DOSE (2X325MG) PO PRN (01:39)
[2017-03-14] MEDS: LevoFLOXacin 750 MG TABLET PO SCH (05:32)
[2017-03-14 06:00] VITALS: BP 150/80
[2017-03-14 06:12] LABS: MEAN CORPUSCULAR HGB CONC 31.8 g/dl (32.0-36.5); MEAN CORPUSCULAR VOLUME 84.7 fl (80.0-96.0)
[2017-03-14 06:20] LABS: ANION GAP 7 MEQ/L (8-16); BLOOD UREA NITROGEN 6 MG/DL (7-18); CALCIUM LEVEL 9.1 MG/DL (8.8-10.2); CARBON DIOXIDE LEVEL 27 MEQ/L (21-32); CHLORIDE LEVEL 105 MEQ/L (98-107); CREATININE FOR GFR 0.57 MG/DL (0.55-1.02); GLOMERULAR FILTRATION RATE > 60.0 (>39); GLUCOSE, FASTING 174 MG/DL (83-110); MAGNESIUM LEVEL 1.8 MG/DL (1.8-2.4); POTASSIUM SERUM 3.7 MEQ/L (3.5-5.1); SODIUM LEVEL 139 MEQ/L (136-145)
--- NOTE | 2017-03-14 09:31 | IPNPDOC ---
Assessment/Plan Date Seen The patient was seen on 03/14/17. Plan/VTE VTE Prophylaxis Ordered?: Yes (Eliquis; ambulation; IVC filter present.) Subjective Review oF Systems Chief Complaint The patient is a 71-year-old female admitted with a reason for visit of urosepsis; bilateral peripelvic renal cysts; bilateral LP nephrolithiasis; DM; HTN; AFIB; left DVT with IVC filter; bilateral PE; factor V Leiden mutation; Eliquis. po, ambulation. No SOB, chest pain. c/o frequency/nocturia (small volume), urgency. Comfortable. 106, 20, 150/80, 98.4f (100.0f overnight). Abdo: Benign. Urine and blood cultures (03/11/17) E coli, Levaquin. (03/14/17) Hg 11.3, wbc 10.0, Cr .57. CTU (03/12/17) bilateral peripelvic renal cysts; RMP 1.7cm B1 cyst ; bilateral LP nephrolithiasis. A: Above. P: [id number] days. f/u David after dc home for definitive stone treatment. DVT prophylaxis. Will discuss with Hospitalist for DMSA renography/CT kidneys w/ o and w/ IV consideration to exclude renal abscess if temperature trend not decreasing. Ambulation. Bladder scan PVR. Ditropan XL10mg po qday if PVR low. Objective Vital Signs/I&O Vital Signs Date Time Temp Pulse Resp B/P (MAP) Pulse Ox O2 Delivery O2 Flow Rate FiO2 03/14/17 06:00 98.4 106 20 150/80 (103) 96 Room Air Laboratory Data Labs 24H Laboratory Tests 2 03/13/17 11:38: Bedside Glucose (Misc Panel) 159H 03/13/17 16:51: Bedside Glucose (Misc Panel) 196H 03/13/17 21:00: Bedside Glucose (Misc Panel) 193H 03/14/17 05:56: Nucleated Red Blood Cells % (auto) 0.0, Anion Gap 7L, Glomerular Filtration Rate > 60.0, Blood Urea Nitrogen 6L, Creatinine 0.57, Sodium Level 139, Potassium Level 3.7, Chloride Level 105, Carbon Dioxide Level 27, Calcium Level 9.1, Magnesium Level 1.8 CBC/BMP Laboratory Tests 03/14/17 05:56 Red Blood Count 4.19, Mean Corpuscular Volume 84.7, Mean Corpuscular Hemoglobin 27.0, Mean Corpuscular Hemoglobin Concent 31.8 L, Red Cell Distribution Width 17.0 H, Calcium Level 9.1 FSBS Laboratory Tests Test 03/13/17 11:38 03/13/17 16:51 03/13/17 21:00 Range/Units Bedside Glucose (Misc Panel) 159 196 193 83-110 MG/DL Microbiology Microbiology 03/11/17 Blood Culture - Final, Complete Escherichia Coli 03/11/17 Blood Culture - Final, Complete Escherichia Coli 03/11/17 Respiratory Virus Panel (PCR) (MAXI) - Final, Complete 03/11/17 Influenza Virus Type A Antigen - Final, Complete 03/11/17 Influenza Virus Type B Antigen - Final, Complete 03/11/17 Urine Culture - Final, Complete Escherichia Coli SAÚL ELLSWORTH MD Mar 14, 2017 09:31
[2017-03-14] MEDS: POTASSIUM CHLORIDE 10 MEQ SR TABLET PO SCH (09:55)
[2017-03-14] MEDS: PANTOPRAZOLE 40MG TAB (PROTONIX) PO SCH (09:56)
[2017-03-14] MEDS: LISINOPRIL 5 MG TAB PO SCH (09:56)
[2017-03-14] MEDS: MULTIVITAMINS/MINERALS THERAP 1 TAB PO SCH (09:57)
[2017-03-14] MEDS: IBUPROFEN 600 MG TAB PO PRN ×2 (09:57→22:36)
[2017-03-14] MEDS: APIXABAN 5 MG TAB (ELIQUIS) PO SCH ×2 (09:57→22:36)
[2017-03-14] MEDS: METOPROLOL TART 50 MG TAB PO SCH ×2 (09:57→22:35)
[2017-03-14] MEDS: HumaLOG INSULIN (NovoLOG) PER UNIT SC SCH ×4 (09:58→21:00)
[2017-03-14] MEDS: oxyBUTYnin *DITROPAN XL* 5 MG TABCR PO SCH (10:04)
--- NOTE | 2017-03-14 12:28 | IPN ---
DATE OF VISIT: 03/14/2017 SUBJECTIVE: The patient is seen and examined in the room today. The patient still requires around the clock scheduled Tylenol to control her temperature. Intermittently, the patient was still having a low grade temperature even with the Tylenol coverage. The patient is very anxious to go home. However, I discussed with the patient that we are treating her for significant infections. OBJECTIVE: VITAL SIGNS: Temperature 98.4, pulse 106, respirations 20, blood pressure 150/80, pulse oximetry is 96% on room air. GENERAL: Fatigued. Anxious. Alert and oriented times three. HEENT: Normocephalic, atraumatic. Extraocular muscles grossly intact. CARDIOVASCULAR: Positive S1, S2, regular rate. LUNGS: Clear to auscultation bilaterally. ABDOMEN: Soft, nontender. Nondistended. Bowel sounds present. EXTREMITIES: No edema. No cyanosis. LABORATORY DATA: WBC is 10, hemoglobin 11.3, hematocrit 35.5, and platelet count is 273. Sodium 139, potassium 3.7, chloride 105, carbon dioxide 27, BUN 6, creatinine 0.57, GFR greater than 60, fasting glucose 174, calcium is 9.1, magnesium 1.8. ASSESSMENT AND PLAN: 1. Sepsis from pyelonephritis and bacteremia. Culture and sensitivity came back positive for E. Coli. The patient is on levofloxacin. White count has been improving; however, the patient still has intermittent fevers. The patient is still requiring around the clock Tylenol for symptomatic control. At this moment, patient's blood pressure is in the satisfactory range. 2. Bacteremia from E. Coli. Sensitive to Levaquin. 3. History of bilateral pulmonary embolism and left lower extremity deep venous thrombosis (DVT). On Eliquis. 4. Elevated liver functions. Denies alcohol history. The patient did mention she was started on a new medication and new supplement a few days prior to the hospitalization. We have sent a request to the primary care provider in order to determine the identity of the medication. Hepatitis panel is negative. 5. History of factor V Leiden mutation. The patient is now in hypercoagulable state. 6. History of multiple clot formation. On Eliquis. 7. Abnormal finding on CT of abdomen and pelvis. CT urogram performed on 03/12/2017 ruled out hydronephrosis. The patient did have bilateral intrarenal nonobstructive calculi. There was also bilateral peripelvic cysts. 8. History of pulmonary infarction and pulmonary hemorrhages. Repeat x-ray is negative. The patient continues to have a persistent cough since the events. The patient is started on dextromethophan. The patient has noticed symptomatic control. Continue to monitor. 9. Diabetes. A1c is 8.1. On Levemir. On sliding scale. Consistent carbohydrate diet. 10. History of atrial fibrillation. On metoprolol. 11. Hypertension. On lisinopril and metoprolol. 12. Deep venous thrombosis prophylaxis. Patient on Eliquis. MTDD
[2017-03-14 14:00] VITALS: BP 123/66
[2017-03-14] MEDS ORDERED: oxyBUTYnin 5 MG TAB PO ONE (20:00)
[2017-03-14] MEDS: LEVEMIR (INSULIN DETEMIR) 1 UNITS/0.01ML SC SCH (21:00)
[2017-03-14 22:00] VITALS: BP 150/76
[2017-03-14] MEDS: ATORVASTATIN 20 MG TAB PO SCH (22:36)
[2017-03-14] MEDS: DEXTROMETHORPHAN 60MG/10ML SUSP 90ML BTL(DELSYM) PO PRN (22:37)
[2017-03-15] MEDS: LevoFLOXacin 750 MG TABLET PO SCH (05:24)
[2017-03-15 06:00] VITALS: BP 116/60
[2017-03-15 06:26] LABS: MEAN CORPUSCULAR HEMOGLOBIN 27.2 pg (27.0-33.0); MEAN CORPUSCULAR HGB CONC 32.2 g/dl (32.0-36.5); MEAN CORPUSCULAR VOLUME 84.5 fl (80.0-96.0); RED CELL DISTRIBUTION WIDTH 17.2 % (11.5-14.5); WHITE BLOOD COUNT 7.8 10^3/uL (4.0-10.0)
[2017-03-15 06:35] LABS: ANION GAP 8 MEQ/L (8-16); BLOOD UREA NITROGEN 10 MG/DL (7-18); CALCIUM LEVEL 9.1 MG/DL (8.8-10.2); CARBON DIOXIDE LEVEL 27 MEQ/L (21-32); CHLORIDE LEVEL 106 MEQ/L (98-107); CREATININE FOR GFR 0.61 MG/DL (0.55-1.02); GLOMERULAR FILTRATION RATE > 60.0 (>39); GLUCOSE, FASTING 123 MG/DL (83-110); POTASSIUM SERUM 3.8 MEQ/L (3.5-5.1); SODIUM LEVEL 141 MEQ/L (136-145)
[2017-03-15] MEDS: MULTIVITAMINS/MINERALS THERAP 1 TAB PO SCH (08:53)
[2017-03-15] MEDS: HumaLOG INSULIN (NovoLOG) PER UNIT SC SCH ×2 (08:53→12:20)
[2017-03-15] MEDS: LISINOPRIL 5 MG TAB PO SCH (08:53)
[2017-03-15] MEDS: POTASSIUM CHLORIDE 10 MEQ SR TABLET PO SCH (08:53)
[2017-03-15 08:54] VITALS: BP 128/65
[2017-03-15] MEDS: METOPROLOL TART 50 MG TAB PO SCH (08:54)
[2017-03-15] MEDS: APIXABAN 5 MG TAB (ELIQUIS) PO SCH (08:54)
[2017-03-15] MEDS: PANTOPRAZOLE 40MG TAB (PROTONIX) PO SCH (08:54)
[2017-03-15] MEDS: oxyBUTYnin *DITROPAN XL* 5 MG TABCR PO SCH (08:55)
--- NOTE | 2017-03-15 11:31 | IPNPDOC ---
Assessment/Plan Date Seen The patient was seen on 03/15/17. Plan/VTE VTE Prophylaxis Ordered?: Yes (Eliquis; ambulation; IVC filter present.) Subjective Review oF Systems Chief Complaint The patient is a 71-year-old female admitted with a reason for visit of urosepsis; bilateral peripelvic renal cysts; bilateral LP nephrolithiasis; DM; HTN; AFIB; left DVT with IVC filter; bilateral PE; factor V Leiden mutation; Eliquis. po, ambulation. No SOB, chest pain. c/o frequency/nocturia (small volume), urgency improved with Ditropan XL 10mg. Bladder scan PVR (03/14/17) 89cc. Comfortable. 75, 20, 116/60, 97.3 ([id number]). Abdo: Benign. Urine and blood cultures (03/11/17) E coli, Levaquin. (03/15/17) Hg 11.2, wbc 7.8, Cr .61. CTU (03/12/17) bilateral peripelvic renal cysts; RMP 1.7cm B1 cyst ; bilateral LP nephrolithiasis. A: Above. P: [id number] days. f/u David after dc home for definitive stone treatment. Ditropan XL 10mg po qday. Objective Vital Signs/I&O Vital Signs Date Time Temp Pulse Resp B/P (MAP) Pulse Ox O2 Delivery O2 Flow Rate FiO2 03/15/17 09:43 Room Air 03/15/17 08:54 99 128/65 03/15/17 06:00 97.3 20 94 I&O- Last 24 Hours up to 6 AM 03/16/17 06:00 Intake Total 240 ml Output Total 850 ml Balance -610 ml Laboratory Data Labs 24H Laboratory Tests 2 03/14/17 12:12: Bedside Glucose (Misc Panel) 163H 03/14/17 17:11: Bedside Glucose (Misc Panel) 179H 03/14/17 21:13: Bedside Glucose (Misc Panel) 157H 03/15/17 06:01: Nucleated Red Blood Cells % (auto) 0.0, Anion Gap 8, Glomerular Filtration Rate > 60.0, Blood Urea Nitrogen 10#, Creatinine 0.61, Sodium Level 141, Potassium Level 3.8, Chloride Level 106, Carbon Dioxide Level 27, Calcium Level 9.1, Magnesium Level 2.0, Acetaminophen Level < 2.0L CBC/BMP Laboratory Tests 03/15/17 06:01 Red Blood Count 4.12, Mean Corpuscular Volume 84.5, Mean Corpuscular Hemoglobin 27.2, Mean Corpuscular Hemoglobin Concent 32.2, Red Cell Distribution Width 17.2 H, Calcium Level 9.1 FSBS Laboratory Tests Test 03/14/17 12:12 03/14/17 17:11 03/14/17 21:13 Range/Units Bedside Glucose (Misc Panel) 163 179 157 83-110 MG/DL Microbiology Microbiology 03/11/17 Blood Culture - Final, Complete Escherichia Coli 03/11/17 Blood Culture - Final, Complete Escherichia Coli 03/11/17 Respiratory Virus Panel (PCR) (MAXI) - Final, Complete 03/11/17 Influenza Virus Type A Antigen - Final, Complete 03/11/17 Influenza Virus Type B Antigen - Final, Complete 03/11/17 Urine Culture - Final, Complete Escherichia Coli SAÚL ELLSWORTH MD Mar 15, 2017 11:31
[2017-03-15] MEDS ORDERED: LEVA750T7 PO (12:11)
[2017-03-15] MEDS ORDERED: PANT40TA2 PO (12:11)
[2017-03-15] MEDS ORDERED: POTA10CA PO (12:11)
[2017-03-15] MEDS ORDERED: DITR5TAB PO (12:11)
[2017-03-15] MEDS ORDERED: IBUP1TAB6 PO (12:11)
--- NOTE | 2017-03-15 14:56 | DSES ---
DATE OF ADMISSION: 03/11/2017 DATE OF DISCHARGE: 03/15/2017 PRIMARY CARE PROVIDER: [facility] CONSULTANTS: Urologist. PROCEDURES: None. COMPLICATIONS: None. DISCHARGE DIAGNOSES: 1. Sepsis from pyelonephritis and bacteremia 2. Bacteremia from E. Coli. 3. 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 4. Factor V Leiden mutation. 5. History of atrial fibrillation. 6. Diabetes. 7. Hypertension. 8. Chronic hypokalemia. HOSPITAL COURSE: The patient is a 71-year-old female who presented to [facility] on 03/11/2017 with generalized discomfort and persistent fever and chills and found to have urinary tract infection. The patient was admitted under the hospitalist service and all cultures and labs were obtained. The patient was found to be in urosepsis and there was abnormal finding from the CT of abdomen and pelvis. Initially, bilateral hydronephrosis versus peripelvic cyst formation was suspected from the imaging study. The urologist had been consulted. Later repeating imaging study showed there was no hydronephrosis, but patient did have bilateral intrarenal calculi. Blood cultures came back positive for E. Coli. Urine culture was positive for E. Coli. Sensitivities were reviewed. After discussion with infectious disease specialist, patient's antibiotic was switched to Levaquin. With antibiotic treatment, the patient showed continuous improvement of her symptoms. In the first few days of hospitalization, the patient continued to have persistent fever and chills and required significant amount of Tylenol or ibuprofen to control her symptoms. Later, the patient's fever finally resolved. On 03/15/2017, after reevaluation by the urologist, the patient was determined stable for discharge. The patient was recommended to finish an additional two weeks of antibiotics and patient was recommended followup with the urology clinic in one to two weeks. The patient was recommended to follow up with primary care provider in one to two weeks. VITAL SIGNS ON DISCHARGE: Temperature 97.3. Pulse 75. Respirations 20. Blood pressure 116/60. Pulse oximetry 94% in room air. LABORATORY DATA: WBC 7.8, hemoglobin 11.2, hematocrit 34.8 and platelet count 303. Sodium 141, potassium 3.8, chloride 106, carbon dioxide 27, BUN 10, creatinine 0.61, GFR greater than 60, fasting glucose 123, calcium 9.1, magnesium 2. Hepatitis panel is negative. MICROBIOLOGY: Blood cultures from 03/11/2017 positive for E. Coli. Urine culture from 03/11/2017 positive for E. Coli. Respiratory panel on 03/11/2017 was negative. IMAGING STUDY: Chest x-ray showed fibroatelectatic change at the left base, improved from the last chest x-ray on 11/27/2016. Otherwise no acute disease. CT of the head without contrast showed small vessel ischemic disease. Minimal volume loss. Gallbladder ultrasound showed contracted gallbladder. Multiple calculi within the contracted gallbladder. Negative Camp sign to transducer pressure. No biliary duct dilatation. No pericholecystic fluid. Mild right hydronephrosis. Peripelvic lower pole renal mass versus cyst. Recommend CT. CT of abdomen and pelvis without contrast showed bilateral intrarenal nephrolithiasis. Mild bilateral hydronephrosis versus peripelvic cyst formation. No ureteral calculus seen on either side. There is a 4 mm calculus in the intrarenal collecting system lower pole right kidney and two 3 mm calculi seen in the lower pole of the left kidney. Positive for cholelithiasis. Left colonic diverticulosis. CT of abdomen and pelvis with contrast showed bilateral peripelvic cyst. No significant hydronephrosis. Bilateral intrarenal nonobstructing calculi. Multiple foci of decreased renal function in the parenchyma of the right kidney lower pole and upper pole consistent with pyelonephritis. No abscess seen. DISCHARGE MEDICATIONS: - ibuprofen 600 mg by mouth every 6 hours as needed - Levaquin 750 mg by mouth daily for 14 days - oxybutynin 10 mg by mouth daily - pantoprazole 40 mg by mouth daily - potassium chloride 20 mEq by mouth daily - Eliquis 5 mg by mouth twice a day - atorvastatin 20 mg by mouth at bedtime - insulin before meals and at bedtime - lisinopril 5 mg by mouth daily - metoprolol tartrate 50 mg by mouth twice a day - multivitamin one tablet by mouth daily - Tradjenta SoloStar 14 units subcutaneous at bedtime DISCHARGE INSTRUCTIONS: Discharge line. Discharge home. Activity as tolerated. Consistent carbohydrate diet as tolerated. The patient should finish a two week course of Levaquin. The patient should follow with Dr. Hernandez at the scheduled time. The patient also should followup with her primary care provider in one to two weeks. DISCHARGE CONDITION: Stable. DISCHARGE TIME: Greater than 30 minutes. MTDD
== END 2017-03-15 13:27 | disposition home or self-care (01) | DRG 872 ==
LOC: M ED 07:15 → M ED INP 12:18 → M MSPAV 16:32
PROVIDERS: ADMIT Internal Medicine; ATTEND Internal Medicine
DX: A41.9 Sepsis, unspecified organism (principal); N39.0 Urinary tract infection, site not specified; D68.51 Activated protein C resistance; R78.81 Bacteremia; N28.1 Cyst of kidney, acquired; I10 Essential (primary) hypertension; E11.9 Type 2 diabetes mellitus without complications; N20.0 Calculus of kidney; B96.29 Other Escherichia coli [E. coli] as the cause of diseases classified elsewhere; E87.6 Hypokalemia; I48.91 Unspecified atrial fibrillation; Z86.718 Personal history of other venous thrombosis and embolism; Z86.711 Personal history of pulmonary embolism; Z79.01 Long term (current) use of anticoagulants; Z79.899 Other long term (current) drug therapy; Z79.4 Long term (current) use of insulin; Z88.0 Allergy status to penicillin

== ENCOUNTER → 2017-04-29 | Outpatient (CLI) | payer MEDICARE ==
[~2017-04-29] MED LIST changes: +ACET1TAB17 PO; +DITR5TAB PO; +IBUP1TAB6 PO; +LEVA750T7 PO; +LISI-542 PO; +PANT40TA2 PO; +POTA10CA PO
--- NOTE | 2017-04-29 14:45 | REPMRS ---
Patient History The patient states she has not had a clinical breast exam in over a year. Baseline Mammogram Patient is postmenopausal. Family history of pancreatic cancer in mother under age 50. Digital Woman Screen Mammo: April 29, 2017 - Exam #: [id number] Bilateral MLO, CC, and XCCL view(s) were taken. Technologist: Merari Cormier, Technologist No prior studies available for comparison. FINDINGS: There are scattered fibroglandular densities. There are scattered coarse microcalcifications bilaterally. There is no evidence of dominant mass, architectural distortion, or clustered microcalcification typical of malignancy. ASSESSMENT: BI-RADS/ACR category 2 mammogram. Benign finding(s). Recommendation Routine screening mammogram of both breasts in 1 year (for women over age 40). This mammogram was interpreted with the aid of an FDA-approved computer-aided dectection system. Electronically Signed By: Memo Aiken MD 04/29/17 [id number]
== END ==
LOC: M WHC 13:40
PROVIDERS: ATTEND Student in an Organized Health Care Education/Training Program
DX: Z12.31 Encounter for screening mammogram for malignant neoplasm of breast (principal)

== ENCOUNTER → 2017-10-05 | Outpatient (REF) | payer MEDICARE, MEDICAID ==
[2017-10-05 19:25] LABS: ESTIMATED AVERAGE GLUCOSE 206 MG/DL (60-110); HEMOGLOBIN A1c 8.8 %
== END ==
LOC: M SFHCPLAZ 15:40
DX: E11.8 Type 2 diabetes mellitus with unspecified complications (principal)
CPT/HCPCS: 83036

== ENCOUNTER → 2018-01-04 | Outpatient (REF) | payer MEDICAID, OTHER ==
[2018-01-04 18:05] LABS: ESTIMATED AVERAGE GLUCOSE 226 MG/DL (60-110); HEMOGLOBIN A1c 9.5 %
== END ==
LOC: M SFHCPLAZ 15:27
DX: E11.8 Type 2 diabetes mellitus with unspecified complications (principal)
CPT/HCPCS: 83036

== ENCOUNTER → 2018-04-19 | Outpatient (REF) | payer OTHER ==
[~2018-04-19] MED LIST changes: -ACET1TAB17 PO; +ACET1TAB55 PO; +ACET500T15 PO; -ACET50TAOT PO; +BENZ-18 PO; -BENZ100C5 PO; +KLOR10TA76 PO; -PANT40TA2 PO; +PANT40TA3 PO; -POTA10CA PO
[2018-04-19 16:16] LABS: HEMOGLOBIN A1c 8.8 %
[2018-04-19 16:18] LABS: BLOOD UREA NITROGEN 21 MG/DL (7-18); CALCIUM LEVEL 9.4 MG/DL (8.8-10.2); CARBON DIOXIDE LEVEL 28 MEQ/L (21-32); CHLORIDE LEVEL 106 MEQ/L (98-107); CREATININE FOR GFR 0.89 MG/DL (0.55-1.30); GLOMERULAR FILTRATION RATE > 60.0 (>39); GLUCOSE, FASTING 237 MG/DL (70-100); POTASSIUM SERUM 4.3 MEQ/L (3.5-5.1); SODIUM LEVEL 139 MEQ/L (136-145)
== END ==
LOC: M SFHCPLAZ 14:25
PROVIDERS: ATTEND Family Medicine
DX: E11.8 Type 2 diabetes mellitus with unspecified complications (principal)
CPT/HCPCS: 36415; 80048; 83036; G0463

== ENCOUNTER → 2018-07-05 | Outpatient (REF) | payer MEDICARE, MEDICAID ==
[2018-07-05 19:32] LABS: HEMOGLOBIN A1c 8.2 %
== END ==
LOC: M SFHCPLAZ 14:50
PROVIDERS: ATTEND Family Medicine
DX: E11.29 Type 2 diabetes mellitus with other diabetic kidney complication (principal)
CPT/HCPCS: 36415; 83036; G0463

== ENCOUNTER → 2018-09-21 | Outpatient (REF) | payer MEDICARE, MEDICAID ==
[~2018-09-21] MED LIST changes: -PRAD150C PO; +PRAD150C6 PO; -SENN1TAB2 PO; +SENN1TAB40 PO
[2018-09-21 20:38] LABS: HEMOGLOBIN A1c 7.7 %
== END ==
LOC: M SFHCPLAZ 15:37
PROVIDERS: ATTEND Student in an Organized Health Care Education/Training Program
DX: E11.8 Type 2 diabetes mellitus with unspecified complications (principal)

== ENCOUNTER 2018-10-28 13:06 | Day surgery (SDC) | payer MEDICARE, MEDICAID ==
[~2018-10-28] VITALS: Ht 160 cm; Wt 87.1 kg
[~2018-10-28 13:06] MED LIST changes: +ACETAMINOPHEN 325 MG TAB PO PRN; +BSS with VANC/TOB/EPI for EYE CASES IR ONE; +CINN500C15 PO; +CYCLOPENTOLATE 2% OPHTH SOLN 2ML BTL OD ONE; +GLIP10TA PO; +HEALON DUET PRO(HEALON 10MG/ML 0.55ML & HEALON ENDOCOAT 30MG/ML 0.85ML) As Ordered ONE; +LIDOCAINE 1% SDV 5 ML VIAL As Ordered ONE; +LIDOCAINE 3.5 % 1ML OPHTH TOPICAL GEL OU ONE; +MIDAZOLAM INJ 2 MG/2 ML VIAL (J2250) As Ordered ONE; +MOXIFLOXACIN IN BSS 0.25MG/0.25ML INTRACAMERAL INJ (OR EYE ONLY)(J2280) As Ordered ONE; +OFLOXACIN 0.3 % (OCUFLOX) OPTH SOL 5ML OD ONE; +OMEG1CAP16 PO; +PHENYLEPHRINE 2.5% OPHTH SOL 2ML OD ONE; +PHENYLEPHRINE HCL 10 % OPHTH. SOL 5ML OD PRN; +POVIDONE-IODINE 5% OPHTH PREP SOL 30ML As Ordered ONE; +TRIAMCINOLONE PRES FR 40 MG/ML 1ML(TRIESENCE)(OR EYE ONLY)(J3300 PER 1MG) As Ordered ONE; +TROPICAMIDE 1% OPHTH SOLN 2ML OD ONE; +fentaNYL 100 MCG/2 ML INJECTION (J3010) As Ordered ONE
[2018-10-28] MEDS ORDERED: BSS with VANC/TOB/EPI for EYE CASES IR ONE (14:00)
[2018-10-28] MEDS ORDERED: MIDAZOLAM INJ 2 MG/2 ML VIAL (J2250) As Ordered ONE (14:07)
[2018-10-28] MEDS ORDERED: fentaNYL 100 MCG/2 ML INJECTION (J3010) As Ordered ONE (15:54)
[2018-10-28] MEDS ORDERED: TRIMETHOBENZAMIDE 300 MG CAP PO PRN (16:30)
[2018-10-28] MEDS ORDERED: AcetaZOLAMIDE 500 MG ER CAP PO ONE (16:30)
[2018-10-28 16:50] VITALS: BP 130/79
== END 2018-10-28 17:03 | disposition home or self-care (01) ==
LOC: M SDC 13:06
PROVIDERS: ATTEND Ophthalmology
DX: H25.9 Unspecified age-related cataract (principal); I48.91 Unspecified atrial fibrillation; E78.5 Hyperlipidemia, unspecified; D64.9 Anemia, unspecified; D68.51 Activated protein C resistance; K21.9 Gastro-esophageal reflux disease without esophagitis; E11.9 Type 2 diabetes mellitus without complications; Z79.01 Long term (current) use of anticoagulants; Z79.899 Other long term (current) drug therapy; Z88.0 Allergy status to penicillin
CPT/HCPCS: 66984; 67515; 92015; J2250; J2280; J3010; J3300; V2632

== ENCOUNTER 2018-12-01 12:30 | Emergency (ER) | payer MEDICARE, MEDICAID ==
[~2018-12-01] VITALS: Ht 160 cm; Wt 81.8 kg
[~2018-12-01 12:30] MED LIST changes: -ACETAMINOPHEN 325 MG TAB PO PRN; -BSS with VANC/TOB/EPI for EYE CASES IR ONE; -CYCLOPENTOLATE 2% OPHTH SOLN 2ML BTL OD ONE; -HEALON DUET PRO(HEALON 10MG/ML 0.55ML & HEALON ENDOCOAT 30MG/ML 0.85ML) As Ordered ONE; -LIDOCAINE 1% SDV 5 ML VIAL As Ordered ONE; -LIDOCAINE 3.5 % 1ML OPHTH TOPICAL GEL OU ONE; -MIDAZOLAM INJ 2 MG/2 ML VIAL (J2250) As Ordered ONE; -MOXIFLOXACIN IN BSS 0.25MG/0.25ML INTRACAMERAL INJ (OR EYE ONLY)(J2280) As Ordered ONE; -OFLOXACIN 0.3 % (OCUFLOX) OPTH SOL 5ML OD ONE; -PHENYLEPHRINE 2.5% OPHTH SOL 2ML OD ONE; -PHENYLEPHRINE HCL 10 % OPHTH. SOL 5ML OD PRN; -POVIDONE-IODINE 5% OPHTH PREP SOL 30ML As Ordered ONE; -TRIAMCINOLONE PRES FR 40 MG/ML 1ML(TRIESENCE)(OR EYE ONLY)(J3300 PER 1MG) As Ordered ONE; -TROPICAMIDE 1% OPHTH SOLN 2ML OD ONE; -fentaNYL 100 MCG/2 ML INJECTION (J3010) As Ordered ONE
[2018-12-01] MEDS ORDERED: SENN-52 (12:55)
[2018-12-01] MEDS ORDERED: JARD1TAB (12:55)
[2018-12-01] MEDS ORDERED: LISI10TA4 (12:55)
[2018-12-01 13:41] LABS: VENOUS BASE EXCESS -0.6 (-2.0-2.0); VENOUS HCO3 25.6 MEQ/L (23.0-27.0); VENOUS O2 SATURATION 65.8 % (60.0-80.0); VENOUS PARTIAL PRESSURE CO2 47.7 mmHg (38.0-50.0); VENOUS PARTIAL PRESSURE O2 37.7 mmHg (30.0-50.0); VENOUS PH 7.347 UNITS (7.330-7.430); VENOUS STANDARD HCO3 23.2 MEQ/L
[2018-12-01 14:02] LABS: BASO % 0.4 % (0.0-1.0); EOS # 0.1 10^3/uL (0.0-0.50); EOS % 0.6 % (0.0-3.0); HEMATOCRIT 45.4 % (36.0-47.0); HEMOGLOBIN 14.1 g/dl (12.0-15.5); LYMPH # 0.9 10^3/uL (1.5-4.5); LYMPH % 11.2 % (24.0-44.0); MEAN CORPUSCULAR HEMOGLOBIN 27.3 pg (27.0-33.0); MEAN CORPUSCULAR HGB CONC 31.1 g/dl (32.0-36.5); MONO # 0.7 10^3/uL (0.0-0.8); MONO % 8.1 % (0.0-5.0); NEUTROPHILS # 6.4 10^3/uL (1.8-7.7); NEUTROPHILS % 79.2 % (36.0-66.0); PLATELET COUNT, AUTOMATED 277 10^3/uL (150-450); RED BLOOD COUNT 5.16 10^6/uL (4.00-5.40); WHITE BLOOD COUNT 8.1 10^3/uL (4.0-10.0)
[2018-12-01 14:15] LABS: BLOOD UREA NITROGEN 16 MG/DL (7-18); CARBON DIOXIDE LEVEL 26 MEQ/L (21-32); CHLORIDE LEVEL 107 MEQ/L (98-107); CREATININE FOR GFR 0.91 MG/DL (0.55-1.30); GLOMERULAR FILTRATION RATE > 60.0 (>39); GLUCOSE, FASTING 384 MG/DL (70-100); POTASSIUM SERUM 4.1 MEQ/L (3.5-5.1); SODIUM LEVEL 143 MEQ/L (136-145)
[2018-12-01 14:41] LABS: HEMOGLOBIN A1c 10.1 %
[2018-12-01 19:54] LABS: ACETONE/KETONE 1.69 MG/DL (<2.81); PHOSPHORUS LEVEL 4.1 MG/DL (2.5-4.9)
[2018-12-01 20:09] LABS: OSMOLALITY SERUM 317 MOSM/KG (280-301)
[2018-12-01] MEDS ORDERED: MACR100C43 PO (20:31)
[2018-12-01 20:46] VITALS: BP 162/71
== END 2018-12-01 20:53 | disposition home or self-care (01) ==
LOC: M ED 12:30
DX: E11.65 Type 2 diabetes mellitus with hyperglycemia (principal); N39.0 Urinary tract infection, site not specified; I10 Essential (primary) hypertension; E78.5 Hyperlipidemia, unspecified; K21.9 Gastro-esophageal reflux disease without esophagitis; R51 Headache; Z86.718 Personal history of other venous thrombosis and embolism; Z88.0 Allergy status to penicillin; Z79.899 Other long term (current) drug therapy; Z79.01 Long term (current) use of anticoagulants; Z79.84 Long term (current) use of oral hypoglycemic drugs

== ENCOUNTER → 2018-12-15 | Outpatient (REF) | payer MEDICARE, MEDICAID ==
[~2018-12-15] MED LIST changes: +JARD1TAB; +LISI10TA4; +MACR100C43 PO; +SENN-52
[2018-12-15 15:01] LABS: HEMOGLOBIN A1c 9.8 %
== END ==
LOC: M LABDRWAD 13:22
PROVIDERS: ATTEND Student in an Organized Health Care Education/Training Program
DX: E11.8 Type 2 diabetes mellitus with unspecified complications (principal)

== ENCOUNTER → 2018-12-29 | Outpatient (REF) | payer MEDICARE, MEDICAID ==
[2018-12-29 20:21] LABS: HEMOGLOBIN A1c 9.9 %
== END ==
LOC: M LABDRWAD 19:09
PROVIDERS: ATTEND Student in an Organized Health Care Education/Training Program
DX: E11.29 Type 2 diabetes mellitus with other diabetic kidney complication (principal)